=== PATIENT | female | born 1950 | race Caucasian/White ===

== ENCOUNTER → 2018-03-20 12:30 | Outpatient (CLI) | payer MEDICARE, SELFPAY ==
--- NOTE | 2018-03-20 12:35 | BI_ITS ---
MAMMOGRAPHY - BILATERAL SCREENING REASON FOR EXAM: Female, 67 years old. Routine annual screening examination. PERTINENT HISTORY: Sister with breast cancer. Mother with breast cancer. Prior ultrasound-guided right breast biopsy. TECHNIQUE: Digital bilateral breast fransico (3D mammographic acquisition) in the CC and MLO projections. 2-D mediolateral oblique (MLO) and craniocaudad (CC) views of both breasts were obtained. CAD: Full Field Digital Mammography with Computer Added Detection was performed. COMPARISON: Comparison is made with prior study dated February 20, 2017 and February 04, 2016. FINDINGS: Breast Composition: There are scattered areas of fibroglandular density. There are no dominant masses or suspicious calcifications. A tissue clip marker is seen in the inferior retroareolar region of the right breast. Stable small bilateral axillary lymph nodes. No other significant abnormalities are identified. There has been no significant change since the prior study. BI/SCREENING MAMM (CAD), BILAT IMPRESSION: Stable bilateral screening mammogram. Yearly follow-up mammogram recommended. (A) ASSESSMENT CATEGORY: BIRADS Category 2: Benign. A letter regarding these results will be sent to the patient by the facility within 30 days. Approximately 10% of breast cancers are not detected by mammography. A normal mammogram should not delay biopsy of a clinically suspicious abnormality. [id number] Electronically Signed: Marcial Mittal MD at 13:52 EST Tel [phone], Service support ,
== END ==
PROVIDERS: Family Provider Student in an Organized Health Care Education/Training Program; PCP Student in an Organized Health Care Education/Training Program; Referring Provider Nurse Practitioner Adult Health; Visit Provider Nurse Practitioner Adult Health
DX: Z12.31 Encounter for screening mammogram for malignant neoplasm of breast (principal)
CPT/HCPCS: 77063; 77067

== ENCOUNTER → 2019-03-05 10:27 | Outpatient (CLI) | payer MEDICARE, SELFPAY ==
--- NOTE | 2019-03-05 11:44 | CT_ITS ---
STUDY: CT BRAIN WITHOUT CONTRAST REASON FOR EXAM: Female, 68 years old. MEMORY LOSS, RECENT FALLS RADIATION DOSAGE (If Supplied By Facility): CTDIvol = ( 44.99 ) mGy, DLP = ( 745.49 ) mGycm TECHNIQUE: Transaxial CT imaging of the brain was performed without administration of intravenous contrast material. Individualized dose optimization techniques were used for this CT. COMPARISON: No relevant priors. FINDINGS: Normal soft tissue structures. Normal calvarium. Normal size ventricles and extra-axial spaces for the patient''s age. Normal white matter tracts of the cerebral hemispheres. Normal basal ganglia and thalami. Normal brainstem. Normal cerebellum. There is no intracranial hemorrhage. There are no findings of an acute ischemic infarction. Normal visualized paranasal sinuses. CT/Brain/Head without Contrast IMPRESSION: Chronic involutional changes of the brain. No acute hemorrhage Electronically Signed: Rolo Chowdary MD at 13:12 EST , Service support ,
[2019-03-05 12:10] LABS: CREATININE FINGERSTICK 1.2 mg/dL (0.55-1.02)
== END ==
PROVIDERS: Family Provider Student in an Organized Health Care Education/Training Program; PCP Student in an Organized Health Care Education/Training Program; Referring Provider Nurse Practitioner Family; Visit Provider Nurse Practitioner Family
DX: S09.90XA Unspecified injury of head, initial encounter (principal); R29.818 Other symptoms and signs involving the nervous system; R29.6 Repeated falls; R41.89 Other symptoms and signs involving cognitive functions and awareness
CPT/HCPCS: 70450

== ENCOUNTER → 2019-07-12 12:16 | Outpatient (CLI) | payer MEDICARE, SELFPAY ==
--- NOTE | 2019-07-12 13:00 | MRI_ITS ---
STUDY: MRI LUMBAR SPINE WITHOUT CONTRAST REASON FOR EXAM: Female, 69 years old. Back pain RADIATES INTO R THIGH X 4 MONTHS TECHNIQUE: Standardized fat and water weighted pulse sequences were obtained in the sagittal and axial planes. COMPARISON: None FINDINGS: Lumbar lordosis preserved. No significant scoliosis. Conus medullaris terminates normally at the L1 level. No acute fracture. No dislocation. No cortical destruction. L4 hemangioma. Epidural fat and short pedicles contribute to central canal narrowing. Mild paraspinal muscle atrophy. Sacrum intact. Normal aorta. Normal retroperitoneum. T12-L1: Normal endplates. Disc desiccation. Normal bilateral facet joints. Normal central canal and bilateral lateral recesses. Normal bilateral intervertebral neural foramina. L1-2: Normal endplates. Disc desiccation. Normal bilateral facet joints. Normal central canal and bilateral lateral recesses. Normal bilateral intervertebral neural foramina. L2-3: Normal endplates. Disc bulge with moderate/severe central canal narrowing. Normal bilateral facet joints. Bilateral lateral recess narrowing with impingement. Neural foraminal narrowing without impingement. L3-4: Minimal endplate spondylosis. Disc bulge with severe central canal narrowing. Facet joint arthrosis. And bilateral lateral recess narrowing with impingement. Neural foraminal narrowing without impingement. L4-5: Mild endplate spondylosis. Disc bulge with moderate central canal narrowing. Facet joint arthrosis. Lateral recess narrowing without impingement. Neural foraminal narrowing without impingement. L5-S1: Minimal endplate spondylosis. Disc bulge with mild central canal narrowing. Facet joint arthrosis. Normal bilateral lateral recesses. Neural foraminal narrowing without impingement. MRI/Spine Lumbar (Routine) IMPRESSION: Multilevel intervertebral disc disease with central canal narrowing most severe at L2-3 through L4-5 Multilevel lateral recess narrowing with improvement of the bilateral descending L3 and L4 nerve roots Multilevel neural foraminal narrowing without impingement Multilevel mild/moderate osteoarthritis Epidural fat and short pedicles contribute to central canal narrowing Electronically Signed: Brett Alvarado DO at 13:36 EDT Tel , Service support ,
== END ==
PROVIDERS: PCP Student in an Organized Health Care Education/Training Program; Referring Provider Physician Assistant; Visit Provider Physician Assistant
DX: M54.5 Low back pain (principal); M54.16 Radiculopathy, lumbar region
CPT/HCPCS: 72148

== ENCOUNTER → 2019-09-05 11:27 | Outpatient (CLI) | payer MEDICARE, SELFPAY ==
--- NOTE | 2019-09-05 11:30 | BI_ITS ---
MAMMOGRAPHY - BILATERAL SCREENING REASON FOR EXAM: Female, 69 years old. Routine annual screening examination. PERTINENT HISTORY: Sister with breast cancer. Mother with breast cancer. Prior right ultrasound-guided breast biopsy. TECHNIQUE: Digital bilateral breast ynoathan (3D mammographic acquisition) in the CC and MLO projections. 2-D mediolateral oblique (MLO) and craniocaudad (CC) views of both breasts were obtained. CAD: Full Field Digital Mammography with Computer Added Detection was performed. COMPARISON: Comparison is made with prior study dated March 20, 2018 and February 20, 2017. FINDINGS: Breast Composition: There are scattered areas of fibroglandular density. There are no dominant masses or suspicious calcifications. Stable benign-appearing bilateral axillary lymph nodes. A tissue clip marker is seen in the retroareolar region of the right breast. No other significant abnormalities are identified. There has been no significant change since the prior study. BI/SCREEN MAMM (CAD) W/YONATHAN BILAT IMPRESSION: Stable bilateral screening mammogram. Yearly follow-up mammogram recommended. (A) ASSESSMENT CATEGORY: BIRADS Category 2: Benign. A letter regarding these results will be sent to the patient by the facility within 30 days. Approximately 10% of breast cancers are not detected by mammography. A normal mammogram should not delay biopsy of a clinically suspicious abnormality. [id number] Electronically Signed: Marcial Mittal, at 12:56 EDT , Service support ,
== END ==
PROVIDERS: PCP Student in an Organized Health Care Education/Training Program; Referring Provider Student in an Organized Health Care Education/Training Program; Visit Provider Student in an Organized Health Care Education/Training Program
DX: Z12.31 Encounter for screening mammogram for malignant neoplasm of breast (principal)
CPT/HCPCS: 77063; 77067

== ENCOUNTER 2019-10-18 16:55 | Emergency (ER) | payer MEDICARE, SELFPAY ==
[2019-10-18 16:56] VITALS: BP 118/54; PULSE 80; RESP 17; TEMP 36.2; O2SAT 95; BMI 39.5
--- NOTE | 2019-10-18 17:29 | ED.VIS.GEN ---
History of Present Illness Chief Complaint: Lower Extremity Injury Informant: Patient Narrative: Patient presents the emergency department with 3 weeks of left leg swelling. Patient states she normally has some edema in the legs but they are usually symmetric with the right. For 3 weeks now she has had pain and swelling in the left leg. Today she went to the [facility] to get an injection for her plantar fasciitis and mention the swelling to them and was sent to the emergency department for duplex ultrasound as it was after hours. Patient notes the skin on the distal leg is red and warm. Patient states over the past 3 weeks her mobility has been compromised and she is now using a walker to get around. She believes this to be multifactorial from chronic back issues to her plantar fasciitis to the leg swelling. Past Medical History - Allergies and Home Meds Allergies/Adverse Reactions: Allergies cephalexin [From Keflex] Allergy (Verified 10/18/19 19:47) Rash Primary Care Physician: Erik Gomez DO [Primary Care Provider] - 3-5 Days Smoking Status: Never smoker Review of Systems General: Denies: Chills, Fever, Sweats Eyes: Denies: Visual changes - bilaterally, Diplopia ENT: Denies: Rhinorrhea, Sore throat Cardiovascular: Denies: Chest pain, Palpitations Respiratory: Denies: Dyspnea, Cough, Dyspnea on exertion Gastrointestinal: Denies: Abdominal pain, Nausea, Vomiting, Diarrhea, Melena, Hematochezia Genitourinary: Denies: Dysuria, Hematuria, Frequency Musculoskeletal: Reports: Swelling, Extremity Pain. Denies: Back pain Skin: Denies: Rash, Wounds Neurological: Denies: Headache, Weakness, Numbness Physical Exam Vital Signs/Narrative: Vital Signs Temp Pulse Resp BP Pulse Ox 10/18/19 16:56 97.1 F L 80 17 118/54 L 95 Inital Vital Signs reviewed: Yes General: Well nourished, Well developed, Obese, No Acute Distress Head: Normocephalic, Atraumatic Eyes: Perrl, EOMI ENT: Moist mucous membranes, No rhinorrhea Neck: Supple, Nontender Cardiovascular: Regular rate, Regular rhythm, No murmurs Respiratory: No distress, CTA bilaterally, Chest nontender Abdomen: Soft, Nontender, Nondistended, Normal bowel sounds Back: Nontender, Normal Inspection Extremities: Tenderness - Left leg is more edematous than the right. Diffuse tenderness to palpation. There is some mild erythema distal anterior leg that does not resolve with elevation. No palpable cords. Skin: Normal color, No rash Neurological: Alert, Oriented x3, Cranial nerves II-XII grossly intact, Normal Strength, Normal Sensation Psychological: Normal affect, Normal Mood Diagnostic/Tx/Re-eval Laboratory Last Values WBC 5.2 K/mm3 (4.4-11.0) 10/18/19 17:55 RBC 4.09 M/mm3 (4.2-5.4) L 10/18/19 17:55 Hgb 12.3 g/dL (12.0-15.0) 10/18/19 17:55 Hct 39.0 % (37-47) 10/18/19 17:55 MCV 95.4 fL (81-99) 10/18/19 17:55 MCH 30.1 pg (27.0-32.0) 10/18/19 17:55 MCHC 31.5 g/dL (32-36) L 10/18/19 17:55 RDW Std Deviation 42.9 fl (35.1-43.9) 10/18/19 17:55 RDW Coeff of Quentin 12.5 % (11.6-14.6) 10/18/19 17:55 Plt Count 232 K/mm3 (150-450) 10/18/19 17:55 MPV 9.2 fl (6.2-12.0) 10/18/19 17:55 Immature Gran % (Auto) 0.600 % (0.0-0.9) 10/18/19 17:55 Neut % (Auto) 56.7 % (47-70) 10/18/19 17:55 Lymph % (Auto) 28.7 % (19-41) 10/18/19 17:55 [place] % (Auto) 8.9 % (0-10) 10/18/19 17:55 Eos % (Auto) 4.5 % (0-5) 10/18/19 17:55 Baso % (Auto) 0.6 % (0-1) 10/18/19 17:55 Absolute Neuts (auto) 2.9 X10^3/uL (2.0-7.7) 10/18/19 17:55 Absolute Lymphs (auto) 1.48 X10^3/uL (0.83-4.51) 10/18/19 17:55 Nucleated RBC % 0 % (0-5) 10/18/19 17:55 Sodium 142 mmol/L (136-145) 10/18/19 17:55 Potassium 4.3 mmol/L (3.5-5.1) 10/18/19 17:55 Chloride 108 mmol/L (98-107) H 10/18/19 17:55 Carbon Dioxide 32.0 mmol/L (21.0-32.0) 10/18/19 17:55 Anion Gap 2 (5-15) L 10/18/19 17:55 BUN 19 mg/dL (7-18) H 10/18/19 17:55 Creatinine 1.38 mg/dL (0.55-1.02) H 10/18/19 17:55 Estim Creat Clear Calc 38.27 ml/min 10/18/19 17:55 Est GFR (MDRD) Af Amer 49 mL/min (>60) L 10/18/19 17:55 Est GFR (MDRD) Non-Af 40 mL/min (>60) L 10/18/19 17:55 BUN/Creatinine Ratio 13.8 RATIO (10-20) 10/18/19 17:55 Glucose 112 mg/dL (74-106) H 10/18/19 17:55 Calcium 8.7 mg/dL (8.5-10.1) 10/18/19 17:55 Total Bilirubin 0.50 mg/dL (0.20-1.00) 10/18/19 17:55 AST 28 U/L (15-37) 10/18/19 17:55 ALT 25 U/L (13-56) 10/18/19 17:55 Alkaline Phosphatase 74 U/L (45-117) 10/18/19 17:55 Total Protein 6.3 g/dL (6.4-8.2) L 10/18/19 17:55 Albumin 3.2 g/dL (3.2-5.0) 10/18/19 17:55 Globulin 3.1 g/dL (2.2-4.2) 10/18/19 17:55 Albumin/Globulin Ratio 1.0 RATIO (0.9-2.4) 10/18/19 17:55 - Medical Decision Making Flex ultrasound was negative for DVT. Basic labs were negative. Patient will be started on Lasix. Given the small amount of erythema of the distal leg I think is reasonable to give a trial of Keflex though she does not have a elevated white count or fever. She is to follow-up with her doctors early next week ED Disposition - Plan for ED Patient: Disposition: Home or Assisted Living Diagnosis: Lymphedema of left leg, Cellulitis of left leg Instructions: ED Peripheral Edema, Unilateral Prescriptions: Clindamycin [Cleocin] 300 mg PO TID 7 Days #63 cap Prescription Printed Furosemide [Lasix] 40 mg PO DAILY #7 tab Prescription Printed Referrals: Erik Gomez DO [Primary Care Provider] - 3-5 Days
[2019-10-18 18:02] LABS: Absolute Lymphocyte Count 1.48 X10^3/uL (0.83-4.51); Absolute Neutrophil Count 2.9 X10^3/uL (2.0-7.7); Basophil# 0.03 X10^3/uL; Basophil% 0.6 % (0-1); Eosinophil# 0.23 X10^3/uL; Eosinophils% 4.5 % (0-5); Hemoglobin 12.3 g/dL (12.0-15.0); Lymphocyte # 1.48 X10^3/ul (4.0); Lymphocyte % 28.7 % (19-41); Mean Corp Hgb Conc 31.5 g/dL (32-36); Mean Corpuscular Hgb 30.1 pg (27.0-32.0); Mean Corpuscular Volume 95.4 fL (81-99); Mean Platelet Vol. 9.2 fl (6.2-12.0); Monocyte# 0.46 X10^3/uL; Monocyte% 8.9 % (0-10); NRBC Flagged by Analyzer 0 % (0-5); Neutrophil # 2.92 X10^3/uL (2.7-7.7); Neutrophil % 56.7 % (47-70); Platelet Count 232 K/mm3 (150-450); RBC Distribution Width CV 12.5 % (11.6-14.6); RBC Distribution Width SD 42.9 fl (35.1-43.9); Red Blood Count 4.09 M/mm3 (4.2-5.4); White Blood Count 5.2 K/mm3 (4.4-11.0)
--- NOTE | 2019-10-18 18:08 | US_ITS ---
STUDY: VENOUS DOPPLER ULTRASOUND - LEFT LOWER EXTREMITY REASON FOR EXAM: Female, 69 years old. LEFT LEG SWELLING TECHNIQUE: Ultrasound evaluation of the deep vein system to include brennan-scale imaging and compression was performed. Brennan-scale imaging and Doppler sonographic evaluation, including duplex spectral analysis and qualitative color flow sonography, was performed. COMPARISON: None. FINDINGS: Common Femoral Vein: Normal compression, spontaneity and augmentation. Normal color Doppler. Common Femoral Vein/Greater Saphenous Junction: Normal compression, spontaneity and augmentation. Normal color Doppler. Deep Femoral Vein: Normal compression, spontaneity and augmentation. Normal color Doppler. Femoral Proximal: Normal compression, spontaneity and augmentation. Normal color Doppler. Femoral Middle: Normal compression, spontaneity and augmentation. Normal color Doppler. Femoral Distal: Normal compression, spontaneity and augmentation. Normal color Doppler. Popliteal Vein: Normal compression, spontaneity and augmentation. Normal color Doppler. Calf veins are visualized in limited fashion due to edema and body habitus. US/Venous Duplex Imag/Limited/Uni IMPRESSION: Normal venous Doppler ultrasound of the lower extremity. Electronically Signed: Nomi Goodman, at 19:12 EDT Tel , Service support ,
[2019-10-18 18:26] LABS: AST(SGOT) 28 U/L (15-37); Alanine Aminotransfer ALT/SGPT 25 U/L (13-56); Albumin, Serum 3.2 g/dL (3.2-5.0); Alkaline Phosphatase 74 U/L (45-117); Anion Gap 2 (5-15); BUN 19 mg/dL (7-18); BUN/Creat Ratio 13.8 RATIO (10-20); Calcium,Total 8.7 mg/dL (8.5-10.1); Chloride 108 mmol/L (98-107); Creatinine, Serum 1.38 mg/dL (0.55-1.02); EST Glomerular Filtration Rate 40 mL/min (>60); Est Glom Filt Rate - Afr Amer 49 mL/min (>60); Estimated Creatinine Clearance 38.27 ml/min; Globulin 3.1 g/dL (2.2-4.2); Glucose 112 mg/dL (74-106); Potassium 4.3 mmol/L (3.5-5.1); Protein, Total 6.3 g/dL (6.4-8.2); Sodium Level 142 mmol/L (136-145)
== END 2019-10-18 19:57 | disposition home or self-care (01) ==
PROVIDERS: Emergency Provider Emergency Medicine; PCP Student in an Organized Health Care Education/Training Program
DX: I89.0 Lymphedema, not elsewhere classified (principal); L03.116 Cellulitis of left lower limb; E66.9 Obesity, unspecified; Z79.82 Long term (current) use of aspirin
CPT/HCPCS: 80053; 85025; 93971; 99282

== ENCOUNTER → 2019-11-25 12:02 | Outpatient (CLI) | payer MEDICARE, SELFPAY | PROVIDERS: PCP Student in an Organized Health Care Education/Training Program; Referring Provider Family Medicine; Visit Provider Podiatrist Foot & Ankle Surgery | DX: S81.801A Unspecified open wound, right lower leg, initial encounter (principal) | CPT/HCPCS: 87070; 87205 ==

== ENCOUNTER 2019-11-27 12:57 | Inpatient (IN) | payer MEDICARE, SELFPAY ==
[2019-11-27] VITALS (15 sets, daily range): BP systolic 104–159; BP diastolic 55–131; PULSE 64–83; RESP 15–21; TEMP 36.1–36.7; O2SAT 94–99; BMI 43.5; BMI 43.6; BMI 47.5
--- NOTE | 2019-11-27 13:48 | EKG12_ITS ---
Test Reason : Blood Pressure : / mmHG Vent. Rate : 077 BPM Atrial Rate : 077 BPM P-R Int : 174 ms QRS Dur : 098 ms QT Int : 434 ms P-R-T Axes : 066 021 029 degrees QTc Int : 491 ms Normal sinus rhythm Nonspecific T wave abnormality Prolonged QT Abnormal ECG Confirmed by GUILLE YEAGER, ANSHUL ([id number]), editor magazine MARY GUTIERREZ ([id number]) on 12/05/2019 12:52:45 P M Referred By: FAUSTO Confirmed By:MARY HAN MD
--- NOTE | 2019-11-27 13:48 | CT_ITS ---
STUDY: CTA CHEST REASON FOR EXAM: Female, 69 years old. ELEVATED D-DIMER,DYSPNEA,SWOLLEN LEFT LEG RADIATION DOSAGE (If Supplied By Facility): CTDIvol = ( 20.57 ) mGy, DLP = ( 700.42 ) mGycm TECHNIQUE: The examination was performed with the intravenous administration of IV 100ML ISOVUE 370. Post-processing of the angiographic images was performed, with multiplanar reformation and 3D reconstruction. Individualized dose optimization techniques were used for this CT. COMPARISON: None. FINDINGS: Low-density sagittal embolus noted across the bifurcation of the main pulmonary artery into both the left and right main pulmonary arteries. There is extension of this thrombus into the upper and lower lobes on the left side and upper middle and lower lobes of the right side. There is hypodense thrombus within the right pulmonary artery than the left. Normal thoracic aorta and visualized great vessels. There is no demonstrated aortic dissection. Normal heart and pericardium. There are calcifications of the coronary arteries. Normal mediastinum. Normal hilar regions. There is peribronchial thickening. The lungs are well expanded. Diffuse interstitial edema noted in both lung hamilton consistent with CHF. There is also a pleural-based 1.3 x 1.4 cm noncalcified nodule in the right mid lateral lung field. No demonstrated effusion Normal chest wall structures. There are degenerative changes of thoracic spine. Normal visualized upper abdomen. CT/CTA Chest W/WO Contrast IMPRESSION: There is a saddle embolus in the distal main pulmonary artery crossing into both proximal left and right pulmonary arteries. There is extension of the thrombus into all 5 pulmonary lobes. More hypodense thrombus noted in the right pulmonary artery than the left. Diffuse interstitial edema in both lung hamilton suggest CHF Calcific coronary vessels Degenerative bony changes Pleural-based 1.3 x 1.4 cm noncalcified nodule in the right mid lateral lung field N.B. : The above information has been verbally conveyed by Rolo Chowdary MD to James High MD, on 11/27/2019 16:58:52 (ET). Electronically Signed: Rolo Cohwdary MD at 17:00 EDT , Service support ,
--- NOTE | 2019-11-27 13:49 | VDLE_ITS ---
Reason For Study: ELEVATED D DIMER RIGHT LEFT CFV is compressible, spontaneous, phasic, GSV is normal. competent and demonstrates normal CFV is compressible, spontaneous, phasic, augmentation. competent, and demonstrates normal FV is compressible, spontaneous, phasic, augmentation. competent and demonstrates normal PTV is compressible. augmentation. LT PerV is compressible. POP V is compressible, spontaneous, phasic, Left SFJ is PARTIALLY COMPRESSIBLE. competent and demonstrates normal Left FV is DILATED and NONCOMPRESSIBLE augmentation. Left POPV is DILATED and NONCOMPRESSIBLE T/P Trunk is compressible. Left T/P TRUNK is DILATED and PTV is compressible. NONCOMPRESSIBLE. RT PerV is compressible. Proximal calf veins are not well visualized. RT GSV is compressible from SFJ to mid calf. Mid calf to distal GSV is DILATED and NONCOMPRESSIBLE. Procedure Exam performed portable in ED. A preliminary report was called and/or faxed to ED. Interpretation Summary Acute deep vein thrombosis is noted in the left femoral vein. Acute deep vein thrombosis is noted in the left popliteal vein. Acute deep vein thrombosis is noted in the left tibio-peroneal trunk. The left posterior tibial vein and peroneal vein are patent and compressible, though the proximal portions of the left deep calf veins were not well visualized. The left common femoral vein is patent, compressible, and competent. Deep veins of the right lower extremity are patent and compressible segmentally. There is no evidence of right lower extremity deep vein thrombosis. Valvular competence appears intact within the proximal deep venous system on the right . Acute superficial thrombophlebitis is noted in the right great saphenous vein from the mid-calf to the ankle, though the right great saphenous vein is patent and compressible more proximally. The left great saphenous vein is patent and compressible. Ordering Physician: James High Referring Physician: GIBRAN STEVENS Performed By: Linda Agustin, JAYLA, RVT
--- NOTE | 2019-11-27 13:49 | ED.VIS.GEN ---
History of Present Illness Chief Complaint: Abn Labs Narrative: This patient is a 69-year-old female who was sent in due to an elevated d-dimer. She complains of left lower extremity edema for about 1 month. She was seen in the emergency department and had a negative venous duplex. She also complains of intermittent shortness of breath for the last couple of months. Her shortness of breath is worse with exertion relieved by rest. About 3 weeks ago she had an episode of burning chest pain from collarbone to epigastrium. She became diaphoretic with this. Currently she denies any chest pain or shortness of breath. She had mentioned the symptoms to her primary care physician and was referred to pulmonology and cardiology. She saw pulmonology yesterday. She had a venous duplex and lung scan ordered. However she also had blood work drawn and had an elevated d-dimer so was evaluated to present to the emergency department. She denies any history of coagulopathy. No recent travel or surgery. No prior history of DVT or pulmonary embolism. No recent hospitalization or immobilization. Past Medical History - Allergies and Home Meds Allergies/Adverse Reactions: Allergies cephalexin [From Keflex] Allergy (Verified 11/27/19 13:13) Rash clindamycin Allergy (Verified 11/27/19 13:13) Anaphylaxis Primary Care Physician: rEik Gomez DO [Primary Care Provider] - Prior records reviewed: Yes Past Medical History: - - Diabetes, hypertension, hyperlipidemia, pulmonary hypertension Smoking Status: Never smoker Review of Systems All systems negative except as indicated General: Denies: Fever Eyes: Denies: Visual changes - bilaterally ENT: Denies: Bilateral ear pain, Rhinorrhea Cardiovascular: Reports: Chest pain Respiratory: Reports: Dyspnea. Denies: Cough Gastrointestinal: Reports: Diarrhea. Denies: Abdominal pain, Nausea, Vomiting Musculoskeletal: Reports: Swelling. Denies: Myalgias, Arthralgias Skin: Denies: Rash Neurological: Denies: Headache Hematologic: Denies: Easy bruising Allergy: Denies: Uticaria Physical Exam Vital Signs/Narrative: Vital Signs Temp Pulse Resp BP Pulse Ox 11/27/19 12:59 98.0 F 83 18 118/55 L 96 Inital Vital Signs reviewed: Yes General: Well nourished, Obese Head: Normocephalic Eyes: EOMI ENT: Moist mucous membranes Neck: Supple Cardiovascular: Regular rate, Regular rhythm Respiratory: No distress, CTA bilaterally Abdomen: Soft, Nontender, Nondistended Extremities: - - Patient has symmetric bilateral lower extremity pitting edema calves are nontender she has brisk capillary refill Skin: Normal color Neurological: Alert Psychological: Normal affect Diagnostic/Tx/Re-eval 11/27/19 13:48 CTA Chest W/WO Contrast [CT] Stat Laboratory Results 11/27/19 11/27/19 11/27/19 15:15 15:15 15:15 WBC 6.5 RBC 4.66 Hgb 13.8 Hct 43.7 MCV 93.8 MCH 29.6 MCHC 31.6 L RDW Std Deviation 43.9 RDW Coeff of Quentin 12.9 Plt Count 257 MPV 9.0 Immature Gran % (Auto) 0.800 Neut % (Auto) 65.0 Lymph % (Auto) 23.7 [place] % (Auto) 6.2 Eos % (Auto) 3.7 Baso % (Auto) 0.6 Absolute Neuts (auto) 4.2 Absolute Lymphs (auto) 1.54 Nucleated RBC % 0 PT 13.4 INR 1.1 Sodium 140 Potassium 3.8 Chloride 109 H Carbon Dioxide 26.0 Anion Gap 5 BUN 19 H Creatinine 1.14 H Estim Creat Clear Calc 42.99 Est GFR (MDRD) Af Amer 61 Est GFR (MDRD) Non-Af 50 L BUN/Creatinine Ratio 16.7 Glucose 76 Calcium 8.9 Troponin I < 0.015 B-Natriuretic Peptide 11/27/19 15:15 WBC RBC Hgb Hct MCV MCH MCHC RDW Std Deviation RDW Coeff of Quentin Plt Count MPV Immature Gran % (Auto) Neut % (Auto) Lymph % (Auto) [place] % (Auto) Eos % (Auto) Baso % (Auto) Absolute Neuts (auto) Absolute Lymphs (auto) Nucleated RBC % PT INR Sodium Potassium Chloride Carbon Dioxide Anion Gap BUN Creatinine Estim Creat Clear Calc Est GFR (MDRD) Af Amer Est GFR (MDRD) Non-Af BUN/Creatinine Ratio Glucose Calcium Troponin I B-Natriuretic Peptide 616.2 H - Medical Decision Making Labs notable for BNP of 616. Venous duplex shows extensive DVT in the left leg of the femoral vein popliteal vein and T/P trunk. CT angiogram was obtained, formal radiology read pending but on my review does pulmonary embolism with saddle thrombus. Patient was started on an IV heparin infusion. She was discussed with the hospitalist who agrees to admit to the ICU. ED Disposition - Plan for ED Patient: Disposition: Acute Care Hospital [facility] Diagnosis: Pulmonary embolism, DVT (deep venous thrombosis) Referrals: Erik Gomez DO [Primary Care Provider] -
[2019-11-27 15:35] LABS: Absolute Lymphocyte Count 1.54 X10^3/uL (0.83-4.51); Absolute Neutrophil Count 4.2 X10^3/uL (2.0-7.7); Basophil# 0.04 X10^3/uL; Basophil% 0.6 % (0-1); Eosinophil# 0.24 X10^3/uL; Eosinophils% 3.7 % (0-5); Hematocrit 43.7 % (37-47); Hemoglobin 13.8 g/dL (12.0-15.0); Lymphocyte # 1.54 X10^3/ul (4.0); Lymphocyte % 23.7 % (19-41); Mean Corp Hgb Conc 31.6 g/dL (32-36); Mean Corpuscular Hgb 29.6 pg (27.0-32.0); Mean Corpuscular Volume 93.8 fL (81-99); Monocyte% 6.2 % (0-10); NRBC Flagged by Analyzer 0 % (0-5); Neutrophil # 4.23 X10^3/uL (2.7-7.7); Platelet Count 257 K/mm3 (150-450); RBC Distribution Width CV 12.9 % (11.6-14.6); RBC Distribution Width SD 43.9 fl (35.1-43.9); Red Blood Count 4.66 M/mm3 (4.2-5.4); White Blood Count 6.5 K/mm3 (4.4-11.0)
[2019-11-27 15:43] LABS: International Normalized Ratio 1.1; Prothrombin Time (Protime)PT. 13.4 SECONDS (11.7-14.9)
[2019-11-27 16:09] LABS: BNP,B-Type NATRIURETIC PEPTIDE 616.2 pg/mL (0-100)
[2019-11-27 16:16] LABS: Anion Gap 5 (5-15); BUN 19 mg/dL (7-18); BUN/Creat Ratio 16.7 RATIO (10-20); Calcium,Total 8.9 mg/dL (8.5-10.1); Chloride 109 mmol/L (98-107); Creatinine, Serum 1.14 mg/dL (0.55-1.02); EST Glomerular Filtration Rate 50 mL/min (>60); Est Glom Filt Rate - Afr Amer 61 mL/min (>60); Estimated Creatinine Clearance 42.99 ml/min; Glucose 76 mg/dL (74-106); Potassium 3.8 mmol/L (3.5-5.1); Sodium Level 140 mmol/L (136-145)
--- NOTE | 2019-11-27 16:49 | HP.PCM_ITS ---
History of Present Illness Date of Admission: 11/27/19 Chief Complaint: shortness of breath The patient is a 69 year old F with an extensive PMH as outlined who was admitted via the ED on 11/27/2019 with a complaint of shortness of breath for the past few weeks. She had also had left lower extremity swelling and edema for about a month. She had been seen in the ED over the course of the month and that had a negative duplex of left lower extremity. However she has been having some intense shortness of breath which was worsening. It was also worsened by exertion and relieved by rest. About 3 weeks ago she also had chest pain with associated diaphoresis. She went see her primary care doctor recently and sees she had an EKG and 2D echo. Per her , he states they were told that the EKG showed right ventricle enlargement and the 2D echo done also showed right ventricular enlargement and pulmonary hypertension. On the basis of those findings, they were referred to pulmonology and cardiology on account of her symptoms. She saw pulmonology yesterday (Dr Benavides) and had a venous duplex and CT of the chest ordered as well as blood work done. She was called today that her d-dimer was markedly elevated at around 7000 so she was asked come into the ED. She denied any cough, palpitations, dizziness, nausea vomiting or diarrhea. She is never had a DVT or PE before. Review of symptoms otherwise negative. She denied any recent long distance travel. In the ED vitals showed temperature of 98 Fahrenheit with blood pressure of 159/109, pulse rate of 79 and respiratory rate of 18. Chemistry showed creatinine of 1.14 initial troponin was negative. BNP was 616.2. CBC was essentially unremarkable. CTA was done and per my reading, showed extensive bilateral PE with saddle emboli. She has been admitted to be managed for submassive PE and will be admitted to the ICU. [] Past Medical History Allergies cephalexin [From Keflex] Allergy (Verified 11/27/19 13:13) Rash clindamycin Allergy (Verified 11/27/19 13:13) Anaphylaxis Home Medications: Ambulatory Orders Medication Instructions Recorded Amlodipine Besylate 1 tab PO DAILY 05/10/13 Aspirin [Aspirin, Baby] 81 mg PO DAILY@0800 05/10/13 Escitalopram Oxalate [Lexapro] 20 mg PO DAILY 05/10/13 Exenatide [Byetta (BKC)] 10 mcg SC BID 05/10/13 buPROPion XL [Wellbutrin Xl] 300 mg PO DAILY 05/10/13 Atorvastatin Calcium [Lipitor] 10 mg PO DAILY 11/27/19 Cholecalciferol (Vitamin D3) 5,000 iu PO DAILY 11/27/19 [Vitamin D3] Doxycycline 100 mg PO BID 11/27/19 Esomeprazole Magnesium [Nexium] 40 mg PO .DAILY 11/27/19 Imipramine HCl 50 mg PO QHS 11/27/19 Losartan/Hydrochlorothiazide 1 ea PO DAILY 11/27/19 [Losartan-Hctz 100-25 mg Tab] Meloxicam [Mobic] 15 mg PO DAILY 11/27/19 Metoprolol Succinate 100 mg PO DAILY 11/27/19 Potassium Chloride [Klor-Con M20] 20 meq PO DAILY 11/27/19 Ropinirole HCl [Requip] 0.5 mg PO DAILY 11/27/19 Psychiatric History: Depression Lives: Spouse/ Significant Other Smoking Status: Never smoker Alcohol: None Drugs: None - *Family History Maternal History Items: Cancer Paternal History Items: Cancer Review of Systems Constitutional: Denies: Chills, Fever, Malaise, Weakness, Weight Change Eyes: Denies: Blurred vision HEENT: Denies: Head Aches, Sinus Congestion, Sinus Drainage Cardiovascular: Denies: Chest Pain, Chest Pressure, Chest Tightness, Heaviness, Light Headedness, Palpitations Respiratory: Reports: Shortness of Breath, Shortness of breath upon exertion. Denies: Cough, Shortness of breath at rest, Sputum production Gastrointestinal: Denies: Abdominal Pain, Nausea, Vomiting Genitourinary: Denies: Dysuria Musculoskeletal: Denies: Joint Pain, Joint Tenderness Skin: Denies: Rash, Wounds Neurological: Denies: Numbness, Tingling, Focal weakness Psychiatric: Denies: Anxiety, Depression, Homicidal Ideations, Suicidal Ideations Hematologic/ Lymphatic: Denies: Easy Bruising, Easy Bleeding VTE Information - Inpt Only VTE Present on Admission: Yes - saddle PE VTE Pharm Prophylaxis ordered?: No Reason prophylaxis not ordered:: Treatment Not Indicated - Physical Exam Vitals/I&O's: Vital Signs Temp Pulse Resp BP Pulse Ox 98.0 F 79 18 159/109 H 99 11/27/19 12:59 11/27/19 16:32 11/27/19 16:32 11/27/19 16:32 11/27/19 16:32 Oxygen Delivery Method Room Air Weight: 270 lb Body Mass Index (BMI) 43.5 General: Alert, Oriented x3, Cooperative HEENT: Atraumatic, PERRLA, EOMI, Normocephalic Oral: Dry Mucosa Neck: Supple, No JVD, Negative Carotid Bruits Lungs: Clear to auscultation, Normal air movement, No rhonchi, No wheeze, No rales Cardiovascular: Regular rate, Regular Rhythm, Normal S1, Normal S2, No murmurs Abdomen: Bowel Sounds Present, Soft, Non Tender, Non-Distended, No Hepato- splenomegaly Extremities: No clubbing, No cyanosis, No edema, Capillary Refill Less than 3 Seconds Skin: No rashes, No breakdown Musculoskeletal: No Tenderness to Palpation of Joints or Extremities Lymphatic: No Cervical, Supraclavicular, or Inguinal Adenopathy Neurological: Cranial nerves II-XII grossly intact, Neuro grossly intact, Motor Exam 5/5 strength throughout Psych/Mental Status: Normal Affect, Appropriate, Alert and oriented to time, place, person, mood and affect Laboratory Results 11/27/19 15:15: WBC 6.5, RBC 4.66, Hgb 13.8, Hct 43.7, MCV 93.8, MCH 29.6, MCHC 31.6 L, RDW Std Deviation 43.9, RDW Coeff of Quentin 12.9, Plt Count 257, MPV 9.0, Immature Gran % (Auto) 0.800, Neut % (Auto) 65.0, Lymph % (Auto) 23.7, [place] % (Auto) 6.2, Eos % (Auto) 3.7, Baso % (Auto) 0.6, Absolute Neuts (auto) 4.2, Absolute Lymphs (auto) 1.54, Nucleated RBC % 0 11/27/19 15:15: PT 13.4, INR 1.1 11/27/19 15:15: Sodium 140, Potassium 3.8, Chloride 109 H, Carbon Dioxide 26.0, Anion Gap 5, BUN 19 H, Creatinine 1.14 H, Estim Creat Clear Calc 42.99, Est GFR (MDRD) Af Amer 61, Est GFR (MDRD) Non-Af 50 L, BUN/Creatinine Ratio 16.7, Glucose 76, Calcium 8.9, Troponin I < 0.015 11/27/19 15:15: B-Natriuretic Peptide 616.2 H Current Medications Heparin Sodium (Porcine) (Heparin Na) 0 unit IV UD PRN; Protocol PRN Reason: DOSAGE ADJUSTMENT NOMOGRAM Heparin Sodium (Porcine) (Heparin Na) 9,500 unit IV BOLUS ONE Stop: 11/27/19 16:51 Heparin Sodium/Sodium Chloride () 25,000 unit in 250 mls @ 16 mls/hr IV .[id number] [facility]; Protocol Assessment/Plan 69-year-old female admitted with a complaint of shortness of breath and lower extremity swelling and found to have elevated d-dimer. #Acute submassive PE * CTA per my reading shows extensive bilateral PE with saddle PE. Official reading showed saddle embolus in the distal main pulmonary artery coursing into both proximal right and left pulmonary arteries with extension of thrombus into all 5 pulmonary lobes and more dense thrombus noted in the right pulmonary arteries on the left with diffuse interstitial edema in both lungs suggestive CHF. * Denies a history of DVT or PE. * Duplex of the lower extremities: Extensive DVT in the left lower extremity veins. * BNP is also elevated at 616.2 indicating right heart strain. Troponins are not elevated. She has remained hemodynamically stable. * Will admit to ICU. Patient started on heparin drip in the ED. Will continue. * cycle troponins. * Will need age-appropriate screening for occult malignancy. She had a colonoscopy about 10 years ago and states since then she has been having stool check for occult blood. She states she just sent off a stool sample about a week ago and does not know the results yet. She also had a mammogram a few months ago, she thinks it was around September and she was told was negative. She does admit to being very sedentary over the last 3 months and states is because of back pain for which she has been receiving injections. * The only obvious precipitating factors are her weight and sedentary lifestyle as she has not had any long distance travel or any trauma to her lower extremities recently. * If patient becomes hemodynamically unstable, will need initiation of TPA * Consult critical care- discussed verbally with Dr Aguilar on phone. * Get 2D echo. * # DVT of the LLE: management as under PE above. Duplex findings as above. #Hypertension: Blood pressure stable. On amlodipine and metoprolol as well as valsartan and hydrochlorothiazide. #Type 2 diabetes mellitus: On exenatide 10 mg subcu twice daily. Insulin sliding scale. Checks AC at bedtime. #Hyperlipidemia: On Crestor. DVT prophylaxis: Not indicated as patient currently has acute bilateral PE. Code status: full code * Patient and her counseled extensively about different types of CODE STATUS including full code, DNR CCA and DNR CCA. Patient was initially very tearful, and anxious. Upon extensive counseling, patient and her elected for patient to be full code. * Patient elects to be full code. * Total [id number]-[id number] time 17 minutes. Total critical care time spent: 50 minutes. Inpatient E&M: 99815 Init Hosp L3 Procedures: 10171 Critial Care 1st Hr - advance planning [id number]
--- NOTE | 2019-11-27 17:04 | NURSING ---
ICU KORAM PE, DVT, CHF
[2019-11-27] MEDS: Heparin Injection (Vial) 5,000 UNIT/ML VIAL 9500 UNIT IV (17:05)
--- NOTE | 2019-11-27 17:09 | NURSING ---
ICU 5
[2019-11-27 17:34] LABS: Partial Thromboplast Time 24.5 Seconds (24.1-36.2)
[2019-11-27 18:41] LABS: Bedside Glucose 86 mg/dL (70-110)
[2019-11-27] MEDS: Doxycycline 100 MG CAPSULE PO (21:10)
[2019-11-27] MEDS: Imipramine HCl 25 MG Tablet 50 MG PO (21:10)
[2019-11-27 21:20] LABS: Bedside Glucose 158 mg/dL (70-110)
[2019-11-27] MEDS: Pramipexole Di-HCl 0.25 MG Tablet PO (21:54)
--- NOTE | 2019-11-27 22:30 | NURSING ---
heparin drip off Ptt greater 250.
[2019-11-27 22:31] LABS: Partial Thromboplast Time > 250.0 Seconds (24.1-36.2)
[2019-11-27] MEDS: MELATONIN 3 MG TABLET PO (22:58)
[2019-11-28] VITALS (20 sets, daily range): BP systolic 109–151; BP diastolic 62–92; PULSE 66–86; RESP 15–21; TEMP 36.6–36.9; O2SAT 95–99
--- NOTE | 2019-11-28 05:55 | ECHOCS_ITS ---
Reason For Study: PULM EMBOLISM Procedure This was a 2D Doppler, Color Flow transthoracic echocardiogram. Exam performed portable in ICU/CCU. Left Ventricle Normal LV size. No evidence for diastolic dysfunction. The estimated ejection fraction is 60 %. No regional wall motion abnormalities noted. Right Ventricle Moderately dilated right ventricle. Mild global right ventricular systolic dysfunction. Atria Normal left atrium. Normal right atrium. No doppler evidence for ASD. Mitral Valve There is no mitral valve stenosis. No mitral valve insufficiency. Tricuspid Valve There is no tricuspid stenosis. Trivial tricuspid valve insufficiency. Unable to estimate RV systolic pressure due to insufficient tricuspid regurgitant envelope. Aortic Valve Trisinus/trileaflet aortic valve. There is no aortic stenosis. No aortic valve insufficiency. Pulmonic Valve There is no pulmonic valvular stenosis. Trivial pulmonic valve insufficiency. Great Vessels Normal aortic root. Pericardium/Pleural No pericardial effusion. Medication Diluted definity 2ml given slow IV push to enhance endocardial definition. MMode/2D Measurements & Calculations LVIDd: 4.1 cm IVSd: 0.93 cm Ao root diam: 3.2 cm LVIDs: 2.7 cm LVPWd: 1.0 cm RVDd: 4.2 cm FS: 34.1 % LAV(MOD-bp): 45.0 ml LVAd ap4: 28.5 cm2 SV(MOD-sp4): 59.7 ml LAV(MOD-bp) Indexed: 19.1 ml/m2 EDV(MOD-sp4): 91.9 ml LAV(MOD-sp2): 42.4 ml EDV(sp4-el): 95.0 ml LAV(MOD-sp4): 46.5 ml LVAs ap4: 15.5 cm2 ESV(MOD-sp4): 32.2 ml ESV(sp4-el): 33.1 ml EF(MOD-sp4): 64.9 % EF(sp4-el): 65.1 % SV(sp4-el): 61.8 ml LA A4 area: 18.3 cm2 LA dimension(2D): 3.0 cm RA A4 area: 17.3 cm2 Time Measurements MV dec time: 0.20 sec Doppler Measurements & Calculations MV E max brodie: 73.1 cm/sec Lat Peak E' Brodie: 8.3 cm/sec Med Peak E' Brodie: 6.7 cm/sec MV A max brodie: 85.9 cm/sec E/E' lat: 8.8 E/E' med: 10.9 MV E/A: 0.85 Ao V2 max: 137.2 cm/sec LV V1 max: 110.5 cm/sec PA V2 max: 103.8 cm/sec Ao max P.5 mmHg LV V1 max P.9 mmHg TR max brodie: 239.9 cm/sec TR max P.0 mmHg Interpretation Summary The estimated ejection fraction is 60 %. No evidence for diastolic dysfunction. Moderately dilated right ventricle. Mild global right ventricular systolic dysfunction. Trivial tricuspid valve insufficiency. Ordering Physician: Bailee Griffin Referring Physician: GIBRAN STEVENS Performed By: Kaitlin Alberto RDCS
--- NOTE | 2019-11-28 06:21 | CON.PCM_ITS ---
Reason for Consult Date of Consultation: 11/28/19 Reason for Consultation: Saddle PE History of Present Illness: The patient is a 69-year-old female, with a history as outlined below, who presented to the emergency department on November 26 after she was found to have an elevated d-dimer level by an outside provider. The patient reported that approximately 3 weeks ago she had some self-limited chest discomfort and shortness of breath. She denied a personal history of venous thromboembolic disease. She denied a history of familial hypercoagulability. The patient denied any recent travel, but does report that she lives a rather sedentary lifestyle. She does have a known history of obstructive sleep apnea, for which she reportedly utilizes nocturnal CPAP therapy. She was apparently evaluated by a pulmonary provider at [facility] 2 days ago, who had apparently ordered a CT of her chest along with lower extremity Doppler studies. On presentation to the emergency department, the patient was noted to be afebrile and hemodynamically stable. She was maintaining appropriate oxygen saturations on room air. Laboratory evaluation revealed a normal CBC with differential. Coagulation profile was within normal limits. Chemistry profile was largely unrevealing. Troponin was negative. BNP was elevated to 616. A CTA chest was obtained which revealed evidence of a saddle embolism with extensive clot burden bilaterally. There is also note of a 1 cm noncalcified nodule in the right mid lateral lung field. Lower extremity Doppler studies were obtained and did reveal evidence of DVT in the left lower extremity. The patient was subsequently placed on a heparin infusion and admitted to the medical intensive care unit for further management. Past Medical History Allergies cephalexin [From Keflex] Allergy (Verified 11/27/19 13:13) Rash clindamycin Allergy (Verified 11/27/19 13:13) Anaphylaxis Home Medications: Ambulatory Orders Medication Instructions Recorded Amlodipine Besylate 1 tab PO DAILY 05/10/13 Escitalopram Oxalate [Lexapro] 20 mg PO DAILY 05/10/13 Exenatide [Byetta (BKC)] 10 mcg SC BID 05/10/13 buPROPion XL [Wellbutrin Xl] 300 mg PO DAILY 05/10/13 Atorvastatin Calcium [Lipitor] 10 mg PO DAILY 11/27/19 Cholecalciferol (Vitamin D3) 5,000 iu PO DAILY 11/27/19 [Vitamin D3] Doxycycline 100 mg PO BID 11/27/19 Esomeprazole Magnesium [Nexium] 40 mg PO .DAILY 11/27/19 Imipramine HCl 50 mg PO QHS 11/27/19 Losartan/Hydrochlorothiazide 1 ea PO DAILY 11/27/19 [Losartan-Hctz 100-25 mg Tab] Metoprolol Succinate 100 mg PO DAILY 11/27/19 Potassium Chloride [Klor-Con M20] 20 meq PO DAILY 11/27/19 Ropinirole HCl [Requip] 0.5 mg PO DAILY 11/27/19 Acetaminophen [Tylenol Tablet] 650 mg PO Q6H PRN PRN tab 11/28/19 Apixaban [Eliquis] 10 mg PO BID #74 tab 11/28/19 Pantoprazole Sodium [Protonix] 40 mg PO DAILY #30 tab 11/28/19 Prednisone 20 mg PO UD #24 tab 11/28/19 traMADol [Ultram] 50 - 100 mg PO Q6H PRN PRN 7 Days 11/28/19 #56 tab Psychiatric History: Depression Lives: Spouse/ Significant Other Smoking Status: Never smoker Tobacco Use: Non-smoker Alcohol: None Drugs: None - *Family History Maternal History Items: Cancer Paternal History Items: Cancer Review of Systems Constitutional: Denies: Chills, Fever, Weight Change Eyes: Denies: Blurred vision, Double vision HEENT: Denies: Head Aches, Sinus Congestion, Sinus Drainage Cardiovascular: Denies: Chest Pain, Palpitations Respiratory: Denies: Cough, Shortness of breath at rest, Sputum production Gastrointestinal: Denies: Abdominal Pain, Nausea, Vomiting Genitourinary: Denies: Dysuria Musculoskeletal: Denies: Joint Pain, Joint Tenderness Skin: Denies: Rash, Wounds Neurological: Denies: Numbness, Tingling, Focal weakness Psychiatric: Denies: Anxiety, Depression, Homicidal Ideations, Suicidal Ideations Hematologic/ Lymphatic: Denies: Hx of blood clot Objective: The patient's most recent lab work, culture data and imaging studies have all been personally reviewed. - Physical Exam Vitals/I&O's: Vital Signs Temp Pulse Resp BP Pulse Ox 98 F 72 18 132/68 H 98 11/28/19 04:00 11/28/19 05:00 11/28/19 05:00 11/28/19 05:00 11/28/19 05:00 Oxygen Flow Rate (L/min) 2 Oxygen Delivery Method Nasal Cannula Weight: 295 lb 3.183 oz Body Mass Index (BMI) 47.5 Intake and Output for Last 24 Hours 11/26/19 11/27/19 11/28/19 23:59 23:59 23:59 Intake Total 526.4 / 526.4 0 / 0 Output Total 175 / 175 Balance 351.4 / 351.4 0 / 0 General: Alert, Cooperative, No apparent distress HEENT: Atraumatic, PERRLA, Normocephalic Oral: No Gingival or Mucosal Lesions/ Ulcerations Neck: Supple, No Nodes, Trachea Midline Lungs: Normal air movement, No rhonchi, No wheeze, No rales Cardiovascular: Regular rate, Regular Rhythm Abdomen: Bowel Sounds Present, Soft, Non Tender, Obese Extremities: No clubbing, No cyanosis, No edema Skin: No breakdown Musculoskeletal: No Tenderness to Palpation of Joints or Extremities Lymphatic: No Cervical, Supraclavicular, or Inguinal Adenopathy Neurological: Cranial nerves II-XII grossly intact, Neuro grossly intact Psych/Mental Status: Alert and oriented to time, place, person, mood and affect Labs (Last 48 Hours) 11/27/19 11/27/19 11/27/19 15:15 15:15 15:15 WBC 6.5 RBC 4.66 Hgb 13.8 Hct 43.7 MCV 93.8 MCH 29.6 MCHC 31.6 L RDW Std Deviation 43.9 RDW Coeff of Quentin 12.9 Plt Count 257 MPV 9.0 Immature Gran % (Auto) 0.800 Neut % (Auto) 65.0 Lymph % (Auto) 23.7 [place] % (Auto) 6.2 Eos % (Auto) 3.7 Baso % (Auto) 0.6 Absolute Neuts (auto) 4.2 Absolute Lymphs (auto) 1.54 Nucleated RBC % 0 PT 13.4 INR 1.1 APTT Sodium 140 Potassium 3.8 Chloride 109 H Carbon Dioxide 26.0 Anion Gap 5 BUN 19 H Creatinine 1.14 H Estim Creat Clear Calc 42.99 Est GFR (MDRD) Af Amer 61 Est GFR (MDRD) Non-Af 50 L BUN/Creatinine Ratio 16.7 Glucose 76 Calcium 8.9 Troponin I < 0.015 B-Natriuretic Peptide POC Glucose 11/27/19 11/27/19 11/27/19 15:15 15:15 18:33 WBC RBC Hgb Hct MCV MCH MCHC RDW Std Deviation RDW Coeff of Quentin Plt Count MPV Immature Gran % (Auto) Neut % (Auto) Lymph % (Auto) [place] % (Auto) Eos % (Auto) Baso % (Auto) Absolute Neuts (auto) Absolute Lymphs (auto) Nucleated RBC % PT INR APTT 24.5 Sodium Potassium Chloride Carbon Dioxide Anion Gap BUN Creatinine Estim Creat Clear Calc Est GFR (MDRD) Af Amer Est GFR (MDRD) Non-Af BUN/Creatinine Ratio Glucose Calcium Troponin I B-Natriuretic Peptide 616.2 H POC Glucose 86 11/27/19 11/27/19 11/27/19 19:20 21:07 21:53 WBC RBC Hgb Hct MCV MCH MCHC RDW Std Deviation RDW Coeff of Quentin Plt Count MPV Immature Gran % (Auto) Neut % (Auto) Lymph % (Auto) [place] % (Auto) Eos % (Auto) Baso % (Auto) Absolute Neuts (auto) Absolute Lymphs (auto) Nucleated RBC % PT INR APTT > 250.0 H* Sodium Potassium Chloride Carbon Dioxide Anion Gap BUN Creatinine Estim Creat Clear Calc Est GFR (MDRD) Af Amer Est GFR (MDRD) Non-Af BUN/Creatinine Ratio Glucose Calcium Troponin I < 0.015 B-Natriuretic Peptide POC Glucose 158 H 11/27/19 21:53 WBC RBC Hgb Hct MCV MCH MCHC RDW Std Deviation RDW Coeff of Quentin Plt Count MPV Immature Gran % (Auto) Neut % (Auto) Lymph % (Auto) [place] % (Auto) Eos % (Auto) Baso % (Auto) Absolute Neuts (auto) Absolute Lymphs (auto) Nucleated RBC % PT INR APTT Sodium Potassium Chloride Carbon Dioxide Anion Gap BUN Creatinine Estim Creat Clear Calc Est GFR (MDRD) Af Amer Est GFR (MDRD) Non-Af BUN/Creatinine Ratio Glucose Calcium Troponin I < 0.015 B-Natriuretic Peptide POC Glucose Clinical Impression(s) from Imaging Studies Chest CTA 11/27/19 13:48 IMPRESSION: There is a saddle embolus in the distal main pulmonary artery crossing into both proximal left and right pulmonary arteries. There is extension of the thrombus into all 5 pulmonary lobes. More hypodense thrombus noted in the right pulmonary artery than the left. Diffuse interstitial edema in both lung hamilton suggest CHF Calcific coronary vessels Degenerative bony changes Pleural-based 1.3 x 1.4 cm noncalcified nodule in the right mid lateral lung field N.B. : The above information has been verbally conveyed by Rolo Chowdary MD to James High MD, on 11/27/2019 16:58:52 (ET). Electronically Signed: Rolo Chowdary MD at 17:00 EDT , Service support , ADDENDUM: 11/27/19 1707 IMPRESSION: There is a saddle embolus in the distal main pulmonary artery crossing into both proximal left and right pulmonary arteries. There is extension of the thrombus into all 5 pulmonary lobes. More hypodense thrombus noted in the right pulmonary artery than the left. Diffuse interstitial edema in both lung [place]ilton suggest CHF Calcific coronary vessels Degenerative bony changes Pleural-based 1.3 x 1.4 cm noncalcified nodule in the right mid lateral lung field N.B. : The above information has been verbally conveyed by Rolo Chowdary MD to James High MD, on 11/27/2019 16:58:52 (ET). Electronically Signed: Rolo Chowdary MD at 17:00 EDT , Service support , Current Medications Acetaminophen (Tylenol) 650 mg PO Q6H PRN PRN PRN Reason: Pain Score 1-10/Temp > 100.7 F Atorvastatin Calcium (Lipitor) 10 mg PO QHS JIMMY Bupropion HCl (Wellbutrin Xl) 300 mg PO DAILY JIMMY Cholecalciferol (Vitamin D (25mcg)) 5,000 unit PO DAILY JIMMY Dextrose (D50w Syringe) 0 gm IV X1 PRN; Protocol PRN Reason: Hypoglycemia Doxycycline Monohydrate (Doxycycline) 100 mg PO BID JIMMY Stop: 12/03/19 22:01 Last Admin: 11/27/19 21:10 Dose: 100 mg Documented by: Escitalopram Oxalate (Lexapro) 20 mg PO DAILY JIMMY Glucagon () 1 mg IM .X1 PRN PRN Reason: Hypoglycemia Heparin Sodium (Porcine) (Heparin Na) 0 unit IV UD PRN; Protocol PRN Reason: DOSAGE ADJUSTMENT NOMOGRAM Heparin Sodium/Sodium Chloride () 25,000 unit in 250 mls @ 16 mls/hr IV .[id number] [facility]; Protocol Last Titration: 11/28/19 00:25 Dose: 1,300 units/hr, 13 mls/hr Documented by: Imipramine HCl (Tofranil) 50 mg PO QHS [facility] Last Admin: 11/27/19 21:10 Dose: 50 mg Documented by: Insulin Human Lispro (Humalog Kwikpen (Bkc)) 0 unit SC ACHS [facility]; Protocol Last Admin: 11/27/19 21:09 Dose: Not Given Documented by: Melatonin (Melatonin) 3 mg PO QHS [facility] Last Admin: 11/27/19 22:58 Dose: 3 mg Documented by: Nitroglycerin (Nitrostat) 0.4 mg SUBLINGUAL Q5M PRN PRN Reason: CARDIAC/CHEST PAIN Nutritional Formula (Lactose Free) (Glucerna Shake) 120 ml PO TIDCM JIMMY Ondansetron HCl (Zofran) 4 mg IV Q8H PRN PRN PRN Reason: NAUSEA/VOMITING Pantoprazole Sodium (Protonix) 40 mg PO DAILY JIMMY Potassium Chloride (K-Dur) 20 meq PO DAILYCM JIMMY Pramipexole Dihydrochloride (Mirapex) 0.25 mg PO QHS [facility] Last Admin: 11/27/19 21:54 Dose: 0.25 mg Documented by: Sodium Chloride () 10 - 40 ml IV UD PRN PRN Reason: SALINE FLUSH Assessment/Plan RECOMMENDATIONS: 1. Wean supplemental oxygen to maintain saturations at or above 90%. 2. Surface echocardiogram is pending. 3. Encourage incentive spirometer use and mobilize patient as tolerated. 4. Okay to transition from continuous heparin infusion to either Eliquis or Xarelto, depending on insurance coverage. 5. Follow-up in the pulmonary medicine clinic within 2 weeks of discharge. IMPRESSIONS: 1. Saddle pulmonary embolism with extensive clot burden bilaterally Submassive PE The patient has remained hemodynamically stable overnight. She is currently quite asymptomatic from a respiratory perspective. Although she has been maintained on a heparin infusion, she can be transitioned to either Eliquis or Xarelto beginning today. I would plan to perform a walking oximetry study prior to consideration for discharge home. Surface echocardiogram is currently pending. I would recommend that the patient remain on systemic anticoagulation indefinitely from this point moving forward. The patient should ideally follow- up in the pulmonary medicine clinic within 2 weeks of discharge. 2. DVT of left lower extremity/hypertension/diabetes mellitus/hyperlipidemia/obesity/obstructive sleep apnea Complicates care, management, recovery and prognosis. Continue management of DVT as outlined in #1. Continue home medications. Continue nocturnal CPAP therapy per home regimen. This note was generated with [employer] dictation software. It may contain incorrect words, spelling, and punctuation that were not noted in checking the note before signing. Inpatient E&M: 16148 Init Hosp L3
[2019-11-28 06:34] LABS: Absolute Lymphocyte Count 1.81 X10^3/uL (0.83-4.51); Absolute Neutrophil Count 3.1 X10^3/uL (2.0-7.7); Basophil# 0.02 X10^3/uL; Basophil% 0.4 % (0-1); Eosinophil# 0.22 X10^3/uL; Hematocrit 38.5 % (37-47); Hemoglobin 12.3 g/dL (12.0-15.0); Lymphocyte # 1.81 X10^3/ul (4.0); Lymphocyte % 32.7 % (19-41); Mean Corp Hgb Conc 31.9 g/dL (32-36); Mean Corpuscular Hgb 29.9 pg (27.0-32.0); Mean Corpuscular Volume 93.4 fL (81-99); Mean Platelet Vol. 8.9 fl (6.2-12.0); Monocyte# 0.37 X10^3/uL; Monocyte% 6.7 % (0-10); NRBC Flagged by Analyzer 0 % (0-5); Neutrophil # 3.08 X10^3/uL (2.7-7.7); Neutrophil % 55.5 % (47-70); Platelet Count 240 K/mm3 (150-450); RBC Distribution Width CV 12.9 % (11.6-14.6); Red Blood Count 4.12 M/mm3 (4.2-5.4); White Blood Count 5.5 K/mm3 (4.4-11.0)
[2019-11-28 06:47] LABS: Anion Gap 4 (5-15); BUN 17 mg/dL (7-18); BUN/Creat Ratio 16.5 RATIO (10-20); Calcium,Total 8.9 mg/dL (8.5-10.1); Chloride 104 mmol/L (98-107); Creatinine, Serum 1.03 mg/dL (0.55-1.02); EST Glomerular Filtration Rate 56 mL/min (>60); Est Glom Filt Rate - Afr Amer 68 mL/min (>60); Estimated Creatinine Clearance 47.58 ml/min; Glucose 136 mg/dL (74-106); Potassium 3.8 mmol/L (3.5-5.1); Sodium Level 140 mmol/L (136-145)
[2019-11-28 07:00] LABS: Partial Thromboplast Time 89.9 Seconds (24.1-36.2)
[2019-11-28 08:01] LABS: Bedside Glucose 140 mg/dL (70-110)
--- NOTE | 2019-11-28 09:31 | CASEMGMT ---
MARAL WRIGHT assessment: Face to Face with patient for initial transition planning/care coordination assessment. MARAL WRIGHT introduced self and role at [facility], pt voices understanding and consents to assessment at this time. Pt is sitting up in bed in no distress at this time on 2liters nc at 100%. Pt is A/Ox4 at this time and answers all questions appropriately at this time. Care providers, pharmacy, and demographics verified/updated at this time. Presentation: Pt has swollen left leg and increased SOB last few weeks-sent in by pulm for elev ddimer Admitting dx: PE PCP: Jason Specialists: [facility]; [facility]m Preferred Pharmacy: [facility] Insurance: AeR Prescription Benefit: AeR Living Will/HPOA: Pt states has a LW/HPOA but only the LW is on file at [facility] at this time, pt is aware and states she will bring in when able. Pt states her , Low Calderon, is HPOA. LNOK: Low Calderon, Living Arrangements: Pt states lives with in 1 story home with laundry in basement and states has had decrease in ADL's d/t plantar fascitis in bilat feet. Transportation: Pt states drives and states no transportation concerns at this time. DME/HHC: Pt states has a walker, grab bars, and shower chair and states no need for any further DME at this time. Pt states no hx of HHC or SNF in the past. Pt states no concerns with going home at time of discharge. Pt states is retired. Pt states does not smoke or drink ETOH. Pt states no further concerns/needs at this time. CM to follow for any further discharge planning/needs. Advised pt to ask for CM if any further questions/concerns/needs arise, voices understanding Pt Goal: Home Plan[place] MARAL WRIGHT
[2019-11-28] MEDS: buPROPion (XL) 300 MG TABLET.XL PO (09:44)
[2019-11-28] MEDS: Doxycycline 100 MG CAPSULE PO (09:45)
[2019-11-28] MEDS: Pantoprazole Sodium 40 MG Tablet PO (09:45)
[2019-11-28] MEDS: Escitalopram Oxalate 20 MG Tablet PO (10:22)
--- NOTE | 2019-11-28 11:25 | CASEMGMT ---
Per Dr. Agustin, pt will most likely go home on Eliquis at discharge and pt provided with 30 day free trial card at this time. Therapy at bedside at this time and aware that pt does not normally wear O2 at home. Pt is currently 100% on 2 liters nc at this time. CM to follow for PT/OT evals. Dr. Agustin is aware of pt's plantar fascitis at this time. SStkamlesh RN CM
[2019-11-28 11:26] LABS: Bedside Glucose 170 mg/dL (70-110)
[2019-11-28] MEDS: Insulin Lispro 100 UNIT/ML INSULN.PEN SC (12:09)
[2019-11-28 13:15] LABS: Partial Thromboplast Time 70.7 Seconds (24.1-36.2)
--- NOTE | 2019-11-28 14:41 | CHAPLAIN ---
Type of Pastoral Visit _x__ Initial Visit ___ Follow-up Visit ___ On-call Visit ___ General Patient Visit ___ Spiritual Assessment ___ Family Conference ___ Bereavement ___ Rapid Response ___ Code Blue ___ Other (describe below) Pastoral Care Referral From _x__ Patient ___ Family ___ Nurse ___ Physician ___ Etiology Teacher ___ Airconditioning Engineer ___ Other (describe below) Sacrament/Intervention _x__ Active listening ___ Anointing ___ Jew ___ Bereavement ___ Communion _x__ Patti exploration ___ _x__ Life review _x__ Prayer ___ Reconciliation ___ Sacrament of Sick _x__ Supportive presence ___ Wedding ___ Other (describe below) Pastoral Comments patient is welcoming and engages in conversation easily; pt has several spiritually related questions to discuss; pt states that she would like prayer for support as well; pt is not actively engaged in a faith at this time; pt spouse has had significant health issues in recent years
--- NOTE | 2019-11-28 15:07 | DCINST_ITS ---
You will use the following diet at home:: No restrictions Your food should be the consistency of: Regular Your liquids should be the consistency of: Regular/Thin Discharge Activity: Return to Normal Activity Weight Bearing Status: Full weight bearing Additional Instructions: Take only Tylenol and/or Tramadol for pain. Do not take Alleve, Ibuprofen, or Mobic for pain. Do not take Doxycycline Allergies/Adverse Reactions: Allergies cephalexin [From Keflex] Allergy (Verified 11/27/19 13:13) Rash clindamycin Allergy (Verified 11/27/19 13:13) Anaphylaxis Medications to take at Discharge Amlodipine Besylate 1 tab PO DAILY 05/10/13 Escitalopram Oxalate [Lexapro] 20 mg PO DAILY 05/10/13 Exenatide [Byetta (BKC)] 10 mcg SC BID 05/10/13 buPROPion XL [Wellbutrin Xl] 300 mg PO DAILY 05/10/13 Atorvastatin Calcium [Lipitor] 10 mg PO DAILY 11/27/19 Cholecalciferol (Vitamin D3) [Vitamin D3] 5,000 iu PO DAILY 11/27/19 Doxycycline 100 mg PO BID 11/27/19 Esomeprazole Magnesium [Nexium] 40 mg PO .DAILY 11/27/19 Imipramine HCl 50 mg PO QHS 11/27/19 Losartan/Hydrochlorothiazide [Losartan-Hctz 100-25 mg Tab] 1 ea PO DAILY 11/27/19 Metoprolol Succinate 100 mg PO DAILY 11/27/19 Potassium Chloride [Klor-Con M20] 20 meq PO DAILY 11/27/19 Ropinirole HCl [Requip] 0.5 mg PO DAILY 11/27/19 Acetaminophen [Tylenol Tablet] 650 mg PO Q6H PRN PRN tab 11/28/19 Apixaban [Eliquis] 10 mg PO BID #74 tab 11/28/19 Pantoprazole Sodium [Protonix] 40 mg PO DAILY #30 tab 11/28/19 Prednisone 20 mg PO UD #24 tab 11/28/19 traMADol [Ultram] 50 - 100 mg PO Q6H PRN PRN 7 Days #56 tab 11/28/19 The following prescriptions were given: Apixaban [Eliquis] 10 mg PO BID #74 tab Transmission Status: Received by MATI THORPE RD Prednisone 20 mg PO UD #24 tab Transmission Status: Received by MATI THORPE RD Pantoprazole Sodium [Protonix] 40 mg PO DAILY #30 tab Transmission Status: Received by MATI THORPE RD traMADol [Ultram] 50 - 100 mg PO Q6H PRN PRN 7 Days #56 tab PRN Reason: Pain Score 1-10/10 Transmission Status: Received by MATI THORPE RD Primary Care Physician: Erik Gomez DO [Primary Care Provider] - Please follow up with your Primary Care Physician in: at regular appointment time Test Results: Test results from this visit will be discussed in further detail at your follow- up appointment, if applicable. Please Follow Up With: Romel Aguilar DO When: in two weeks-call for appointment
[2019-11-28] MEDS: APIXABAN 5 MG TABLET 10 MG PO (16:39)
--- NOTE | 2019-11-30 07:49 | PCM.DC.SUM ---
Discharge Date and Diagnosis Date of Admission: 11/27/19 Date of Discharge: 11/28/19 - Primary Discharge Diagnosis Acute Problems: #1 saddle pulmonary embolus distal main pulmonary artery #2 deep venous thrombosis of the left lower extremity #3 essential hypertension #4 type 2 diabetes #5 morbid obesity #6 obstructive sleep apnea #7 hyperlipidemia #8 chronic plantar fasciitis #9 hypoxia secondary to #1 #10 pulmonary congestion secondary to #1 #11 pulmonary nodule Hospital Course and Treatment Operations: None Procedures: 2-D Echocardiogram Summary of Care Provided: The patient is a 69 year old F seen in the emergency room at [facility] after having an outpatient d-dimer performed which was elevated. Patient complained of left lower extremity edema for approximately a month, she was seen in the emergency department in October 2019 and had a negative venous duplex scan of the left lower extremity. Patient complained of intermittent shortness of breath for the last couple of months but her shortness of breath was worse recently, she was referred to pulmonary medicine who saw the patient the day before going to the emergency room and a venous duplex and a lung scan was ordered. Blood work was also drawn, her d-dimer was elevated and she was sent to the ER for evaluation. CTA of the chest revealed a saddle embolus with extensive pulmonary emboli in both lungs, there was also noted to be an extensive DVT in the left leg on her venous duplex scan. Patient was started on IV heparin, she required 2 L of oxygen to maintain her oxygen saturation, and she was transferred to the ICU for further care. Oxygen was able be weaned off in the ICU and the patient was less dyspneic. She was evaluated on 11/28/2019, she was in no respiratory distress and her vital signs were stable. Options were discussed with the patient, it was felt that the patient will be safe for discharge home on anticoagulation, pulse ox at rest was well above 90%, pulse ox on ambulation however was 87% but the patient declined oxygen set up at home-this examiner felt that she probably did not need oxygen as she was not very ambulatory at home due to chronic plantar fasciitis. On 11/28/2019, patient was seen and examined: On examination she appeared in good health and spirits, she does not appear to be in any distress. Vital signs as documented. Skin warm and dry and without overt rashes. Neck without JVD, thyroid appears normal, trachea is midline, neck is supple. Lungs clear, normal air movement was noted. Heart exam notable for regular rhythm, normal sounds and absence of murmurs, rubs or gallops. Abdomen unremarkable and without evidence of organomegaly, masses, or abdominal aortic enlargement, bowel sounds are present in all 4 quadrants, no abdominal tenderness was noted. Patient is morbidly obese Extremities-generalized pitting edema is noted over the left lower extremity, no cyanosis was noted, no clubbing was noted. Neuro: Cranial nerves II through XII are grossly intact, no focal motor deficits were noted, sensation to light touch and pinprick is intact, motor exam 5/5 throughout. Psych: Patient is alert and oriented x3, she does not appear anxious or depressed, she does not appear agitated. I contacted the patient's priming machine operator prior to the patient being discharged, I placed the patient on a tapering dose of prednisone as an outpatient for her plantar fasciitis. Patient was started on Eliquis 10 mg twice daily, she was given a prescription for Ultram for outpatient use for pain. She was cautioned not to take any nonsteroidal anti-inflammatory agents, she was placed on Protonix for 30 days for GI protection. Patient's echocardiogram showed some right ventricular strain, EF was preserved. Patient was instructed to follow-up with pulmonary medicine. On 11/28/2019, patient was seen and examined and felt to be stable for discharge home. Patient was also advised to follow-up with pulmonary medicine concerning her pulmonary nodule and her right mid lateral lung field. This was detected on her CTA of the chest. - Physical Exam Vitals/I&O's: Vital Signs Temp Pulse Resp BP Pulse Ox 98.4 F 73 21 H 120/62 97 11/28/19 12:00 11/28/19 14:00 11/28/19 14:00 11/28/19 14:11/28/19 14:00 Oxygen Flow Rate (L/min) 2 Oxygen Delivery Method Room Air Weight: 133.9 kg Body Mass Index (BMI) 47.5 Intake and Output for Last 24 Hours 11/28/19 11/29/19 11/30/19 23:59 23:59 23:59 Intake Total 403.60 / 403.60 Output Total 675 / 675 Balance -271.40 / -271.40 Discharge Activity: Return to Normal Activity Weight Bearing Status: Full weight bearing Home Medications: Medications to take at Discharge Amlodipine Besylate 1 tab PO DAILY 05/10/13 Escitalopram Oxalate [Lexapro] 20 mg PO DAILY 05/10/13 Exenatide [Byetta (BKC)] 10 mcg SC BID 05/10/13 buPROPion XL [Wellbutrin Xl] 300 mg PO DAILY 05/10/13 Atorvastatin Calcium [Lipitor] 10 mg PO DAILY 11/27/19 Cholecalciferol (Vitamin D3) [Vitamin D3] 5,000 iu PO DAILY 11/27/19 Doxycycline 100 mg PO BID 11/27/19 Esomeprazole Magnesium [Nexium] 40 mg PO .DAILY 11/27/19 Imipramine HCl 50 mg PO QHS 11/27/19 Losartan/Hydrochlorothiazide [Losartan-Hctz 100-25 mg Tab] 1 ea PO DAILY 11/27/19 Metoprolol Succinate 100 mg PO DAILY 11/27/19 Potassium Chloride [Klor-Con M20] 20 meq PO DAILY 11/27/19 Ropinirole HCl [Requip] 0.5 mg PO DAILY 11/27/19 Acetaminophen [Tylenol Tablet] 650 mg PO Q6H PRN PRN tab 11/28/19 Apixaban [Eliquis] 10 mg PO BID #74 tab 11/28/19 Pantoprazole Sodium [Protonix] 40 mg PO DAILY #30 tab 11/28/19 Prednisone 20 mg PO UD #24 tab 11/28/19 traMADol [Ultram] 50 - 100 mg PO Q6H PRN PRN 7 Days #56 tab 11/28/19 Following Prescriptions Were Given to Patient: Apixaban [Eliquis] 10 mg PO BID #74 tab Transmission Status: Re[facility] by [facility] Prednisone 20 mg PO UD #24 tab Transmission Status: Received by [facility] Pantoprazole Sodium [Protonix] 40 mg PO DAILY #30 tab Transmission Status: Received by [facility] traMADol [Ultram] 50 - 100 mg PO Q6H PRN PRN 7 Days #56 tab PRN Reason: Pain Score 1-10/10 Transmission Status: Received by [facility] Primary Care Physician: Erik Gomez DO [Primary Care Provider] - Please follow up with your Primary Care Physician in: at regular appointment time Please Follow Up With: Romel Aguilar, DO When: in two weeks-call for appointment Disposition: Home Minutes spent on discharge:: 32 Patient Condition:: Stable Medical Necessity - Tobacco Use Smoking Status: Never smoker Tobacco Use: Non-smoker Meaningful Use Info Meaningful Use Diagnoses (Choose all that apply): VTE - VTE Anticoag overlap given w/in hospital stay or rx'd at dc?: Yes Pt receive overlap for 5 days?: No Reason overlap not ordered, prescribed, or given for 5 days: Treatment Not Indicated Inpatient E&M: 33351 [facility]
== END 2019-11-28 16:45 | disposition home or self-care (01) | DRG 176 ==
LOC: ED 16:56 → ICU 17:08
PROVIDERS: Admitting Provider Student in an Organized Health Care Education/Training Program; Emergency Provider Emergency Medicine; PCP Student in an Organized Health Care Education/Training Program; Visit Provider Internal Medicine
DX: I26.92 Saddle embolus of pulmonary artery without acute cor pulmonale (principal); Z68.42 Body mass index [BMI] 45.0-49.9, adult; I82.412 Acute embolism and thrombosis of left femoral vein; I82.432 Acute embolism and thrombosis of left popliteal vein; I10 Essential (primary) hypertension; G47.33 Obstructive sleep apnea (adult) (pediatric); E66.01 Morbid (severe) obesity due to excess calories; M72.2 Plantar fascial fibromatosis; E11.9 Type 2 diabetes mellitus without complications; E78.5 Hyperlipidemia, unspecified; R09.02 Hypoxemia; I27.20 Pulmonary hypertension, unspecified; F32.9 Major depressive disorder, single episode, unspecified; R91.1 Solitary pulmonary nodule
CPT/HCPCS: 36415; 71275; 80048; 82962; 83880; 84484; 85025; 85610; 85730; 87070; 87205; 93005; 93306; 93970; 97162; 97166; 97802; 99285; Q9957; Q9967; A4216; C8929

== ENCOUNTER 2019-12-26 09:29 | Emergency (ER) | payer MEDICARE, SELFPAY ==
[2019-12-12 09:47] VITALS: BMI 43.5
[2019-12-26 09:30] VITALS: BP 106/52; PULSE 74; RESP 20; TEMP 36.9; O2SAT 95; BMI 45.1
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
--- NOTE | 2019-12-26 09:59 | EKG12_ITS ---
Test Reason : Blood Pressure : / mmHG Vent. Rate : 067 BPM Atrial Rate : 067 BPM P-R Int : 178 ms QRS Dur : 092 ms QT Int : 406 ms P-R-T Axes : 073 035 025 degrees QTc Int : 429 ms Normal sinus rhythm Nonspecific ST and T wave abnormality Abnormal ECG Confirmed by PRADIP YEAGER, JESSE ([id number]), health editor MARY GUTIERREZ ([id number]) on 12/30/2019 12:36:53 PM Referred By: KEVIN/TERESA Confirmed By:JESSE MOSELEY MD
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
[2019-12-26] MEDS: Ondansetron 4 MG/2 ML Vial IV (10:04)
[2019-12-26] MEDS: Morphine 4 MG/ML Syringe IV ×2 (10:05→12:18)
[2019-12-26 10:13] VITALS: BP 121/60; PULSE 84; RESP 20; O2SAT 96
--- NOTE | 2019-12-26 11:00 | ED.RN ---
CALLED [facility] FOR TRANSFER
[2019-12-26] MEDS: Diphth,Pertuss(Acell),Tet Vac 0.5 ML Vial IM (11:07)
[2019-12-26 11:24] LABS: Absolute Lymphocyte Count 1.02 X10^3/uL (0.83-4.51); Absolute Neutrophil Count 4.6 X10^3/uL (2.0-7.7); Basophil# 0.03 X10^3/uL; Basophil% 0.5 % (0-1); Eosinophil# 0.21 X10^3/uL; Eosinophils% 3.3 % (0-5); Hematocrit 40.2 % (37-47); Hemoglobin 12.6 g/dL (12.0-15.0); Lymphocyte # 1.02 X10^3/ul (4.0); Lymphocyte % 16.2 % (19-41); Mean Corp Hgb Conc 31.3 g/dL (32-36); Mean Corpuscular Hgb 29.8 pg (27.0-32.0); Mean Platelet Vol. 9.4 fl (6.2-12.0); Monocyte# 0.39 X10^3/uL; Monocyte% 6.2 % (0-10); NRBC Flagged by Analyzer 0 % (0-5); Neutrophil # 4.62 X10^3/uL (2.7-7.7); Neutrophil % 73.2 % (47-70); Platelet Count 247 K/mm3 (150-450); RBC Distribution Width SD 44.9 fl (35.1-43.9); Red Blood Count 4.23 M/mm3 (4.2-5.4); White Blood Count 6.3 K/mm3 (4.4-11.0)
[2019-12-26 11:32] LABS: International Normalized Ratio 1.1; Prothrombin Time (Protime)PT. 13.6 SECONDS (11.7-14.9)
[2019-12-26 11:36] LABS: Anion Gap 4 (5-15); BUN 16 mg/dL (7-18); BUN/Creat Ratio 13.8 RATIO (10-20); Calcium,Total 9.2 mg/dL (8.5-10.1); Chloride 106 mmol/L (98-107); Creatinine, Serum 1.16 mg/dL (0.55-1.02); EST Glomerular Filtration Rate 49 mL/min (>60); Est Glom Filt Rate - Afr Amer 59 mL/min (>60); Estimated Creatinine Clearance 45.52 ml/min; Glucose 141 mg/dL (74-106); Potassium 3.5 mmol/L (3.5-5.1); Sodium Level 143 mmol/L (136-145)
--- NOTE | 2019-12-26 12:11 | NURSING ---
ACCEPTED AT [facility] THROUGH THE ER
--- NOTE | 2019-12-26 12:25 | NURSING ---
CALLED [facility], ETA IS 30 MIN
[2019-12-26 13:10] VITALS: BP 113/66; PULSE 74; RESP 13; O2SAT 98
[2019-12-26 13:15] VITALS: BP 113/66; PULSE 74; RESP 13; O2SAT 98
== END 2019-12-26 13:39 | disposition short-term general hospital (02) ==
PROVIDERS: Emergency Provider Emergency Medicine; PCP Student in an Organized Health Care Education/Training Program
DX: S82.891A Other fracture of right lower leg, initial encounter for closed fracture (principal); E78.5 Hyperlipidemia, unspecified; I10 Essential (primary) hypertension; Z86.711 Personal history of pulmonary embolism; Z79.01 Long term (current) use of anticoagulants; W01.0XXA Fall on same level from slipping, tripping and stumbling without subsequent striking against object, initial encounter
CPT/HCPCS: 70450; 72125; 73610; 80048; 85025; 85610; 90715; 93005; 96372; 96374; 96375; 96376; 99285; J7040; A4216; J2405

== ENCOUNTER → 2020-10-08 09:54 | Outpatient (CLI) | payer MEDICARE, SELFPAY ==
[2020-10-08 11:18] LABS: Protein, Urine (Random) 1313.5 mg/dL (<11.9)
[2020-10-08 11:19] LABS: Protein:Creat Ratio 4994 mg/g CRE (0-200)
== END ==
PROVIDERS: PCP Student in an Organized Health Care Education/Training Program; Visit Provider Internal Medicine Nephrology
DX: R80.9 Proteinuria, unspecified (principal)
CPT/HCPCS: 82570; 84156

== ENCOUNTER 2020-10-29 11:00 | Outpatient (RCR) | payer MEDICARE, SELFPAY ==
--- NOTE | 2020-07-03 09:42 | HP.PTEVAL_ITS ---
Patient's Visit Information DWAIN BILLINGSLEY is a 70 year old F referred to Physical Therapy by VALENTE Raza with a diagnosis of Prthopedic aftercare, muscle weakness.. Date of Evaluation: 07/03/20 Physical Therapist: Brett Brantley, SIRENAT, OCS, CSCS - Visit Plan Frequency: 2x /Week Duration: 2 Months Plan: 3x/week for 6-8 weeks as needed for... 1. trunk strength in sitting and reaching. 2. R yovana mobs and stretching and streenghening B LE. 3. Gait train g starting with stance at bars or walker and progressing to walking when tolerated. Pt is WBAT in boot only due to wound on heel. Allowed out of boot for NWB ex. - Subjective I can' t walk or stadn. Had tib fib fracture in December 2019 falling getting out of car. 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 was using walker due to PFItis. Had surgery at [facility] for fixator then placed metal in and splint. That killed the back of her heal from pressure sore on heel. Continues to see wound clinic and has had 4 wound grafts. Also needed skin graft over surgical site. Was supposed to start WB 6 weeks ago but had neutropenia and was delirious for days and in hospital for 10 days. Then norco, then got covid in the hospital. Just got home from rehab a weeka go after 6 months in hosptials. Currently in boot ortho due to heal during PT . Out of boot at home to relieve pressure on graft. Could walk 10 feet in paralle bars with great effort 2 weeks ago. Did not move when in hospital for 6 months. Heel is still slightly open form the graft and needs boot during WB. tells most of this story. No pain,, feels numb and probably has neuropathy. Is diabetic. Sleeps well. Exercises at home include pulling on band with arms, squeezing pillow with feet, SLR ro[place]ont, AP. Getting around in WC. Has a walker at home. Retired. Prior to problems spent time outside adn reading, going out with friends. Has 8 grandchildren whcih she has to travel to see. Currently needs help for shoes. Dressing self takes a long time. Uses bedside commode, Stands onto butterfly and it moves to get her to chair. Cleans up in chair. [facility] - Objective Pushed back by in WC to eval room. Unable to move leg holds on WC or don doff boot herself needing assist for these things. R foot has boot and dressing of wound appropriately. Pt is passively sitting in chair and leaning R. Can co rrect herslef but needs VC adn very weak in trunk, Can only sit withotu support less than 30 seconds adn tends BW when lifts and uses arms. UE arom WFL but limited to about 110 elevation R and 95 L. LE AROM wFL at knees but weak at 3 B ext adn flexion. Can get to neutral hip ext barely, tight in hip flexors. abd and adductiona dn flexion ROM WFL, weak to 3/5 in hip flexiona nd abd. L ankle moves well and 4/5 strength all directions. R ankle 0 DF and 14 PF, 0 inv and 10 eversion with strength at 3- to 3/5. Funcional: Scoot to edge of chair I. Posture is hunched FW. Transfer to stand : max A and hard to get nose over toes and belly shifted FW over feet, needs to push with UE on walker. Able to get to stand with max A 2/5x today using walker. Able to stand at walker 8 seconds with legs giving out and needing VC after 3 seconds btu can straighten them and correct with UE adn Vc to LE. 2nd stand was about 15 seconds with constant cueing to straighten legs. Needed to sit in WC quickly and 1x unable to get hands back on chair despite cues. Flopped back into chair. - Goals Goal 1:: AROM R ankle 25 PF, 4 DF, 10 inv without apin I consistently to facilitate stand. Goal Time Frame: 6-8 Weeks Goal 2:: Sit to stand with Min A and stand 2 minutes at walker with Min A and stand to sit mod I. Goal Time Frame: 6-8 Weeks Goal 3:: Walk 3 steps with walker with CGA Goal Time Frame: 6-8 Weeks Goal 4:: I approp HEP to minimze future probems Goal Time Frame: 6-8 Weeks Goal 5:: Pt feel 50% better in mobility. Goal Time Frame: 6-8 Weeks - Rehabilitation Potential Physical Therapy Diagnosis: weakness from chronic problems with fracture adn wounds, unable to walk or stand. Rehabilitation Potential: Fair - Anticipated Interventions Patient/Client Instruction: Educate patient on: Condition, Plan of Care For the Purpose of:: To increase ROM, To improve muscle performance and motor function, To increase tolerance to activity/condition/position, To improve gait and locomotor functions Therapeutic Exercise to Include: Strength training, Postural training, Flexibilty training, Gait and locomotor training, Neuromotor development, Passive ROM, Active ROM For the Purpose of:: To decrease pain, To increase ROM, To improve muscle performance and motor function, To increase tolerance to activity/condition/position Manual Therapy Techniques to Include: Mobilization, Passive ROM For the Purpose of:: To increase ROM Thank you for the opportunity to evaluate your patient. For Medicare and Medicare HMO plans, please review the plan of care and approve it. It will need to be FAXED BACK to us at [phone] for Medicare purposes. For Medicare only, by signing this I certify the plan of care. Please let me know if there are questions or concerns regarding this plan of care. Physician Signature: Date:
--- NOTE | 2020-07-03 11:43 | HP.OTEVAL_ITS ---
Patient's Visit Information DWAIN BILLINGSLEY is a 70 year old F, referred to Occupational Therapy by Andie Barriga, KAIN-C, with a diagnosis of generalized weakness. Date of Evaluation: 07/03/20 Occupational Therapist: Ana Luisa Jackson, GREGGR/Ashvin, CHT - Subjective This 70 year old female was seen for OT eval with dx of generalized weakness. pt states Dec 25 she had a fall and broke her ankle- pt was at skilled facilities for therapy for 6 month. pt states she will have home health for bathing tasks but has sit-stand glass laminating operator to transfer her from her w/[id number]-tht. is sponge bathing her on their bed as they can not get w/c or real into the bathroom. pt has ww and bed side commode- pt states she is unable to bath or dress herself. helps with bed mobility- dependent transfer. - ADLs Comments: pt states she has a tub shower in her bathroom- pt states her w/c does not fit through the door way- pt is using a bedside commode/ sit-stand lift to assist with transfers. pt states she is using her reg. bed, pt states she has a walker, has draw furnace tender but does not use it for dressing just when she drop things- pt sits in her recliner most of the day. has a ramp to get out and in of her home. pt has hired cleaning lady- is cooking- and friends are doing meals. pt states she can sit at EOB for UB dressing with LB dressing she needs assist with LB dressing. Due to pt confinement in - they hire a ambulance to drive pt to this apt. - ROM ROM Comments: pt demo BUE ROM WNL - Strength Shoulder: right 4/5 left 4/5 Elbow: right 4/5 left 4/5 Carbon Sequestration Plant Manager: right 60# left 50# Lateral Pinch: right 16# left 16# Tripod Pinch: right 14# left 16# Strength Comments: pt demo with decrease in BUE strength increasing need of assist with functional mobility - Sensation Sensation Comments: denies - Quick DASH-Disab of Arm,Shoulder& Hand Quick DASH Score: 50.0000 - Goals Goal:: pt will demo a increase in bilateral UB mmt 4+/5 to increase pts functional strength to decrease need of assist with ADLs and IADLs by d/c. pt will demo increase in UB strength to maneuver herself in WC safely. Goal:: pt will report she is sitting at EOB performing her LB dressing with adaptive equipment at RENATO level by d/c - Rehabilitation General Assessment: pt demo with weakness of UB limiting pts functional mobility and safe transfers. this increases the need of assistive equip. pt would benefit from skilled OT services 3x weeks 4 weeks. pt agrees to POC. Rehabilitation Potential: Fair - Anticipated Interventions Strengthening Other Interventions: w/chair mobility - Visit Plan Frequency: 3x /Week Duration: 4 Weeks General Plan: initiate t-band UB ex. for home TEXT: Thank you for the opportunity to evaluate your patient. For Medicare and Medicare HMO plans, please review the plan of care and approve it. It will need to be FAXED BACK to us at [phone] for Medicare purposes. Please let me know if there are questions or concerns regarding this plan of care. Physician Signature: Date:
--- NOTE | 2020-07-31 11:16 | OTREVAL_ITS ---
Andie Barriga, [employer]IV[employer] PROGRAM ASSOCIATE-C, It has been my pleasure to treat DWAIN BILLINGSLEY over the last 9 visits for generalized weakness. Please see the progress note below for an update on the occupational therapy plan of care! Subjective: pt arrives to session in w/c states w/c has some issues- pt states she is feeling stronger and starting to stand Objective/Function: R Bolt Maker 40#. L Bolt Maker 35#. R Lat Pinch 17#. L Lat Pinch 13#. pt demo increase in BUE mmt to 4+/5 but pt continues to demo weakness of BUE to maneuver WC. in safe manor or use UB to perform bed or chair mobility. Plan Frequency: 3x /Week Duration: 4 Weeks Plan: cont tx w/POC Goals - Goals Patient Goals: Regain Strength, Be More Independent in ADLS Goal:: pt will demo a increase in bilateral UB mmt 4+/5 to increase pts functional strength to decrease need of assist with ADLs and IADLs by d/c. pt will demo increase in UB strength to maneuver herself in WC safely. Goal:: pt will report she is sitting at EOB performing her LB dressing with adaptive equipment at RENATO level by d/c Anticipated Interventions Anticipated Interventions: Strengthening Other Interventions: w/chair mobility Please do not hesitate to contact me at [phone] by phone or if you have questions or concerns regarding this new plan of care! Sincerely, Ana Luisa Jackson, OTR/L, CHT
--- NOTE | 2020-07-31 12:45 | HP.PTREVAL ---
Andie Barriga, KAIN-C, It has been my pleasure to treat DWAIN BILLINGSLEY over the last 10 visits for Prthopedic aftercare, muscle weakness.. Please see the progress note below for an update on the physical therapy plan of care! Subjective: Had OT and PT treatment today.No pain and making good progres. Feels 30% better. Stands at sink multiple times per day with watching and doing band exercises sitting in chair. Still in boot and will get AFO. Objective/Function: sit to stadn at bars with Min A today multiple times utilizing WC arms. Hands on bars needed to stand but can do so for minutes needing intermittent VC to straighten knees as she fatigues. Stand to sit CGA. Sit to stand from WC at walker:multiple attempts adn min-mod A. Stood at walker with VC for posture/CGA x 70 seconds and needing VC for UE placement to get to sit. Stadn at [facility] and may x3 mod I. walk in bars 4 steps with WC follow CGA. Walk with walker 8 steps with VC and WC follow CGA. Self limmited by fatigue, knees start to flex. Excellent progress since day one, appropriate to cotninue with fair prognosisi to new goals. Plan Plan: 3x/week for 4 weeks for. 1. Gait training with walker and in bars, standing balance at walker. Gradual progression of distance as safety allows. Goals Goal 1:: AROM R ankle 25 PF, 4 DF, 10 inv without apin I consistently to facilitate stand. Goal Time Frame: 6-8 Weeks Goal Progress: Progressing Goal 2:: Sit to stand with Min A and stand 2 minutes at walker with Min A and stand to sit mod I. Goal Time Frame: 6-8 Weeks Goal Progress: Progressing Goal 3:: Walk 3 steps with walker with CGA Goal Time Frame: 6-8 Weeks Goal 4:: I approp HEP to minimze future probems Goal Time Frame: 6-8 Weeks Goal Progress: Goal Met Goal 5:: Pt feel 50% better in mobility. Goal Time Frame: 6-8 Weeks Goal Progress: Progressing Goal 6:: Walk with walker SBA 50 feet with one 90 degree turn. Goal Time Frame: 4-6 Weeks Goal Progress: NEW GOAL Anticipated Interventions Patient/Client Instruction: Educate patient on: Condition, Plan of Care For the Purpose of:: To increase ROM, To improve muscle performance and motor function, To increase tolerance to activity/condition/position, To improve gait and locomotor functions Therapeutic Exercise to Include: Strength training, Postural training, Flexibilty training, Gait and locomotor training, Neuromotor development, Passive ROM, Active ROM For the Purpose of:: To decrease pain, To increase ROM, To improve muscle performance and motor function, To increase tolerance to activity/condition/position Manual Therapy Techniques to Include: Mobilization, Passive ROM For the Purpose of:: To increase ROM Please do not hesitate to contact me at [phone] by phone or if you have questions or concerns regarding this new plan of care! Sincerely, Brett Brantley, DPT, OCS, CSCS
--- NOTE | 2020-09-08 10:35 | HP.PTREVAL_ITS ---
Andie Barriga, [employer] SECRETARY-C, It has been my pleasure to treat DWAIN BILLINGSLEY over the last 22 visits for Prthopedic aftercare, muscle weakness.. Please see the progress note below for an update on the physical therapy plan of care! Subjective: I can get in and out of our car now and can go places I could not go before. After today her will bring her rather than [place] which [facility] a lot of money. I got a new barce for R ankle which is much less cumbersome. (AFO). Has started walking with behind her at home. Wants to get into bathroom to use bath bench. WC does not fit in behind her. Nees to stand and pivot to bench will have knee surgery on 09/27/20. Exercising at home at times including seated leg moevements and marching, has been noncompliant with theraband. Walking daily with behind her. WC still needs to be behind her. Objective/Function: sit to stand mod I. Walk 10 feet wtih 90 degree turn mod I. Stand to sit with VC only. 25 PF and neutral DF in AFO with good muscle contractions. Stand without walker 35 seconds then quick correctiona nd 10 more seconds , knees started to give out and needed to sit(lacks confidence.). Walk with wh walker 60 feet 2x today without WC follow. SBA. Legs tired at end. Needed to sit. Pt making many functional improvements as detaied in subjective above and verified by increasing mobility in clinic. Plan Plan: 3x/week for 3 week for.. 1. Gait distance. 2. stand without necessity of walker with balance challenges. 3. turns with walker. 4. Work towards standing HEP fro LE strength. Fair prognosis for continuation toward goals. Goals Goal 1:: AROM R ankle 25 PF, 4 DF, 10 inv without apin I consistently to facilitate stand. Goal Time Frame: 6-8 Weeks Goal Progress: met in AFO except inv. Goal 2:: Sit to stand with Min A and stand 2 minutes at walker with Min A and stand to sit mod I. Goal Time Frame: 6-8 Weeks Goal Progress: Goal Met Goal 3:: Walk 3 steps with walker with CGA Goal Time Frame: 6-8 Weeks Goal Progress: Goal Met Goal 4:: Pt get into bathroom and use shower bench with Min A) Goal Time Frame: 2-4 Weeks Goal Progress: NEW GOAL Goal 5:: Pt feel 50% better in mobility. Goal Time Frame: 6-8 Weeks Goal Progress: Goal Met Goal 6:: Walk with wh walker SBA 50 feet with one 90 degree turn. Goal Time Frame: 4-6 Weeks Goal Progress: Goal Met Anticipated Interventions Patient/Client Instruction: Educate patient on: Condition, Plan of Care For the Purpose of:: To increase ROM, To improve muscle performance and motor function, To increase tolerance to activity/condition/position, To improve gait and locomotor functions Therapeutic Exercise to Include: Strength training, Postural training, Flexibilty training, Gait and locomotor training, Neuromotor development, Passive ROM, Active ROM For the Purpose of:: To decrease pain, To increase ROM, To improve muscle performance and motor function, To increase tolerance to activity/condition/position Manual Therapy Techniques to Include: Mobilization, Passive ROM For the Purpose of:: To increase ROM Please do not hesitate to contact me at [phone] by phone or if you have questions or concerns regarding this new plan of care! Sincerely, Brett Brantley, DPT, OCS, CSCS
--- NOTE | 2020-10-14 11:54 | HP.PTREVAL ---
Andie Barriga, KAIN-C, It has been my pleasure to treat DWAIN BILLINGSLEY over the last 31 visits for Orthopedic aftercare, muscle weakness.. Please see the progress note below for an update on the physical therapy plan of care! Subjective: I am doing so much better than two weeks ago. Thinks it was medicine adn has been taken off lexapro and put on prozac and now maybe her body has gotten used to it([facility] doctor this after noon). Can now stand and walk at home with wh walker but unable to do this alone. Using wh walker most of the time for short distances at home 70% of time. Gets jorge nd out of car to WC without a problem. Still can't walk distances into stores yet and uses WC in there. Feels stornger over all. Doing exercises at home sitting with LE. Doing some arm band exx at home sitting. Will get order from Erik Gomez. Wants to continnue PT to wrok on steps to get in house and garage(uses ramp out back door now). Wants to be able to move at home without walker if possible. Objective/Function: Pt has intermittent set backs most recently 2 weeks ago possibly due to medication change giving her a mental block keeping her from walking any distance. She seems to have recovered from that today as she walked a full lap at HP400+ feet with multipe breaks. She can now turn with her walker safely. Able to stand without holding onto walker for one minute today, knees start to flex adn confidence starts to wain, needs to sit quickly. Also able to take one one inch step today without holding onto walker however this is not a functional step yet. Poor weight shift without AD. Overall improving mobility with wh walker adn appropriate to continue to work toward less AD, longer walking adn steps. Appropriate for cotninued therapy as she is progressing nicely albeit slowly and fair prognosis toward new goals. Plan Plan: 3x/week for 3-6 weeks(pt to get new script from Dr. Gomez before scheduling). Please work on... 1. standing HEP as safety allows for LE strength. 2. pregait without aD weight shifts and walking. 3. distance with wh walker. 4. Step/steps as tolerated and able Balance/Gait/Functional tests - Balance/Special Test Scores Lower Extremity Functional Score: 14 Goals Goal 1:: AROM R ankle 25 PF, 4 DF, 10 inv without apin I consistently to facilitate stand. Goal Time Frame: 6-8 Weeks Goal Progress: functional. Goal 2:: I approp home standing exercises at counter safely for LE strength Goal Time Frame: 4-6 Weeks Goal Progress: NEW GOAL Goal 3:: Up and down one step with rail safely Goal Time Frame: 4-6 Weeks Goal Progress: NEW GOAL Goal 4:: Pt get into bathroom and use shower bench with Min A) Goal Time Frame: 2-4 Weeks Goal Progress: Progressing Goal 5:: Ambulate w wh walker 600 feet mod I with 2 rests and 10 feet wtih cane SBA Goal Time Frame: 4-6 Weeks Goal Progress: NEW GOAL Goal 6:: Walk with wh walker SBA 50 feet with one 90 degree turn. Goal Time Frame: 4-6 Weeks Goal Progress: Goal Met Anticipated Interventions Patient/Client Instruction: Educate patient on: Condition, Plan of Care For the Purpose of:: To increase ROM, To improve muscle performance and motor function, To increase tolerance to activity/condition/position, To improve gait and locomotor functions Therapeutic Exercise to Include: Strength training, Postural training, Flexibilty training, Gait and locomotor training, Neuromotor development, Passive ROM, Active ROM For the Purpose of:: To decrease pain, To increase ROM, To improve muscle performance and motor function, To increase tolerance to activity/condition/position Manual Therapy Techniques to Include: Mobilization, Passive ROM For the Purpose of:: To increase ROM Please do not hesitate to contact me at [phone] by phone or if you have questions or concerns regarding this new plan of care! Sincerely, Brett Brantley, DPT, OCS, CSCS
--- NOTE | 2020-10-14 11:55 | HP.PTEVAL_ITS ---
Patient's Visit Information DWAIN BILLINGSLEY is a 70 year old F referred to Physical Therapy by VALENTE Raza with a diagnosis of Orthopedic aftercare, muscle weakness.. Date of Evaluation: 07/03/20 Physical Therapist: Brett Brantley, SIRENAT, OCS, CSCS - Visit Plan Frequency: 2x /Week Duration: 2 Months Plan: 3x/week for 3-6 weeks(pt to get new script from Dr. Gomez before scheduling). Please work on... 1. standing HEP as safety allows for LE strength. 2. pregait without aD weight shifts and walking. 3. distance with walker. 4. Step/steps as tolerated and able - Subjective I can' t walk or stadn. Had tib fib fracture in December 2019 falling getting out of car. 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 was using walker due to PFItis. Had surgery at [place] for fixator then placed metal in and splint. That killed the back of her heal from pressure sore on heel. Continues to see wound clinic and has had 4 wound grafts. Also needed skin graft over surgical site. Was supposed to start WB 6 weeks ago but had neutropenia and was delirious for days and in hospital for 10 days. Then norco, then got covid in the hospital. Just got home from rehab a weeka go after 6 months in hosptials. Currently in boot ortho due to heal during PT . Out of boot at home to relieve pressure on graft. Could walk 10 feet in paralle bars with great effort 2 weeks ago. Did not move when in hospital for 6 months. Heel is still slightly open form the graft and needs boot during WB. tells most of this story. No pain,, feels numb and probably has neuropathy. Is diabetic. Sleeps well. Exercises at home include pulling on band with arms, squeezing pillow with feet, SLR jackie, AP. Getting around in . Has a walker at home. Retired. Prior to problems spent time outside adn reading, going out with friends. Has 8 grandchildren whcih she has to travel to see. Currently needs help for shoes. Dressing self takes a long time. Uses bedside commode, Stands onto butterfly and it moves to get her to chair. Cleans up in chair. Has [facility] bench. - Objective Pushed back by in WC to eval room. Unable to move leg holds on WC or don doff boot herself needing assist for these things. R foot has boot and dressing of wound appropriately. Pt is passively sitting in chair and leaning R. Can correct herslef but needs VC adn very weak in trunk, Can only sit withotu support less than 30 seconds adn tends BW when lifts and uses arms. UE arom WFL but limited to about 110 elevation R and 95 L. LE AROM wFL at knees but weak at 3 B ext adn flexion. Can get to neutral hip ext barely, tight in hip flexors. abd and adductiona dn flexion ROM WFL, weak to 3/5 in hip flexiona nd abd. L ankle moves well and 4/5 strength all directions. R ankle 0 DF and 14 PF, 0 inv and 10 eversion with strength at 3- to 3/5. Funcional: Scoot to edge of chair I. Posture is hunched FW. Transfer to stand : max A and hard to get nose over toes and belly shifted FW over feet, needs to push with UE on walker. Able to get to stand with max A 2/5x today using walker. Able to stand at walker 8 seconds with legs giving out and needing VC after 3 seconds btu can straighten them and correct with UE adn Vc to LE. 2nd stand was about 15 seconds with constant cueing to straighten legs. Needed to sit in WC quickly and 1x unable to get hands back on chair despite cues. Flopped back into chair. - Goals Goal 1:: AROM R ankle 25 PF, 4 DF, 10 inv without apin I consistently to facilitate stand. Goal Time Frame: 6-8 Weeks Goal 2:: I approp home standing exercises at counter safely for LE strength Goal Time Frame: 4-6 Weeks Goal 3:: Up and down one step with rail safely Goal Time Frame: 4-6 Weeks Goal 4:: Pt get into bathroom and use shower bench with Min A) Goal Time Frame: 2-4 Weeks Goal 5:: Ambulate w wh walker 600 feet mod I with 2 rests and 10 feet wtih cane SBA Goal Time Frame: 4-6 Weeks Goal 6:: Walk with wh walker SBA 50 feet with one 90 degree turn. Goal Time Frame: 4-6 Weeks - Rehabilitation Potential Physical Therapy Diagnosis: weakness from chronic problems with fracture adn wounds, unable to walk or stand. Rehabilitation Potential: Fair - Anticipated Interventions Patient/Client Instruction: Educate patient on: Condition, Plan of Care For the Purpose of:: To increase ROM, To improve muscle performance and motor function, To increase tolerance to activity/condition/position, To improve gait and locomotor functions Therapeutic Exercise to Include: Strength training, Postural training, Flexibilty training, Gait and locomotor training, Neuromotor development, Passive ROM, Active ROM For the Purpose of:: To decrease pain, To increase ROM, To improve muscle performance and motor function, To increase tolerance to activity/condition/position Manual Therapy Techniques to Include: Mobilization, Passive ROM For the Purpose of:: To increase ROM Thank you for the opportunity to evaluate your patient. For Medicare and Medicare HMO plans, please review the plan of care and approve it. It will need to be FAXED BACK to us at [phone] for Medicare purposes. For Medicare only, by signing this I certify the plan of care. Please let me know if there are questions or concerns regarding this plan of care. Physician Signature: Date:
--- NOTE | 2020-11-03 12:04 | HP.PT.NRP ---
DWAIN BILLINGSLEY was seen in my office for initial evaluation on 07/03/20. The following Plan of Care was established for this patient: Initial Frequency: 2x /Week Initial Duration: 2 Months Patient/Client Instruction: Educate patient on: Condition, Plan of Care For the Purpose of:: To increase ROM, To improve muscle performance and motor function, To increase tolerance to activity/condition/position, To improve gait and locomotor functions Therapeutic Exercise to Include: Strength training, Postural training, Flexibilty training, Gait and locomotor training, Neuromotor development, Passive ROM, Active ROM For the Purpose of:: To decrease pain, To increase ROM, To improve muscle performance and motor function, To increase tolerance to activity/condition/position Manual Therapy Techniques to Include: Mobilization, Passive ROM For the Purpose of:: To increase ROM This patient was last seen in our office 10/29/20. Pertinent comments regarding their Physical therapy will appear below: Pt seen 35 visits of gait trtaining and exercise and was improving intermittently. she has called to cancel all visits as she fell over the weekend and broke her hip. Discontinue therapy at this time. At this point I will be discontinuing this patient from physical therapy. I would be happy to see this patient again in the future if found appropriate by the physician. Thank you! Brett Brantley, DPT, OCS, CSCS Balance/Gait/Functional tests - Balance/Special Test Scores Lower Extremity Functional Score: 14
== END 2020-10-29 19:00 | disposition home or self-care (01) ==
LOC: PT 11:00
PROVIDERS: PCP Student in an Organized Health Care Education/Training Program; Referring Provider Nurse Practitioner Acute Care; Visit Provider Nurse Practitioner Acute Care
DX: M62.81 Muscle weakness (generalized) (principal); R26.9 Unspecified abnormalities of gait and mobility; R41.89 Other symptoms and signs involving cognitive functions and awareness
CPT/HCPCS: 97110; 97116; 97163; 97164; 97166; 97530

== ENCOUNTER 2020-11-02 11:37 | Inpatient (IN) | payer MEDICARE, SELFPAY ==
[2020-11-02] VITALS (7 sets, daily range): BP systolic 145–179; BP diastolic 79–102; PULSE 87–98; RESP 18; TEMP 36–36.7; O2SAT 93–95; BMI 91.1; BMI 42.3
--- NOTE | 2020-11-02 12:50 | RAD_ITS ---
STUDY: X-RAY - PELVIS AND LEFT HIP REASON FOR EXAM: Left hip pain, left hip injury. TECHNIQUE: 2 views of the pelvis and hip. COMPARISON: None. FINDINGS: There is mild vascular calcification. Normal bilateral iliac wings, sacroiliac joints and visualized sacrum. Normal bilateral superior and inferior pubic rami. There are degenerative changes of the pubic symphysis. Normal bilateral ischial tuberosities. There is a subcapital left hip fracture. Normal acetabulum. Normal hip joint. RAD/HIP, UNI W/ Pelvis 2-3 Views IMPRESSION: Subcapital left hip fracture. Electronically Signed: Seth Pacheco MD at 13:15 EDT Tel , Service support ,
--- NOTE | 2020-11-02 12:52 | ED.VIS.FALL ---
HPI HPI - Fall History of Present Illness Chief Complaint: Fall Informant: patient Narrative Narrative: Patient is a 70-year-old female with a past medical history of pulmonary embolism on Eliquis who presents to the emergency department for a fall 2 days ago. She was trying to ambulate with a walker and tipped over onto her left side. She been having left hip pain since. She has not been able to ambulate. While at rest her pain is minimal. She denies hitting her head or losing consciousness. She has a headache or back pain. No chest pain, shortness of breath. No abdominal pain. No weakness or loss of sensation going down her legs. Any movement makes her symptoms worse. [facility] Medical History (Updated 11/02/20 @ 14:[address] Bigg Bautista, ) blood clots Diabetes History of left knee replacement Hyperlipidemia Hypertension Home Medications amlodipine 1 tab PO DAILY 05/10/13 [History Last Taken 06/21/13 07:00 5] bupropion HCl 300 mg PO DAILY 05/10/13 [History Last Taken 11/27/19] escitalopram oxalate 20 mg PO DAILY 05/10/13 [History Last Taken 11/27/19] exenatide 10 mcg SUBCUT BID 05/10/13 [History Last Taken 11/27/19] Cholecalciferol (Vitamin D3) [Vitamin D3] 5,000 iu PO DAILY 11/27/19 [History Last Taken 11/27/19] Potassium Chloride [Klor-Con M20] 20 meq PO DAILY 11/27/19 [History Last Taken 11/27/19] atorvastatin 10 mg PO DAILY 11/27/19 [History Last Taken 11/27/19] esomeprazole magnesium 40 mg PO .DAILY 11/27/19 [History Last Taken 11/27/19] losartan-hydrochlorothiazide 1 ea PO DAILY 11/27/19 [History Last Taken 11/27/19] metoprolol succinate 100 mg PO DAILY 11/27/19 [History Last Taken 11/27/19] ropinirole 0.5 mg PO DAILY 11/27/19 [History Last Taken 11/26/19] acetaminophen 650 mg PO Q6H PRN PRN tab 11/28/19 [Rx Last Taken Unknown] imipramine HCl 50 mg tablet 75 mg PO QHS tab 12/12/19 [History Last Taken Unknown] apixaban 5 mg PO BID 12/26/19 [History Last Taken Unknown] Allergy/AdvReac Type Severity Reaction Status Date / Time cephalexin [From Keflex] Allergy Rash Verified 12/26/19 09:37 clindamycin Allergy Anaphylaxis Verified 12/26/19 09:37 vancomycin Allergy Rash Verified 11/02/20 11:38 Family History (Updated 12/12/19 @ 13:54 by Florina Martinez) Other No pertinent family history Surgical History History of bilateral cataract extraction History of section Social History Smoking Status: Never smoker alcohol intake: never substance use type: does not use ROS ROS ED Constitutional Constitutional ED: Denies chills or fever(s) Eyes Eyes: Denies change in vision ENT ENT ED: Denies epistaxis or rhinorrhea Cardiovascular Cardiovascular: Denies chest pain Respiratory/Chest Respiratory/Chest: Denies cough or dyspnea Gastrointestinal Gastrointestinal: Denies abdominal pain, diarrhea, nausea or vomiting Genitourinary Genitourinary ED: Denies dysuria, hematuria or urinary frequency Musculoskeletal Musculoskeletal: Reports arthralgias; Denies back pain or neck pain Integumentary Denies rash Neurologic Neurologic: Denies dizziness, headache(s) or weakness EXAM Physical Exam Const Vital Signs: 11/02/20 11:38 11/02/20 12:20 Temperature 96.8 F L Temperature Source Temporal Pulse Rate 89 Respiratory Rate 18 Respiratory Effort Normal Non-Labored Respiratory Depth Normal Respiratory Pattern Normal Blood Pressure 145/96 H Blood Pressure Mean 112 Pulse Ox 93 Oxygen Delivery Method Room Air Positive well nourished and well developed General Appearance ED: well developed and NAD HEENT Reports normocephalic and head/scalp atraumatic Eyes PERRL and EOMs intact bilaterally Neck supple Chest Wall inspection of chest normal Resp normal respiratory effort and clear to auscultation bilaterally Auscultation: Negative for rales, rhonchi or wheezes Cardio regular rate, regular rhythm and no murmurs GI normal to inspection, nondistended, normoactive bowel sounds and non-tender Palpation: soft; Negative for guarding or rebound tenderness present Extremity normal to inspection Extremity Narrative: Limited range of motion of left leg due to pain in the hip. No obvious deformity. Neurovascularly intact. No significant tenderness with anterior compression of hips. General Extremety ED: Negative for edema General Extremity: Negative for edema Neuro no sensory deficits noted Sensorium / Orientation: alert Motor Exam: strength 5/5 throughout Psych mental status grossly normal Skin no rashes or lesions noted MDM MDM MDM Narrative Medical decision making narrative: Patient presents to the emergency department for left hip pain after a fall 2 days ago. She is not able to ambulate on it since due to the pain. The rest of her vital signs within normal limits. Will check x-ray of the hip at this time. Patient's x-ray was significant for left femur fracture. We did speak to the on-call orthopedic surgeon who recommended surgery this coming Monday as she is on Eliquis. Last dose was taken today. Will check basic lab work for the hospitalist and admit for further management. Patient is agreeable with this plan. Radiography Diagnostic Testing: Radiology Impression Hip/Pelvis X-Ray 11/02/20 12:50 IMPRESSION: Subcapital left hip fracture. Electronically Signed: Seth Pacheco MD at 13:15 EDT Tel , Service support , Discharge Plan Triage Chief Complaint: Fall ED Provider: Bigg Bautista/Rx/DC Orders Clinical Impression: Femur fracture Primary Care Provider: Erik Gomez Disposition Disposition: Acute Care Hospital [facility]
[2020-11-02] MEDS: Morphine 4 MG/ML Syringe IV (14:18)
--- NOTE | 2020-11-02 14:26 | EKG12_ITS ---
Test Reason : PRE OP Blood Pressure : / mmHG Vent. Rate : 089 BPM Atrial Rate : 089 BPM P-R Int : 166 ms QRS Dur : 098 ms QT Int : 398 ms P-R-T Axes : 064 021 044 degrees QTc Int : 484 ms Normal sinus rhythm Nonspecific ST abnormality Abnormal ECG Confirmed by PRADIP YEAGER, JESSE ([id number]), market editor MARY GUTIERREZ ([id number]) on 11/04/2020 10:03:15 AM Referred By: KANDICE Confirmed By:JESSE MOSELEY MD
--- NOTE | 2020-11-02 14:27 | HP.PCM.HOS_ITS ---
HPI - General General Date of Admission: 11/02/20 HPI Narrative DWAIN BILLINGSLEY, is a 70 F who [facility] with a chief complaint of right hip pain. She states that she was walking with her walker and her was following close behind her with a wheelchair on Monday but she ran into a wall and fell to her right side. She has had left hip pain ever since that time. She has not been able to ambulate. Her pain is minimal at rest but she has increased pain with ambulating. She sustained no other injuries at the time. She has had issues with ambulation and marked debility since a recent right ankle fracture she taye tained approximately 1 year ago. She states she is currently being worked up for myeloma versus amyloidosis and was to have a bone marrow biopsy done on at the [facility]. Dr. Benavidez has been following her for this. 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 She has been anticoagulated with Eliquis since that time and her last dose of Eliquis was this morning prior to arrival. In the emergency department her vital signs were stable. She was on room air with oxygen saturations 93 to 95%. Her CBC was unremarkable. BMP was still pending. An EKG had not been done in the emergency department but will has been ordered for the floor to be reviewed tomorrow. Hip and pelvis x-rays showed a subcapital left hip fracture. The case was discussed with the orthopedic surgeon by the ED physician and the tentative plan is for the OR on Monday. [facility] Medical History (Updated 11/02/20 @ 14:[address] Lilliam Kent, ) blood clots Diabetes History of left knee replacement Hyperlipidemia Hypertension Morbid obesity Home Medications bupropion HCl 300 mg PO DAILY 05/10/13 [History Last Taken 11/27/19] atorvastatin 10 mg PO QHS 11/27/19 [History Last Taken 11/27/19] metoprolol succinate 25 mg PO BID 11/27/19 [History Last Taken 11/27/19] ropinirole 0.5 mg PO DAILY 11/27/19 [History Last Taken 11/26/19] acetaminophen 650 mg PO Q6H PRN PRN tab 11/28/19 [Rx Last Taken Unknown] imipramine HCl 50 mg tablet 75 mg PO QHS tab 12/12/19 [History Last Taken Unknown] apixaban 5 mg PO BID 12/26/19 [History Last Taken Unknown] cholecalciferol (vitamin D3) [Vitamin D3] 125 mcg PO DAILY 11/02/20 [History Last Taken Unknown] exenatide [Byetta] 10 mcg SUBCUT BID 11/02/20 [History Last Taken Unknown] fluoxetine 20 mg PO DAILY 11/02/20 [History Last Taken Unknown] folic acid 1 mg PO DAILY 11/02/20 [History Last Taken Unknown] pantoprazole [Protonix] 40 mg PO DAILY 11/02/20 [History Last Taken Unknown] vitamin B complex [Super B Complex] 1 cap PO DAILY 11/02/20 [History Last Taken Unknown] Allergy/AdvReac Type Severity Reaction Status Date / Time cephalexin [From Keflex] Allergy Rash Verified 12/26/19 09:37 clindamycin Allergy Anaphylaxis Verified 12/26/19 09:37 vancomycin Allergy Rash Verified 11/02/20 11:38 Family History Other No pertinent family history Surgical History History of bilateral cataract extraction History of section Social History Smoking Status: Never smoker alcohol intake: never substance use type: does not use ROS Constitutional Constitutional: Denies anorexia, change in weight, chills, fatigue, fever(s), malaise, night sweats, weakness or other Eyes Eyes: Denies blurry vision, change in eye color, change in vision, discharge from eye(s), double vision, erythema, eye pain, loss of vision or other ENT HEENT: Denies abnormal hearing, dysphagia, ear pain, epistaxis, headache(s), h earing loss, nasal congestion, nasal discharge, post nasal drip, sinus pressure, sore throat or other Cardiovascular Cardiovascular: Denies chest pain, claudication, dyspnea on exertion, edema, lightheadedness, orthopnea, palpitations, paroxysmal nocturnal dyspnea, rapid heart rate, syncope or other Respiratory/Chest Respiratory/Chest: Denies cough, dyspnea, excessive phlegm production, hemoptysis, productive cough, shortness of breath at rest, shortness of breath with exertion, wheezing or other Gastrointestinal Gastrointestinal: Denies abdominal pain, coffee ground emesis, constipation, diarrhea, dyspepsia, hematemesis, hematochezia, loose stools, melena, nausea, vomiting or other Genitourinary Genitourinary: Denies burning urination, difficulty urinating, dysuria, hematuria, nocturia, urinary frequency, urinary hesitancy, urinary incontinence, urinary urgency or other Musculoskeletal Musculoskeletal: Denies arthralgias, back pain, joint pain, joint stiffness, joint swelling, myalgias, neck pain or other Neurologic Neurologic: Reports abnormal gait Psychiatric Psychiatric: Denies anxiety, depression, homicidal ideation, suicidal ideation or other Endocrine Endocrinology: Denies change in body appearance, cold intolerance, excessive sweating, heat intolerance, polydipsia, polyuria or other Hematologic/Lymphatic Hematologic/Lymphatic: Denies anemia, easy bleeding, easy bruising, lymphadenopathy or other Allergic/Immunologic Allergic/Immunologic: Denies rhinitis, hives, eczemia, asthma or other Vital Signs Vital Signs Vital Signs: 11/02/20 11:38 11/02/20 12:20 11/02/20 14:15 Temperature 96.8 F L 96.9 F L Temperature Source Temporal Temporal Pulse Rate 89 87 Respiratory Rate 18 18 Respiratory Effort Normal Non-Labored Respiratory Depth Normal Respiratory Pattern Normal Blood Pressure 145/96 H 175/102 H Blood Pressure Mean 112 126 Pulse Ox 93 95 Oxygen Delivery Method Room Air Room Air Weight Weight: 272 kg Body Mass Index (BMI) 91.1 Physical Exam Const alert, oriented x3 and no apparent distress Constitutional Narrative: Super morbidly obese white female lying in bed, appears comfortable at this time, not complaining of any pain, at bedside, nontoxic General Appearance: cooperative HEENT normocephalic, head/scalp atraumatic, hearing grossly normal bilaterally, moist oral mucous membranes, oropharynx normal and dentition normal HEENT Narrative: Mallampati 4, no thrush Mouth: oral and palatal mucosa normal Eyes PERRL, EOMs intact bilaterally and conjunctivae normal Neck no lymphadenopathy, supple and no JVD Neck Narrative: Trachea midline, short thick neck, no thyromegaly noted Resp normal respiratory effort, no retractions, no use of accessory muscles and clear to auscultation bilaterally Auscultation: Negative for crackles, rales, rhonchi or wheezes Cardio regular rate, regular rhythm, S1 normal heart sound, S2 normal heart sound, no murmurs, no rub, no gallops, no clicks and no JVD GI normal to inspection, nondistended, normoactive bowel sounds, soft to palpation, non-tender and non-distended Extremity no clubbing, cyanosis or edema Extremity Narrative: Right distal lower extremity AFO Peripheral Pulses: Yes pulses 2+ throughout Skin no rashes or lesions noted, no wounds, skin turgor normal, no jaundice, no petechiae and no mottling Skin Narrative: Skin is pale Neuro oriented x3, CN's II-XII intact bilaterally, moves all extremities and no focal motor deficits Neuro Narrative: Moves all extremities but did not ask patient to move proximal left lower extremity secondary to fracture Sensorium / Orientation: awake, alert, oriented to person, oriented to place and oriented to time Psych Psych Narrative: Very pleasant but mildly anxious Mood & Affect: anxious Results Lab / Micro Data Attestation: I reviewed the patient's lab results. Result Diagrams: 11/02/20 14:10 11/02/20 14:10 Radiology Impression Hip/Pelvis X-Ray 11/02/20 12:50 IMPRESSION: Subcapital left hip fracture. Electronically Signed: Seth Pacheco MD at 13:15 EDT Tel , Service support , Assessment & Plan Assessment/Plan (1) Femur fracture: (2) Pulmonary embolism: QUALIFIERS: Pulmonary embolism type: saddle Chronicity: acute Acute cor pulmonale presence: without acute cor pulmonale Qualified Code(s): I26.92 - Saddle embolus of pulmonary artery without acute cor pulmonale PLAN: Assessment: Left subcapital hip fracture secondary to traumatic mechanical fall Debility History of saddle pulmonary emboli Chronic systemic anticoagulation Proteinuria-severe -Work-up in progress for myeloma versus amyloidosisn (Dr. Benavidez) ABELARDO Hypertension DM-2 GERD Restless leg syndrome Insomnia Hyperlipidemia Anxiety Depression Plan: -Consult orthopedic surgery--> plan per discussion with ED physician his OR on Monday -Last dose of Eliquis was a.m. of 11/02/2020 -Order preoperative EKG--> will need reviewed in a.m. -PT/OT -SCDs -As needed Oxy with morphine for breakthrough pain -Bowel regimen -Continue home antihypertensives -Sliding scale insulin -Accu-Cheks before meals and at bedtime -N.p.o. after midnight on Monday11/03/2020 -Would recommend reinitiation of systemic anticoagulation as soon as possible with orthopedic surgery approval postoperatively -CPAP at at bedtime--> to bring home unit in Charges/Coding Visit Charges Inpatient E&M: 21279 Init Hosp L3
[2020-11-02 14:31] LABS: Absolute Lymphocyte Count 1.31 X10^3/uL (0.83-4.51); Absolute Neutrophil Count 5.8 X10^3/uL (2.0-7.7); Basophil# 0.05 X10^3/uL; Basophil% 0.6 % (0-1); Eosinophil# 0.54 X10^3/uL; Eosinophils% 6.6 % (0-5); Hematocrit 42.4 % (37-47); Hemoglobin 13.6 g/dL (12.0-15.0); Lymphocyte # 1.31 X10^3/ul (0.83-4.51); Lymphocyte % 15.9 % (19-41); Mean Corp Hgb Conc 32.1 g/dL (32-36); Mean Corpuscular Hgb 28.5 pg (27.0-32.0); Mean Corpuscular Volume 88.9 fL (81-99); Mean Platelet Vol. 9.6 fl (6.2-12.0); Monocyte% 6.1 % (0-10); NRBC Flagged by Analyzer 0 % (0-5); Neutrophil % 70.3 % (47-70); Platelet Count 230 K/mm3 (150-450); RBC Distribution Width CV 14.3 % (11.6-14.6); RBC Distribution Width SD 46.5 fl (35.1-43.9); Red Blood Count 4.77 M/mm3 (4.2-5.4); White Blood Count 8.2 K/mm3 (4.4-11.0)
[2020-11-02 14:43] LABS: ALB/GLOB Ratio 0.3 RATIO (0.9-2.4); AST(SGOT) 33 U/L (15-37); Alanine Aminotransfer ALT/SGPT 18 U/L (13-56); Albumin, Serum 1.4 g/dL (3.2-5.0); Alkaline Phosphatase 86 U/L (45-117); Anion Gap 3 (5-15); BUN 13 mg/dL (7-18); Calcium,Total 8.6 mg/dL (8.5-10.1); Chloride 106 mmol/L (98-107); Creatinine, Serum 0.93 mg/dL (0.55-1.02); EST Glomerular Filtration Rate 63 mL/min (>60); Est Glom Filt Rate - Afr Amer 76 mL/min (>60); Estimated Creatinine Clearance 55.97 ml/min; Globulin 4.2 g/dL (2.2-4.2); Glucose 96 mg/dL (74-106); Potassium 4.6 mmol/L (3.5-5.1); Protein, Total 5.6 g/dL (6.4-8.2); Sodium Level 139 mmol/L (136-145)
--- NOTE | 2020-11-02 16:20 | CON.PCM_ITS ---
Assessment & Plan Assessment/Plan (1) Femur fracture: QUALIFIERS: Encounter type: initial encounter Femur location: intracapsular Fracture type: closed Laterality: left Qualified Code(s): S72.012A - Unspecified intracapsular fracture of left femur, initial encounter for closed fracture (2) BMI greater than 40: PLAN: Valgus impacted subcapital left femoral neck fracture Plan for percutaneous pin fixation with 3 cannulated screws November 04, 2020 1 1:30 AM Hold Eliquis Antibiotics on-call to the OR Risk benefits alternatives of procedure reviewed with patient and her consent obtained. HPI Consult Data Date of Consult: 11/02/20 HPI Narrative HPI Narrative: DWAIN BILLINGSLEY, is a 70 F who presents for injury to left hipTo the ER 11/02/2020 that occurred on 10/30/2020. Falling onto a posterior lateral left hip. Of note patient had prior open fracture to right ankle last year which she is still recovering from she is allowed however to fully bear weight on that side. Patient is obese. Pain is well controlled [facility] Medical History (Updated 11/02/20 @ 16:[address] Bigg Haddad, ) blood clots Diabetes History of left knee replacement Hyperlipidemia Hypertension Morbid obesity Home Medications bupropion HCl 300 mg PO DAILY 05/10/13 [History Last Taken 11/27/19] atorvastatin 10 mg PO QHS 11/27/19 [History Last Taken 11/27/19] metoprolol succinate 25 mg PO BID 11/27/19 [History Last Taken 11/27/19] ropinirole 0.5 mg PO DAILY 11/27/19 [History Last Taken 11/26/19] acetaminophen 650 mg PO Q6H PRN PRN tab 11/28/19 [Rx Last Taken Unknown] imipramine HCl 50 mg tablet 75 mg PO QHS tab 12/12/19 [History Last Taken Unknown] apixaban 5 mg PO BID 12/26/19 [History Last Taken Unknown] cholecalciferol (vitamin D3) [Vitamin D3] 125 mcg PO DAILY 11/02/20 [History Last Taken Unknown] exenatide [Byetta] 10 mcg SUBCUT BID 11/02/20 [History Last Taken Unknown] fluoxetine 20 mg PO DAILY 11/02/20 [History Last Taken Unknown] folic acid 1 mg PO DAILY 11/02/20 [History Last Taken Unknown] pantoprazole [Protonix] 40 mg PO DAILY 11/02/20 [History Last Taken Unknown] vitamin B complex [Super B Complex] 1 cap PO DAILY 11/02/20 [History Last Taken Unknown] Allergy/AdvReac Type Severity Reaction Status Date / Time cephalexin [From Keflex] Allergy Rash Verified 12/26/19 09:37 clindamycin Allergy Anaphylaxis Verified 12/26/19 09:37 vancomycin Allergy Rash Verified 11/02/20 11:38 Family History Other No pertinent family history Surgical History History of bilateral cataract extraction History of section Social History Smoking Status: Never smoker alcohol intake: never substance use type: does not use Physical Exam Const alert, oriented x3 and no apparent distress General Appearance: cooperative and comfortable Extremity Extremity Narrative: Left lower extremity without erythema ecchymosis compartments soft she is obese she has palpable pedal pulses she is able to wiggle her toes and ankle intact sensation light touch throughout all dermatomes left lower extremity Lab / Micro Data Result Diagrams: 11/02/20 14:10 11/02/20 14:10 Labs: Laboratory Results - last 24 hr 11/02/20 14:10: WBC 8.2, RBC 4.77, Hgb 13.6, Hct 42.4, MCV 88.9, MCH 28.5, MCHC 32.1, RDW Std Deviation 46.5 H, RDW Coeff of Quentin 14.3, Plt Count 230, MPV 9.6, Immature Gran % (Auto) 0.500, Neut % (Auto) 70.3 H, Lymph % (Auto) 15.9 L, Hunt % (Auto) 6.1, Eos % (Auto) 6.6 H, Baso % (Auto) 0.6, Absolute Neuts (auto) 5.8, Absolute Lymphs (auto) 1.31, Nucleated RBC % 0 11/02/20 14:10: Sodium 139, Potassium 4.6, Chloride 106, Carbon Dioxide 30.0, Anion Gap 3 L, BUN 13, Creatinine 0.93, Estim Creat Clear Calc 55.97, Est GFR (MDRD) Af Amer 76, Est GFR (MDRD) Non-Af 63, BUN/Creatinine Ratio 14.0, Glucose 96, Calcium 8.6, Total Bilirubin 0.60, AST 33, ALT 18, Alkaline Phosphatase 86, Total Protein 5.6 L, Albumin 1.4 L, Globulin 4.2, Albumin/Globulin Ratio 0.3 L Micro: Microbiology 11/02/20 14:00 Nasal Secretion SARS-CoV-2 Antigen (Rapid) - Final Radiology Impression Hip/Pelvis X-Ray 11/02/20 12:50 IMPRESSION: Subcapital left hip fracture. Electronically Signed: Seth Pacheco MD at 13:15 EDT Tel , Service support ,
[2020-11-02 16:21] LABS: Bedside Glucose 90 mg/dL (70-110)
[2020-11-02] MEDS: Acetaminophen 325 MG Tablet 650 MG PO (18:29)
[2020-11-02] MEDS: oxyCODONE 5 MG Tablet PO (18:29)
[2020-11-02 19:14] LABS: Hemoglobin A1c 5.3 % (3.8-5.6)
[2020-11-02] MEDS: Imipramine HCl 25 MG Tablet 75 MG PO (20:50)
[2020-11-02] MEDS: Pramipexole Di-HCl 0.25 MG Tablet PO (20:51)
[2020-11-02 20:55] LABS: Bedside Glucose 155 mg/dL (70-110)
--- NOTE | 2020-11-02 21:23 | CPS ---
Patient's home CPAP setup at bedside. Patient does not use oxygen with machine at home. Machine is setup on room air and will monitor patient for possibility of needing oxygen tonight.
[2020-11-03] VITALS (7 sets, daily range): BP systolic 113–159; BP diastolic 74–98; PULSE 88–92; RESP 18; TEMP 36.4–37; O2SAT 93–96
--- NOTE | 2020-11-03 01:14 | PCS.PANDOC ---
PANDEMIC DOCUMENTATION INITIATED: Date: 11/02/2020 Time: 1449
[2020-11-03] MEDS: Acetaminophen 325 MG Tablet 650 MG PO ×2 (05:04→18:55)
[2020-11-03] MEDS: oxyCODONE 5 MG Tablet PO ×3 (05:05→22:57)
[2020-11-03 05:53] LABS: Absolute Lymphocyte Count 1.42 X10^3/uL (0.83-4.51); Basophil# 0.04 X10^3/uL; Basophil% 0.6 % (0-1); Eosinophil# 0.58 X10^3/uL; Eosinophils% 8.9 % (0-5); Hemoglobin 11.9 g/dL (12.0-15.0); Lymphocyte # 1.42 X10^3/ul (0.83-4.51); Lymphocyte % 21.7 % (19-41); Mean Corp Hgb Conc 32.2 g/dL (32-36); Mean Corpuscular Hgb 28.3 pg (27.0-32.0); Mean Corpuscular Volume 88.1 fL (81-99); Mean Platelet Vol. 8.9 fl (6.2-12.0); Monocyte# 0.47 X10^3/uL; Monocyte% 7.2 % (0-10); NRBC Flagged by Analyzer 0 % (0-5); Neutrophil # 3.99 X10^3/uL (2.7-7.7); Neutrophil % 61.1 % (47-70); Platelet Count 206 K/mm3 (150-450); RBC Distribution Width CV 14.2 % (11.6-14.6); RBC Distribution Width SD 45.5 fl (35.1-43.9); White Blood Count 6.5 K/mm3 (4.4-11.0)
[2020-11-03 06:29] LABS: ALB/GLOB Ratio 0.3 RATIO (0.9-2.4); AST(SGOT) 13 U/L (15-37); Alanine Aminotransfer ALT/SGPT 13 U/L (13-56); Albumin, Serum 1.2 g/dL (3.2-5.0); Alkaline Phosphatase 75 U/L (45-117); Anion Gap 5 (5-15); BUN 14 mg/dL (7-18); BUN/Creat Ratio 14.9 RATIO (10-20); Chloride 106 mmol/L (98-107); Creatinine, Serum 0.94 mg/dL (0.55-1.02); EST Glomerular Filtration Rate 62 mL/min (>60); Est Glom Filt Rate - Afr Amer 76 mL/min (>60); Estimated Creatinine Clearance 55.37 ml/min; Globulin 3.5 g/dL (2.2-4.2); Glucose 122 mg/dL (74-106); Magnesium 2.1 mg/dL (1.6-2.6); Phosphorus 4.2 mg/dL (2.5-4.9); Potassium 3.4 mmol/L (3.5-5.1); Protein, Total 4.7 g/dL (6.4-8.2); Sodium Level 139 mmol/L (136-145); Thyroid Stim Hormone (TSH) 2.43 uIU/mL (0.358-3.74)
[2020-11-03 06:35] LABS: Bedside Glucose 96 mg/dL (70-110)
[2020-11-03] MEDS: Metoprolol(XL)Succ 100 MG Tablet PO (08:13)
[2020-11-03] MEDS: Pantoprazole Sodium 40 MG Tablet PO (08:13)
[2020-11-03] MEDS: buPROPion (XL) 300 MG TABLET.XL PO (08:14)
--- NOTE | 2020-11-03 10:20 | CASEMGMT ---
RN ADRIANA Face to Face with patient for initial transition planning/care coordination assessment. RN CM introduced self and role at [facility]. Patient lying in bed, alert and oriented. Patient willing to participate in assessment and is able to answer all questions appropriately. Care providers, pharmacy, and demographics verified. Patient wishes to discharge home with HHC if able but willing to go to SNF if necessary. Patient states she has no further needs or concerns at this time. CM to follow for discharge planning needs that may arise. PCP: Jason Specialists: Jeff, on site construction superintendent; Pramod, oncologist Preferred Pharmacy: [facility] Insurance: [employer] [facility] Prescription Benefit: yes Living Will/HPOA: yes, Low Calderon LNOK: Living Arrangements: Patient lives with in a single story home with ramp to enter the home. Patient states that since she has been home recovering from ankle fracture back in December, has been assisting with care. Transportation: or [place] [facility]: Patient states she has tub bench, BSC, grab bars, walker, wheelchair, cpap, and sit to stand for transfers. Patient states she has been to [facility]. Patient has been completing outpatient PT at [facility]. Disposition Plan: TBD pending course of treatment and progress with therapy after surgery. Will monitor progress. HHC vs SNF Shagufta MARINO, RN, CM
[2020-11-03] MEDS: Potassium Chloride Oral Tablet 20 MEQ 40 MEQ PO (11:25)
[2020-11-03 11:31] LABS: Bedside Glucose 141 mg/dL (70-110)
--- NOTE | 2020-11-03 13:15 | CHAPLAIN ---
Type of Pastoral Visit _x__ Initial Visit ___ Follow-up Visit ___ On-call Visit ___ General Patient Visit ___ Spiritual Assessment ___ Family Conference ___ Bereavement ___ Rapid Response ___ Code Blue ___ Other (describe below) Pastoral Care Referral From _x__ Patient ___ Family ___ Nurse ___ Physician ___ Global Upstream Marketing Manager ___ Brake Linings Coater ___ Other (describe below) Sacrament/Intervention _x__ Active listening ___ Anointing ___ Synagogue ___ Bereavement ___ Communion ___ Patti exploration ___ _x__ Life review _x__ Prayer ___ Reconciliation ___ Sacrament of Sick _x__ Supportive presence ___ Wedding ___ Other (describe below) Pastoral Comments patient is seeking support through visit and spiritual care; pt eager to talk; pt gives review of last year with health limitations and her response spiritually and emotionally; pt concerned for her spouse who must do much for her; pt hopes to rehab at [facility] which is close to home; pt welcomes visits in the future and prayer support
--- NOTE | 2020-11-03 15:26 | PN.HOSP_ITS ---
Documented by User: Maureen Ibrahim NP, TRANSFER AND PUMPHOUSE OPERATOR-C 11/03/20 15:48 Subjective Subjective Patient seen and examined. Reports pain is currently well controlled. Requesting rehab at discharge. Denies current symptoms or complaints. Plan for OR tomorrow. Objective Data Objective Data Vital Signs: Vital Signs Temp Pulse Resp BP Pulse Ox 98.0 F 88 18 152/98 H 95 11/03/20 12:54 11/03/20 12:55 11/03/20 12:54 11/03/20 12:54 11/03/20 12:54 Oxygen Delivery Method Room Air Weight: 278 lb 10.629 oz Body Mass Index (BMI) 42.3 Intake & Output: Intake and Output for Last 24 Hours 11/01/20 11/02/20 11/03/20 23:59 23:59 23:59 Intake Total 400 / 400 Output Total 150 / 150 Balance 400 / 400 -150 / -150 Lab / Micro Data Result Diagrams: 11/03/20 05:40 11/03/20 05:40 Labs: Laboratory Results - last 24 hr 11/02/20 14:10: Hemoglobin A1c 5.3 11/02/20 16:06: POC Glucose 90 11/02/20 20:49: POC Glucose 155 H 11/03/20 05:40: WBC 6.5, RBC 4.20, Hgb 11.9 L, Hct 37.0, MCV 88.1, MCH 28.3, MCHC 32.2, RDW Std Deviation 45.5 H, RDW Coeff of Quentin 14.2, Plt Count 206, MPV 8.9, Immature Gran % (Auto) 0.500, Neut % (Auto) 61.1, Lymph % (Auto) 21.7, Canadian % (Auto) 7.2, Eos % (Auto) 8.9 H, Baso % (Auto) 0.6, Absolute Neuts (auto) 4.0, Absolute Lymphs (auto) 1.42, Nucleated RBC % 0 11/03/20 05:40: Sodium 139, Potassium 3.4 L, Chloride 106, Carbon Dioxide 28.0, Anion Gap 5, BUN 14, Creatinine 0.94, Estim Creat Clear Calc 55.37, Est GFR (MDRD) Af Amer 76, Est GFR (MDRD) Non-Af 62, BUN/Creatinine Ratio 14.9, Glucose 122 H, Calcium 8.0 L, Phosphorus 4.2, Magnesium 2.1, Total Bilirubin 0.40, AST 13 L, ALT 13, Alkaline Phosphatase 75, Total Protein 4.7 L, Albumin 1.2 L, Globulin 3.5, Albumin/Globulin Ratio 0.3 L, TSH 2.43 11/03/20 06:31: POC Glucose 96 11/03/20 11:24: POC Glucose 141 H Micro: Microbiology 11/02/20 14:00 Nasal Secretion SARS-CoV-2 Antigen (Rapid) - Final Physical Exam Const alert, oriented x3 and no apparent distress Orientation / Consciousness: awake, oriented to person, oriented to place and oriented to time HEENT normocephalic and moist oral mucous membranes Eyes PERRL, EOMs intact bilaterally and conjunctivae normal Neck no lymphadenopathy Resp normal respiratory effort and clear to auscultation bilaterally Cardio regular rate, regular rhythm and no murmurs Peripheral Pulses: pulses 2+ throughout GI normal to inspection, nondistended, normoactive bowel sounds, non-tender and non-distended Extremity normal to inspection Skin no rashes or lesions noted Lesions: no lesions Rashes: no rashes Trauma: no lacerations or abrasions Neuro CN's II-XII intact bilaterally, no focal motor deficits, no sensory deficits n oted and deep tendon reflexes 2+ bilaterally Psych mental status grossly normal and affect normal Assessment & Plan Assessment/Plan (1) Femur fracture: QUALIFIERS: Encounter type: initial encounter Femur location: intracapsular Fracture type: closed Laterality: left Qualified Code(s): S72.012A - Unspecified intracapsular fracture of left femur, initial encounter for closed fracture PLAN: 1. Acute traumatic left subcapital hip fracture secondary to mechanical fall prior to admission-orthopedic medicine on consult. Anticoa gulation on hold, last dose of Eliquis 11/02/2020 in a.m. Plan for OR tomorrow. Medically stable to proceed with surgery. As needed pain regimen. PT/OT. Plan for SNF at discharge. 2. 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 Eliquis on hold due to surgery. Will need to resume when approved by orthopedic medicine following surgery. 3. Severe proteinuria-undergoing work-up for myeloma versus amyloidosis with oncology, Dr. Benavidez. 4. Type 2 diabetes [id number]-[id number] with sliding scale insulin. 5. Hypertension-stable, continue metoprolol. 6. Hyperlipidemia-continue statin. 7. Restless leg syndrome-on Requip. 8. GERD-on PPI. 9. ABELARDO-continue CPAP regimen. 10. Anxiety/depression/insomnia-on bupropion, fluoxetine. DVT prophylaxis-Eliquis on hold This patient was seen by VALENTE Jackson under the supervision of Dr. Sahu. Documented by User: Dr. Jimmy Sahu MD 11/03/20 17:48 Objective Data Lab / Micro Data Result Diagrams: 11/03/20 05:40 11/03/20 05:40 Charges/Coding Addendum Addendum: Dr. Sahu: I personally reviewed the chart and examined the patient, and agree with the above findings. 70-year-old female presents from home after falling onto her left hip. She did have a previous fracture to her right ankle which has caused her to not be able to walk for almost the last year. She said that she spent 7 months in a skilled nursing at that time and was not able to ambulate and therefore was sent home. Her Eliquis has been held and will undergo surgery for left hip fracture tomorrow. Visit Charges Inpatient E&M: 57639 Subs Hosp L2
[2020-11-03 16:30] LABS: Bedside Glucose 137 mg/dL (70-110)
[2020-11-03] MEDS: Imipramine HCl 25 MG Tablet 75 MG PO (22:20)
[2020-11-03] MEDS: Atorvastatin Calcium 10 MG Tablet PO (22:20)
[2020-11-03] MEDS: Pramipexole Di-HCl 0.25 MG Tablet PO (22:20)
[2020-11-03 23:10] LABS: Bedside Glucose 183 mg/dL (70-110)
[2020-11-04] VITALS (19 sets, daily range): BP systolic 127–187; BP diastolic 63–115; PULSE 78–94; RESP 14–18; TEMP 35.7–37.2; O2SAT 90–100; BMI 42.3; BMI 42.4
[2020-11-04 06:45] LABS: Bedside Glucose 111 mg/dL (70-110)
[2020-11-04 07:30] LABS: Anion Gap 2 (5-15); BUN 17 mg/dL (7-18); Chloride 108 mmol/L (98-107); Creatinine, Serum 0.94 mg/dL (0.55-1.02); EST Glomerular Filtration Rate 62 mL/min (>60); Est Glom Filt Rate - Afr Amer 75 mL/min (>60); Estimated Creatinine Clearance 55.37 ml/min; Glucose 122 mg/dL (74-106); Potassium 4.1 mmol/L (3.5-5.1); Sodium Level 142 mmol/L (136-145)
--- NOTE | 2020-11-04 08:45 | RAD_ITS ---
STUDY: X-RAY - PELVIS AND LEFT HIP REASON FOR EXAM: Left hip pain, left hip injury. TECHNIQUE: A single view of the pelvis and hip. COMPARISON: Radiographs 11/02/2020. FINDINGS: Because of the patient''s body habitus the left subcapital hip fracture is poorly demonstrated on this crosstable lateral view although it does not appear to be displaced. Electronically Signed: Seth Pacheco MD at 12:36 EDT Tel , Service support , RAD/Hip 1 view with Pelvis
[2020-11-04] MEDS: hydrALAZINE 20 MG/ML Vial 10 MG IV (09:25)
[2020-11-04] MEDS: Metoprolol(XL)Succ 100 MG Tablet PO (10:10)
--- NOTE | 2020-11-04 11:35 | HIP_PTH ---
PATIENT: DWAIN BILLINGSLEY LOC: MS3 U#:[id number] AGE/SX: 70/F ROOM: UT323 RE11/02/[address]: Dr. Jimmy Sahu MD : 1950 BED: 1 DIS: 11/06/2020 SPEC #: [id number] RECD: 11/05/20 07:43 STATUS: ZOFIA RIVERS #: [id number] JOHN PAUL: 11/04/20 11:[address]: Bigg Haddad DEPT: SURGICAL PATHOLOGY RECD BY: Naeem Wall ENTERED: 11/05/20 10:07 SP TYPE: TOTAL HIP OTHR DR: Dr. Bigg Haddad, DO Dr. Erik Gomez, DO Dr. Lilliam Kent, DO Dr. Jimmy Sahu MD Tissues: Hip, NOS Procedures: Decalcification bone/plaque Surgery Specimen Level IV Comments: @ Ordering doctor for DEC edited from to DR.JBORRU Chris by LENCHO at 11/05/20 1415 @ Ordering doctor for SUIV edited from to @ by LENCHO at 11/05/20 1415 @ Submitting doctor edited from to @ joaquín MUSA at 11/05/20 1415 HEADER OPERATION: Left hip hemiarthroplasty PRE-OP DIAGNOSIS: Left hip fracture TISSUE SUBMITTED: Femoral head MICROSCOPIC DIAGNOSIS Left hip, total joint resection: Consistent with organizing fracture callus. AM;am 11/10/20 MICROSCOPIC DESCRIPTION Slides are reviewed. GROSS DESCRIPTION Received is one container labeled with the patient's name and designated femoral head. The specimen consists of a femoral head measuring 4 x 4.5 x 4 cm. The articular surface is smooth. The resection margin is irregular and hemorrhagic. Also present in the specimen container is a detached piece of bone measuring 3 x 2.5 x 1.5 cm. Also present in the container is a detached piece of soft tissue measuring 1.5 x 0.7 x 0.3 cm. Marine Consultant sections are submitted in three cassettes as follows: 1 - soft tissue, entirely submitted, 2 - detached piece of bone, 3 - femoral head. Cassettes 2 & 3 are submitted after decalcification. / SJ:loly 11/05/20 TC:5 CPT: 08714, 01629
--- NOTE | 2020-11-04 12:26 | PCM.PN.HOSP ---
Documented by User: Maureen Ibrahim NP, FINANCE ANALYST-C 11/04/20 12:31 Subjective Subjective Patient seen and examined. Denies pain. Plan for OR this afternoon. Family at bedside, requesting rehab/SNF at discharge. Patient denies other symptoms or complaints. Objective Data Objective Data Vital Signs: Vital Signs Temp Pulse Resp BP Pulse Ox 98.1 F 80 17 176/85 H 94 11/04/20 09:14 11/04/20 10:10 11/04/20 09:14 11/04/20 10:10 11/04/20 09:14 Oxygen Delivery Method Room Air Weight: 278 lb 10.629 oz Body Mass Index (BMI) 42.3 Intake & Output: Intake and Output for Last 24 Hours 11/02/20 11/03/20 11/04/20 23:59 23:59 23:59 Intake Total 400 / 400 0 / 0 Output Total 150 / 450 300 / 300 Balance 400 / 400 -150 / -450 -300 / -300 Lab / Micro Data Result Diagrams: 11/03/20 05:40 11/04/20 06:40 Labs: Laboratory Results - last 24 hr 11/03/20 16:22: POC Glucose 137 H 11/03/20 22:59: POC Glucose 183 H 11/04/20 06:38: POC Glucose 111 H 11/04/20 06:40: Sodium 142, Potassium 4.1, Chloride 108 H, Carbon Dioxide 32.0, Anion Gap 2 L, BUN 17, Creatinine 0.94, Estim Creat Clear Calc 55.37, Est GFR (MDRD) Af Amer 75, Est GFR (MDRD) Non-Af 62, BUN/Creatinine Ratio 18.0, Glucose 122 H, Calcium 8.0 L Micro: Microbiology 11/02/20 14:00 Nasal Secretion SARS-CoV-2 Antigen (Rapid) - Final Physical Exam Const alert, oriented x3 and no apparent distress Orientation / Consciousness: awake, oriented to person, oriented to place and oriented to time HEENT normocephalic and moist oral mucous membranes Eyes PERRL, EOMs intact bilaterally and conjunctivae normal Neck no lymphadenopathy Resp normal respiratory effort and clear to auscultation bilaterally Cardio regular rate, regular rhythm and no murmurs Peripheral Pulses: pulses 2+ throughout GI normal to inspection, nondistended, normoactive bowel sounds, non-tender and non-distended Extremity normal to inspection Skin no rashes or lesions noted Lesions: no lesions Rashes: no rashes Trauma: no lacerations or abrasions Neuro CN's II-XII intact bilaterally, no focal motor deficits, no sensory deficits noted and deep tendon reflexes 2+ bilaterally Psych mental status grossly normal and affect normal Assessment & Plan Assessment/Plan (1) Femur fracture: QUALIFIERS: Encounter type: initial encounter Femur location: intracapsular Fracture type: closed Laterality: left Qualified Code(s): S72.012A - Unspecified intracapsular fracture of left femur, initial encounter for closed fracture PLAN: 1. Acute traumatic left subcapital hip fracture secondary to mechanical fall prior to admission-orthopedic medicine on consult. Anticoagulation on hold, last dose of Eliquis 11/02/2020 in a.m. Plan for OR 11/04/2020. Medically stable to proceed with surgery. As needed pain regimen. PT/OT. Plan for SNF at discharge. 2. 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 Eliquis on hold due to surgery. Will need to resume when approved by orthopedic medicine following surgery. 3. Severe proteinuria-undergoing work-up for myeloma versus amyloidosis with oncology, Dr. Benavidez. 4. Type 2 diabetes aubtzsji-Tezm-Nhzdt with sliding scale insulin. 5. Hypertension-stable, continue metoprolol. As needed hydralazine for systolic blood pressure greater than 160. 6. Hyperlipidemia-continue statin. 7. Restless leg syndrome-on Requip. 8. GERD-on PPI. 9. ABELARDO-continue CPAP regimen. 10. Anxiety/depression/insomnia-on bupropion, fluoxetine. 11. History of open fracture to right ankle 2019-unable to fully bear weight on right side. Complicates acute left-sided hip fracture recovery. PT/OT. Plan for SNF as noted above. 12. Morbid obesity-BMI 42. Diet and lifestyle modifications recommended. Dietitian consult. DVT prophylaxis-Eliquis on hold, resume when okay per Ortho postoperatively Discharge plan: Anticipate SNF at discharge. This patient was seen by VALENTE Jackson under the supervision of Dr. Sahu. Documented by User: Dr. Jimmy Sahu MD 11/04/20 16:18 Objective Data Lab / Micro Data Result Diagrams: 11/03/20 05:40 11/04/20 06:40 Charges/Coding Addendum Addendum: Dr. Sahu: I personally reviewed the chart and examined the patient, and agree with the above findings. 70-year-old female presents from home after falling onto her left hip. She did have a previous fracture to her right ankle which has caused her to not be able to walk for almost the last year. She said that she spent 7 months in a alf at that time and was not able to ambulate and therefore was sent home. Her Eliquis has been held and will undergo surgery for left hip fracture tomorrow. 11/04/2020: Doing well today, pain is well controlled. She was a bit concerned about her blood pressure however her blood pressure medications had not been given yet and I reassured her that she would get them before she went for surgery. Plan will be for PT/OT after surgery and to evaluate for possible placement. Visit Charges Inpatient E&M: 88420 Subs Hosp L2
[2020-11-04 13:05] LABS: Bedside Glucose 82 mg/dL (70-110)
--- NOTE | 2020-11-04 15:24 | CASEMGMT ---
Social Work Note SW following for possible SNF placement. Pt down at surgery. SW will follow up with pt tomorrow. Plan: MAINE Jackson MANAGER GAMES, CHEMICAL WEIGHER
[2020-11-04] MEDS: Lactated Ringers 1,000 ML 125 ML IV (16:50)
--- NOTE | 2020-11-04 16:53 | OP.PCM_ITS ---
Report of Operation Date of Procedure: 11/04/20 Description of Surgical Findings:: Preoperative diagnosis: Left hip femoral neck fracture displaced, morbid obesity Postoperative diagnosis: Same Procedure: Left hip hemiarthroplasty Implants: Cheryl Accolade II stem size 5 127 degree neck angle [0] neck length 47 mm outer diameter bipolar head Anesthesia: [General l] EBL: [150] cc Complications: None, however size of the patient's did make the procedure much more difficult. And tensioning of the hip was influenced by her large tissue envelope. Condition: Stable to PACU Indication for procedure: This is a this is a 70-year-old female patient who had a ground-level fall sustaining a left femoral neck fracture. Initially thought to be a valgus impacted subcapital minimally displaced but upon further imaging and lateral view there was anterior displacement we discussed with the patient and the family options of percutaneous screw fixation versus hemiarthroplasty. Multiple factors contributed to planning for hemiarthroplasty including patient's morbid obesity and ability to be protected weightbearing on the left side as she has had a recent open right ankle fracture surgery last year and has difficulty ambulating on the right side risk benefits and alternatives of the to procedure were reviewed extensively and the family wished to proceed with a left hip hemiarthroplasty. risks benefits and alternatives of the procedure were reviewed with the patient including risk of bleeding infection nerve artery tissue damage need for further surgery continue pain postoperative hip precaution restrictions leg length discrepancy and dislocation. Procedure: Patient was met in the preoperative holding area once again the operative extremity was identified by both patient and physician and was marked. Patient was met by anesthesia and brought to the operating room where anesthesia was started . The patient was then positioned in the lateral decubitus position on a well-padded pegboard with an axillary roll. All bony prominences were checked and padded. The patient was prepped and draped in the usual sterile fashion. A timeout was called to ensure the proper patient procedure and extremity were being contemplated. Anatomic landmarks were palpated and marked for a standard posterior lateral approach. A timeout was called to ensure the proper patient procedure and extremity were being contemplated. A 10 blade scalpel was used to make a posterior incision through the skin and subcutaneous tissue. In retractors were used and electrocautery was used to maintain meticulous hemostasis and dissect full-thickness flaps until the gluteal fascia was reached. The gluteal fascia was incised in line with the gluteal fibers. The bursal tissue was then freed from the underside and a Charnley retractor was placed. The fatpad was elevated off of the external rotators with electrocautery and the external rotators were dissected off of the greater trochanter including the piriformis and were tagged with #1 Ethibond for later repair. The joint capsule opened with posterior trapdoor technique. A femoral neck cutting guide was used to dell the neck with a Bovie and an oscillating saw was used to complete the femoral neck cut. the fracture was visualized and with the use of a corkscrew and a skid the femoral head was removed and sized. We then trialed with the matching sizes . Hohmann was placed around the lesser trochanter. A femoral elevator was used. As well as a poi nted wide Hohmann around the lesser trochanter and a Hohmann to help retract the gluteus medius. A box chisel was used to remove excess lateral neck followed by a canal finder and a lateralizing reamer. This was followed by sequential broaches. Attention was made of the version within the canal. Once the final broach was seated we then trialed and reduced the hip it was determined that a 127 degree neck angle with a [0] neck length was the appropriate size. We then checked stability with shuck testing as well as flexion and interminal rotation then proceeded with hip extension and checked leg lengths at the knees and heels. At this point trials were removed. The femoral stem was inserted. We re-trialed and then proceeded to impact the femoral head onto the José Manuel taper. We then surgically reduce the hip check stability again and leg lengths and were satisfied. irricept rinse was allowed to sit for 1 minutes while everyone changed their gloves. Thorough irrigation was performed. Followed by closure of the external rotators with #2 FiberWire followed by closure of gluteal fascia with #1 Ethibond. 0 Vicryl fat stitches and 2-0 Vicryl subcutaneous stitches and brynn in the skin. Dressing was applied in the form of silverlon dressing and an abduction pillow was placed. Patient tolerated the procedure well there was no intraoperative complications all counts were correct and the patient was brought back to the PACU in stable condition
--- NOTE | 2020-11-04 17:20 | RAD_ITS ---
STUDY: X-RAY - PELVIS AND LEFT HIP REASON FOR EXAM: Female, 70 years old. Post Op -- AP both hips on single olive/lateral of op hip PACU TECHNIQUE: 2 views of the pelvis and hip. COMPARISON: 11/05/2019 FINDINGS: Left hip prosthesis has been placed in anatomic alignment and position. RAD/Hip Min 2 Views (Portable) IMPRESSION: Status post left hip prosthesis placement Electronically Signed: Jose Murphy MD at 18:49 EDT , Service support ,
[2020-11-04 19:01] LABS: Bedside Glucose 119 mg/dL (70-110)
--- NOTE | 2020-11-04 20:50 | CPS ---
Put pt on her own CPAP machine. SpO2=93%
[2020-11-04] MEDS: Atorvastatin Calcium 10 MG Tablet PO (22:31)
[2020-11-04] MEDS: Pramipexole Di-HCl 0.25 MG Tablet PO (22:32)
[2020-11-04] MEDS: Senna/Docusate Sodium 1 Tablet 2 TABLET PO (22:33)
[2020-11-04] MEDS: Acetaminophen 500 MG Tablet 1000 MG PO (22:33)
[2020-11-04] MEDS: Imipramine HCl 25 MG Tablet 75 MG PO (22:33)
[2020-11-04] MEDS: Morphine 2 MG/ML Syringe IV (22:45)
[2020-11-04] MEDS: Cefazolin 1 GM/50 ML BAG IV (22:47)
[2020-11-04] MEDS: 0.9% Saline Lock 10 ML Syringe IV (22:48)
[2020-11-04 22:56] LABS: Bedside Glucose 115 mg/dL (70-110)
[2020-11-05] VITALS (7 sets, daily range): BP systolic 113–147; BP diastolic 55–85; PULSE 74–88; RESP 14–18; TEMP 36.4–37.1; O2SAT 95–99; BMI 42.4
[2020-11-05] MEDS: Lactated Ringers 1,000 ML 125 ML IV (04:46)
[2020-11-05] MEDS: Acetaminophen 500 MG Tablet 1000 MG PO ×3 (05:19→22:29)
[2020-11-05] MEDS: oxyCODONE 5 MG Tablet PO ×3 (05:19→13:48)
[2020-11-05] MEDS: Cefazolin 1 GM/50 ML BAG IV ×2 (06:23→13:53)
[2020-11-05] MEDS: APIXABAN 5 MG TABLET PO ×2 (06:24→22:28)
[2020-11-05 06:45] LABS: Bedside Glucose 112 mg/dL (70-110)
--- NOTE | 2020-11-05 07:00 | PN.ORTHO_ITS ---
Subjective Subjective Seen and examined pain controlled no complaints no fevers chills nausea, shortness of breath or chest pain Objective Data Objective Data Vital Signs: Vital Signs Temp Pulse Resp BP Pulse Ox 97.6 F L 81 16 133/63 H 95 11/05/20 03:46 11/05/20 03:46 11/05/20 03:46 11/05/20 03:46 11/05/20 03:46 Oxygen Flow Rate (L/min) 3 Oxygen Delivery Method Nasal Cannula Weight: 278 lb 10.629 oz Body Mass Index (BMI) 42.3 Intake & Output: Intake and Output for Last 24 Hours 11/03/20 11/04/20 11/05/20 23:59 23:59 23:59 Intake Total 165 / 165 1047.92 / 1047.92 Output Total 150 / 450 1000 / 1000 250 / 250 Balance -150 / -450 -835 / -835 797.92 / 797.92 Lab / Micro Data Result Diagrams: 11/03/20 05:40 11/04/20 06:40 Labs: Laboratory Results - last 24 hr 11/04/20 06:40: Sodium 142, Potassium 4.1, Chloride 108 H, Carbon Dioxide 32.0, Anion Gap 2 L, BUN 17, Creatinine 0.94, Estim Creat Clear Calc 55.37, Est GFR (MDRD) Af Amer 75, Est GFR (MDRD) Non-Af 62, BUN/Creatinine Ratio 18.0, Glucose 122 H, Calcium 8.0 L 11/04/20 12:56: POC Glucose 82 11/04/20 18:53: POC Glucose 119 H 11/04/20 22:25: POC Glucose 115 H 11/05/20 06:27: POC Glucose 112 H Micro: Microbiology 11/02/20 14:00 Nasal Secretion SARS-CoV-2 Antigen (Rapid) - Final Radiography Diagnostic Testing: Radiology Impression Hip/Pelvis X-Ray 11/04/20 08:45 Hip X-Ray 11/04/20 17:20 IMPRESSION: Status post left hip prosthesis placement Electronically Signed: Jose Murphy MD at 18:49 EDT , Service support , Physical Exam Const alert and oriented x3 General Appearance: cooperative Extremity Extremity Narrative: Dressing clean dry intact compartments soft neurovascular intact Assessment & Plan Assessment/Plan (1) Femur fracture: QUALIFIERS: Encounter type: initial encounter Femur location: intracapsular Fracture type: closed Laterality: left Qualified Code(s): S72.012A - Unspecified intracapsular fracture of left femur, initial encounter for closed fracture (2) BMI greater than 40: (3) Femoral neck fracture: QUALIFIERS: Encounter type: initial encounter Fracture type: closed Laterality: left Qualified Code(s): S72.002A - Fracture of unspecified part of neck of left femur, initial encounter for closed fracture PLAN: Postop day #1 left hip hemiarthroplasty Resume Eliquis 5 mg twice daily PT OT weightbearing as tolerated SCDs thigh-high AARTI hose Dressing to be undisturbed for 72 hours postop then to be removed prior to first shower and change daily at that point if not showering daily at that point incision should be clean daily with antibacterial soap and warm water Patient to follow-up in the office in 2 weeks if she is out of rehab by that time if not she can have her brynn removed in 2 weeks at the rehab and follow- up afterwards
[2020-11-05 07:03] LABS: Absolute Lymphocyte Count 0.88 X10^3/uL (0.83-4.51); Absolute Neutrophil Count 4.8 X10^3/uL (2.0-7.7); Basophil# 0.02 X10^3/uL; Basophil% 0.3 % (0-1); Eosinophil# 0.27 X10^3/uL; Eosinophils% 4.1 % (0-5); Hematocrit 35.3 % (37-47); Hemoglobin 10.9 g/dL (12.0-15.0); Lymphocyte # 0.88 X10^3/ul (0.83-4.51); Lymphocyte % 13.4 % (19-41); Mean Corp Hgb Conc 30.9 g/dL (32-36); Mean Corpuscular Hgb 28.2 pg (27.0-32.0); Mean Corpuscular Volume 91.2 fL (81-99); Mean Platelet Vol. 9.3 fl (6.2-12.0); Monocyte# 0.59 X10^3/uL; NRBC Flagged by Analyzer 0 % (0-5); Neutrophil % 72.9 % (47-70); Platelet Count 236 K/mm3 (150-450); RBC Distribution Width CV 14.2 % (11.6-14.6); RBC Distribution Width SD 47.2 fl (35.1-43.9); Red Blood Count 3.87 M/mm3 (4.2-5.4); White Blood Count 6.6 K/mm3 (4.4-11.0)
[2020-11-05 07:26] LABS: Anion Gap 4 (5-15); BUN 17 mg/dL (7-18); BUN/Creat Ratio 17.4 RATIO (10-20); Calcium,Total 7.9 mg/dL (8.5-10.1); Chloride 109 mmol/L (98-107); Creatinine, Serum 0.98 mg/dL (0.55-1.02); EST Glomerular Filtration Rate 60 mL/min (>60); Est Glom Filt Rate - Afr Amer 72 mL/min (>60); Estimated Creatinine Clearance 53.11 ml/min; Glucose 122 mg/dL (74-106); Potassium 4.4 mmol/L (3.5-5.1); Sodium Level 140 mmol/L (136-145)
[2020-11-05] MEDS: Senna/Docusate Sodium 1 Tablet 2 TABLET PO ×2 (07:44→22:28)
[2020-11-05] MEDS: Metoprolol(XL)Succ 100 MG Tablet PO (07:44)
[2020-11-05] MEDS: Pantoprazole Sodium 40 MG Tablet PO (07:44)
[2020-11-05] MEDS: buPROPion (XL) 300 MG TABLET.XL PO (07:44)
--- NOTE | 2020-11-05 10:40 | PCM.PN.HOSP ---
Documented by User: Espinoza PALMA 11/05/20 10:54 Subjective Subjective Patient is a 70-year-old female currently resting in bed status post left hip hemiarthroplasty. Patient reports that pain is controlled on current pain regimen, denies development of symptoms in the past 24 hours. Denies chest pain, shortness of breath, palpitations, hemoptysis, sputum production, fever, chills, N/V/D. Objective Data Objective Data Vital Signs: Vital Signs Temp Pulse Resp BP Pulse Ox 97.9 F 84 14 113/59 L 99 11/05/20 07:48 11/05/20 07:48 11/05/20 07:48 11/05/20 07:48 11/05/20 07:48 Oxygen Flow Rate (L/min) 2 Oxygen Delivery Method Room Air Weight: 278 lb 10.629 oz Body Mass Index (BMI) 42.3 Intake & Output: Intake and Output for Last 24 Hours 11/03/20 11/04/20 11/05/20 23:59 23:59 23:59 Intake Total 165 / 165 1097.92 / 1097.92 Output Total 150 / 450 1000 / 1000 250 / 250 Balance -150 / -450 -835 / -835 847.92 / 847.92 Lab / Micro Data Result Diagrams: 11/05/20 06:50 11/05/20 06:50 Labs: Laboratory Results - last 24 hr 11/04/20 12:56: POC Glucose 82 11/04/20 18:53: POC Glucose 119 H 11/04/20 22:25: POC Glucose 115 H 11/05/20 06:27: POC Glucose 112 H 11/05/20 06:50: WBC 6.6, RBC 3.87 L, Hgb 10.9 L, Hct 35.3 L, MCV 91.2, MCH 28.2, MCHC 30.9 L, RDW Std Deviation 47.2 H, RDW Coeff of Quentin 14.2, Plt Count 236, MPV 9.3, Immature Gran % (Auto) 0.300, Neut % (Auto) 72.9 H, Lymph % (Auto) 13.4 L, Murray % (Auto) 9.0, Eos % (Auto) 4.1, Baso % (Auto) 0.3, Absolute Neuts (auto) 4.8, Absolute Lymphs (auto) 0.88, Nucleated RBC % 0 11/05/20 06:50: Sodium 140, Potassium 4.4, Chloride 109 H, Carbon Dioxide 27.0, Anion Gap 4 L, BUN 17, Creatinine 0.98, Estim Creat Clear Calc 53.11, Est GFR (MDRD) Af Amer 72, Est GFR (MDRD) Non-Af 60, BUN/Creatinine Ratio 17.4, Glucose 122 H, Calcium 7.9 L Micro: Microbiology 11/02/20 14:00 Nasal Secretion SARS-CoV-2 Antigen (Rapid) - Final Radiography Diagnostic Testing: Radiology Impression Hip/Pelvis X-Ray 11/04/20 08:45 Hip X-Ray 11/04/20 17:20 IMPRESSION: Status post left hip prosthesis placement Electronically Signed: Jose Murphy MD at 18:49 EDT , Service support , Physical Exam Const alert, oriented x3 and no apparent distress HEENT head/scalp atraumatic, moist oral mucous membranes and oropharynx normal Head and Scalp: normocephalic Eyes EOMs intact bilaterally and conjunctivae normal Neck no lymphadenopathy, supple and no JVD Resp normal respiratory effort, normal air movement, no use of accessory muscles and clear to auscultation bilaterally Cardio regular rate, regular rhythm, no murmurs and no JVD GI normal to inspection, nondistended, normoactive bowel sounds, soft to palpation and non-tender Extremity normal to inspection, full ROM and no clubbing, cyanosis or edema Skin no rashes or lesions noted, no wounds, skin turgor normal and no jaundice Neuro CN's II-XII intact bilaterally Psych affect normal Assessment & Plan Assessment/Plan (1) Femoral neck fracture: QUALIFIERS: Encounter type: initial encounter Fracture type: closed Laterality: left Qualified Code(s): S72.002A - Fracture of unspecified part of neck of left femur, initial encounter for closed fracture (2) Femur fracture: QUALIFIERS: Encounter type: initial encounter Femur location: intracapsular Fracture type: closed Laterality: left Qualified Code(s): S72.012A - Unspecified intracapsular fracture of left femur, initial encounter for closed fracture (3) BMI greater than 40: PLAN: Day 4 Dischage planning: Possible SNF at discharge, CM/SW following to coordinate SNF placement. 1) Acute traumatic left subcapital hip fracture secondary to mechanical fall prior to admission S/P left hip hemiarthroplasty day postop day #1. Eliquis 5 mg p.o. twice daily resumed, per orthopedics. Discharge plan as above. 2) DM 2 Continue Accu-Cheks with sliding scale insulin. 3) HTN Stable, continue metoprolol. Hydralazine as needed. 4) hyperlipidemia Continue statin. 5) RLS Continue ropinorole. 6) GERD Continue PPI. 7) ABELARDO Continue CPAP. 8) anxiety/depression continue bupropion and fluoxetine. 9) Morbid obesity BMI 42. Diet and lifestyle modifications recommended. Dietitian consult ordered 10) Severe proteinuria-undergoing work-up for myeloma versus amyloidosis with oncology, Dr. Benavidez. Follows with Dr. Benavidez outpatient for Multiple myeloma work up. 11) History of saddle PE/chronic systemic anticoagulation Resume Eliquis as above. DVT prophylaxis - Eliquis Patient seen by Espinoza Figueroa PA-C, under the supervision of Dr. Sahu. Documented by User: Dr. Jimmy Sahu MD 11/05/20 13:32 Objective Data Lab / Micro Data Result Diagrams: 11/05/20 06:50 11/05/20 06:50 Charges/Coding Addendum Addendum: Dr. Sahu: I personally reviewed the chart and examined the patient, and agree with the above findings. 70-year-old female presents from home after falling onto her left hip. She did have a previous fracture to her right ankle which has caused her to not be able to walk for almost the last year. She said that she spent 7 months in a detention at that time and was not able to ambulate and therefore was sent home. Her Eliquis has been held and will undergo surgery for left hip fracture tomorrow. 11/04/2020: Doing well today, pain is well controlled. She was a bit concerned about her blood pressure however her blood pressure medications had not been given yet and I reassured her that she would get them before she went for surgery. Plan will be for PT/OT after surgery and to evaluate for possible placement. 11/05/2020: Doing well today, pain is controlled. No issues after surgery. It is felt that she will likely need rehab however her insurance does not qualify her for inpatient rehab and therefore she will need to go to SNF. Currently evaluating locations and once we have a facility that is able to take her we will plan for discharge. Visit Charges Inpatient E&M: 91269 Subs Hosp L2
--- NOTE | 2020-11-05 12:01 | CASEMGMT ---
Social Work Note Pt's requesting to speak to case management. SW and RN CM in to speak with pt's Low. Low states pt will likely need inpatient rehabiliation or SNF. SW spoke with Low about how this worker did reach out to [facility] inpatient rehabilitation and was updated that pt's insurance will not approve just a hip fracture for inpatient rehabilitation, pt's insurance is likely to only approve strokes for inpatient rehabilitation. SW also informed Low that [facility] TCU has no beds available so pt will need to go to SNF in the community. Low was provided a list of SNF providers including quality and resource use data and consistent with the patient?s preferred geographic region, medical needs, and insurance network. Low states pt has been to [facility] in [facility] and requests referral be sent there. SW informed Low that this worker will call to inquire about bed availability etc, Low states understanding. SW placed a call to [facility] and spoke with Ivon in admissions, Ivon states they had COVID outbreak, not accepting new admissions at this time. SOPHY back in to speak with pt and Low. Pt appears maybe slightly confused, stated that this worker reminded her of her high school friend August and then asked where this worker was living now. SW updated pt that this worker is working on getting pt to SNF. SW informed pt and Low that this worker called [facility], they are not accepting new admissions at this time. Low requests that this worker stop back later today today to get other choices for SNF. Pt and Low state understanding. Plan: SNF pending acceptance. Pt's insurance is now waiving pre-certs. Shagufta Jackson BENCH HAND, VISUAL TRAINING AIDE
[2020-11-05 12:15] LABS: Bedside Glucose 116 mg/dL (70-110)
--- NOTE | 2020-11-05 14:00 | CASEMGMT ---
Social Work Note SOPHY received message from pt's Low requesting call back. SOPHY placed a call to Low. Low states he called [facility] and was informed they have private skilled rooms available, request referral be sent to them. SOPHY placed a call to Katelynn at [facility] and provided referral. Katelynn confirms pt's insurance ([employer]) is waiving pre-certs. SOPHY faxed referral. SOPHY spoke with PA, pt would be medically ready for discharge today if SNF can accept pt. SOPHY waiting for call back from Katelynn at [facility] regarding referral. Plan: SNF pending acceptance. Shagufta Jackson OYSTER BED WORKER, INVESTIGATOR
--- NOTE | 2020-11-05 16:00 | CASEMGMT ---
Social Work Note SOPHY received call from Cinthia with TCU stating a bed opened up on TCU Monday. SOPHY provided referral. Cinthia to review referral. Plan: SNF pending acceptance Shagufta Jackson MSW, NOTE TELLER
[2020-11-05 16:30] LABS: Bedside Glucose 127 mg/dL (70-110)
[2020-11-05] MEDS: MELATONIN 3 MG TABLET PO (22:27)
[2020-11-05] MEDS: Pramipexole Di-HCl 0.25 MG Tablet PO (22:29)
[2020-11-05] MEDS: Imipramine HCl 25 MG Tablet 75 MG PO (22:29)
[2020-11-05] MEDS: Atorvastatin Calcium 10 MG Tablet PO (22:29)
[2020-11-05 22:50] LABS: Bedside Glucose 201 mg/dL (70-110)
[2020-11-06 03:30] VITALS: BP 137/78; PULSE 82; RESP 17; TEMP 36.8; O2SAT 96
[2020-11-06] MEDS: Acetaminophen 500 MG Tablet 1000 MG PO ×2 (06:34→14:07)
[2020-11-06] MEDS: Insulin Lispro 100 UNIT/ML INSULN.PEN SC ×2 (06:37→12:23)
[2020-11-06 06:41] LABS: Bedside Glucose 150 mg/dL (70-110)
[2020-11-06 08:20] VITALS: BP 147/74; PULSE 81; RESP 18; TEMP 36.6; O2SAT 92
--- NOTE | 2020-11-06 09:16 | CASEMGMT ---
Addendum entered by Shagufta Jackson 11/06/20 14:43: SW spoke with pt's Low and updated him that pt is still on [facility], waiting on rooom to be cleaned, pt will be moved to TCU today once the bed is clean on TCU. Low states understanding. Plan: TCU today Addendum entered by Shagufta Jackson 11/06/20 10:06: Pt's Low is at [facility]. SW in to speak with pt and pt's Low. SW updated pt and Low that a bed opened up on TCU, pt is able to discharge to TCU when medically cleared. SW asked Low if he can bring in pt's Byetta pens and Low states he is able to do so. SW updated pt and Low that pt will discharge to TCU when medically cleared. Pt and Low state understanding, confirms preference is [facility] TCU. SW placed a call to Katelynn at [facility], left message to disregard referral now. Plan: TCU when medically cleared Original Note: Social Work Note SOPHY spoke with Cinthia with TCU. TCU is able to accept pt today, will need pt's to bring in Byetta pens. SW will discuss this with pt's Low when he arrives to [facility]. Plan: TCU today Shagufta Jackson PANCAKE PROFESSIONAL, [employer]
[2020-11-06 09:36] VITALS: PULSE 81
[2020-11-06] MEDS: Senna/Docusate Sodium 1 Tablet 2 TABLET PO (09:36)
[2020-11-06] MEDS: Metoprolol(XL)Succ 100 MG Tablet PO (09:36)
[2020-11-06] MEDS: APIXABAN 5 MG TABLET PO (09:37)
[2020-11-06] MEDS: Pantoprazole Sodium 40 MG Tablet PO (09:37)
[2020-11-06] MEDS: buPROPion (XL) 300 MG TABLET.XL PO (09:37)
--- NOTE | 2020-11-06 10:39 | TREXTCAR_ITS ---
Documented by User: Espinoza PALMA 11/06/20 13:28 Diet 11/05/20 04:25 Diet: Transitional Is pt able to select menu?: Yes Wound(s) hip, left: Wound Type: Surgical Incision Therapies Weight Bearing: Weight bearing as tolerated Physical Therapy: Eval and Treat Occupational Therapy: Eval and Treat Problem/Diagnosis (1) Femoral neck fracture: Status: Acute (2) Femur fracture: Status: Acute (3) BMI greater than 40: Status: Chronic Allergies/Procedures Done in Hospital Allergies cephalexin [From Keflex] Allergy (Verified 12/26/19 09:37) Rash clindamycin Allergy (Verified 12/26/19 09:37) Anaphylaxis vancomycin Allergy (Verified 11/02/20 11:38) Rash Type of Care/Length of Stay Estimated LOS: Convalescent Care Less Than 30 days Type of Care Needed: Skilled Rehab Potential: Good Prognosis: Good Additional Orders/Day of Discharge Day of Discharge: 11/06/20 Discharge Plan Admission Admit Date/Time: 11/02/20 14:24 Primary Reason for Your Visit: Acute traumatic left hip fracture Attending Provider: Jimmy Sahu Primary Care Provider: Erik Gomez Consulting Providers: Bigg Haddad Discharge Orders/Prescriptions Prescriptions: Continued bupropion HCl 150 MG tablet extended release 24 hr 300 mg PO DAILY RF: 0 atorvastatin 10 MG tablet 10 mg PO QHS RF: 0 metoprolol succinate 100 MG tablet extended release 24 hr 25 mg PO BID RF: 0 ropinirole 0.5 MG tablet 0.5 mg PO DAILY RF: 0 acetaminophen 325 MG tablet 650 mg PO Q6H PRN PRN (Reason: Pain Score 1-10/Temp > 100.7 F) RF: 0 imipramine HCl 50 mg tablet 75 mg PO QHS RF: 0 apixaban 5 MG tablet 5 mg PO BID RF: 0 fluoxetine 20 mg Tablet 20 mg PO DAILY RF: 0 Byetta 10 mcg/dose(250 mcg/mL) 2.4 mL Pen Injector 10 mcg SUBCUT BID RF: 0 pantoprazole [Protonix] 40 mg Tablet,Delayed Release (Dr/Ec) 40 mg PO DAILY RF: 0 folic acid 1 mg Tablet 1 mg PO DAILY RF: 0 vitamin B complex Capsule 1 cap PO DAILY RF: 0 cholecalciferol (vitamin D3) [Vitamin D3] 125 mcg (5,000 unit) Tablet 125 mcg PO DAILY RF: 0 Referrals / Follow Up: Bigg Haddad DO [STAFF PHYSICIAN] - Within 2 Weeks Erik Gomez DO [Primary Care Provider] - Within 2 Weeks Disposition Disposition (needs filled in before D/C Order can be placed): [facility] Documented by User: Dr. Jimmy Sahu MD 11/06/20 13:43 Allergies/Procedures Done in Hospital Allergies cephalexin [From Keflex] Allergy (Verified 12/26/19 09:37) Rash clindamycin Allergy (Verified 12/26/19 09:37) Anaphylaxis vancomycin Allergy (Verified 11/02/20 11:38) Rash Discharge Plan Admission Admit Date/Time: 11/02/20 14:24 Primary Reason for Your Visit: Acute traumatic left hip fracture Attending Provider: Jimmy Sahu Primary Care Provider: Erik Gomez Consulting Providers: Bigg Haddad Discharge Orders/Prescriptions Prescriptions: Continued bupropion HCl 150 MG tablet extended release 24 hr 300 mg PO DAILY RF: 0 atorvastatin 10 MG tablet 10 mg PO QHS RF: 0 metoprolol succinate 100 MG tablet extended release 24 hr 25 mg PO BID RF: 0 ropinirole 0.5 MG tablet 0.5 mg PO DAILY RF: 0 acetaminophen 325 MG tablet 650 mg PO Q6H PRN PRN (Reason: Pain Score 1-10/Temp > 100.7 F) RF: 0 imipramine HCl 50 mg tablet 75 mg PO QHS RF: 0 apixaban 5 MG tablet 5 mg PO BID RF: 0 fluoxetine 20 mg Tablet 20 mg PO DAILY RF: 0 Byetta 10 mcg/dose(250 mcg/mL) 2.4 mL Pen Injector 10 mcg SUBCUT BID RF: 0 pantoprazole [Protonix] 40 mg Tablet,Delayed Release (Dr/Ec) 40 mg PO DAILY RF: 0 folic acid 1 mg Tablet 1 mg PO DAILY RF: 0 vitamin B complex Capsule 1 cap PO DAILY RF: 0 cholecalciferol (vitamin D3) [Vitamin D3] 125 mcg (5,000 unit) Tablet 125 mcg PO DAILY RF: 0 Referrals / Follow Up: Bigg Haddad DO [STAFF PHYSICIAN] - Within 2 Weeks Erik Gomez DO [Primary Care Provider] - Within 2 Weeks Disposition Disposition (needs filled in before D/C Order can be placed): [facility]
[2020-11-06 11:41] LABS: Bedside Glucose 156 mg/dL (70-110)
[2020-11-06 12:38] VITALS: BP 162/73; PULSE 82; RESP 18; TEMP 37; O2SAT 94
--- NOTE | 2020-11-06 13:28 | DS.PCM_ITS ---
Documented by User: Espinoza PALMA 11/06/20 13:35 Providers Date of Admission: 11/02/20 Primary Care Physician: Dr. Erik Gomez, Consultations 11/02/20 16:02 Consult: Orthopedics Routine Consulting Provider: Bigg Haddad Reason for Consult: R hip fracture EMERGENT Consult: No MD Notified: Yes Date Notified: 11/02/20 Time Notified: 14:23 Method of Notification: Text Method of Consult:: In-Person Comments:: saw in room 4:20 Reason For Visit: HIP FX Diagnosis Discharge Diagnosis (1) Femoral neck fracture: Status: Acute Code(s): S72.009A - Fracture of unspecified part of neck of unspecified femur, initial encounter for closed fracture Qualifiers: Encounter type: initial encounter Fracture type: closed Laterality: left Qualified Code(s): S72.002A - Fracture of unspecified part of neck of left femur, initial encounter for closed fracture (2) Femur fracture: Status: Acute Code(s): S72.90XA - Unspecified fracture of unspecified femur, initial encounter for closed fracture Qualifiers: Encounter type: initial encounter Femur location: intracapsular Fracture type: closed Laterality: left Qualified Code(s): S72.012A - Unspecified intracapsular fracture of left femur, initial encounter for closed fracture (3) BMI greater than 40: Status: Chronic Medications at Discharge Home Medications bupropion HCl 300 mg PO DAILY 05/10/13 atorvastatin 10 mg PO QHS 11/27/19 metoprolol succinate 25 mg PO BID 11/27/19 ropinirole 0.5 mg PO DAILY 11/27/19 acetaminophen 650 mg PO Q6H PRN PRN tab 11/28/19 imipramine HCl 50 mg tablet 75 mg PO QHS tab 12/12/19 apixaban 5 mg PO BID 12/26/19 Byetta 10 mcg SUBCUT BID 11/02/20 cholecalciferol (vitamin D3) [Vitamin D3] 125 mcg PO DAILY 11/02/20 fluoxetine 20 mg PO DAILY 11/02/20 folic acid 1 mg PO DAILY 11/02/20 pantoprazole [Protonix] 40 mg PO DAILY 11/02/20 vitamin B complex 1 cap PO DAILY 11/02/20 Hospital Course Summary of Care Provided Minutes Spent on Discharge: 35 Hospital Course: Disposition: Discharge to TCU for Rehab. 1) Acute traumatic left subcapital hip fracture secondary to mechanical fall prior to admission S/P left hip hemiarthroplasty day postop day #2. Patients vital signs are stable and there is no evidence of hemodynamic compromise. Discharge to TCU as above. Eliquis has been reinitiated. Follow up with Dr. Brannon within the next two weeks. 2) DM 2 Continue Accu-Cheks with sliding scale insulin. 3) HTN Stable, continue metoprolol. Hydralazine as needed. 4) hyperlipidemia Continue statin. 5) RLS Continue ropinorole. 6) GERD Continue PPI. 7) ABELARDO Continue CPAP. 8) anxiety/depression Continue bupropion and fluoxetine. 9) Morbid obesity BMI 42. Diet and lifestyle modifications recommended. Dietitian consult ordered 10) Severe proteinuria-undergoing work-up for myeloma versus amyloidosis with oncology, Dr. Benavidez. Follows with Dr. Benavidez outpatient for Multiple myeloma work up. 11) History of saddle PE/chronic systemic anticoagulation Resume Eliquis as above. Patient seen by Espinoza Figueroa PA-C, under the supervision of Dr. Sahu. Physical Exam Narrative Patient is a 70-year-old female currently resting in bed status post left hip hemiarthroplasty. Patient reports that pain is controlled on current pain regimen, denies development of symptoms in the past 24 hours. Denies chest pain, shortness of breath, palpitations, hemoptysis, sputum production, fever, chills, N/V/D. Const alert, oriented x3 and no apparent distress HEENT normocephalic, head/scalp atraumatic and hearing grossly normal bilaterally Eyes EOMs intact bilaterally and conjunctivae normal Neck no lymphadenopathy, supple and no JVD Resp normal respiratory effort, no retractions, no use of accessory muscles and clear to auscultation bilaterally Cardio regular rate, regular rhythm, no murmurs and no JVD GI normal to inspection, nondistended, normoactive bowel sounds, soft to palpation and non-tender Extremity normal to inspection, full ROM and no clubbing, cyanosis or edema Skin no rashes or lesions noted, no wounds and skin turgor normal Neuro CN's II-XII intact bilaterally Psych affect normal Weight / BMI Weight Weight: 278 lb 10.629 oz Body Mass Index (BMI) 42.3 ABG / Lab / Microbiology Data Result Diagrams: 11/05/20 06:50 11/05/20 06:50 Laboratory: Laboratory Results - last 24 hr 11/05/20 16:13: POC Glucose 127 H 11/05/20 22:21: POC Glucose 201 H 11/06/20 06:32: POC Glucose 150 H 11/06/20 11:29: POC Glucose 156 H Microbiology: Microbiology 11/02/20 14:00 Nasal Secretion SARS-CoV-2 Antigen (Rapid) - Final Meaningful Use Info Meaningful Use Diagnoses (Choose all that apply): None applicable Discharge Plan Admission Admit Date/Time: 11/02/20 14:24 Primary Reason for Your Visit: Acute traumatic left hip fracture Attending Provider: Jimmy Sahu Primary Care Provider: Erik Gomez Consulting Providers: Bigg Haddad Discharge Orders/Prescriptions Prescriptions: Continued bupropion HCl 150 MG tablet extended release 24 hr 300 mg PO DAILY RF: 0 atorvastatin 10 MG tablet 10 mg PO QHS RF: 0 metoprolol succinate 100 MG tablet extended release 24 hr 25 mg PO BID RF: 0 ropinirole 0.5 MG tablet 0.5 mg PO DAILY RF: 0 acetaminophen 325 MG tablet 650 mg PO Q6H PRN PRN (Reason: Pain Score 1-10/Temp > 100.7 F) RF: 0 imipramine HCl 50 mg tablet 75 mg PO QHS RF: 0 apixaban 5 MG tablet 5 mg PO BID RF: 0 fluoxetine 20 mg Tablet 20 mg PO DAILY RF: 0 Byetta 10 mcg/dose(250 mcg/mL) 2.4 mL Pen Injector 10 mcg SUBCUT BID RF: 0 pantoprazole [Protonix] 40 mg Tablet,Delayed Release (Dr/Ec) 40 mg PO DAILY RF: 0 folic acid 1 mg Tablet 1 mg PO DAILY RF: 0 vitamin B complex Capsule 1 cap PO DAILY RF: 0 cholecalciferol (vitamin D3) [Vitamin D3] 125 mcg (5,000 unit) Tablet 125 mcg PO DAILY RF: 0 Referrals / Follow Up: Bigg Haddad DO [STAFF PHYSICIAN] - Within 2 Weeks Erik Gomez DO [Primary Care Provider] - Within 2 Weeks Disposition Disposition (needs filled in before D/C Order can be placed): Long-Term Facility Documented by User: Dr. Jimmy Sahu MD 11/06/20 13:45 Providers Date of Admission: 11/02/20 Reason For Visit: HIP FX Medications at Discharge Home Medications bupropion HCl 300 mg PO DAILY 05/10/13 atorvastatin 10 mg PO QHS 11/27/19 metoprolol succinate 25 mg PO BID 11/27/19 ropinirole 0.5 mg PO DAILY 11/27/19 acetaminophen 650 mg PO Q6H PRN PRN tab 11/28/19 imipramine HCl 50 mg tablet 75 mg PO QHS tab 12/12/19 apixaban 5 mg PO BID 12/26/19 Byetta 10 mcg SUBCUT BID 11/02/20 cholecalciferol (vitamin D3) [Vitamin D3] 125 mcg PO DAILY 11/02/20 fluoxetine 20 mg PO DAILY 11/02/20 folic acid 1 mg PO DAILY 11/02/20 pantoprazole [Protonix] 40 mg PO DAILY 11/02/20 vitamin B complex 1 cap PO DAILY 11/02/20 ABG / Lab / Microbiology Data Result Diagrams: 11/05/20 06:50 11/05/20 06:50 Discharge Plan Admission Admit Date/Time: 11/02/20 14:24 Primary Reason for Your Visit: Acute traumatic left hip fracture Attending Provider: Jimmy Sahu Primary Care Provider: Erik Gomez Consulting Providers: Bigg Haddad Discharge Orders/Prescriptions Prescriptions: Continued bupropion HCl 150 MG tablet extended release 24 hr 300 mg PO DAILY RF: 0 atorvastatin 10 MG tablet 10 mg PO QHS RF: 0 metoprolol succinate 100 MG tablet extended release 24 hr 25 mg PO BID RF: 0 ropinirole 0.5 MG tablet 0.5 mg PO DAILY RF: 0 acetaminophen 325 MG tablet 650 mg PO Q6H PRN PRN (Reason: Pain Score 1-10/Temp > 100.7 F) RF: 0 imipramine HCl 50 mg tablet 75 mg PO QHS RF: 0 apixaban 5 MG tablet 5 mg PO BID RF: 0 fluoxetine 20 mg Tablet 20 mg PO DAILY RF: 0 Byetta 10 mcg/dose(250 mcg/mL) 2.4 mL Pen Injector 10 mcg SUBCUT BID RF: 0 pantoprazole [Protonix] 40 mg Tablet,Delayed Release (Dr/Ec) 40 mg PO DAILY RF: 0 folic acid 1 mg Tablet 1 mg PO DAILY RF: 0 vitamin B complex Capsule 1 cap PO DAILY RF: 0 cholecalciferol (vitamin D3) [Vitamin D3] 125 mcg (5,000 unit) Tablet 125 mcg PO DAILY RF: 0 Referrals / Follow Up: Bigg Haddad DO [STAFF PHYSICIAN] - Within 2 Weeks Erik Gomez DO [Primary Care Provider] - Within 2 Weeks Disposition Disposition (needs filled in before D/C Order can be placed): Long-Term Facility Charges/Coding Addendum Addendum: Dr. Sahu: I personally reviewed the chart and examined the patient, and agree with the above findings. 70-year-old female presents from home after falling onto her left hip. She did have a previous fracture to her right ankle which has caused her to not be able to walk for almost the last year. She said that she spent 7 months in a fci at that time and was not able to ambulate and therefore was sent home. Her Eliquis has been held and will undergo surgery for left hip fracture tomorrow. 11/04/2020: Doing well today, pain is well controlled. She was a bit concerned about her blood pressure however her blood pressure medications had not been giv en yet and I reassured her that she would get them before she went for surgery. Plan will be for PT/OT after surgery and to evaluate for possible placement. 11/05/2020: Doing well today, pain is controlled. No issues after surgery. It is felt that she will likely need rehab however her insurance does not qualify her for inpatient rehab and therefore she will need to go to SNF. Currently evaluating locations and once we have a facility that is able to take her we will plan for discharge. 11/06/2020: Doing well today, she feels like she is doing better and her who is at bedside says that her mentation has cleared up significantly compared to the previous few days. We will remove the Borges prior to discharge, that she will be transferring to the transitional care unit today for further therapy. I discussed with her the plan for discharge today and she expressed understanding of the risk benefits of going and would like to go to the fci today. Visit Charges Inpatient E&M: 26794 Disch Hosp
== END 2020-11-06 15:54 | disposition skilled nursing facility (03) | DRG 522 ==
LOC: ED 13:43 → MS3 13:52
PROVIDERS: Nurse Practitioner Family; Orthopaedic Surgery; Admitting Provider Internal Medicine; Emergency Provider Emergency Medicine; PCP Student in an Organized Health Care Education/Training Program; Visit Provider Family Medicine
PROC: 0SRS01Z Replacement of Left Hip Joint, Femoral Surface with Metal Synthetic Substitute, Open Approach (ICD-10-PCS; CPT 27125; principal; 2020-11-04 11:15)
DX: S72.012A Unspecified intracapsular fracture of left femur, initial encounter for closed fracture (principal); Z68.41 Body mass index [BMI] 40.0-44.9, adult; W18.30XA Fall on same level, unspecified, initial encounter; E11.9 Type 2 diabetes mellitus without complications; E78.5 Hyperlipidemia, unspecified; I10 Essential (primary) hypertension; E66.01 Morbid (severe) obesity due to excess calories; G47.33 Obstructive sleep apnea (adult) (pediatric); K21.9 Gastro-esophageal reflux disease without esophagitis; G25.81 Restless legs syndrome; F41.9 Anxiety disorder, unspecified; F32.9 Major depressive disorder, single episode, unspecified; R80.9 Proteinuria, unspecified; Y93.01 Activity, walking, marching and hiking; Y92.9 Unspecified place or not applicable; Y99.9 Unspecified external cause status; Z79.01 Long term (current) use of anticoagulants; Z86.711 Personal history of pulmonary embolism; Z96.652 Presence of left artificial knee joint; Z79.899 Other long term (current) drug therapy
CPT/HCPCS: 36415; 73501; 73502; 80048; 80053; 82962; 83036; 83735; 84100; 84443; 85025; 87426; 88305; 88311; 93005; 97163; 97167; 99251; 99285; C1776; J7120; A4216; G0463; J2405

== ENCOUNTER 2020-11-06 16:27 | Inpatient (IN) | payer MEDICARE, SELFPAY ==
[2020-11-06 16:30] VITALS: BP 141/77; PULSE 86; RESP 18; TEMP 36.2; O2SAT 92; BMI 43.2
[2020-11-06 17:11] LABS: Bedside Glucose 159 mg/dL (70-110)
--- NOTE | 2020-11-06 18:18 | NURSING ---
Addendum entered by Nicole Madsen 11/06/20 18:25: new order for ativan 0.5mg x1 and SSE when pt calmed down. NO bm since 11/02/20 Original Note: pt very upset, agitated, yelling out peoples names. This nurse went in, pt demanding to go home, stating I am not happy this is not fair what you guys are doing to me, not you, but I should not be here. I am suppose to be at a [facility]. 1:1 support provided, ineffective. on phone with daughterSymone. spoke with . Would like Dr Melchor to order med to help pt to calm down or it will get worse. paged dr melchor awaiting return call.
[2020-11-06] MEDS: LORazepam 0.5 MG Tablet PO (18:40)
[2020-11-06 18:41] VITALS: PULSE 86
[2020-11-06] MEDS: Metoprolol(XL)Succ 25 MG Tablet PO (18:41)
--- NOTE | 2020-11-06 19:16 | HP.PCM_ITS ---
HPI - General General Date of Admission: 11/06/20 HPI Narrative 11/02/2020 DWAIN BILLINGSLEY, is a 70 Female who presents to [facility] Emergency Department with fall. 11/02/2020 EKG normal sinus rhythm, nonspecific ST abnormality. Fell 2 days prior, left hip pain, unable to walk. X-ray shows left hip fracture. 11/02/2020 Admit to Hospital. Hold Eliquis to prepare for surgery. Oxycodone, Morphine for pain control. 11/03/2020 Pain controlled. PT/OT, [facility]mediate Facility at discharge. Severe proteinuria, Dr. Benavidez for myeloma versus amyloidosis. 11/04/2020 Hydralazine as needed for high blood pressure. 11/04/2020 Dr. Haddad performed left hip hemiarthroplasty. 11/05/2020 Pain controlled. Eliquis 5mg twice daily resumed. 11/06/2020 Admit to TCU with debility, here for rehabilitation, strengthening, prior to discharge home with . [facility] Medical History (Updated 11/06/20 @ 19:[address] Ramior Melchor MD) blood clots Diabetes History of left knee replacement Hyperlipidemia Hypertension Morbid obesity Home Medications bupropion HCl 300 mg PO DAILY 05/10/13 [History Last Taken 11/27/19] atorvastatin 10 mg PO QHS 11/27/19 [History Last Taken 11/27/19] metoprolol succinate 25 mg PO BID 11/27/19 [History Last Taken 11/27/19] ropinirole 0.5 mg PO DAILY 11/27/19 [History Last Taken 11/26/19] acetaminophen 650 mg PO Q6H PRN PRN tab 11/28/19 [Rx Last Taken Unknown] imipramine HCl 50 mg tablet 75 mg PO QHS tab 12/12/19 [History Last Taken Unknown] apixaban 5 mg PO BID 12/26/19 [History Last Taken Unknown] Byetta 10 mcg SUBCUT BID 11/02/20 [History Last Taken Unknown] cholecalciferol (vitamin D3) [Vitamin D3] 125 mcg PO DAILY 11/02/20 [History Last Taken Unknown] fluoxetine 20 mg PO DAILY 11/02/20 [History Last Taken Unknown] folic acid 1 mg PO DAILY 11/02/20 [History Last Taken Unknown] pantoprazole [Protonix] 40 mg PO DAILY 11/02/20 [History Last Taken Unknown] vitamin B complex 1 cap PO DAILY 11/02/20 [History Last Taken Unknown] Allergy/AdvReac Type Severity Reaction Status Date / Time cephalexin [From Keflex] Allergy Rash Verified 12/26/19 09:37 clindamycin Allergy Anaphylaxis Verified 12/26/19 09:37 vancomycin Allergy Rash Verified 11/02/20 11:38 Family History Other No pertinent family history Surgical History (Updated 11/06/20 @ 19:[address] Ramiro Melchor MD) History of bilateral cataract extraction History of section History of left hip hemiarthroplasty Social History (Updated 11/06/20 @ 19:[address] Ramiro Melchor MD) household members: spouse Smoking Status: Never smoker alcohol intake: never substance use type: does not use ROS Constitutional Constitutional: Denies chills, fever(s) or weight gain ENT HEENT: Denies headache(s), nasal congestion or nasal discharge Cardiovascular Cardiovascular: Denies chest pain or palpitations Respiratory/Chest Respiratory/Chest: Denies cough, excessive phlegm production or shortness of breath with exertion Gastrointestinal Gastrointestinal: Denies abdominal pain, nausea or vomiting Genitourinary Genitourinary: Denies dysuria Musculoskeletal Musculoskeletal: Denies joint pain or joint swelling Integumentary Integumentary: Denies rash or wounds Neurologic Neurologic: Denies focal weakness, numbness or tingling Psychiatric Psychiatric: Reports auditory hallucinations; Denies anxiety, depression, homicidal ideation or suicidal ideation Vital Signs Vital Signs Vital Signs: 11/06/20 16:30 11/06/20 16:32 11/06/20 18:41 Temperature 97.2 F L Temperature Source Temporal Pulse Rate 86 86 Pulse Rhythm Regular Pulse Strength Normal (2+) Respiratory Rate 18 Respiratory Effort Normal Non-Labored Respiratory Depth Normal Respiratory Pattern Normal Blood Pressure 141/77 H Blood Pressure Mean 98 Blood Pressure Source Monitor Blood Pressure Position Supine Blood Pressure Location Left Forearm Pulse Ox 92 Oxygen Delivery Method Room Air Room Air Weight Weight: 128.934 kg Body Mass Index (BMI) 43.2 Physical Exam Const alert and oriented x3 General Appearance: cooperative HEENT normocephalic Eyes PERRL and EOMs intact bilaterally Neck supple, no JVD and no carotid bruits Resp normal respiratory effort, normal air movement and clear to auscultation bilaterally Cardio regular rate and regular rhythm GI normal to inspection, nondistended, normoactive bowel sounds, non-tender and non-distended Extremity normal capillary refill General Extremity: Negative for edema Skin no rashes or lesions noted General Skin Exam: no breakdown Psych affect normal Appearance: appropriate Results Lab / Micro Data Labs: Laboratory Results - last 24 hr 11/06/20 17:03: POC Glucose 159 H Assessment & Plan Assessment/Plan (1) Debility: (2) Closed left hip fracture: (3) Pulmonary embolism: (4) Diabetes mellitus: (5) Hypertension: (6) Hyperlipidemia: (7) Depression: (8) Vitamin D deficiency: (9) Hypokalemia: (10) Gastroesophageal reflux disease: (11) Restless leg syndrome: (12) Insomnia: (13) Sleep apnea: (14) Proteinuria: PLAN: 70 year old female with below past medical history hospitalized with left hip fracture, underwent left hip hemiarthroplasty 11/04/[address] Haddad, admitted to TCU with debility, here for rehabilitation, strengthening, prior to discharge home with . * Debility - PT/OT. * Pain - Tylenol 1000mg Q6H prn pain (1-3), Oxycodone 5mg Q4H prn pain (4-10). * Bowel - Miralax 17gm daily, Senna/colace 2 tablets twice daily, Dulcolax 10mg daily prn, Soap suds enema x 1 for cleanout. * Adult immunization - Administer prevnar 13, pneumovax 23, fluvax, covid19 vaccine as appropriate. * DVT prophylaxis - Not necessary, on Eliquis. * Pulmonary embolism - Eliquis 5mg twice daily. * Hyperlipidemia - Atorvastatin 10mg QHS. 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 * Diabetes Mellitus II - Victoza 1.8mg daily. * Folate deficiency - Folic acid 1mg daily. * Insomnia - Imipramine 75mg QHS, stable chroinic exterminator helper termite use, GDR not recommended. * Restless/agitation - Lorazepam 0.5mg po x 1 dose. * Hypertension - Metoprolol succinate 25mg twice daily. * Tinea Corporis - Nystatin powder twice daily. * GERD - Pantoprazole 40mg daily. * Restless leg syndrome - Mirapex 0.25mg QHS.
[2020-11-06] MEDS: APIXABAN 5 MG TABLET PO (21:24)
[2020-11-06] MEDS: Pramipexole Di-HCl 0.25 MG Tablet PO (21:25)
[2020-11-06] MEDS: Atorvastatin Calcium 10 MG Tablet PO (21:25)
[2020-11-06] MEDS: Imipramine HCl 25 MG Tablet 75 MG PO (21:26)
[2020-11-06] MEDS: oxyCODONE 5 MG Tablet PO (21:30)
[2020-11-06] MEDS: Senna/Docusate Sodium 1 Tablet 2 TABLET PO (21:30)
[2020-11-06] MEDS: Nystatin Powder 15gm Bottle 1 APPLIC TOPICAL (22:15)
[2020-11-06 22:20] LABS: Bedside Glucose 136 mg/dL (70-110)
--- NOTE | 2020-11-06 22:20 | NURSING ---
Pt refusing to wear her cpap tonight, but agreeable to wear o2. O2 placed at 1.5l per nc.
--- NOTE | 2020-11-07 00:18 | NURSING ---
Pt calling out repeatedly for her daughter and , reoriented to place multiple times, pt reorients but then becomes confused again, Spoke with Low on phone to update, he states this happened last time she had surgery, states pt does not do well with anesthesia. 1:1 care provided, repositioned for comfort.
[2020-11-07] MEDS: Acetaminophen 500 MG Tablet 1000 MG PO ×2 (00:27→09:51)
--- NOTE | 2020-11-07 03:05 | NURSING ---
Pt sleeping at this time, resting with eyes closed, resp even, did let me put cpap on at 0145, no s/s of distress noted, will continue to monitor.
[2020-11-07] MEDS: Polyethylene Glycol 3350 17 GM PACKET PO (06:38)
[2020-11-07] MEDS: FLUoxetine 20 MG Capsule PO (06:38)
[2020-11-07] MEDS: Senna/Docusate Sodium 1 Tablet 2 TABLET PO ×2 (06:38→17:38)
[2020-11-07] MEDS: buPROPion (XL) 300 MG TABLET.XL PO (06:38)
[2020-11-07] MEDS: Nystatin Powder 15gm Bottle 1 APPLIC TOPICAL ×2 (06:39→17:38)
[2020-11-07] MEDS: APIXABAN 5 MG TABLET PO ×2 (06:39→17:38)
[2020-11-07 06:40] VITALS: BP 163/82; PULSE 79
[2020-11-07] MEDS: Pantoprazole Sodium 40 MG Tablet PO (06:40)
[2020-11-07] MEDS: Metoprolol(XL)Succ 25 MG Tablet PO ×2 (06:40→17:38)
[2020-11-07 06:41] LABS: Bedside Glucose 108 mg/dL (70-110)
[2020-11-07 06:46] VITALS: BP 163/82; PULSE 79; O2SAT 94
--- NOTE | 2020-11-07 07:25 | NURSING ---
Soap suds enema given, pt unable to hold for long, yellow liquid returned, martina care given and dry attends placed.
[2020-11-07] MEDS: Vitamin B Comp W-C Capsule 1 CAP PO (08:22)
[2020-11-07] MEDS: Folic Acid 1 MG Tablet PO (08:22)
[2020-11-07 08:54] LABS: Absolute Lymphocyte Count 1.12 X10^3/uL (0.83-4.51); Absolute Neutrophil Count 5.2 X10^3/uL (2.0-7.7); Basophil# 0.04 X10^3/uL; Basophil% 0.5 % (0-1); Eosinophil# 0.32 X10^3/uL; Eosinophils% 4.3 % (0-5); Hematocrit 38.3 % (37-47); Hemoglobin 11.8 g/dL (12.0-15.0); Lymphocyte # 1.12 X10^3/ul (0.83-4.51); Lymphocyte % 15.1 % (19-41); Mean Corp Hgb Conc 30.8 g/dL (32-36); Mean Corpuscular Hgb 28.4 pg (27.0-32.0); Mean Corpuscular Volume 92.1 fL (81-99); Mean Platelet Vol. 9.7 fl (6.2-12.0); Monocyte# 0.66 X10^3/uL; Monocyte% 8.9 % (0-10); NRBC Flagged by Analyzer 0 % (0-5); Neutrophil # 5.19 X10^3/uL (2.7-7.7); Neutrophil % 70.1 % (47-70); Platelet Count 245 K/mm3 (150-450); RBC Distribution Width CV 13.7 % (11.6-14.6); RBC Distribution Width SD 46.4 fl (35.1-43.9); Red Blood Count 4.16 M/mm3 (4.2-5.4); White Blood Count 7.4 K/mm3 (4.4-11.0)
[2020-11-07 09:20] LABS: Anion Gap 3 (5-15); BUN 19 mg/dL (7-18); BUN/Creat Ratio 18.1 RATIO (10-20); Calcium,Total 8.7 mg/dL (8.5-10.1); Chloride 106 mmol/L (98-107); Creatinine, Serum 1.05 mg/dL (0.55-1.02); EST Glomerular Filtration Rate 55 mL/min (>60); Est Glom Filt Rate - Afr Amer 66 mL/min (>60); Estimated Creatinine Clearance 49.57 ml/min; Glucose 113 mg/dL (74-106); Potassium 3.9 mmol/L (3.5-5.1); Sodium Level 137 mmol/L (136-145)
[2020-11-07 10:00] VITALS: PULSE 73; RESP 18; O2SAT 96
[2020-11-07] MEDS: Tuberculin,Purif.prot.deriv. 50 TU/ML Vial 0.1 ML ID (11:35)
--- NOTE | 2020-11-07 11:57 | NURSING ---
Notified Dr. Melchor that patient did not have results from the soap suds enema. Received order for Mag citrate 300mg x1, order repeated back will add order.
[2020-11-07] MEDS: Magnesium Citrate 300 ML PO (13:18)
[2020-11-07 14:06] LABS: Bedside Glucose 121 mg/dL (70-110)
[2020-11-07 16:00] VITALS: BP 151/71; PULSE 81; RESP 16; TEMP 36.6; O2SAT 96
[2020-11-07 17:31] LABS: Bedside Glucose 94 mg/dL (70-110)
[2020-11-07 17:38] VITALS: PULSE 81
[2020-11-07] MEDS: Imipramine HCl 25 MG Tablet 75 MG PO (21:13)
[2020-11-07] MEDS: Atorvastatin Calcium 10 MG Tablet PO (21:14)
[2020-11-07] MEDS: oxyCODONE 5 MG Tablet PO (21:14)
[2020-11-07] MEDS: Pramipexole Di-HCl 0.25 MG Tablet PO (21:15)
[2020-11-07 23:41] LABS: Bedside Glucose 100 mg/dL (70-110)
[2020-11-08 06:25] LABS: Bedside Glucose 117 mg/dL (70-110)
[2020-11-08 06:33] VITALS: BP 147/66; PULSE 85
[2020-11-08] MEDS: Pantoprazole Sodium 40 MG Tablet PO (06:33)
[2020-11-08] MEDS: buPROPion (XL) 300 MG TABLET.XL PO (06:33)
[2020-11-08] MEDS: APIXABAN 5 MG TABLET PO ×2 (06:33→17:34)
[2020-11-08] MEDS: Senna/Docusate Sodium 1 Tablet 2 TABLET PO (06:33)
[2020-11-08] MEDS: FLUoxetine 20 MG Capsule PO (06:33)
[2020-11-08] MEDS: Metoprolol(XL)Succ 25 MG Tablet PO ×2 (06:33→17:34)
[2020-11-08] MEDS: Nystatin Powder 15gm Bottle 1 APPLIC TOPICAL ×2 (06:34→17:34)
[2020-11-08] MEDS: Vitamin B Comp W-C Capsule 1 CAP PO (07:58)
[2020-11-08] MEDS: Folic Acid 1 MG Tablet PO (07:58)
[2020-11-08 12:45] LABS: Bedside Glucose 89 mg/dL (70-110)
[2020-11-08 14:35] VITALS: BP 151/73; PULSE 90; RESP 16; TEMP 36.4; O2SAT 99
[2020-11-08 17:21] LABS: Bedside Glucose 110 mg/dL (70-110)
[2020-11-08 17:34] VITALS: PULSE 90
[2020-11-08 20:52] VITALS: PULSE 100; RESP 16; O2SAT 94
[2020-11-08] MEDS: Imipramine HCl 25 MG Tablet 75 MG PO (20:53)
[2020-11-08] MEDS: Atorvastatin Calcium 10 MG Tablet PO (20:54)
[2020-11-08] MEDS: Pramipexole Di-HCl 0.25 MG Tablet PO (20:55)
[2020-11-08 21:25] LABS: Bedside Glucose 196 mg/dL (70-110)
[2020-11-09] VITALS (8 sets, daily range): BP systolic 144–178; BP diastolic 71–90; PULSE 70–93; RESP 16–18; TEMP 36.8; O2SAT 94
[2020-11-09] MEDS: oxyCODONE 5 MG Tablet PO ×2 (04:56→21:17)
[2020-11-09] MEDS: Polyethylene Glycol 3350 17 GM PACKET PO (04:56)
[2020-11-09] MEDS: buPROPion (XL) 300 MG TABLET.XL PO (04:57)
[2020-11-09] MEDS: Pantoprazole Sodium 40 MG Tablet PO (04:57)
[2020-11-09] MEDS: Senna/Docusate Sodium 1 Tablet 2 TABLET PO ×2 (04:57→17:41)
[2020-11-09] MEDS: Metoprolol(XL)Succ 25 MG Tablet PO ×3 (04:57→21:20)
[2020-11-09] MEDS: FLUoxetine 20 MG Capsule PO (04:57)
[2020-11-09] MEDS: APIXABAN 5 MG TABLET PO ×2 (04:57→17:41)
[2020-11-09] MEDS: Nystatin Powder 15gm Bottle 1 APPLIC TOPICAL ×2 (05:00→21:11)
[2020-11-09 06:21] LABS: Bedside Glucose 102 mg/dL (70-110)
[2020-11-09] MEDS: Vitamin B Comp W-C Capsule 1 CAP PO (08:47)
[2020-11-09] MEDS: Folic Acid 1 MG Tablet PO (08:47)
[2020-11-09 11:21] LABS: Bedside Glucose 242 mg/dL (70-110)
[2020-11-09 16:26] LABS: Bedside Glucose 112 mg/dL (70-110)
--- NOTE | 2020-11-09 21:00 | NURSING ---
Spoke w/ Dr. Melchor regarding elevated blood pressures. New order received to increase Toprol XL to 50 mg po BID.
[2020-11-09] MEDS: Atorvastatin Calcium 10 MG Tablet PO (21:12)
[2020-11-09] MEDS: Pramipexole Di-HCl 0.25 MG Tablet PO (21:12)
[2020-11-09] MEDS: Imipramine HCl 25 MG Tablet 75 MG PO (21:12)
[2020-11-09 22:05] LABS: Bedside Glucose 136 mg/dL (70-110)
[2020-11-10] MEDS: Acetaminophen 500 MG Tablet 1000 MG PO (00:06)
[2020-11-10 06:48] VITALS: O2SAT 95
[2020-11-10 07:01] LABS: Bedside Glucose 89 mg/dL (70-110)
[2020-11-10] MEDS: Senna/Docusate Sodium 1 Tablet 2 TABLET PO ×2 (07:08→17:47)
[2020-11-10] MEDS: FLUoxetine 20 MG Capsule PO (07:08)
[2020-11-10 07:10] VITALS: BP 170/94; PULSE 78
[2020-11-10] MEDS: Pantoprazole Sodium 40 MG Tablet PO (07:10)
[2020-11-10] MEDS: buPROPion (XL) 300 MG TABLET.XL PO (07:10)
[2020-11-10] MEDS: Metoprolol(XL)Succ 50 MG Tablet PO ×2 (07:10→17:48)
[2020-11-10] MEDS: APIXABAN 5 MG TABLET PO ×2 (07:11→17:47)
[2020-11-10] MEDS: Polyethylene Glycol 3350 17 GM PACKET PO (07:12)
[2020-11-10] MEDS: Nystatin Powder 15gm Bottle 1 APPLIC TOPICAL ×2 (07:15→17:56)
[2020-11-10 07:18] VITALS: BP 170/94; PULSE 78
[2020-11-10] MEDS: Folic Acid 1 MG Tablet PO (09:23)
[2020-11-10] MEDS: Vitamin B Comp W-C Capsule 1 CAP PO (09:23)
[2020-11-10] MEDS: oxyCODONE 5 MG Tablet PO (09:24)
[2020-11-10 10:41] LABS: Bedside Glucose 131 mg/dL (70-110)
--- NOTE | 2020-11-10 15:08 | PHA.CONS_ITS ---
Progress Note - Pharmacy Subjective: TCU Admission Objective: Allergies cephalexin [From Keflex] Allergy (Verified 12/26/19 09:37) Rash clindamycin Allergy (Verified 12/26/19 09:37) Anaphylaxis vancomycin Allergy (Verified 11/02/20 11:38) Rash Current Medications Generic Name Dose Route Start Last Admin Trade Name Freq PRN Reason Stop Dose Admin Acetaminophen 1,000 mg 11/06/20 19:41 11/10/20 00:06 Acetaminophen 500 Mg Tablet PO 1,000 mg Q6H PRN PRN Administration Pain Score 1-3 Apixaban 5 mg 11/06/20 18:00 11/10/20 07:11 Apixaban 5 Mg Tablet PO 5 mg BID JIMMY Administration Atorvastatin Calcium 10 mg 11/06/20 22:00 11/09/20 21:12 Atorvastatin Calcium 10 Mg Tablet PO 10 mg QHS JIMMY Administration Bisacodyl 10 mg 11/06/20 19:40 Bisacodyl 5 Mg Tablet PO DAILY PRN Constipation Bupropion HCl 300 mg 11/07/20 06:00 11/10/20 07:10 Bupropion (Xl) 300 Mg Tablet.Xl PO 300 mg DAILY JIMMY Administration Fluoxetine HCl 20 mg 11/07/20 06:00 11/10/20 07:08 Fluoxetine 20 Mg Capsule PO 20 mg DAILY JIMMY Administration Folic Acid 1 mg 11/07/20 08:00 11/10/20 09:23 Folic Acid 1 Mg Tablet PO 1 mg 0800 JIMMY Administration Imipramine HCl 75 mg 11/06/20 22:00 11/09/20 21:12 Imipramine Hcl 25 Mg Tablet PO 75 mg QHS JIMMY Administration Metoprolol Succinate 50 mg 11/10/20 06:00 11/10/20 07:10 Metoprolol(Xl)Succ 50 Mg Tablet PO 50 mg BID JIMMY Administration Multivitamins 1 capsule 11/07/20 08:00 11/10/20 09:23 Vitamin B Comp W-C Capsule PO 1 capsule DAILYCM JIMMY Administration Non-Formulary Medication 10 mcg 11/07/20 18:00 11/10/20 07:12 Exenatide [Byetta] SC 10 mcg BID JIMMY Administration Nystatin 1 applic 11/06/20 22:00 11/10/20 07:15 Nystatin Powder 15gm Bottle TOPICAL 1 applic BID JIMMY Administration Protocol Oxycodone HCl 5 mg 11/06/20 19:40 11/10/20 09:24 Oxycodone 5 Mg Tablet PO 5 mg Q4H PRN PRN Administration Pain Score 4-10 Pantoprazole Sodium 40 mg 11/07/20 06:00 11/10/20 07:10 Pantoprazole Sodium 40 Mg Tablet PO 40 mg DAILY JIMMY Administration Polyethylene Glycol 17 gm 11/07/20 06:00 11/10/20 07:12 Polyethylene Glycol 3350 17 Gm Packet PO 17 gm DAILY JIMMY Administration Pramipexole Dihydrochloride 0.25 mg 11/06/20 22:00 11/09/20 21:12 Pramipexole Di-Hcl 0.25 Mg Tablet PO 0.25 mg QHS JIMMY Administration Senna/Docusate Sodium 2 tablet 11/06/20 19:45 11/10/20 07:08 Senna/Docusate Sodium 1 Tablet PO 2 tablet BID JIMMY Administration Tuberculin PPD 0.1 ml 11/14/20 10:00 Tuberculin,Purif.Prot.Deriv. 50 Tu/Ml Vial ID 11/14/20 10:01 X1 ONE Problem List (Last Reviewed 11/06/20 @ 19:[address] Ramiro Melchor MD) Proteinuria (Acute) Sleep apnea (Acute) Insomnia (Acute) Restless leg syndrome (Acute) Gastroesophageal reflux disease (Acute) Hypokalemia (Acute) Vitamin D deficiency (Acute) Depression (Acute) Hyperlipidemia (Acute) Hypertension (Chronic) Diabetes mellitus (Acute) Pulmonary embolism (Acute) Closed left hip fracture (Acute) Debility (Acute) Vital Signs Temp Pulse Resp BP Pulse Ox 98.2 F 78 18 170/94 H 95 11/09/20 15:05 11/10/20 07:18 11/09/20 15:05 11/10/20 07:18 11/10/20 06:48 Oxygen Flow Rate (L/min) 1.5 Oxygen Delivery Method Room Air Weight: 128.934 kg Body Mass Index (BMI) 43.2 Sodium 137 mmol/L (136-145) 11/07/20 08:06 Potassium 3.9 mmol/L (3.5-5.1) 11/07/20 08:06 Chloride 106 mmol/L (98-107) 11/07/20 08:06 Carbon Dioxide 28.0 mmol/L (21.0-32.0) 11/07/20 08:06 Anion Gap 3 (5-15) L 11/07/20 08:06 BUN 19 mg/dL (7-18) H 11/07/20 08:06 Creatinine 1.05 mg/dL (0.55-1.02) H 11/07/20 08:06 Est GFR (MDRD) Af Amer 66 mL/min (>60) 11/07/20 08:06 Est GFR (MDRD) Non-Af 55 mL/min (>60) L 11/07/20 08:06 BUN/Creatinine Ratio 18.1 RATIO (10-20) 11/07/20 08:06 Glucose 113 mg/dL (74-106) H 11/07/20 08:06 Assessment/Plan: 1. Pain: acetaminophen 1000mg PO Q6H PRN pain 1-3 and oxycodone 5mg PO Q4H PRN pain 4-10. Please continue to monitor for increased pain, PRN usage, constipation and respiratory depression. 2. Pulmonary embolism: apixaban 5mg PO BID. Please continue to monitor hemoglobin (last 11.8g/dL) and S/S of bleeding. *3. Hyperlipidemia: atorvastatin 10mg PO QHS. Please consider ordering a lipid panel if clinically appropriate. Last lipid panel from 01/2015. Thanks. Please continue to monitor for muscle pain. 4. Hypertension: metoprolol succinate 50mg PO BID. Please continue to monitor BP (last 170/94) and HR (last 78). 5. GERD: pantoprazole 40mg PO daily. Please continue to monitor for S/S of GERD and diarrhea. 6. Diabetes mellitus II: Byetta 10mcg SC BID. Please continue to monitor hemoglobin A1c (last 5.3% on 11/02/20) and glucose (last 113mg/dL). 7. Restless leg syndrome: pramipexole 0.25mg PO QHS. Please continue to monitor for S/S of restless legs. *8. Folate deficiency/nutrition: folic acid 1mg PO daily and vitamin B complex 1C PO DAILYCM. Please continue to monitor. Patient does not have a vitamin B level in chart. Please consider ordering one if clinically appropriate. Thanks. Psychotropic Medications: 1. Depression: bupropion XL 300mg PO daily and fluoxetine 20mg PO daily. Please see physician note regarding GDR. Please continue to monitor for GI side effects. 2. Insomnia: imipramine 75mg PO QHS. Please see physician note regarding GDR. This medication is on the BEERs criteria for falls and delirium. Please continue to monitor. Unnecessary Medications: None Bowel Regimen: Miralax 17gm PO daily, senna/docusate 2T PO BID, and bisacodyl 1 0mg PO daily PRN constipation. Please continue to monitor for S/S of constipation and PRN usage. Date of Note:: 11/10/20
[2020-11-10 16:13] VITALS: BP 160/83; PULSE 83; RESP 17; TEMP 36.4; O2SAT 96
[2020-11-10 17:10] LABS: Bedside Glucose 112 mg/dL (70-110)
[2020-11-10 17:48] VITALS: PULSE 83
[2020-11-10] MEDS: Menthol/Lanolin/Calamine/Znox 113 GM Tube 1 APPLIC TOPICAL (20:50)
[2020-11-10] MEDS: Atorvastatin Calcium 10 MG Tablet PO (20:50)
[2020-11-10] MEDS: Pramipexole Di-HCl 0.25 MG Tablet PO (20:50)
[2020-11-10] MEDS: Imipramine HCl 25 MG Tablet 75 MG PO (20:51)
[2020-11-10 21:25] LABS: Bedside Glucose 89 mg/dL (70-110)
[2020-11-10 22:00] VITALS: PULSE 84; O2SAT 92
[2020-11-11] MEDS: oxyCODONE 5 MG Tablet PO ×2 (00:46→23:27)
[2020-11-11 05:05] VITALS: BP 167/88; PULSE 77
[2020-11-11] MEDS: buPROPion (XL) 300 MG TABLET.XL PO (05:05)
[2020-11-11] MEDS: FLUoxetine 20 MG Capsule PO (05:05)
[2020-11-11] MEDS: Polyethylene Glycol 3350 17 GM PACKET PO (05:05)
[2020-11-11] MEDS: Metoprolol(XL)Succ 50 MG Tablet PO ×2 (05:05→17:39)
[2020-11-11] MEDS: Pantoprazole Sodium 40 MG Tablet PO (05:05)
[2020-11-11] MEDS: Senna/Docusate Sodium 1 Tablet 2 TABLET PO (05:05)
[2020-11-11] MEDS: APIXABAN 5 MG TABLET PO ×2 (05:06→17:39)
[2020-11-11] MEDS: Menthol/Lanolin/Calamine/Znox 113 GM Tube 1 APPLIC TOPICAL ×2 (05:06→21:39)
[2020-11-11] MEDS: Nystatin Powder 15gm Bottle 1 APPLIC TOPICAL ×2 (05:06→17:41)
[2020-11-11 06:31] LABS: Bedside Glucose 108 mg/dL (70-110)
[2020-11-11] MEDS: Vitamin B Comp W-C Capsule 1 CAP PO (07:52)
[2020-11-11] MEDS: Folic Acid 1 MG Tablet PO (07:52)
--- NOTE | 2020-11-11 09:40 | CASEMGMT ---
Social Work Plan of care meeting held. Patient present as well as patient spouse. Patient with next insurance update due on 11/13/2020. Patient educated on insurance update process and that continued stay approval is not guaranteed. Patient with no discharge date and plans to continue with further care and treatment on the Transitional Care Unit. Patient plans to discharge to home with spouse, if able. This marriage and family social worker broached topic of secondary discharge plan, if needed. Patient does have a history of correction placement and is open to correction placement if needed. Patient spouse reports to be able to afford correction placement if correction placement is needed. Support provided. Will continue to follow. Halima JEFFREY, DARRELS
--- NOTE | 2020-11-11 10:24 | NURSING ---
Addendum entered by Montserrat Calabrese 11/13/20 07:30: Qing's office called he will see pt in house, transport was cancelled Original Note: Dr. Longo's office was called and f/u appointment scheduled for 11/18/20 at 1330, updated and stated he would like hospital transport set up and he would meet her over there. COMMUNICATIONS CLERK secretary bookkeeper updated and stated she would set up transport
[2020-11-11 11:15] LABS: Bedside Glucose 116 mg/dL (70-110)
--- NOTE | 2020-11-11 16:31 | CHAPLAIN ---
Type of Pastoral Visit ___ Initial Visit _x__ Follow-up Visit ___ On-call Visit ___ General Patient Visit ___ Spiritual Assessment ___ Family Conference ___ Bereavement ___ Rapid Response ___ Code Blue ___ Other (describe below) Pastoral Care Referral From _x__ Patient ___ Family ___ Nurse ___ Physician _x__ [place] Cutter Operator ___ Fabrication And Layout Craftsman ___ Other (describe below) Sacrament/Intervention _x__ Active listening ___ Anointing ___ Scientologist ___ Bereavement ___ Communion _x__ Patti exploration ___ _x__ Life review xPrayer ___ Reconciliation ___ Sacrament of Sick _x__ Supportive presence ___ Wedding ___ Other (describe below) Pastoral Comments patient has specific requests of emotional and spiritual support; pt has anxiety about her future and the stress her debility is causing her ; pt seeks spiritual support and prayer; additional time for presence and comfort given
[2020-11-11 16:41] VITALS: BP 154/63; PULSE 78; RESP 16; TEMP 36; O2SAT 96
[2020-11-11 17:10] LABS: Bedside Glucose 53 mg/dL (70-110)
[2020-11-11 17:35] LABS: Bedside Glucose 97 mg/dL (70-110)
[2020-11-11 17:39] VITALS: PULSE 78
[2020-11-11 21:26] LABS: Bedside Glucose 157 mg/dL (70-110)
[2020-11-11] MEDS: Imipramine HCl 25 MG Tablet 75 MG PO (21:38)
[2020-11-11] MEDS: Atorvastatin Calcium 10 MG Tablet PO (21:38)
[2020-11-11] MEDS: Pramipexole Di-HCl 0.25 MG Tablet PO (21:38)
[2020-11-12 05:09] VITALS: BP 165/66; PULSE 79
[2020-11-12] MEDS: buPROPion (XL) 300 MG TABLET.XL PO (05:09)
[2020-11-12] MEDS: Pantoprazole Sodium 40 MG Tablet PO (05:09)
[2020-11-12] MEDS: FLUoxetine 20 MG Capsule PO (05:09)
[2020-11-12] MEDS: APIXABAN 5 MG TABLET PO ×2 (05:09→18:26)
[2020-11-12] MEDS: Senna/Docusate Sodium 1 Tablet 2 TABLET PO (05:09)
[2020-11-12] MEDS: Metoprolol(XL)Succ 50 MG Tablet PO ×2 (05:09→18:27)
[2020-11-12] MEDS: Menthol/Lanolin/Calamine/Znox 113 GM Tube 1 APPLIC TOPICAL ×2 (05:11→20:20)
[2020-11-12] MEDS: Nystatin Powder 15gm Bottle 1 APPLIC TOPICAL ×2 (05:11→20:21)
[2020-11-12 05:12] VITALS: BP 165/66; PULSE 79; RESP 16; TEMP 36.2; O2SAT 96
[2020-11-12 07:05] LABS: Bedside Glucose 117 mg/dL (70-110)
[2020-11-12] MEDS: Vitamin B Comp W-C Capsule 1 CAP PO (08:01)
[2020-11-12] MEDS: Folic Acid 1 MG Tablet PO (08:02)
--- NOTE | 2020-11-12 09:51 | CASEMGMT ---
Social Work Brief interview for mental status (BIMS) and resident mood assessment (PHQ-9) completed on this day. BIMS score 15. PHQ-9 score 07/30. This oncology social work broach topic of patient mood after completing PHQ-9 assessment. Patient reports to be feeling good today. Patient was tearful and discouraged on admission to the unit and now reports to be hopeful. Patient reports to have stood up with therapy. Patient with positive and engaged affect. Support provided. Will continue to follow. Halima JEFFREY, ANTONELLA
[2020-11-12 10:46] LABS: Bedside Glucose 88 mg/dL (70-110)
--- NOTE | 2020-11-12 13:53 | MDS.RN ---
Completed pain interview for DARION 11/13/20
[2020-11-12 14:19] VITALS: BP 158/82; PULSE 84; RESP 16; TEMP 36.3; O2SAT 94
[2020-11-12] MEDS: oxyCODONE 5 MG Tablet PO ×2 (14:23→22:59)
[2020-11-12 17:15] LABS: Bedside Glucose 101 mg/dL (70-110)
[2020-11-12 18:27] VITALS: BP 158/82; PULSE 84
[2020-11-12] MEDS: Atorvastatin Calcium 10 MG Tablet PO (20:21)
[2020-11-12] MEDS: Pramipexole Di-HCl 0.25 MG Tablet PO (20:22)
[2020-11-12] MEDS: Imipramine HCl 25 MG Tablet 75 MG PO (20:23)
[2020-11-12 22:00] VITALS: PULSE 79; O2SAT 99
[2020-11-12 22:16] LABS: Bedside Glucose 131 mg/dL (70-110)
[2020-11-13 06:21] LABS: Bedside Glucose 117 mg/dL (70-110)
[2020-11-13 06:32] VITALS: BP 160/80; PULSE 73
[2020-11-13] MEDS: buPROPion (XL) 300 MG TABLET.XL PO (06:32)
[2020-11-13] MEDS: Pantoprazole Sodium 40 MG Tablet PO (06:32)
[2020-11-13] MEDS: APIXABAN 5 MG TABLET PO ×2 (06:32→18:07)
[2020-11-13] MEDS: Metoprolol(XL)Succ 50 MG Tablet PO ×2 (06:32→18:33)
[2020-11-13] MEDS: FLUoxetine 20 MG Capsule PO (06:32)
[2020-11-13] MEDS: Menthol/Lanolin/Calamine/Znox 113 GM Tube 1 APPLIC TOPICAL ×2 (06:43→21:31)
[2020-11-13] MEDS: Nystatin Powder 15gm Bottle 1 APPLIC TOPICAL ×2 (06:43→18:07)
[2020-11-13] MEDS: Folic Acid 1 MG Tablet PO (08:32)
[2020-11-13] MEDS: Vitamin B Comp W-C Capsule 1 CAP PO (08:32)
[2020-11-13 11:26] LABS: Bedside Glucose 99 mg/dL (70-110)
--- NOTE | 2020-11-13 15:56 | CASEMGMT ---
Social Work SW met with pt and her daughter. Informed that more time has been approved with insurance with [employer] 11/18. SW also expressed need to make d/c plan in the event that continued stay is not granted. Pt and dgt state that pt was living at home with her spouse who was providing 24 hour care. Pt has needed DME for this. Pt and dgt say the plan is to return here at d/c. Pt was getting out pt therapy at [facility] and going to appointments via ambulette. SW provided list of HHC and private duty aids. At this time the d/c plan is to return home with providing 24 hour care and outpatient therapy at [facility]. SW to continue to follow. Socorro YOUSSEF
[2020-11-13 16:00] VITALS: BP 159/69; PULSE 80; RESP 18; TEMP 36.5; O2SAT 97
[2020-11-13 18:33] VITALS: BP 148/71; PULSE 81
[2020-11-13 21:21] LABS: Bedside Glucose 118 mg/dL (70-110)
[2020-11-13] MEDS: Pramipexole Di-HCl 0.25 MG Tablet PO (21:30)
[2020-11-13] MEDS: Atorvastatin Calcium 10 MG Tablet PO (21:30)
[2020-11-13] MEDS: Imipramine HCl 25 MG Tablet 75 MG PO (21:30)
[2020-11-13 21:35] LABS: Bedside Glucose 145 mg/dL (70-110)
[2020-11-14] MEDS: oxyCODONE 5 MG Tablet PO (01:16)
[2020-11-14 06:36] LABS: Bedside Glucose 116 mg/dL (70-110)
[2020-11-14 06:40] VITALS: BP 158/83; PULSE 68
[2020-11-14] MEDS: Senna/Docusate Sodium 1 Tablet 2 TABLET PO (06:40)
[2020-11-14] MEDS: Pantoprazole Sodium 40 MG Tablet PO (06:40)
[2020-11-14] MEDS: buPROPion (XL) 300 MG TABLET.XL PO (06:40)
[2020-11-14] MEDS: APIXABAN 5 MG TABLET PO ×2 (06:40→18:13)
[2020-11-14] MEDS: FLUoxetine 20 MG Capsule PO (06:40)
[2020-11-14] MEDS: Metoprolol(XL)Succ 50 MG Tablet PO ×2 (06:40→18:13)
[2020-11-14] MEDS: Nystatin Powder 15gm Bottle 1 APPLIC TOPICAL ×2 (06:43→20:35)
[2020-11-14] MEDS: Menthol/Lanolin/Calamine/Znox 113 GM Tube 1 APPLIC TOPICAL ×2 (06:43→20:35)
[2020-11-14] MEDS: Vitamin B Comp W-C Capsule 1 CAP PO (08:12)
[2020-11-14] MEDS: Folic Acid 1 MG Tablet PO (08:12)
[2020-11-14 08:30] LABS: Absolute Neutrophil Count 4.7 X10^3/uL (2.0-7.7); Basophil# 0.07 X10^3/uL; Basophil% 0.9 % (0-1); Eosinophil# 0.53 X10^3/uL; Eosinophils% 6.9 % (0-5); Hematocrit 33.8 % (37-47); Hemoglobin 10.5 g/dL (12.0-15.0); Lymphocyte % 23.5 % (19-41); Mean Corp Hgb Conc 31.1 g/dL (32-36); Mean Corpuscular Hgb 28.5 pg (27.0-32.0); Mean Corpuscular Volume 91.6 fL (81-99); Mean Platelet Vol. 8.9 fl (6.2-12.0); Monocyte# 0.46 X10^3/uL; NRBC Flagged by Analyzer 0 % (0-5); Neutrophil # 4.67 X10^3/uL (2.7-7.7); Platelet Count 430 K/mm3 (150-450); RBC Distribution Width CV 13.5 % (11.6-14.6); Red Blood Count 3.69 M/mm3 (4.2-5.4); White Blood Count 7.7 K/mm3 (4.4-11.0)
[2020-11-14 09:04] LABS: Anion Gap 3 (5-15); BUN 19 mg/dL (7-18); BUN/Creat Ratio 18.4 RATIO (10-20); Calcium,Total 8.4 mg/dL (8.5-10.1); Chloride 107 mmol/L (98-107); Creatinine, Serum 1.03 mg/dL (0.55-1.02); EST Glomerular Filtration Rate 56 mL/min (>60); Est Glom Filt Rate - Afr Amer 68 mL/min (>60); Estimated Creatinine Clearance 50.54 ml/min; Glucose 92 mg/dL (74-106); Potassium 3.6 mmol/L (3.5-5.1); Sodium Level 141 mmol/L (136-145)
[2020-11-14 11:21] LABS: Bedside Glucose 127 mg/dL (70-110)
[2020-11-14] MEDS: Tuberculin,Purif.prot.deriv. 50 TU/ML Vial 0.1 ML ID (12:56)
[2020-11-14 16:11] LABS: Bedside Glucose 113 mg/dL (70-110)
[2020-11-14 16:34] VITALS: BP 161/68; PULSE 82; RESP 15; TEMP 36.8; O2SAT 95
[2020-11-14 18:13] VITALS: BP 161/68; PULSE 82
[2020-11-14] MEDS: Atorvastatin Calcium 10 MG Tablet PO (20:36)
[2020-11-14] MEDS: Pramipexole Di-HCl 0.25 MG Tablet PO (20:36)
[2020-11-14] MEDS: Imipramine HCl 25 MG Tablet 75 MG PO (20:54)
[2020-11-14 21:46] LABS: Bedside Glucose 91 mg/dL (70-110)
[2020-11-14 22:00] VITALS: PULSE 85; O2SAT 90
[2020-11-15 06:11] VITALS: BP 171/69; PULSE 78
[2020-11-15] MEDS: FLUoxetine 20 MG Capsule PO (06:11)
[2020-11-15] MEDS: Pantoprazole Sodium 40 MG Tablet PO (06:11)
[2020-11-15] MEDS: APIXABAN 5 MG TABLET PO ×2 (06:11→17:36)
[2020-11-15] MEDS: buPROPion (XL) 300 MG TABLET.XL PO (06:11)
[2020-11-15] MEDS: Senna/Docusate Sodium 1 Tablet 2 TABLET PO (06:11)
[2020-11-15] MEDS: Metoprolol(XL)Succ 50 MG Tablet PO ×2 (06:11→17:37)
[2020-11-15] MEDS: Menthol/Lanolin/Calamine/Znox 113 GM Tube 1 APPLIC TOPICAL ×2 (06:16→21:10)
[2020-11-15] MEDS: Nystatin Powder 15gm Bottle 1 APPLIC TOPICAL ×2 (06:17→21:10)
[2020-11-15 06:36] LABS: Bedside Glucose 135 mg/dL (70-110)
[2020-11-15] MEDS: Vitamin B Comp W-C Capsule 1 CAP PO (09:03)
[2020-11-15] MEDS: Folic Acid 1 MG Tablet PO (09:03)
[2020-11-15 09:07] VITALS: BP 139/71; PULSE 76
[2020-11-15 11:11] LABS: Bedside Glucose 154 mg/dL (70-110)
[2020-11-15 13:30] VITALS: PULSE 75; RESP 18; O2SAT 93
[2020-11-15 14:07] VITALS: BP 156/56; PULSE 75; RESP 18; TEMP 36.3; O2SAT 95
[2020-11-15 16:20] LABS: Bedside Glucose 116 mg/dL (70-110)
[2020-11-15 17:37] VITALS: BP 156/56; PULSE 75
[2020-11-15] MEDS: oxyCODONE 5 MG Tablet PO (21:08)
[2020-11-15] MEDS: Pramipexole Di-HCl 0.25 MG Tablet PO (21:09)
[2020-11-15] MEDS: Atorvastatin Calcium 10 MG Tablet PO (21:09)
[2020-11-15] MEDS: Imipramine HCl 25 MG Tablet 75 MG PO (21:09)
[2020-11-15 22:10] LABS: Bedside Glucose 75 mg/dL (70-110)
[2020-11-16] MEDS: Pantoprazole Sodium 40 MG Tablet PO (06:21)
[2020-11-16] MEDS: FLUoxetine 20 MG Capsule PO (06:21)
[2020-11-16] MEDS: APIXABAN 5 MG TABLET PO ×2 (06:21→17:44)
[2020-11-16 06:22] VITALS: BP 180/74; PULSE 81
[2020-11-16] MEDS: Metoprolol(XL)Succ 50 MG Tablet PO (06:22)
[2020-11-16] MEDS: buPROPion (XL) 300 MG TABLET.XL PO (06:22)
[2020-11-16] MEDS: Menthol/Lanolin/Calamine/Znox 113 GM Tube 1 APPLIC TOPICAL ×2 (06:25→21:17)
[2020-11-16] MEDS: Nystatin Powder 15gm Bottle 1 APPLIC TOPICAL ×2 (06:26→17:47)
[2020-11-16 06:30] LABS: Bedside Glucose 130 mg/dL (70-110)
[2020-11-16] MEDS: Vitamin B Comp W-C Capsule 1 CAP PO (07:50)
[2020-11-16] MEDS: Folic Acid 1 MG Tablet PO (07:50)
[2020-11-16 16:00] VITALS: BP 144/70; PULSE 74; RESP 16; TEMP 36.3; O2SAT 98
[2020-11-16 16:56] LABS: Bedside Glucose 117 mg/dL (70-110)
[2020-11-16 17:16] LABS: Bedside Glucose 110 mg/dL (70-110)
[2020-11-16 17:45] VITALS: PULSE 74
[2020-11-16] MEDS: Metoprolol(XL)Succ 25 MG Tablet 75 MG PO (17:45)
[2020-11-16 21:12] VITALS: PULSE 85; RESP 16; O2SAT 96
[2020-11-16] MEDS: Atorvastatin Calcium 10 MG Tablet PO (21:15)
[2020-11-16] MEDS: oxyCODONE 5 MG Tablet PO (21:15)
[2020-11-16] MEDS: Pramipexole Di-HCl 0.25 MG Tablet PO (21:15)
[2020-11-16] MEDS: Imipramine HCl 25 MG Tablet 75 MG PO (21:15)
[2020-11-16 21:27] LABS: Bedside Glucose 117 mg/dL (70-110)
[2020-11-17 05:50] VITALS: BP 164/78; PULSE 70
[2020-11-17] MEDS: buPROPion (XL) 300 MG TABLET.XL PO (05:50)
[2020-11-17] MEDS: FLUoxetine 20 MG Capsule PO (05:50)
[2020-11-17] MEDS: Metoprolol(XL)Succ 25 MG Tablet 75 MG PO ×2 (05:50→17:11)
[2020-11-17] MEDS: APIXABAN 5 MG TABLET PO ×2 (05:50→17:09)
[2020-11-17] MEDS: Pantoprazole Sodium 40 MG Tablet PO (05:51)
[2020-11-17] MEDS: Nystatin Powder 15gm Bottle 1 APPLIC TOPICAL ×2 (05:53→17:11)
[2020-11-17] MEDS: Menthol/Lanolin/Calamine/Znox 113 GM Tube 1 APPLIC TOPICAL ×2 (05:53→21:09)
[2020-11-17 06:36] LABS: Bedside Glucose 103 mg/dL (70-110)
--- NOTE | 2020-11-17 07:14 | PN.ORTHO_ITS ---
Subjective Subjective Upon entering the room the patient was laying down and resting comfortably. She states she has no concerns regarding pains. States that yesterday was the first time she had been up and ambulating with PT. She states she took 5 steps using her walker with PT yesterday. She denies shortness of breath, chest pain, [place], vomiting, fevers or chills. Objective Data Objective Data Vital Signs: Vital Signs Temp Pulse Resp BP Pulse Ox 97.3 F L 70 16 164/78 H 96 11/16/20 16:00 11/17/20 05:50 11/16/20 21:12 11/17/20 05:50 11/16/20 21:12 Oxygen Flow Rate (L/min) 1.5 Oxygen Delivery Method Room Air Weight: 284 lb 4 oz Body Mass Index (BMI) 43.2 Intake & Output: Intake and Output for Last 24 Hours 11/15/20 11/16/20 11/17/20 23:59 23:59 23:59 Intake Total 600 / 600 840 / 840 Output Total 1000 / 1000 Balance 600 / 600 -160 / -160 Lab / Micro Data Result Diagrams: 11/14/20 08:15 11/14/20 08:15 Labs: Laboratory Results - last 24 hr 11/16/20 10:47: POC Glucose 117 H 11/16/20 17:02: POC Glucose 110 11/16/20 21:15: POC Glucose 117 H 11/17/20 06:28: POC Glucose 103 Physical Exam Const alert, oriented x3 and no apparent distress General Appearance: cooperative and comfortable Extremity Extremity Narrative: Incision site well approximated without concerns for infection. Able to plantarflex, dorsiflex and wiggle toes. Soft compartments. Negative Homans. Palpable pedal pulses. Bilateral 1+ pitting edema. Assessment & Plan Assessment/Plan (1) Closed left hip fracture: (2) Morbid obesity: (3) BMI greater than 40: (4) Femoral neck fracture: QUALIFIERS: Encounter type: initial encounter Fracture type: closed Laterality: left Qualified Code(s): S72.002A - Fracture of unspecified part of neck of left femur, initial encounter for closed fracture PLAN: Patient was seen and examined today for a 2 week post op visit. DOS: 11/04/2020, left hip hemiarthroplasty. Patient is doing well regarding pain. Discussed with patient's nurse concern over her not ambulating more with PT, nurse stated she would look into it. Discussed the need for her to ambulate. Incision site is well approximated without any concerns for infection. Verbal order was given to nurse to remove brynn and apply steri-strips. Patient should continue on Eliquis. She will follow up with Dr. Haddad in 4 weeks or sooner if pain, swelling, numbness or associated symptoms, or concerns develop. All questions answered. Patient in agreement of plan. Call with any questions or concerns.
[2020-11-17] MEDS: Folic Acid 1 MG Tablet PO (08:07)
[2020-11-17] MEDS: Vitamin B Comp W-C Capsule 1 CAP PO (08:07)
--- NOTE | 2020-11-17 09:16 | NURSING ---
Dr. Luis Daniel PALMA came in to assess pt. Pt reports to PA that yesterday was the first day she has walked since her incident. Dr. Cary called this nurse and inquired about mobility and ambulation. Per therapy yesterday was the first time walking since admission for safety reasons/. but pt has been unable to stand at bedside
--- NOTE | 2020-11-17 09:19 | NURSING ---
Dr. Luis Daniel PALMA came in to assess pt. Pt reports to PA that yesterday was the first day she has walked since her incident. Dr. Cary called this nurse and inquired about mobility and ambulation. Per therapy yesterday was the first time walking since admission for safety reasons. Pt has been unable to stand at bedside for more than 30 seconds this far, pt was not functionally walking at baseline while at home prior to incident. At home pt used sera lift for transfers and minimally walked with therapy at [facility] and for exercise. Dr. Cary gave N.O. to remove brynn and apply steri strips over incision site. Dr. Cary also expressed concern for DVT development d/t slow progression and wants the eliquis extended to 4 weeks post op instead of the traditional 3 weeks. Pt is on eliquis manager terminal for Previous history of blood clots, Dr. Melchro updated, pt continues on eliquis with no stop date. Dr. Melchor and charge nurse updated on new orders.
[2020-11-17 10:46] LABS: Bedside Glucose 156 mg/dL (70-110)
[2020-11-17 14:08] VITALS: BP 150/69; PULSE 73; RESP 20; TEMP 36.9; O2SAT 97
--- NOTE | 2020-11-17 14:51 | NURSING ---
[place] removed and steri strips applied per order, pt tolerated well, left hip remains well approximated
[2020-11-17 17:01] LABS: Bedside Glucose 86 mg/dL (70-110)
[2020-11-17 17:11] VITALS: PULSE 73
[2020-11-17] MEDS: Pramipexole Di-HCl 0.25 MG Tablet PO (21:10)
[2020-11-17] MEDS: Atorvastatin Calcium 10 MG Tablet PO (21:10)
[2020-11-17] MEDS: Imipramine HCl 25 MG Tablet 75 MG PO (21:10)
[2020-11-17] MEDS: oxyCODONE 5 MG Tablet PO (21:11)
[2020-11-17 21:30] LABS: Bedside Glucose 100 mg/dL (70-110)
[2020-11-18 06:17] VITALS: BP 178/93; PULSE 67
[2020-11-18] MEDS: APIXABAN 5 MG TABLET PO ×2 (06:17→18:12)
[2020-11-18] MEDS: buPROPion (XL) 300 MG TABLET.XL PO (06:17)
[2020-11-18] MEDS: FLUoxetine 20 MG Capsule PO (06:17)
[2020-11-18] MEDS: Metoprolol(XL)Succ 25 MG Tablet 75 MG PO ×2 (06:17→18:13)
[2020-11-18] MEDS: Pantoprazole Sodium 40 MG Tablet PO (06:17)
[2020-11-18] MEDS: Nystatin Powder 15gm Bottle 1 APPLIC TOPICAL ×2 (06:21→21:37)
[2020-11-18] MEDS: Menthol/Lanolin/Calamine/Znox 113 GM Tube 1 APPLIC TOPICAL ×2 (06:21→21:37)
[2020-11-18 06:31] LABS: Bedside Glucose 89 mg/dL (70-110)
[2020-11-18] MEDS: Vitamin B Comp W-C Capsule 1 CAP PO (08:45)
[2020-11-18] MEDS: Folic Acid 1 MG Tablet PO (08:45)
[2020-11-18 11:11] LABS: Bedside Glucose 113 mg/dL (70-110)
--- NOTE | 2020-11-18 14:20 | MDS.RN ---
Information for the mds was obtained from review of the clinical record, interview of resident, staff, and direct observation of resident's care.
[2020-11-18 14:40] VITALS: PULSE 68; RESP 18; O2SAT 95
[2020-11-18 15:30] VITALS: BP 166/60; PULSE 74; RESP 16; TEMP 36.3; O2SAT 95
[2020-11-18 15:56] LABS: Bedside Glucose 120 mg/dL (70-110)
[2020-11-18 18:13] VITALS: BP 166/60; PULSE 74
[2020-11-18 21:36] LABS: Bedside Glucose 60 mg/dL (70-110)
[2020-11-18] MEDS: Imipramine HCl 25 MG Tablet 75 MG PO (21:36)
[2020-11-18] MEDS: Atorvastatin Calcium 10 MG Tablet PO (21:37)
[2020-11-18] MEDS: oxyCODONE 5 MG Tablet PO (21:37)
[2020-11-18] MEDS: Pramipexole Di-HCl 0.25 MG Tablet PO (21:37)
[2020-11-18 21:51] LABS: Bedside Glucose 73 mg/dL (70-110)
[2020-11-18] MEDS: Losartan Potassium 100 MG Tablet PO (22:29)
[2020-11-19 06:16] VITALS: BP 167/71; PULSE 67
[2020-11-19] MEDS: Metoprolol(XL)Succ 25 MG Tablet 75 MG PO ×2 (06:16→18:09)
[2020-11-19] MEDS: Menthol/Lanolin/Calamine/Znox 113 GM Tube 1 APPLIC TOPICAL ×2 (06:17→22:01)
[2020-11-19] MEDS: APIXABAN 5 MG TABLET PO ×2 (06:17→18:09)
[2020-11-19] MEDS: Pantoprazole Sodium 40 MG Tablet PO (06:17)
[2020-11-19] MEDS: buPROPion (XL) 300 MG TABLET.XL PO (06:17)
[2020-11-19] MEDS: Losartan Potassium 100 MG Tablet PO (06:17)
[2020-11-19] MEDS: FLUoxetine 20 MG Capsule PO (06:17)
[2020-11-19] MEDS: Nystatin Powder 15gm Bottle 1 APPLIC TOPICAL ×2 (06:17→22:00)
[2020-11-19 06:25] LABS: Bedside Glucose 105 mg/dL (70-110)
[2020-11-19] MEDS: Vitamin B Comp W-C Capsule 1 CAP PO (09:12)
[2020-11-19] MEDS: Folic Acid 1 MG Tablet PO (09:12)
[2020-11-19 11:10] LABS: Bedside Glucose 113 mg/dL (70-110)
[2020-11-19] MEDS: oxyCODONE 5 MG Tablet PO (12:18)
[2020-11-19 14:08] VITALS: BP 151/74; PULSE 73; RESP 16; TEMP 36.8; O2SAT 96
--- NOTE | 2020-11-19 15:56 | CASEMGMT ---
Social Work Insurance issued LCD 11/21, DC 11/22. Spoke with to discuss DC plans. is agreeable to DC date and will take pt home. prefers HHC through [facility]. Referral made for PT/OT/SN/WILSON. No DME needs. to transport. Plan: DC home with 11/22, [facility] PT/OT/SN/WILSON WOJCIECH PalaciosW
[2020-11-19 16:41] LABS: Bedside Glucose 89 mg/dL (70-110)
[2020-11-19 18:09] VITALS: BP 151/74; PULSE 73
--- NOTE | 2020-11-19 21:00 | PCM.DC.SUM ---
Providers Date of Admission: 11/06/20 Primary Care Physician: Dr. Erik Gomez, Reason For Visit: LEFT HIP FRACTURE Diagnosis Discharge Diagnosis (1) Closed left hip fracture: Status: Acute Code(s): S72.002A - Fracture of unspecified part of neck of left femur, initial encounter for closed fracture (2) Morbid obesity: Status: Inactive Code(s): E66.01 - Morbid (severe) obesity due to excess calories (3) BMI greater than 40: Status: Inactive (4) Femoral neck fracture: Status: Inactive Code(s): S72.009A - Fracture of unspecified part of neck of unspecified femur, initial encounter for closed fracture Qualifiers: Encounter type: initial encounter Fracture type: closed Laterality: left Qualified Code(s): S72.002A - Fracture of unspecified part of neck of left femur, initial encounter for closed fracture Medications at Discharge Home Medications bupropion HCl 300 mg PO DAILY 05/10/13 atorvastatin 10 mg PO QHS 11/27/19 ropinirole 0.5 mg PO DAILY 11/27/19 imipramine HCl 50 mg tablet 75 mg PO QHS tab 12/12/19 apixaban 5 mg PO BID 12/26/19 Byetta 10 mcg SUBCUT BID 11/02/20 cholecalciferol (vitamin D3) [Vitamin D3] 125 mcg PO DAILY 11/02/20 fluoxetine 20 mg PO DAILY 11/02/20 folic acid 1 mg PO DAILY 11/02/20 pantoprazole [Protonix] 40 mg PO DAILY 11/02/20 vitamin B complex 1 cap PO DAILY 11/02/20 acetaminophen 1,000 mg PO Q6H PRN PRN #0 tab 11/19/20 losartan 100 mg PO DAILY 30 Days #30 tab 11/19/20 menthol-zinc oxide [Calmoseptine] 1 applic TOPICAL 0600,2200 #0 g 11/19/20 metoprolol succinate 75 mg PO BID 30 Days #180 tab 11/19/20 nystatin [Nyamyc] 1 applic TOPICAL BID #0 g 11/19/20 oxycodone 5 mg PO Q4H PRN PRN 7 Days #42 tab 11/19/20 polyethylene glycol 3350 [HealthyLax] 17 g PO DAILY 30 Days ea 11/19/20 sennosides-docusate sodium [Stool Softener-Stimulant Laxat] 2 tab PO BID 30 Days #120 tab 11/19/20 Hospital Course Operations total hip replacement (Left hip hemiarthroplasty.) Procedures None Summary of Care Provided Minutes Spent on Discharge: 35 Hospital Course: 70 year old female with below past medical history hospitalized with left hip fracture, underwent left hip hemiarthroplasty 11/04/[address] Haddad, admitted to TCU with debility, here for rehabilitation, strengthening, prior to discharge home with . Discharge home with 11/22/2020, [facility] PT/OT/SN/SUPERCHARGER REPAIR SUPERVISOR. Physical Exam Const alert and oriented x3 General Appearance: cooperative HEENT normocephalic Eyes PERRL and EOMs intact bilaterally Neck supple, no JVD and no carotid bruits Resp normal respiratory effort, normal air movement and clear to auscultation bilaterally Cardio regular rate and regular rhythm GI normal to inspection, nondistended, normoactive bowel sounds, non-tender and non-distended Extremity normal capillary refill General Extremity: Negative for edema Skin no rashes or lesions noted General Skin Exam: no breakdown Psych affect normal Appearance: appropriate Weight / BMI Weight Weight: 128.934 kg Body Mass Index (BMI) 43.2 ABG / Lab / Microbiology Data Result Diagrams: 11/14/20 08:15 11/14/20 08:15 Laboratory: Laboratory Results - last 24 hr 11/18/20 21:24: POC Glucose 60 L 11/18/20 21:43: POC Glucose 73 11/19/20 06:15: POC Glucose 105 11/19/20 10:56: POC Glucose 113 H 11/19/20 16:26: POC Glucose 89 D/C Instructions Discharge Diet: No restrictions Discharge Activity: Return to Normal Activity, May Shower and Use Walker May resume sexual activity in: 4-6 weeks Call your doctor if you observe: Fever of 101 or Higher, Inability to urinate, Inability to have a bowel movement, Shortness of breath, Dizziness, Fainting spells, Swelling in the ankles, Chest pain and Uncontrolled pain Additional Instructions: Discharge home with 11/22/2020, [facility] PT/OT/SN/SUPERCHARGER REPAIR SUPERVISOR. Please Follow Up With: Bigg Haddad, DO When: As scheduled. Meaningful Use Info Meaningful Use Diagnoses (Choose all that apply): None applicable Discharge Plan Admission Admit Date/Time: 11/06/20 16:27 Primary Reason for Your Visit: Debility. Attending Provider: Ramiro Melchor Chi Primary Care Provider: Erik Gomez Instructions Additional Instructions / Restrictions: Discharge home with 11/22/2020, [facility] PT/OT/SN/SUPERCHARGER REPAIR SUPERVISOR. Discharge Orders/Prescriptions Prescriptions: New polyethylene glycol 3350 [HealthyLax] 17 gram Powder In Packet 17 g PO DAILY 30 Days RF: 0 sennosides-docusate sodium [Stool Softener-Stimulant Laxat] 8.6-50 mg Tablet 2 tab PO BID 30 Days Qty: 120 RF: 0 acetaminophen 500 mg Tablet 1,000 mg PO Q6H PRN PRN (Reason: Pain Score 1-3) Qty: 0 RF: 0 metoprolol succinate 25 mg Tablet Extended Release 24 Hr 75 mg PO BID 30 Days Qty: 180 RF: 0 nystatin [Nyamyc] 100,000 unit/gram Powder 1 applic topical BID Qty: 0 RF: 0 losartan 100 mg Tablet 100 mg PO DAILY 30 Days Qty: 30 RF: 0 oxycodone 5 mg Tablet 5 mg PO Q4H PRN PRN (Reason: Pain Score 4-10) 7 Days Qty: 42 RF: 0 menthol-zinc oxide [Calmoseptine] 0.44-20.6 % Ointment 1 applic topical 0600,2200 Qty: 0 RF: 0 Continued bupropion HCl 150 MG tablet extended release 24 hr 300 mg PO DAILY RF: 0 atorvastatin 10 MG tablet 10 mg PO QHS RF: 0 ropinirole 0.5 MG tablet 0.5 mg PO DAILY RF: 0 imipramine HCl 50 mg tablet 75 mg PO QHS RF: 0 apixaban 5 MG tablet 5 mg PO BID RF: 0 fluoxetine 20 mg Tablet 20 mg PO DAILY RF: 0 Byetta 10 mcg/dose(250 mcg/mL) 2.4 mL Pen Injector 10 mcg SUBCUT BID RF: 0 pantoprazole [Protonix] 40 mg Tablet,Delayed Release (Dr/Ec) 40 mg PO DAILY RF: 0 folic acid 1 mg Tablet 1 mg PO DAILY RF: 0 vitamin B complex Capsule 1 cap PO DAILY RF: 0 cholecalciferol (vitamin D3) [Vitamin D3] 125 mcg (5,000 unit) Tablet 125 mcg PO DAILY RF: 0 Discontinued metoprolol succinate 100 MG tablet extended release 24 hr 25 mg PO BID RF: 0 acetaminophen 325 MG tablet 650 mg PO Q6H PRN PRN (Reason: Pain Score 1-10/Temp > 100.7 F) RF: 0 Referrals / Follow Up: Erik Gomez DO [Primary Care Provider] - Disposition Disposition (needs filled in before D/C Order can be placed): Home Health Service
[2020-11-19 22:00] VITALS: PULSE 76; RESP 16; O2SAT 93
[2020-11-19] MEDS: Atorvastatin Calcium 10 MG Tablet PO (22:01)
[2020-11-19] MEDS: Imipramine HCl 25 MG Tablet 75 MG PO (22:02)
[2020-11-19] MEDS: Pramipexole Di-HCl 0.25 MG Tablet PO (22:02)
[2020-11-19 22:36] LABS: Bedside Glucose 74 mg/dL (70-110)
[2020-11-20 06:11] VITALS: BP 150/78; PULSE 66
[2020-11-20] MEDS: FLUoxetine 20 MG Capsule PO (06:11)
[2020-11-20] MEDS: Pantoprazole Sodium 40 MG Tablet PO (06:11)
[2020-11-20] MEDS: Metoprolol(XL)Succ 25 MG Tablet 75 MG PO ×2 (06:11→18:23)
[2020-11-20] MEDS: Losartan Potassium 100 MG Tablet PO (06:11)
[2020-11-20] MEDS: buPROPion (XL) 300 MG TABLET.XL PO (06:11)
[2020-11-20] MEDS: APIXABAN 5 MG TABLET PO ×2 (06:11→18:18)
[2020-11-20] MEDS: Menthol/Lanolin/Calamine/Znox 113 GM Tube 1 APPLIC TOPICAL ×2 (06:13→21:59)
[2020-11-20] MEDS: Nystatin Powder 15gm Bottle 1 APPLIC TOPICAL ×2 (06:14→18:21)
[2020-11-20 07:10] LABS: Bedside Glucose 116 mg/dL (70-110)
[2020-11-20] MEDS: Folic Acid 1 MG Tablet PO (08:25)
[2020-11-20] MEDS: Vitamin B Comp W-C Capsule 1 CAP PO (08:26)
[2020-11-20 10:56] LABS: Bedside Glucose 96 mg/dL (70-110)
--- NOTE | 2020-11-20 13:11 | CASEMGMT ---
Social Work BIMS and PHQ-9 completed for MDS assessment. Krista Rockwell, ETHNOARCHAEOLOGY PROFESSOR TUBE BALANCER
--- NOTE | 2020-11-20 13:41 | CASEMGMT ---
Social Work Scheduled w/c transport through [facility] on 11/22 at 10:30 am per pt request. WOJCIECH PalaciosW
[2020-11-20 15:57] VITALS: BP 158/93; PULSE 71; RESP 20; TEMP 36.5; O2SAT 96
[2020-11-20 16:55] LABS: Bedside Glucose 87 mg/dL (70-110)
[2020-11-20 18:23] VITALS: BP 158/93; PULSE 71
[2020-11-20] MEDS: Atorvastatin Calcium 10 MG Tablet PO (22:02)
[2020-11-20] MEDS: Pramipexole Di-HCl 0.25 MG Tablet PO (22:02)
[2020-11-20] MEDS: Imipramine HCl 25 MG Tablet 75 MG PO (22:05)
[2020-11-20 23:25] LABS: Bedside Glucose 111 mg/dL (70-110)
[2020-11-20 23:25] LABS: Bedside Glucose 65 mg/dL (70-110)
[2020-11-21 00:38] VITALS: PULSE 81; RESP 14
[2020-11-21 06:26] LABS: Bedside Glucose 108 mg/dL (70-110)
[2020-11-21 06:55] LABS: Absolute Neutrophil Count 3.3 X10^3/uL (2.0-7.7); Basophil# 0.04 X10^3/uL; Basophil% 0.7 % (0-1); Eosinophil# 0.47 X10^3/uL; Eosinophils% 7.7 % (0-5); Hematocrit 31.9 % (37-47); Hemoglobin 10.1 g/dL (12.0-15.0); Lymphocyte % 29.6 % (19-41); Mean Corp Hgb Conc 31.7 g/dL (32-36); Mean Corpuscular Hgb 28.7 pg (27.0-32.0); Mean Corpuscular Volume 90.6 fL (81-99); Monocyte# 0.45 X10^3/uL; Monocyte% 7.4 % (0-10); NRBC Flagged by Analyzer 0 % (0-5); Neutrophil # 3.29 X10^3/uL (2.7-7.7); Neutrophil % 54.1 % (47-70); Platelet Count 413 K/mm3 (150-450); RBC Distribution Width CV 14.4 % (11.6-14.6); RBC Distribution Width SD 46.7 fl (35.1-43.9); Red Blood Count 3.52 M/mm3 (4.2-5.4); White Blood Count 6.1 K/mm3 (4.4-11.0)
[2020-11-21 07:23] LABS: Anion Gap 5 (5-15); BUN 18 mg/dL (7-18); Calcium,Total 8.5 mg/dL (8.5-10.1); Chloride 108 mmol/L (98-107); EST Glomerular Filtration Rate 47 mL/min (>60); Est Glom Filt Rate - Afr Amer 57 mL/min (>60); Estimated Creatinine Clearance 43.38 ml/min; Glucose 104 mg/dL (74-106); Potassium 3.7 mmol/L (3.5-5.1); Sodium Level 141 mmol/L (136-145)
[2020-11-21 08:49] VITALS: BP 161/74; PULSE 73
[2020-11-21] MEDS: Metoprolol(XL)Succ 25 MG Tablet 75 MG PO ×2 (08:49→17:06)
[2020-11-21] MEDS: APIXABAN 5 MG TABLET PO ×2 (08:50→17:03)
[2020-11-21] MEDS: FLUoxetine 20 MG Capsule PO (08:50)
[2020-11-21] MEDS: buPROPion (XL) 300 MG TABLET.XL PO (08:50)
[2020-11-21] MEDS: Losartan Potassium 100 MG Tablet PO (08:50)
[2020-11-21] MEDS: Pantoprazole Sodium 40 MG Tablet PO (08:50)
[2020-11-21] MEDS: Folic Acid 1 MG Tablet PO (08:51)
[2020-11-21] MEDS: Vitamin B Comp W-C Capsule 1 CAP PO (08:51)
[2020-11-21] MEDS: Menthol/Lanolin/Calamine/Znox 113 GM Tube 1 APPLIC TOPICAL ×2 (08:52→21:47)
[2020-11-21] MEDS: Nystatin Powder 15gm Bottle 1 APPLIC TOPICAL ×2 (08:52→17:03)
[2020-11-21 08:55] VITALS: BP 161/74; PULSE 73; RESP 18; TEMP 36.5; O2SAT 96
[2020-11-21 11:31] LABS: Bedside Glucose 79 mg/dL (70-110)
[2020-11-21 16:45] LABS: Bedside Glucose 112 mg/dL (70-110)
[2020-11-21 17:06] VITALS: BP 159/88; PULSE 72
[2020-11-21 21:36] LABS: Bedside Glucose 94 mg/dL (70-110)
[2020-11-21] MEDS: Pramipexole Di-HCl 0.25 MG Tablet PO (21:41)
[2020-11-21] MEDS: Atorvastatin Calcium 10 MG Tablet PO (21:41)
[2020-11-21] MEDS: Imipramine HCl 25 MG Tablet 75 MG PO (21:41)
[2020-11-21] MEDS: oxyCODONE 5 MG Tablet PO (21:46)
[2020-11-22 06:25] LABS: Bedside Glucose 51 mg/dL (70-110)
[2020-11-22] MEDS: FLUoxetine 20 MG Capsule PO (06:44)
[2020-11-22] MEDS: Losartan Potassium 100 MG Tablet PO (06:44)
[2020-11-22] MEDS: buPROPion (XL) 300 MG TABLET.XL PO (06:44)
[2020-11-22] MEDS: Menthol/Lanolin/Calamine/Znox 113 GM Tube 1 APPLIC TOPICAL (06:44)
[2020-11-22] MEDS: Pantoprazole Sodium 40 MG Tablet PO (06:44)
[2020-11-22] MEDS: APIXABAN 5 MG TABLET PO (06:44)
[2020-11-22 06:45] VITALS: BP 166/76; PULSE 67
[2020-11-22] MEDS: Metoprolol(XL)Succ 25 MG Tablet 75 MG PO (06:45)
[2020-11-22] MEDS: Nystatin Powder 15gm Bottle 1 APPLIC TOPICAL (06:45)
[2020-11-22 07:10] LABS: Bedside Glucose 120 mg/dL (70-110)
[2020-11-22] MEDS: Vitamin B Comp W-C Capsule 1 CAP PO (07:40)
[2020-11-22] MEDS: Folic Acid 1 MG Tablet PO (07:40)
[2020-11-22 09:00] VITALS: BP 168/86; PULSE 69; RESP 18; TEMP 36.7; O2SAT 94
== END 2020-11-22 10:30 | disposition home health service (06) | DRG 559 ==
PROVIDERS: Admitting Provider Family Medicine Geriatric Medicine; PCP Student in an Organized Health Care Education/Training Program; Visit Provider Family Medicine Geriatric Medicine
DX: S72.002D Fracture of unspecified part of neck of left femur, subsequent encounter for closed fracture with routine healing (principal); I26.99 Other pulmonary embolism without acute cor pulmonale; Z68.41 Body mass index [BMI] 40.0-44.9, adult; W19.XXXD Unspecified fall, subsequent encounter; E78.5 Hyperlipidemia, unspecified; E11.9 Type 2 diabetes mellitus without complications; I10 Essential (primary) hypertension; E66.01 Morbid (severe) obesity due to excess calories; F32.9 Major depressive disorder, single episode, unspecified; G47.30 Sleep apnea, unspecified; K21.9 Gastro-esophageal reflux disease without esophagitis; G25.81 Restless legs syndrome; B35.4 Tinea corporis; Z79.899 Other long term (current) drug therapy; Z79.01 Long term (current) use of anticoagulants
CPT/HCPCS: 36415; 80048; 82962; 85025; 87635; 92507; 92523; 97110; 97116; 97162; 97166; 97530; 97535; 97802; U0005; U0003

== ENCOUNTER → 2021-01-18 13:10 | Outpatient (CLI) | payer MEDICARE, SELFPAY ==
[2021-01-18 14:13] LABS: Albumin, Serum 1.7 g/dL (3.2-5.0); BUN 11 mg/dL (7-18); BUN/Creat Ratio 9.9 RATIO (10-20); Calcium,Total 8.9 mg/dL (8.5-10.1); Chloride 109 mmol/L (98-107); Creatinine, Serum 1.11 mg/dL (0.55-1.02); EST Glomerular Filtration Rate 51 mL/min (>60); Est Glom Filt Rate - Afr Amer 62 mL/min (>60); Glucose 104 mg/dL (74-106); Phosphorus 3.9 mg/dL (2.5-4.9); Potassium 4.1 mmol/L (3.5-5.1); Sodium Level 142 mmol/L (136-145)
== END ==
PROVIDERS: PCP Student in an Organized Health Care Education/Training Program; Referring Provider Internal Medicine Nephrology; Visit Provider Internal Medicine Nephrology
DX: R80.9 Proteinuria, unspecified (principal); E11.22 Type 2 diabetes mellitus with diabetic chronic kidney disease; N18.9 Chronic kidney disease, unspecified
CPT/HCPCS: 36415; 80069

== ENCOUNTER → 2021-02-01 08:39 | Outpatient (CLI) | payer MEDICARE, SELFPAY ==
[2021-02-01] VITALS (11 sets, daily range): BP systolic 128–156; BP diastolic 42–86; PULSE 64–68; RESP 13–20; TEMP 36.6; O2SAT 94–99; BMI 41.8
--- NOTE | 2021-02-01 | KID_PTH ---
PATIENT: WDAIN BILLINGSLEY LOC: CT U#:[id number] AGE/SX: 74/F ROOM: RE02/01/[address]: Dr. Samia Kent DO : 1950 BED: DIS: SPEC #: [id number] RECD: 02/01/21 10:42 STATUS: ZOFIA REManuel #: [id number] JOHN PAUL: 02/01/21 00:[address]: Samia Kent DEPT: SURGICAL PATHOLOGY RECD BY: Naeem Wall ENTERED: 02/01/21 10:42 SP TYPE: KIDNEY OTHR DR: Dr. Erik Gomez DO Tissues: Kidney, NOS Procedures: Fluorescent Antibody (ACH) Kidney Biopsy (ACH) Fluorescent antibody (ACH) add'l HEADER OPERATION: CT guided right kidney biopsy PRE-OP DIAGNOSIS: Proteinuria TISSUE SUBMITTED: 18 gauge cores x5 to [facility] for analysis (totally) MICROSCOPIC DIAGNOSIS Kidney, right, renal biopsy: Renal medulla/medullary tissue. No renal cortex or glomeruli are identified. Tissue specimen insufficient for definitive/complete evaluation (see comment). COMMENT The specimen consists of a renal medulla/medullary tissue only. No juxta-medullary glomeruli and no renal cortex are identified in the current specimen/tissue submitted. Although slight increase in lambda light chain staining (relative to kappa light chain staining) is noted in collecting ducts and portions of distal tubule, no casts or cast material are seen and no foreign body giant cell reaction is noted. No Congo Red staining is noted in the specimen submitted. These changes (slight/relative increase in lambda light chain staining of tubular contents) are rather nonspecific. In the absence of adequate renal (renal cortical) sampling (absence of renal cortex and small gauge/ diameter of current renal biopsy), the specimen is insufficient for definitive evaluation given the patient?s reported history of proteinuria/significant proteinuria. Re-sampling to include adequate tissue (renal cortex/predominantly renal cortex with adequate glomerular sampling) as well as adequate amount of tissue (sizeable diameter tissue [core] biopsy specimens) may be helpful to assess this patient?s renal parenchyma more definitively especially in the clinical context of significant proteinuria. MICROSCOPIC DESCRIPTION LIGHT MICROSCOPY: Specimen consists exclusively of renal medulla/medullary tissue with portions of light pelvis (transitional epithelial-lined connective tissue). No juxta medullary glomeruli are seen. No renal cortex or cortical sampling is identified. Small pelvic vascular structures are noted. Some collecting ducts demonstrate Tamm-Horsfall protein but are without significant/abnormal dilatation. No definitive casts or cast material or ?cracked? cats are seen. Tissue is insufficient for complete/definitive evaluation due to absence of cortical tissue and glomeruli in this case/patient with a history of proteinuria. No areas of tubular epithelial cells are necrotic tubular epithelial cells are seen within tubular interstitium of medullary portion of kidney. Small areas of stromal hemosiderin are noted; however, no areas of tubular necrosis is seen. No foreign body giant cell reaction to tubular contents is seen. Congo red stain is negative for congophilia and for birefringence and dischromatism by polarization microscopy. IMMUNOFLUORESCENCE: Tissue submitted for immunofluorescence microscopy demonstrates renal medullary tissue and no renal cortex or glomeruli for histologic evaluation. IgG is negative in tubules and vascular structures while IgA demonstrates 1+ positivity (nonspecific) within tubular contents but is negative in vascular structures. Lambda light chain demonstrates 2+ positivity within tubular contents but is negative in vascular structures while kappa light chain demonstrates 1+ positivity within tubular contents but is negative in vascular structures. No glomeruli are present for evaluation. ELECTRON MICROSCOPY: Toluidine blue-stained sections are not performed due to lack of glomeruli (renal cortex) in the current specimen. Ultrastructure examination is precluded due to lack of renal cortex and the specimen. IOC/FROZEN SECTION DIAGNOSIS: Not performed. GROSS DESCRIPTION The specimen is sent entirely to [facility] for diagnosis. Received in transport medium labeled with patient?s name and ?kidney biopsy-right,? the specimen consists of multiple small cylindrical fragments of garzon renal parenchyma which are, in range, from 0.2 to 0.6 cm maximum dimension. Edge Worker section is submitted for immunofluorescent microscopy. No definitive glomeruli are seen on gross examination; therefore, no sections are submitted for electron microscopy. The remainder of the specimen is entirely submitted as A1. Immunofluorescence microscopy (frozen section) piece is re-submitted as AFS1.
--- NOTE | 2021-02-01 08:44 | CT_ITS ---
PROCEDURE: CT GUIDED PERCUTANEOUS KIDNEY BIOPSY. DATE: 02/01/2021. INDICATION: Female, 70 years old. The patient has a history of proteinuria. PHYSICIAN: Marcial Mittal M.D. MEDICATIONS: 2 mg of VERSED and 50 mcg of FENTANYL intravenously. Conscious sedation was started at 9:53 AM and terminated at 10:16 AM. The patient was independently monitored by the department nurse. ACCESS SITE: Lower pole of the right kidney. NEEDLE: 18-gauge core biopsy needle. SPECIMEN: 5 18-gauge cores. EBL: None. COMPLICATIONS: None immediate. RADIATION DOSAGE (If Supplied By Facility): CTDIvol = ( 11 ) mGy, DLP = ( 800.7 ) mGycm The risks, benefits, and alternatives to the procedure and sedation were explained to the patient. The specific risk of hemorrhage requiring further treatment or intervention was detailed and accepted. Written informed consent was obtained. The patient was placed on the CT table in the prone position. Multiple axial images were obtained from the lung base through the caudal extent of the kidneys. An appropriate entry site was identified and a dell made on the skin. The skin overlying the [right ] posterior flank was prepped and draped in sterile fashion. 1% lidocaine was administered subcutaneously for local anesthesia. Initially, a 22 gauge needle was advanced and CT images confirmed good needle position. The 22 gauge needle was then exchanged for an 17 gauge introducer needle which was advanced. Repeat CT images confirmed good needle trajectory and tip position. The introducer needle was then advanced into the periphery of the inferior renal pole, and CT images were again obtained to confirm exact tip location. The inner stylet of the introducer needle was then removed and an 18 gauge coaxial needle was advanced thru the introducer needle and biopsy performed. A total of [ 5] passes were performed and the specimen collected was sent to Pathology for further evaluation. The needle was withdrawn. Hemostasis was achieved with manual compression and a sterile dressing was applied. Repeat CT images of the biopsy area was performed which demonstrated no gross bleeding or hematoma. The patient tolerated the procedure well without immediate complications. CT/Biopsy/Inj or Needle Placement IMPRESSION: Successful CT guided percutaneous kidney biopsy. Conscious sedation protocol was followed. Electronically Signed: Marcial Mittal MD at 10:51 EST , Service support ,
[2021-02-01 09:13] LABS: International Normalized Ratio 1.1; Prothrombin Time (Protime)PT. 13.3 SECONDS (11.7-14.9)
[2021-02-01 09:14] LABS: Partial Thromboplast Time 29.8 Seconds (24.1-36.2)
[2021-02-01] MEDS: Midazolam 2 MG/2 ML Syringe IV (09:53)
[2021-02-01] MEDS: fentaNYL 100 MCG/2 ML Ampul IV (09:57)
[2021-02-01] MEDS: Lidocaine 2% (20 ml mdv) 20 ML Vial INFILT (10:10)
== END | disposition home or self-care (01) ==
PROVIDERS: PCP Student in an Organized Health Care Education/Training Program; Referring Provider Internal Medicine Nephrology; Visit Provider Internal Medicine Nephrology
DX: R80.9 Proteinuria, unspecified (principal); N28.89 Other specified disorders of kidney and ureter
CPT/HCPCS: 50200; 36415; 77012; 85610; 85730; 88300; 88305; 88346; 88350; 99156; J7040; A4216

== ENCOUNTER → 2021-02-05 12:30 | Outpatient (CLI) | payer MEDICARE, SELFPAY ==
[2021-02-05 13:35] LABS: Hematocrit 27.7 % (37-47); Hemoglobin 8.7 g/dL (12.0-15.0); Mean Corp Hgb Conc 31.4 g/dL (32-36); Mean Corpuscular Volume 92.3 fL (81-99); Mean Platelet Vol. 8.8 fl (6.2-12.0); Platelet Count 180 K/mm3 (150-450); RBC Distribution Width CV 13.5 % (11.6-14.6); RBC Distribution Width SD 45.6 fl (35.1-43.9); White Blood Count 4.1 K/mm3 (4.4-11.0)
[2021-02-05 13:39] LABS: Prothrombin Time (Protime)PT. 12.9 SECONDS (11.7-14.9)
[2021-02-05 13:54] LABS: Albumin, Serum 1.6 g/dL (3.2-5.0); BUN 11 mg/dL (7-18); BUN/Creat Ratio 10.2 RATIO (10-20); Calcium,Total 8.8 mg/dL (8.5-10.1); Chloride 112 mmol/L (98-107); Creatinine, Serum 1.08 mg/dL (0.55-1.02); EST Glomerular Filtration Rate 53 mL/min (>60); Est Glom Filt Rate - Afr Amer 64 mL/min (>60); Glucose 97 mg/dL (74-106); Phosphorus 3.5 mg/dL (2.5-4.9); Potassium 4.2 mmol/L (3.5-5.1); Sodium Level 142 mmol/L (136-145)
[2021-02-05 16:08] LABS: Protein, Urine (Random) 2314.3 mg/dL (<11.9); Protein:Creat Ratio 9370 mg/g CRE (0-200)
== END ==
PROVIDERS: PCP Student in an Organized Health Care Education/Training Program; Referring Provider Internal Medicine Nephrology; Visit Provider Internal Medicine Nephrology
DX: R80.9 Proteinuria, unspecified (principal); E11.22 Type 2 diabetes mellitus with diabetic chronic kidney disease; N18.9 Chronic kidney disease, unspecified
CPT/HCPCS: 36415; 80069; 82570; 84156; 85027; 85610

== ENCOUNTER 2021-03-26 08:01 | Outpatient (CLI) | payer MEDICARE, SELFPAY ==
[2021-03-26] VITALS (9 sets, daily range): BP systolic 140–180; BP diastolic 60–91; PULSE 62–75; RESP 12–19; TEMP 36.7; O2SAT 92–100; BMI 37.0
--- NOTE | 2021-03-26 | KI_PTH ---
PATIENT: DWAIN BILLINGSLEY LOC: CT U#:[id number] AGE/SX: 71/F ROOM: RE03/26/[address]: Dr. Samia Kent DO : 1950 BED: DIS: 03/26/2021 SPEC #: [id number] RECD: 03/26/21 09:30 STATUS: ZOFIA REManuel #: [id number] JOHN PAUL: 03/26/21 00:[address]: Samia Kent DEPT: SURGICAL PATHOLOGY RECD BY: Kimberlee Soriano ENTERED: 03/26/21 11:14 SP TYPE: KIDNEY BX OTHR DR: Dr. Erik Gomez DO Tissues: Kidney, NOS Procedures: Electron Microscopy (ACH) Fluorescent Antibody (ACH) Sp St Grp II Kidney (ACH) Kidney Biopsy (ACH) Fluorescent antibody (ACH) add'l HEADER OPERATION: CT-guided right kidney biopsy PRE-OP DIAGNOSIS: Proteinuria TISSUE SUBMITTED: Kidney, 18-gauge x4 at kidney cortex MICROSCOPIC DIAGNOSIS Kidney, renal biopsy: Membranous glomerulopathy (MGN), stage 4 (see Microscopic Description and Comment). COMMENT Taken together, the histological immunophenotypic and ultrastructural features are indicative of a membranous glomerulopathy (MGN) that has progressed to stage 4. There is no evidence of myeloma in the kidney biopsy. Additional information from faxed medical records: Patient with monoclonal gammopathy of uncertain significance, diabetes mellitus, obesity, hypertension. Question of myeloma. MICROSCOPIC DESCRIPTION A needle biopsy is available for review. There are approximately 55 glomeruli present, 13 of which are globally sclerotic and the others show varying degrees of sclerosis. Glomeruli show no evidence of crescent formation, segmental scars, necrosis, thrombosis or inflammation. PAS and sliver stains show no evidence of glomerular basement membrane spikes or double contours. Trichrome shows granular fuchsinophilic deposits in a membranous pattern. Trichrome also shows mild interstitial fibrosis. There is accompanying mild tubular atrophy. Arteries and arterioles show minimal to mild arterio- and arteriolosclerosis. A Congo red stain for amyloid is negative. Tubules show scattered proteinaceous casts. The tissue submitted for immunofluorescence studies contain eight glomeruli, none of which are globally sclerotic. IgG shows 3+ granular membranous staining. Although lambda light chain shows 1+ granular and kappa light chain, all show nonspecific staining. The tissue submitted for electron microscopy studies contain eight glomeruli, five of which are imaged. No glomeruli are globally sclerotic. The glomerular basement membranes are thickened with diffuse, small to moderately sized, moderately electron-dense immune-type deposits. These deposits are not well-defined and in areas blend into the basement membrane material. Although rare areas show mesangial interposition, this is not a prominent finding. No distinct subendothelial deposits are appreciated although the contours of the glomerular basement membranes are irregular. The visceral epithelial foot processes show diffuse effacement. Tubules appear unremarkable. No fibrillary or other structured deposits are appreciated. GROSS DESCRIPTION The specimen is sent entirely to [facility] for diagnosis. Received within transport media labeled with the patient?s name and ?kidney biopsy, right? are four cores of garzon-pink soft tissue ranging in size from 0.8-2 cm in length. Tissue is submitted fresh for immunofluorescence, in glutaraldehyde for electron microscopy and the remaining in formalin for light microscopy (cassette A1).
[2021-03-26 08:19] LABS: Platelet Count 306 K/mm3 (150-450)
--- NOTE | 2021-03-26 08:23 | CT_ITS ---
PROCEDURE: CT GUIDED PERCUTANEOUS KIDNEY BIOPSY. DATE: 03/26/2021. INDICATION: Female, 71 years old. Proteinuria. PHYSICIAN: Marcial Mittal M.D. MEDICATIONS: 2 mg of VERSED and 50 mcg of FENTANYL intravenously. Conscious sedation protocol was followed. Conscious sedation was started at 9:11 AM and terminated at 9:30 AM the patient was independently monitored by the department nurse. ACCESS SITE: Lower pole of the right kidney. NEEDLE: 18-gauge core biopsy needle system SPECIMEN: 4 core specimens EBL: None. COMPLICATIONS: None immediate. RADIATION DOSAGE (If Supplied By Facility): CTDIvol = ( 19 ) mGy, DLP = ( 532.78 ) mGycm. Individualized dose optimization techniques were utilized. The risks, benefits, and alternatives to the procedure and sedation were explained to the patient. The specific risk of hemorrhage requiring further treatment or intervention was detailed and accepted. Written informed consent was obtained. The patient was placed on the CT table in the prone position. Multiple axial images were obtained from the lung base through the caudal extent of the kidneys. An appropriate entry site was identified and a dell made on the skin. The skin overlying the [ right] posterior flank was prepped and draped in sterile fashion. 1% lidocaine was administered subcutaneously for local anesthesia. Initially, a 22 gauge needle was advanced and CT images confirmed good needle position. The 22 gauge needle was then exchanged for an 17 gauge introducer needle which was advanced. Repeat CT images confirmed good needle trajectory and tip position. The introducer needle was then advanced into the periphery of the inferior renal pole, and CT images were again obtained to confirm exact tip location. The inner stylet of the introducer needle was then removed and an 18 gauge coaxial needle was advanced thru the introducer needle and biopsy performed. A total of [ 4] passes were performed and the specimen collected was sent to Pathology for further evaluation. The needle was withdrawn. Hemostasis was achieved with manual compression and a sterile dressing was applied. Repeat CT images of the biopsy area was performed which demonstrated no gross bleeding or hematoma. The patient tolerated the procedure well without immediate complications. The patient was transported to the [floor/recovery area] in stable condition. CT/Biopsy/Inj or Needle Placement IMPRESSION: Successful CT guided percutaneous kidney biopsy. The conscious sedation protocol was followed. Electronically Signed: Marcial Mittal MD at 10:00 EST , Service support ,
[2021-03-26 08:36] LABS: International Normalized Ratio 0.9
[2021-03-26 08:37] LABS: Partial Thromboplast Time 26.6 Seconds (24.1-36.2)
[2021-03-26] MEDS: Midazolam 2 MG/2 ML Syringe IV (09:11)
[2021-03-26] MEDS: fentaNYL 100 MCG/2 ML Ampul IV (09:13)
[2021-03-26] MEDS: Lidocaine 2% (20 ml mdv) 20 ML Vial INFILT (09:20)
== END 2021-03-26 23:59 | disposition home or self-care (01) ==
LOC: CT 08:04
PROVIDERS: PCP Student in an Organized Health Care Education/Training Program; Referring Provider Internal Medicine Nephrology; Visit Provider Internal Medicine Nephrology
DX: N04.2 Nephrotic syndrome with diffuse membranous glomerulonephritis (principal)
CPT/HCPCS: 50200; 36415; 77012; 85049; 85610; 85730; 88300; 88305; 88313; 88346; 88348; 88350; 99156; J7040; A4216

== ENCOUNTER 2021-04-19 14:15 | Outpatient (CLI) | payer MEDICARE, SELFPAY ==
[2021-04-19 15:59] LABS: Hematocrit 41.8 % (37-47); Hemoglobin 13.5 g/dL (12.0-15.0); Mean Corp Hgb Conc 32.3 g/dL (32-36); Mean Corpuscular Hgb 28.5 pg (27.0-32.0); Mean Corpuscular Volume 88.4 fL (81-99); Mean Platelet Vol. 9.1 fl (6.2-12.0); Platelet Count 338 K/mm3 (150-450); RBC Distribution Width CV 13.2 % (11.6-14.6); RBC Distribution Width SD 42.7 fl (35.1-43.9); Red Blood Count 4.73 M/mm3 (4.2-5.4); White Blood Count 6.7 K/mm3 (4.4-11.0)
[2021-04-19 16:37] LABS: Albumin, Serum 2.1 g/dL (3.2-5.0); BUN 15 mg/dL (7-18); Calcium,Total 8.8 mg/dL (8.5-10.1); Chloride 106 mmol/L (98-107); EST Glomerular Filtration Rate 58 mL/min (>60); Est Glom Filt Rate - Afr Amer 70 mL/min (>60); Glucose 98 mg/dL (74-106); Phosphorus 3.5 mg/dL (2.5-4.9); Potassium 4.1 mmol/L (3.5-5.1); Sodium Level 142 mmol/L (136-145)
[2021-04-19 18:48] LABS: Protein, Urine (Random) 2377.4 mg/dL (<11.9); Protein:Creat Ratio 8255 mg/g CRE (0-200)
[2021-04-21 14:09] LABS: ASO Titer < 20.0 IU/mL (0.0-200.0)
== END 2021-04-19 23:59 | disposition home or self-care (01) ==
LOC: LAB 14:16
PROVIDERS: PCP Student in an Organized Health Care Education/Training Program; Visit Provider Internal Medicine Nephrology
DX: R80.9 Proteinuria, unspecified (principal); N18.31 Chronic kidney disease, stage 3a
CPT/HCPCS: 36415; 80069; 82570; 84156; 85027; 86060

== ENCOUNTER → 2021-04-20 | Outpatient (CLI) | payer MEDICARE, SELFPAY | END | disposition home or self-care (01) | PROVIDERS: PCP Student in an Organized Health Care Education/Training Program; Visit Provider Internal Medicine Nephrology | DX: N03.2 Chronic nephritic syndrome with diffuse membranous glomerulonephritis (principal); R80.1 Persistent proteinuria, unspecified; R32 Unspecified urinary incontinence | CPT/HCPCS: 36415 ==

== ENCOUNTER 2021-05-27 13:07 | Outpatient (CLI) | payer MEDICARE, SELFPAY ==
[2021-05-27 14:58] LABS: Albumin, Serum 2.4 g/dL (3.2-5.0); BUN 11 mg/dL (7-18); BUN/Creat Ratio 9.6 RATIO (10-20); Calcium,Total 8.8 mg/dL (8.5-10.1); Chloride 106 mmol/L (98-107); Creatinine, Serum 1.15 mg/dL (0.55-1.02); EST Glomerular Filtration Rate 49 mL/min (>60); Est Glom Filt Rate - Afr Amer 60 mL/min (>60); Glucose 65 mg/dL (74-106); Potassium 3.7 mmol/L (3.5-5.1); Sodium Level 141 mmol/L (136-145)
[2021-05-27 17:36] LABS: Protein, Urine (Random) 1841.6 mg/dL (<11.9); Protein:Creat Ratio 5791 mg/g CRE (0-200)
== END 2021-05-27 23:59 | disposition home or self-care (01) ==
PROVIDERS: PCP Student in an Organized Health Care Education/Training Program; Visit Provider Internal Medicine Nephrology
DX: N18.31 Chronic kidney disease, stage 3a (principal)
CPT/HCPCS: 36415; 80069; 82570; 84156

== ENCOUNTER 2021-07-20 11:30 | Outpatient (RCR) | payer MEDICARE, SELFPAY ==
--- NOTE | 2021-01-11 10:59 | HP.PTEVAL ---
Patient's Visit Information DWAIN BILLINGSLEY is a 70 year old F referred to Physical Therapy by Dr. Erik Gomez DO with a diagnosis of Physical debility. Date of Evaluation: 01/11/21 Physical Therapist: Brett Brantley, SIRENAT, OCS, CSCS - Visit Plan Frequency: 3x /Week Duration: 4-6 Weeks Plan: 3x/week for. L hip precautions(posterior) and strengthening and focus on functional mobility pf trasnfers to supine and standing without AD balance and walking volume and distance to tolerance. Progress HEP - Subjective Was having therapy end of October and progressing nicely but fell on 10/31/20. She was walking with walker and turning and fell on side while turning and fell on WC. Broke L hip at top so had ROSE L on 11/04/20. Was in hospital for 6 days after surgery and weeks on the TCU. Got out 11/22/20 to go home by ambulance. Has tried to do exercises at home each day. Had home home PT with [employer] eyeglass cutter until a week ago. Was walking with walker short distances. That was 3x/week adn nurse 1-2x/week and OT 2x/week. Has wh walker at home and was walking about 150 feet but that was unusual, mostly shorter distances. Is not having much pain anymore. Has not had any in two weeks. Doing leg ex at home sit to stand at sink and leg movements at sink. Needs help form to dress. Has WC at home to get aorund and walks short distances with following. Showers in tub with bath bench and swings legs in and needs assist. Needs help with meals. Lives with on one story. Has ramp to enter. Spends day not doing much but reading, computer. Goal is to walk without walker I. But has not done that since 2019. helps her in and out of bed. to have TKA soon - Objective Pt pushed back to PT in WC, waits in waiting room. Relies on WC back for posture but can sit edge of chair when asked and move UE in functional ROM without losing sitting balance. 4-/5 UE strength. Diminished sensation B feet to gross light touch. L hip tends to fall into adduction and slight IR until cued, she can correct with cues but needs remoinded. She does not verbalize her precautions today. Reminded of IR, adduction precautiona nd flexixon above 90. AFO on R foot and ankle Has mvement in R ankle but weak. R knee 4-/5 flex and ext, hip 3+ abd and ext and 4- flexion. L hip is weak at 3/5 abduction, ext 3/5, 3- flexion. L knee 3+ when cued but almost forgets she can move it. ankle L 3+/5 in all directions. Trasnfer to stand at walker mod I, stand to sit with cues for UE on chair mod I. Trasnfer sit to supine with Min A, supine to sit with Min a for LE. Ambulate with wh walker 38 feet with CGA to Min a once she got tired as both knees started to buckle with weakness. Stand without AD for 8 seconds today but very hesitant. Needed asssit to stand without walker and ec. Pt tended posterior and VC to correct weight shift. Unable to tolerate FGA. 68 seconds on TUG. Did get 5/10 pain with L hip movmeent to new movements. - Balance/Special Test Scores Lower Extremity Functional Score: 17 - Goals Goal 1:: Trasnfer into out of bed I Goal Time Frame: 4-6 Weeks Goal 2:: Stand balalnce without AD 60 seconds without hesitation Goal Time Frame: 4-6 Weeks Goal 3:: Walk 150 feet with wh walker mod I consisstently Goal Time Frame: 4-6 Weeks Goal 4:: less than 30 second TUg to show improved mobility. Goal Time Frame: 4-6 Weeks - Rehabilitation Potential Physical Therapy Diagnosis: Immobility from hip fracture and weakness limiting movement. Rehabilitation Potential: Fair - Anticipated Interventions Patient/Client Instruction: Educate patient on: Condition, Plan of Care For the Purpose of:: To decrease pain, To increase ROM, To improve muscle performance and motor function, To increase tolerance to activity/condition/position, To improve ability of physical actions for home/community/work/leisure, To improve gait and locomotor functions Therapeutic Exercise to Include: Strength training, Balance training, Gait and locomotor training For the Purpose of:: To decrease pain, To increase ROM, To improve muscle performance and motor function, To increase tolerance to activity/condition/position, To improve ability of physical actions for home/community/work/leisure, To improve gait and locomotor functions Thank you for the opportunity to evaluate your patient. For Medicare and Medicare HMO plans, please review the plan of care and approve it. It will need to be FAXED BACK to us at [phone] for Medicare purposes. For Medicare only, by signing this I certify the plan of care. Please let me know if there are questions or concerns regarding this plan of care. Physician Signature: Date:
--- NOTE | 2021-02-11 12:54 | HP.PTREVAL_ITS ---
Dr. Erik Gomez, DO, It has been my pleasure to treat DWAIN BILLINGSLEY over the last 9 visits for Physical debility. Please see the progress note below for an update on the physical therapy plan of care! Subjective: Pt feels stronger. If frame of mind stays good, she feels good. I can do more things...takes bath with back bench, gets in and out of car easier. Uses toilet instead of commode. Supervision needed to get to these. Wants to work on wh walker walking. She does this at home kitchen to bedroom needing supervision. Fell in bathroom last week turning in bathroom. Got up off floor with husbands help.Doing seated ex at home and standing at sink. Objective/Function: Stands 65 seconds today without walker needing only cues to straighten knees every now and then. Transfer sit to supine and back with VC only needed for LE into bed on lifting and bending leg, poor confidence and motor planning but can physically do what is needed. Walks with wh walker 25-40 feet in recent session and 170 total. Overall much better and still some functional deficits to work on. appropriate to continue PT with fair prognsosi to new/current goals of walking distance, bed trasnfer and mobility etc. Plan Plan: 2x/week for 4 weeks for work on. bed trasnfer motor planning and practi ce, gait distance, stand balance. Balance/Gait/Functional tests - Balance/Special Test Scores Lower Extremity Functional Score: 14 Goals Goal 1:: Trasnfer into out of bed I Goal Time Frame: 4-6 Weeks Goal Progress: hard to swing legs, VC. Goal 2:: Stand balalnce without AD 60 seconds without hesitation Goal Time Frame: 4-6 Weeks Goal Progress: Goal Met Goal 3:: Walk 150 feet with wh walker mod I consisstently Goal Time Frame: 4-6 Weeks Goal Progress: 170' with breaks. Goal 4:: less than 30 second TUg to show improved mobility. Goal Time Frame: 4-6 Weeks Goal Progress: NT, appropriaate goal Goal 5:: Walk 100 feet at a time with wh walker safely with just VC. Goal Time Frame: 4-6 Weeks Goal Progress: NEW GOAL Anticipated Interventions Patient/Client Instruction: Educate patient on: Condition, Plan of Care For the Purpose of:: To decrease pain, To increase ROM, To improve muscle performance and motor function, To increase tolerance to activity/condition/position, To improve ability of physical actions for home/community/work/leisure, To improve gait and locomotor functions Therapeutic Exercise to Include: Strength training, Balance training, Gait and locomotor training For the Purpose of:: To decrease pain, To increase ROM, To improve muscle performance and motor function, To increase tolerance to activity/condition/position, To improve ability of physical actions for home/community/work/leisure, To improve gait and locomotor functions Please do not hesitate to contact me at [phone] by phone or if you have questions or concerns regarding this new plan of care! Sincerely, Brett Brantley, DPT, OCS, CSCS
--- NOTE | 2021-03-24 13:55 | HP.PTREVAL_ITS ---
Dr. Erik Gomez, DO, It has been my pleasure to treat DWAIN BILLINGSLEY over the last 11 visits for Physical debility. Please see the progress note below for an update on the physical therapy plan of care! Subjective: Had covid. Was in [place] because [facility] had TKA and could not take care of her. Feels coughy after covid but that was at [place]. went to [place] [facility] and was there 3 weeks. Did not have any therapy. Spent most of time in bed or chair. No exercises out of bed. Feels great. Has walked a little at home with supervision and wh walker but not alot. Knees not giving out or bending. Feels about as good as last time she was here. Objective/Function: R AFO in place adn fitting well. Pt happy and without pain. Ambulate with wh walker 75 feet x 2 with CGA today and encouragement. Sit to stand 5x today with min A from low table and SBA from chair. Stand without assist, no. AD with VC with weight tending posterior 30 seconds today. Most of difficulty today is up from low surface and turning 180 degrees to sit, small steps and much incfreased time adn poor confidence. No knees giving out today until end of 75 foot walk. WC follow today. Sit to supine and roll B and sit up I today(increased time for rolling to side). Overall much better as knees not giving out and able to walk further. Appropriate to cotninue PT toward new goals. Ffair prognosis Plan Plan: 2x/week for 4 weeks for. Gait with wh walker, 180 degree turns, sit to stand, standing balance ex. Balance/Gait/Functional tests - Balance/Special Test Scores Lower Extremity Functional Score: 16 TUG Test Time Seconds: 80 Goals Goal 1:: Trasnfer into out of bed I Goal Time Frame: 4-6 Weeks Goal Progress: Goal Met in clinic Goal 2:: Stand balalnce without AD 60 seconds without hesitation Goal Time Frame: 4-6 Weeks Goal Progress: Goal Met Goal 3:: Walk 150 feet with wh walker mod I consisstently Goal Time Frame: 4-6 Weeks Goal Progress: Progressing, approp. Goal 4:: less than 30 second TUg to show improved mobility. Goal Time Frame: 4-6 Weeks Goal Progress: NT, appropriate goal Goal 5:: Walk 100 feet at a time with wh walker safely with just VC. Goal Time Frame: 4-6 Weeks Goal Progress: 75 feet., approp Goal 6:: Turn 180 degrees I and safely 2x to improve TUG time and safety at home towards wh walker amb. Goal Time Frame: 4-6 Weeks Goal Progress: NEW GOAL Anticipated Interventions Patient/Client Instruction: Educate patient on: Condition, Plan of Care For the Purpose of:: To decrease pain, To increase ROM, To improve muscle performance and motor function, To increase tolerance to activity/condition/position, To improve ability of physical actions for home/community/work/leisure, To improve gait and locomotor functions Therapeutic Exercise to Include: Strength training, Balance training, Gait and locomotor training For the Purpose of:: To decrease pain, To increase ROM, To improve muscle performance and motor function, To increase tolerance to activity/condition/position, To improve ability of physical actions for home/community/work/leisure, To improve gait and locomotor functions Please do not hesitate to contact me at [phone] by phone or if you have questions or concerns regarding this new plan of care! Sincerely, Brett Brantley, DPT, OCS, CSCS
--- NOTE | 2021-04-22 15:25 | HP.PTREVAL_ITS ---
Dr. Erik Gomez, DO, It has been my pleasure to treat DWAIN BILLINGSLEY over the last 18 visits for Physical debility. Please see the progress note below for an update on the physical therapy plan of care! Subjective: [place] smooth walking today. I can do more things I at home like bathing and getting in and out of tub)with bath bench). Walks at home with wh walker sometimes I for short distances but WC follow for longer distances. Uses regular bathroom by herself with someone just outside if needed. [place] nd out of car going smoother. Starting to entertain at house now. Was able to undress self one time standing without help, not holding on. Doing walking and exercisses at home at sink. Objective/Function: Stand without Ad for 60 seconds today but when realized she was doing it after about 60 seconds, she got a mental block that casued her to panic and sit in chair quickly .Sit to stand with UE smooth adn easy multiple times today, trasnfer to sit when focussed is also easy. Bed trasnfer requires LE assist and VC today. Pt seems to have a mental block tat she is in control of what her legs do as she is wondering what she can do about LE psoitioning in WC and can find a good position when verbally cued but not without cues. TUG much mngj7ow today and able to do 180 turns in a good time safely today. O verall good improvement and still appropp[riate to wrok toward new goals with fair prognosis. Educated patient that driving and I walking without AD likely not realistic goals for her. Plan Plan: 2x/week for 4 weeks to work on. 1. gait distance and speed and safety. 2. bed trasnfer gaining I with legs. 3. stance without holding onto wh walker with perturbations and increased time for ADLs. Balance/Gait/Functional tests - Balance/Special Test Scores Lower Extremity Functional Score: 16 TUG Test Time Seconds: 42 Goals Goal 1:: Transfer into and out of bed with only Vc for LE Goal Time Frame: 4-6 Weeks Goal Progress: NEW GOAL Goal 2:: stand without AD 3 minutes I with perturbations. Goal Time Frame: 4-6 Weeks Goal Progress: NEW GOAL Goal 3:: Walk 150 feet with wh walker mod I consisstently Goal Time Frame: 4-6 Weeks Goal Progress: Goal Met, in 4 rounds. Goal 4:: less than 30 second TUg to show improved mobility. Goal Time Frame: 4-6 Weeks Goal Progress: Progressing, approp Goal 5:: Walk 100 feet at a time with wh walker safely with just VC. Goal Time Frame: 4-6 Weeks Goal Progress: 50 today Goal 6:: Turn 180 degrees I and safely 2x to improve TUG time and safety at home towards wh walker amb. Goal Time Frame: 4-6 Weeks Goal Progress: Goal Met Anticipated Interventions Patient/Client Instruction: Educate patient on: Condition, Plan of Care For the Purpose of:: To decrease pain, To increase ROM, To improve muscle performance and motor function, To increase tolerance to activity/condition/position, To improve ability of physical actions for home/community/work/leisure, To improve gait and locomotor functions Therapeutic Exercise to Include: Strength training, Balance training, Gait and locomotor training For the Purpose of:: To decrease pain, To increase ROM, To improve muscle performance and motor function, To increase tolerance to activity/condition/position, To improve ability of physical actions for home/community/work/leisure, To improve gait and locomotor functions Please do not hesitate to contact me at [phone] by phone or if you have questions or concerns regarding this new plan of care! Sincerely, Brett Brantley, SIRENAT, OCS, CSCS
--- NOTE | 2021-05-25 13:58 | HP.PTREVAL ---
Dr. Erik Gomez, DO, It has been my pleasure to treat DWAIN BILLINGSLEY over the last 26 visits for Physical debility. Please see the progress note below for an update on the physical therapy plan of care! Subjective: Wants to keep coming to work on walking. Wants to walk without walker but realizing that may not be possible. Walking at home with wh walker across room and does that with supervision with her. Doing sink exercises at home on her off days from therapy 4x/week. Feels stronger than a month ago. Trasnfer bed I and getting out of chair consistently without a problem. Objective/Function: Walking with WC follow 30-40 feet at a time. 180 degree turn getting safer. Pt agreeable that she is about the same functionally as last month. TUG is the same within a second of last month. Able to stand without holding on for 60 seconds today. Walking today with [employer] 150 feet in 4 attempts, same as last recheck. Pt not progressing with gait but not digressing either. Long talk with h er regarding prognosis for improvment due to lack of progression lately. See POC. goal is to maintain function on TUG, walking 150 feet in 4 trials, without 2x/week therapy(weekly), fair prognosis with compliance. Plan Plan: weekly x 4 weeks in an attempt to see how helpful 2x/week PT has been in maintaining function. Pt likely will not be an I ambulator even with walker. Educated to stay walking with hubby multiple times per day, do HEP daily and will try weekly therapy to see if she can continue to maintain with less frequent PT, then will wean PT if doing well or increase again to 2x/week maintenance is not going well. Balance/Gait/Functional tests - Balance/Special Test Scores Lower Extremity Functional Score: 17 TUG Test Time Seconds: 43 Goals Goal 1:: Transfer into and out of bed with only Vc for LE Goal Time Frame: 4-6 Weeks Goal Progress: Goal Met subjectively. Goal 2:: stand without AD 3 minutes I with perturbations. Goal Time Frame: 4-6 Weeks Goal Progress: 60 seconds Goal 3:: Walk 150 feet with wh walker mod I consisstently Goal Time Frame: 4-6 Weeks Goal Progress: Goal Met, in 4 rounds. Goal 4:: less than 30 second TUg to show improved mobility. Goal Time Frame: 4-6 Weeks Goal Progress: Still 43 Goal 5:: Walk 100 feet at a time with wh walker safely with just VC. Goal Time Frame: 4-6 Weeks Goal Progress: 30-40 feet Goal 6:: Turn 180 degrees I and safely 2x to improve TUG time and safety at home towards wh walker amb. Goal Time Frame: 4-6 Weeks Goal Progress: Goal Met Anticipated Interventions Patient/Client Instruction: Educate patient on: Condition, Plan of Care For the Purpose of:: To decrease pain, To increase ROM, To improve muscle performance and motor function, To increase tolerance to activity/condition/position, To improve ability of physical actions for home/community/work/leisure, To improve gait and locomotor functions Therapeutic Exercise to Include: Strength training, Balance training, Gait and locomotor training For the Purpose of:: To decrease pain, To increase ROM, To improve muscle performance and motor function, To increase tolerance to activity/condition/position, To improve ability of physical actions for home/community/work/leisure, To improve gait and locomotor functions Please do not hesitate to contact me at [phone] by phone or if you have questions or concerns regarding this new plan of care! Sincerely, Brett Brantley, DPT, OCS, CSCS
--- NOTE | 2021-06-24 12:31 | HP.PTREVAL_ITS ---
Dr. Erik Gomez, DO, It has been my pleasure to treat DWAIN BILLINGSLEY over the last 30 visits for Physical debility. Please see the progress note below for an update on the physical therapy plan of care! Subjective: New script for continued therapy from Dr. Gardner received. Pt has been having this therapy for months now since her surgery and has been uninterrupted for the most part. I am doing well. Went to see Jj and had x ray due to pain in L hip, not constant to 08/13 and not sure why. Walks daily at home with walker to living room approx about 50 feet with behind with WC. Doing sitting ex with GTB at home and marching and all LE movements. Stands and shifts weight and kicks up and back and marches at sink 2-3x/10. Has ramp to get in house at home. Gets in bed herself. Never went to see psychologist yet. Objective/Function: Walked 80 feet then rest then another 30 feet with one rest. Legs started to give after 80 feet, she felt tired. Sit to stand I with UE at walkker. Stands 30 seconds without holding on but mental block with any challenge needing to sit immediately. Steps not attempted but wishes to be able to walk into familys house a couple steps with rail. Poor prognosis on improving gait past about 80 feet safely on own and likely will need WC follow always due to mental blocks and sudden giving of legs due to lack of confidence. Tender to touch L lateral hip over incision. Needs progression of exercises and is to buy ankle weights for ALISON progression and bring them in. Plan Plan: 2x/week x 4 weeks... 1. One long walk each session trying to increase distance if able(pt to visit psycholoigst to check this part of the equation.). 2. Attempt steps in parallel bars as able and progress steps. 3. Pt to buy and bring in ankle weights for sitting and standing ex progression. 4. Please spend time in STM of L lateral hip and hip ROM, stretching into extension in order to attempt to help with pain. Balance/Gait/Functional tests - Balance/Special Test Scores Lower Extremity Functional Score: 23 TUG Test Time Seconds: 43 Goals Goal 1:: progress LE ex to ankle weights to I. Goal Time Frame: 2-4 Weeks Goal Progress: NEW GOAL Goal 2:: stand without AD 3 minutes I with perturbations. Goal Time Frame: 4-6 Weeks Goal Progress: Not Progressing Goal 3:: Pain in L hip 1/10 at worst and 75% better Goal Time Frame: 2-4 Weeks Goal Progress: NEW GOAL Goal 4:: less than 30 second TUg to show improved mobility. Goal Time Frame: 4-6 Weeks Goal Progress: Still 43 Goal 5:: Walk 100 feet at a time with wh walker safely with just VC. Goal Time Frame: 4-6 Weeks Goal Progress: Not Progressing, approp Goal 6:: Atempt steps to check prognosis, asxend 2 steps with walker CGA Goal Time Frame: 4-6 Weeks Goal Progress: NEW GOAL Anticipated Interventions Patient/Client Instruction: Educate patient on: Condition, Plan of Care For the Purpose of:: To decrease pain, To increase ROM, To improve muscle performance and motor function, To increase tolerance to activity/condition/position, To improve ability of physical actions for home/community/work/leisure, To improve gait and locomotor functions Therapeutic Exercise to Include: Strength training, Balance training, Gait and l ocomotor training For the Purpose of:: To decrease pain, To increase ROM, To improve muscle performance and motor function, To increase tolerance to activity/condition/position, To improve ability of physical actions for home/community/work/leisure, To improve gait and locomotor functions Please do not hesitate to contact me at [phone] by phone or if you have questions or concerns regarding this new plan of care! Sincerely, Brett Brantley, DPT, OCS, CSCS
== END 2021-07-20 19:00 | disposition home or self-care (01) ==
LOC: PT 11:30
PROVIDERS: PCP Student in an Organized Health Care Education/Training Program; Visit Provider Student in an Organized Health Care Education/Training Program
DX: R26.89 Other abnormalities of gait and mobility (principal); R53.81 Other malaise
CPT/HCPCS: 97110; 97116; 97140; 97163; 97164; 97530

== ENCOUNTER 2021-08-20 13:00 | Outpatient (RCR) | payer MEDICARE, SELFPAY ==
--- NOTE | 2021-07-22 12:02 | HP.PTREVAL ---
Dr. Erik Gomez, DO, It has been my pleasure to treat DWAIN BILLINGSLEY over the last 38 visits for Physical Debility. Please see the progress note below for an update on the physical therapy plan of care! Subjective: Feeling stronger and better overall. STM seemed to help hip pain and is 3/10 in therapy and occasional 1/10. Hip pain is 50% better. Mobility mcdaniels is feeling better. was excited yesterday standing at walker and pulling up pants yesterday with two hands. Walking with wh walker at home about 50 feet because her house is not very big. Mostly someone with her whe3n she walks. HEP at home standing at sink swaying and LE strength, SLR, not doing bands as often. Saw dr. Gomez yesterday. Doing step ups oin therapy but still wants to be able to do steps at home. Does about 5 in therapy. Has stairs at all her kids house with railings that she is still unable to do. Wants to do these. Bought ankle weights and will use them(just got them a week ago. Objective/Function: Pt walked 100 feet with wh walker and SBA today without WC follow, then 40 feet limited by therapist today. Patient did one step with each leg with wh walker easily with CGA but L leg much weaker and needing more UE push than L. TUG improving , started 30 second sit to stand test.Improving LEFS. Good progress with safety on gait and steps today. New goals set and some still appropriate with a fair prognosis with compliance of HEP and therapy. Plan Plan: 2x/week for 4-6 weeks for. 1. Steps at bars until can do enough to attempt a flight. 2. ensure HEP going well , see below. 3. walking distance Balance/Gait/Functional tests - Balance/Special Test Scores Lower Extremity Functional Score: 21 TUG Test Time Seconds: 40 30 Second Chair Rise Test Seconds: 5 Goals Goal 1:: Progress LE ex to ankle weights Goal Progress: compliance? but able Goal 2:: Pain L hip 1/10 at worst and 75% better Goal Progress: 50%, appropriate Goal 3:: Less than 30 second TUG Goal Time Frame: 4-6 Weeks Goal Progress: Progressing, appropirate Goal 4:: Walk 100 feet with wh walker safely with Just VC Goal Progress: progressing, SBA needed, Goal 5:: Attempt steps to check progress , ascend 2 steps with CGA Goal Progress: Goal Met Goal 6:: 5 steps in a flight with railing with Min A Goal Time Frame: 4-6 Weeks Goal Progress: NEW GOALs Anticipated Interventions Patient/Client Instruction: Educate patient on: Plan of Care, Risk Factors For the Purpose of:: To improve safety with gait Therapeutic Exercise to Include: Strength training, Gait and locomotor training For the Purpose of:: To improve muscle performance and motor function, To improve gait and locomotor functions, To improve safety with gait Please do not hesitate to contact me at [phone] by phone or if you have questions or concerns regarding this new plan of care! Sincerely, Brett Brantley, DPT, OCS, CSCS
--- NOTE | 2021-08-20 14:29 | HP.PTREVAL ---
Dr. Erik Gomez, DO, It has been my pleasure to treat DWAIN BILLINGSLEY over the last 45 visits for Physical Debility. Please see the progress note below for an update on the physical therapy plan of care! Subjective: Getting up off floor easily with slight assist now and has not had to call squad. Doing home exercises mostly. No pain today. Hip pain setteld down today and feeling better overall. Fell one time in bathroom at home thining that legs just gave out and hit floor, no injuries. To doctor next Monday in ICU for csf for analysis and may get possible eval for shunt. Steps in therapy are going well but unrealistic safety mcdaniels at home. Objective/Function: Walks with wh walker 20 feet today with CGA slowly. had therapy prior to recheck so this may effect walking but certainly slower today. Able to do one step on box with wh walker CGA today, decreased confidence compared to previous session. Pt is having a CSF draw to see if relieving pressure help her balance and gait. That will be next week and we need to keep her therapy consistent during that process to note changes and helpfulness of that procedure. Appropriate for this reason to cotninue PT per POC. Questionable prognosis. Goals still appropriate. Plan Plan: 2x/week for 4 weeks after CSF draw procedure next week to work on gait , balance and steps as tolerated. Pt to continue w ith HEP. Balance/Gait/Functional tests - Balance/Special Test Scores Lower Extremity Functional Score: 14 TUG Test Time Seconds: 65 30 Second Chair Rise Test Seconds: 5 Goals Goal 1:: Progress LE ex to ankle weights Goal Progress: Goal Met Goal 2:: Pain L hip 1/10 at worst and 75% better Goal Progress: today is good. Goal 3:: Less than 30 second TUG Goal Time Frame: 4-6 Weeks Goal Progress: up and down.inconsistent Goal 4:: Walk 100 feet with wh walker safely with Just VC Goal Progress: up and down, inconsistent Goal 5:: maintain current gait status and montior for improvements due to procedure she is having done in CSF. Pt to notice 90% improvement in confidence with balance and gait. Goal Time Frame: 4-6 Weeks Goal Progress: NEW GOAL Goal 6:: 5 steps in a flight with railing with Min A Goal Time Frame: 4-6 Weeks Goal Progress: Progressing Anticipated Interventions Patient/Client Instruction: Educate patient on: Plan of Care, Risk Factors For the Purpose of:: To improve safety with gait Therapeutic Exercise to Include: Strength training, Gait and locomotor training For the Purpose of:: To improve muscle performance and motor function, To improve gait and locomotor functions, To improve safety with gait Please do not hesitate to contact me at [phone] by phone or if you have questions or concerns regarding this new plan of care! Sincerely, Brett Brantley, SIRENAT, OCS, CSCS
--- NOTE | 2021-10-08 07:32 | HP.PT.NRP ---
DWAIN BILLINGSLEY was seen in my office for initial evaluation on . The following Plan of Care was established for this patient: Patient/Client Instruction: Educate patient on: Plan of Care, Risk Factors For the Purpose of:: To improve safety with gait Therapeutic Exercise to Include: Strength training, Gait and locomotor training For the Purpose of:: To improve muscle performance and motor function, To improve gait and locomotor functions, To improve safety with gait This patient was last seen in our office 08/20/21. Pertinent comments regarding their Physical therapy will appear below: Pt seen 45 visits of POC and was 50% better and making slow arduous progress with her mobility but was likely nearing her max level. She was to go to have a neurologist place a shunt for pressure on her brain which she did . They sent her back for more therapy and she is currently seeing a different therapist and will continue under that order. I will discontinue this chart. At this point I will be discontinuing this patient from physical therapy. I would be happy to see this patient again in the future if found appropriate by the physician. Thank you! Brett Brantley, DPT, OCS, CSCS Balance/Gait/Functional tests - Balance/Special Test Scores Lower Extremity Functional Score: 14 TUG Test Time Seconds: 65 30 Second Chair Rise Test Seconds: 5
== END 2021-08-20 19:00 | disposition home or self-care (01) ==
LOC: PT 13:00
PROVIDERS: PCP Student in an Organized Health Care Education/Training Program; Referring Provider Student in an Organized Health Care Education/Training Program; Visit Provider Student in an Organized Health Care Education/Training Program
DX: Z47.1 Aftercare following joint replacement surgery (principal); Z96.642 Presence of left artificial hip joint
CPT/HCPCS: 97110; 97116; 97164

== ENCOUNTER → 2021-10-25 | Outpatient (CLI) | payer MEDICARE, SELFPAY ==
[2021-10-25 12:35] LABS: Hematocrit 37.4 % (37-47); Hemoglobin 12.4 g/dL (12.0-15.0); Mean Corp Hgb Conc 33.2 g/dL (32-36); Mean Corpuscular Hgb 29.8 pg (27.0-32.0); Mean Corpuscular Volume 89.9 fL (81-99); Platelet Count 256 K/mm3 (150-450); RBC Distribution Width CV 13.2 % (11.6-14.6); RBC Distribution Width SD 43.3 fl (35.1-43.9); Red Blood Count 4.16 M/mm3 (4.2-5.4); White Blood Count 6.9 K/mm3 (4.4-11.0)
[2021-10-25 12:58] LABS: PTHIN 74.6 pg/mL (18.4-80.1)
[2021-10-25 13:11] LABS: Protein, Urine (Random) 578.8 mg/dL (<11.9); Protein:Creat Ratio 2743 mg/g CRE (0-200)
[2021-10-25 13:26] LABS: Albumin, Serum 2.6 g/dL (3.2-5.0); BUN 17 mg/dL (7-18); Calcium,Total 8.8 mg/dL (8.5-10.1); Chloride 110 mmol/L (98-107); EST Glomerular Filtration Rate 58 mL/min (>60); Est Glom Filt Rate - Afr Amer 70 mL/min (>60); Glucose 122 mg/dL (74-106); Phosphorus 2.9 mg/dL (2.5-4.9); Potassium 3.7 mmol/L (3.5-5.1); Sodium Level 142 mmol/L (136-145)
== END | disposition home or self-care (01) ==
PROVIDERS: PCP Student in an Organized Health Care Education/Training Program; Referring Provider Internal Medicine Nephrology; Visit Provider Internal Medicine Nephrology
DX: N18.31 Chronic kidney disease, stage 3a (principal); R80.8 Other proteinuria
CPT/HCPCS: 36415; 80069; 82570; 83970; 84156; 85027

== ENCOUNTER 2022-01-23 13:28 | Emergency (ER) | payer MEDICARE, SELFPAY ==
[2022-01-23 13:29] VITALS: BP 181/82; PULSE 67; RESP 18; TEMP 36.6; O2SAT 94; BMI 38.7
[2022-01-23 13:34] VITALS: BP 181/82; PULSE 61; RESP 16; O2SAT 92
[2022-01-23 13:35] VITALS: BMI 38.7
--- NOTE | 2022-01-23 13:53 | EX.ED.DYSGE1 ---
HPI History of Present Illness Chief Complaint: Neuro S/Sx Informant: patient and spouse/S.O. Narrative Narrative: Presents for evaluation with significant other for concerns of stroke symptoms. Patient poor ambulation due to bad hip and foot. She ambulates with a walker sleeps in a chair lift. Yesterday morning waking with her arm slumped over the couch she had numbness from the forearm down to her hand and weakness. No new symptoms this morning consistent paresthesias and weakness from the distal forearm down. She is right-hand dominant. Denies headache speech changes. She has chronic short-term memory loss. Evaluate as an outpatient. She is on Eliquis for history of PE DVT with no missed doses. Prior similar symptoms: No PFSH PFSH Medical History blood clots BMI greater than 40 Diabetes Femoral neck fracture Femur fracture History of left knee replacement Hyperlipidemia Hypertension Morbid obesity Pulmonary embolism Home Medications bupropion HCl 150 mg 24 hr tablet, extended release 300 mg PO DAILY anxiety 05/10/13 [History Last Taken 11/27/19] atorvastatin 10 mg tablet 10 mg PO QHS cholesterol lowering 11/27/19 [History Last Taken 11/27/19] ropinirole 0.5 mg tablet 0.5 mg PO DAILY restless leg 11/27/19 [History Last Taken 11/26/19] imipramine HCl 50 mg tablet 75 mg PO QHS over active bladder 12/12/19 [History Last Taken Unknown] apixaban 5 mg tablet 5 mg PO BID blood thinner 12/26/19 [History Last Taken 03/23/21 08:00] cholecalciferol (vitamin D3) 125 mcg (5,000 unit) tablet (Vitamin D3) 125 mcg PO DAILY supplement 11/02/20 [History Last Taken Unknown] exenatide 10 mcg/dose(250 mcg/mL)2.4 mL subcutaneous pen injector (Byetta) 10 mcg subcut BID diabetes 11/02/20 [History Last Taken Unknown] fluoxetine 20 mg tablet 40 mg PO DAILY depression 11/02/20 [History Last Taken Unknown] folic acid 1 mg tablet 1 mg PO DAILY supplement 11/02/20 [History Last Taken Unknown] pantoprazole 40 mg tablet,delayed release (Protonix) 40 mg PO DAILY GERD 11/02/20 [History Last Taken Unknown] vitamin B complex 1 cap PO DAILY supplement 11/02/20 [History Last Taken Unknown] acetaminophen 500 mg tablet 1,000 mg PO Q6H PRN PRN Pain Score 1-3 #0 tabs 11/19/20 [Rx Last Taken Unknown] losartan 100 mg tablet 100 mg PO DAILY 30 days #30 tabs 11/19/20 [Rx Last Taken Unknown] nystatin 100,000 unit/gram topical powder (Nyamyc) 1 applic topical BID #0 grams 11/19/20 [Rx Last Taken Unknown] metoprolol succinate 25 mg tablet,extended release 24 hr 100 mg PO BID 02/01/21 [History Last Taken Unknown] finerenone 10 mg tablet (Kerendia) 10 mg PO DAILY 03/26/21 [History Last Taken Unknown] mirabegron 25 mg tablet,extended release 24 hr tablet PO 05/31/21 [History Last Taken Unknown] Allergy/AdvReac Type Severity Reaction Status Date / Time cephalexin [From Keflex] Allergy Rash Verified 01/23/22 13:32 clindamycin Allergy Anaphylaxis Verified 01/23/22 13:32 vancomycin Allergy Rash Verified 01/23/22 13:32 Family History Other No pertinent family history Surgical History History of bilateral cataract extraction History of section History of left hip hemiarthroplasty Social History household members: spouse Smoking Status: Never smoker alcohol intake: never substance use type: does not use ROS ROS ED Constitutional Constitutional ED: Denies chills, fever(s) or sweats Eyes Eyes: Denies change in vision ENT ENT ED: Denies dysphagia or sore throat Cardiovascular Cardiovascular: Denies chest pain, leg edema, palpitations or racing heartbeat Respiratory/Chest Respiratory/Chest: Denies cough, dyspnea or dyspnea on exertion Gastrointestinal Gastrointestinal: Denies abdominal pain, diarrhea, nausea or vomiting Genitourinary Genitourinary ED: Denies dysuria, hematuria or urinary frequency Musculoskeletal Musculoskeletal: Denies back pain, extremity pain or neck pain Integumentary Denies rash or wounds Neurologic Neurologic: Reports paresthesias; Denies headache(s) or weakness EXAM Physical Exam Const Vital Signs: 01/23/22 13:29 01/23/22 13:34 01/23/22 14:34 Temperature 97.9 F Temperature Source Temporal Pulse Rate 67 61 Respiratory Rate 18 16 18 Blood Pressure 181/82 H 181/82 H Blood Pressure Mean 115 115 Pulse Ox 94 92 93 Oxygen Delivery Method Room Air Room Air Room Air Positive well nourished and well developed General Appearance ED: well developed and NAD HEENT Reports moist mucous membranes normocephalic and atraumatic Eyes PERRL, EOMs intact bilaterally and conjunctivae normal General Eye ED: Yes normal appearance of both eyes Neck no lymphadenopathy and supple General: Negative for tenderness Chest Wall Chest: Negative for tenderness Resp normal respiratory effort and normal air movement Effort and Inspection: symmetric chest movement; Negative for respiratory distress Cardio regular rate, regular rhythm and no murmurs Peripheral Pulses: pulses 2+ throughout GI normal to inspection, nondistended, normoactive bowel sounds and non-tender Palpation: Negative for guarding or rebound tenderness present Back/Spine no CVA tenderness and no thoracic nor lumbar tenderness Extremity normal to inspection General Extremety ED: Negative for edema or tenderness General Extremity: Negative for edema Neuro oriented x3, CN's II-XII intact bilaterally and no sensory deficits noted Neuro Narrative: NIH of 0. Patient sensation and was normal upper extremities bilaterally. 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 Sensorium / Orientation: awake and alert Skin no rashes or lesions noted and no wounds MDM MDM MDM Narrative Medical decision making narrative: Patient alert and oriented x3. Nontoxic. Patient history and exam concerns for radial nerve palsy of the right upper extremity that seems to be improving with her reported history from yesterday. She still has significant weakness to wrist extensor mild weakness to handgrip. Discussed radial nerve palsy. They were reassured with the findings and exam. She is provided Velcro wrist splint. She will follow-up as an outpatient. All questions were answered. Discharge Plan Triage Chief Complaint: Neuro S/Sx ED Provider: Zachery Abrams Dx/Rx/DC Orders Clinical Impression: Acute radial nerve palsy of right upper extremity, Weakness of wrist Instructions: ED Radial Nerve Palsy Prescriptions: No Action Myrbetriq 25 mg tablet extended release 24 hr PO bupropion HCl 150 MG tablet extended release 24 hr 300 mg PO DAILY atorvastatin 10 MG tablet 10 mg PO QHS ropinirole 0.5 MG tablet 0.5 mg PO DAILY imipramine HCl 50 mg tablet 75 mg PO QHS apixaban 5 MG tablet 5 mg PO BID fluoxetine 20 mg Tablet 40 mg PO DAILY Byetta 10 mcg/dose(250 mcg/mL) 2.4 mL Pen Injector 10 mcg SUBCUT BID Rx Instructions: pt will use home med pantoprazole [Protonix] 40 mg Tablet,Delayed Release (Dr/Ec) 40 mg PO DAILY folic acid 1 mg Tablet 1 mg PO DAILY vitamin B complex Capsule 1 cap PO DAILY cholecalciferol (vitamin D3) [Vitamin D3] 125 mcg (5,000 unit) Tablet 125 mcg PO DAILY acetaminophen 500 mg Tablet 1,000 mg PO Q6H PRN PRN (Reason: Pain Score 1-3) Qty: 0 0RF nystatin [Nyamyc] 100,000 unit/gram Powder 1 applic topical BID Qty: 0 0RF Protocol: *Topical Application Instructions APPLICATION INSTRUCTIONS: UNDER ABDOMINAL FOLDS/GROIN losartan 100 mg Tablet 100 mg PO DAILY 30 Days Qty: 30 0RF metoprolol succinate 25 mg tablet extended release 24 hr 100 mg PO BID Kerendia 10 mg Tablet 10 mg PO DAILY Primary Care Provider: Erik Gomez Referrals: Erik Gomez DO [Primary Care Provider] - 1 Week if not improving Activity Restrictions/Additional Instructions: Maintain wrist splint, may take off for showers. Follow-up with your doctor for reevaluation. Disposition Disposition: Home, Self Care Discharge Date/Time: 01/23/22 14:43
[2022-01-23 14:34] VITALS: RESP 18; O2SAT 93
== END 2022-01-23 14:43 | disposition home or self-care (01) ==
PROVIDERS: Emergency Provider Emergency Medicine; PCP Student in an Organized Health Care Education/Training Program; Visit Provider Emergency Medicine
DX: G56.31 Lesion of radial nerve, right upper limb (principal); R53.1 Weakness; Z86.711 Personal history of pulmonary embolism
CPT/HCPCS: 99283

== ENCOUNTER 2022-04-28 11:00 | Outpatient (RCR) | payer MEDICARE, SELFPAY ==
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
--- NOTE | 2021-12-02 11:57 | HP.PTREVAL ---
Dr. Aren Mcclellan MD, It has been my pleasure to treat DWAIN BILLINGSLEY over the last 18 visits for ATAXIA, HYDROCEPHALUS. Please see the progress note below for an update on the physical therapy plan of care! Subjective: I AM GETTING MUCH MUCH STRONGER. HASN'T BEEN ABLE TO GO UP STEPS AT HOME OR AT HER KIDS HOUSE YET BUT HAPPY SHE IS STARTING TO BE ABLE TO DO STEPS IN HERE. PATIENT REPORTS SHE RARELY HAS PAIN ANYMORE EXCEPT INTERMITTENT MILD LEFT HIP PAIN. PATIENT REPORTS HER LEGS GIVE OUT ON HER SOMETIMES BUT NO RECENT FALLS (X ABOUT 4 WEEKS) BUT I USE TO FALL ALL THE TIME. Objective/Function: PATIENT WAS SEEN TODAY FOR RE-ASSESSMENT OF PROGRESS TOWARD THE SET PT GOALS AND THE NEED FOR FURTHER PHYSICAL THERAPY VS READINESS FOR DISCHARGE. PATIENT IS MAKING SLOW PROGRESS TOWARD ALL PT GOALS AND IS A GOOD CANDIDATE TO CONTINUE PT BASED ON ROOM FOR FURTHER IMPROVEMENT. UPON EXAM TODAY: Motor deficit: RIGHT LE; HIP FLEX 5/5, ABD 4/5, EXT 4-/5, KNEE FLEX/EXT 4/5 AND ANKLE 4/5. LLE: HIP FLEX 4-/5, ABD 4-/5, EXT 4-/5, KNEE FLEX/EXT 4/5, ANKLE 5/5. Core strength: POOR. OTHER: SEE STS AND TUG TEST SCORES BELOW. GAIT - ABLE TO AMBULATE ABOUT 150 FEET WITH FWW AND CG CONTINUOUS LAST FEW VISITS. [ End ] Plan Plan: Cont PT 2x's a wk: FALL RISK. USE GAIT BELT. GAIT AND BALANCE TRAINING ON LEVEL SURFACES AND UP AND DOWN STEP AND LE STRENGTHENING TO HELP MEET SET GOALS. PATIENT REFUSED AQUATIC THERAPY. Balance/Gait/Functional tests - Balance/Special Test Scores Lower Extremity Functional Score: 25 TUG Test Time Seconds: 39.46 Tug Test: (fall prevention task force) 30 Second Chair Rise Test Seconds: 7 Goals Goal 1:: PATIENT WILL COMPLETE TUG IN < 30 SECS TO DEMONSTRATE IMPROVED GAIT STABILITY Goal Time Frame: 4-6 Weeks Goal Progress: Progressing Goal 2:: PATIENT WILL COMPLETE 8 STANDS IN 30 SECS TO DEMONSTRATE IMPROVED FUNCTIONAL STRENGTH Goal Time Frame: 4-6 Weeks Goal Progress: Progressing Goal 3:: PATIENT WILL ASCEND AND DESCEND 2 STEPS (EQUIVALENT TO HOME) SAFELY WITH X1 SUPERVISION TO IMPROVE ENTERING AND EXITING HOME MORE SAFELY. Goal Time Frame: 4-6 Weeks Goal Progress: Progressing Goal 4:: PATIENT WILL AMBULATE 200 FEET WITH WW WITH SUPERVISION X 1 TO IMPROVE ACTIVITY TOLERANCE Goal Time Frame: 4-6 Weeks Goal 5:: PATIENT WILL BE INDEP WITH A HEP FOR CONTINUED IMPROVEMENT ONCE FORMAL PHYSICAL THERAPY CONCLUDES. Goal Time Frame: 4-6 Weeks Goal Progress: Progressing Anticipated Interventions Patient/Client Instruction: Educate patient on: Condition, Plan of Care, Risk Factors For the Purpose of:: To improve safety with gait Therapeutic Exercise to Include: Strength training, Flexibilty training, Gait and locomotor training, Neuromotor development For the Purpose of:: To increase ROM, To improve muscle performance and motor function, To increase tolerance to activity/condition/position, To improve ability of physical actions for home/community/work/leisure, To improve gait and locomotor functions Please do not hesitate to contact me at [phone] by phone or if you have questions or concerns regarding this new plan of care! Sincerely, Moni Henley, PT, Cert MDT
--- NOTE | 2022-01-06 11:58 | HP.PTREVAL_ITS ---
Dr. Aren Mcclellan MD, It has been my pleasure to treat DWAIN BILLINGSLEY over the last 27 visits for ATAXIA, HYDROCEPHALUS. Please see the progress note below for an update on the physical therapy plan of care! Subjective: Patient reports she is getting stronger but knows she still has a long way to go. States she needs and wants to continue PT. Patient reports she is now taking her own showers and Indep ADLs in the bathroom now. Uses Bath bench in the shower. Patient will be moving to a condo. Objective/Function: PATIENT WAS SEEN TODAY FOR RE-ASSESSMENT OF PROGRESS TOWARD THE SET PT GOALS AND THE NEED FOR FURTHER PHYSICAL THERAPY VS READINESS FOR DISCHARGE. PATIENT IS MAKING SLOW PROGRESS TOWARD ALL PT GOALS AND IS A GOOD CANDIDATE TO CONTINUE PT BASED ON ROOM FOR FURTHER IMPROVEMENT. UPON EXAM TODAY: Motor deficit: RIGHT LE; HIP FLEX 5/5, ABD 4/5, EXT 4-/5, KNEE FLEX 5/5, KNEE EXT 4/5 AND ANKLE 4/5. LLE: HIP FLEX 4/5, ABD 4/5, EXT 4-/5, KNEE FLEX/EXT 4/5, ANKLE 5/5. Core strength: POOR. OTHER: SEE STS AND TUG TEST SCORES BELOW. STS TEST WAS DONE WITH VIPIN UE ASSIST BUT PATIENT CAN NOW RISE FROM SITTI NG WITH ONE UE ASSIST X 1. GAIT - PATIENT DEMO'D ABILITY TO WALK 340 FEET in 4 EQUAL LEGS IN PT LAST WEEK WITH FWW. Plan Plan: Cont PT 2x's a wk: FALL RISK. USE GAIT BELT. GAIT AND BALANCE TRAINING ON LEVEL SURFACES AND UP AND DOWN STEP AND LE STRENGTHENING TO HELP MEET SET GOALS. PATIENT REFUSED AQUATIC THERAPY. Balance/Gait/Functional tests - Balance/Special Test Scores Lower Extremity Functional Score: 26 TUG Test Time Seconds: 35.02 Tug Test: (fall prevention task force) 30 Second Chair Rise Test Seconds: 8 Goals Goal 1:: PATIENT WILL COMPLETE TUG IN < 30 SECS TO DEMONSTRATE IMPROVED GAIT STABILITY Goal Time Frame: 4-6 Weeks Goal Progress: Progressing Goal 2:: PATIENT WILL COMPLETE 8 STANDS IN 30 SECS TO DEMONSTRATE IMPROVED FUNCTIONAL STRENGTH Goal Time Frame: 4-6 Weeks Goal Progress: Progressing Goal 3:: PATIENT WILL ASCEND AND DESCEND 2 STEPS (EQUIVALENT TO HOME) SAFELY WITH X1 SUPERVISION TO IMPROVE ENTERING AND EXITING HOME MORE SAFELY. Goal Time Frame: 4-6 Weeks Goal Progress: Progressing Goal 4:: PATIENT WILL AMBULATE 200 FEET WITH WW WITH SUPERVISION X 1 TO IMPROVE ACTIVITY TOLERANCE Goal Time Frame: 4-6 Weeks Goal 5:: PATIENT WILL BE INDEP WITH A HEP FOR CONTINUED IMPROVEMENT ONCE FORMAL PHYSICAL THERAPY CONCLUDES. Goal Time Frame: 4-6 Weeks Goal Progress: Progressing Anticipated Interventions Patient/Client Instruction: Educate patient on: Condition, Plan of Care, Risk Factors For the Purpose of:: To improve safety with gait Therapeutic Exercise to Include: Strength training, Flexibilty training, Gait and locomotor training, Neuromotor development For the Purpose of:: To increase ROM, To improve muscle performance and motor function, To increase tolerance to activity/condition/position, To improve ability of physical actions for home/community/work/leisure, To improve gait and locomotor functions Please do not hesitate to contact me at [phone] by phone or if you have questions or concerns regarding this new plan of care! Sincerely, Moni Henley, PT, Cert MDT
--- NOTE | 2022-02-17 14:22 | HP.PTREVAL_ITS ---
Dr. Aren Mcclellan MD, It has been my pleasure to treat DWAIN BILLINGSLEY over the last 35 visits for ATAXIA, HYDROCEPHALUS. Please see the progress note below for an update on the physical therapy plan of care! Subjective: PATIENT REPORTS SHE IS MAKING PROGRESS AND STILL FEELS SHE NEEDS PT. STATES SHE CAN STAND UP AND PULL HER PANTS UP NOW WHEN SHE IS GETTING DRESSED IN THE MORNING AND WHEN I GO TO THE BATHROOM AND THAT IS HUGE FOR ME. STATES HER NEEDS SURGERY ON HIS SHLD AND IT HAS BEEN postponed UNTIL END OF MARCH. PATIENT REPORTS THAT WHEN SHE FIRST STARTED THERAPY ABOUT 2 YEARS AGO SHE HAD PAIN EVERYWHERE AND COULDN'T EVEN SIT UP WITHOUT HELP. PATIENT REPORTS THEIR CONDO IS STILL BEING BUILT AND IT IS EXPECTED TO BE DONE IN MAY 2021. Objective/Function: Ambulated with FWW and w/c follow: 225x1, 125ft x1 9:12 - Verbal cues for increased left hip/knee flexion during swing and heel strike at contact. Plan Plan: Cont PT 2x's a wk: FALL RISK. USE GAIT BELT. GAIT AND BALANCE TRAINING ON LEVEL SURFACES AND UP AND DOWN STEP AND LE STRENGTHENING TO HELP YAZMIN T SET GOALS. PATIENT REFUSED AQUATIC THERAPY. Balance/Gait/Functional tests - Balance/Special Test Scores Lower Extremity Functional Score: 26 TUG Test Time Seconds: 34.11 Tug Test: (fall prevention task force) 30 Second Chair Rise Test Seconds: 8 Goals Goal 1:: PATIENT WILL COMPLETE TUG IN < 30 SECS TO DEMONSTRATE IMPROVED GAIT STABILITY Goal Time Frame: 4-6 Weeks Goal Progress: Progressing Goal 2:: PATIENT WILL COMPLETE 8 STANDS IN 30 SECS TO DEMONSTRATE IMPROVED FUNCTIONAL STRENGTH Goal Time Frame: 4-6 Weeks Goal Progress: Progressing Goal 3:: PATIENT WILL ASCEND AND DESCEND 2 STEPS (EQUIVALENT TO HOME) SAFELY WITH X1 SUPERVISION TO IMPROVE ENTERING AND EXITING HOME MORE SAFELY. Goal Time Frame: 4-6 Weeks Goal Progress: Progressing Goal 4:: PATIENT WILL AMBULATE 200 FEET WITH WW WITH SUPERVISION X 1 TO IMPROVE ACTIVITY TOLERANCE Goal Time Frame: 4-6 Weeks Goal 5:: PATIENT WILL BE INDEP WITH A HEP FOR CONTINUED IMPROVEMENT ONCE FORMAL PHYSICAL THERAPY CONCLUDES. Goal Time Frame: 4-6 Weeks Goal Progress: Progressing Anticipated Interventions Patient/Client Instruction: Educate patient on: Condition, Plan of Care, Risk Factors For the Purpose of:: To improve safety with gait Therapeutic Exercise to Include: Strength training, Flexibilty training, Gait and locomotor training, Neuromotor development For the Purpose of:: To increase ROM, To improve muscle performance and motor function, To increase tolerance to activity/condition/position, To improve ability of physical actions for home/community/work/leisure, To improve gait and locomotor functions Please do not hesitate to contact me at [phone] by phone or if you have questions or concerns regarding this new plan of care! Sincerely, Moni Henley, PT, Cert MDT
--- NOTE | 2022-03-29 14:30 | HP.PTREVAL ---
Dr. Aren Mcclellan MD, It has been my pleasure to treat DWAIN BILLINGSLEY over the last 41 visits for ATAXIA, HYDROCEPHALUS. Please see the progress note below for an update on the physical therapy plan of care! Subjective: STATES SHE HASN'T BEEN ABLE TO GO TO ANY OF HER 3 CHILDREN'S HOMES FOR 3 YEARS DO TO THEM HAVING STEPS TO GET IN. USES A RAMP TO GET INTO HER HOME. MOVING TO A CONDO IN MAY. PATIENT REPORTS SHE FEELS LIKE ALL OF US THERAPISTS ARE GREAT AND STATES SHE HAS NO COMPLAINTS. THIS IS A GREAT STAFF. SHE STATES SHE WANTS TO CONTINUE PT AND FEELS LIKE SHE IS IMPROVING. STATES SHE IS ASSITING WITH HOUSE HOLD CHORES MORE LIKE DOING LAUNDRY. REPORTS DAILY COMPLIANCE WITH HER HOME EX PROGRAM AND IS ACTIVE AT HOME HER SX'S ALLOW. REPORTS SHE STILL HAS FEAR OF FALLING BUT IT IS GETTING BETTER. PATIENT STATES SHE WANTS TO CONTINUE PT TO WORK MORE ON STEPS AND TO LEARN MORE EX'S TO DO AT [facility]. Objective/Function: PATIENT WAS SEEN TODAY FOR RE-ASSESSMENT OF PROGRESS TOWARD THE SET PT GOALS AND THE NEED FOR FURTHER PHYSICAL THERAPY VS READINESS FOR DISCHARGE. SUBJECTIVELY PATIENT IS REPORTING IMPROVEMENTS BUT OBJECTIVELY SHE IS NOT SHOWING PROGRESS WITH GAIT OR LE STRENGTH. PATIENT DOES NOT FEEL LIKE WE HAVE WORKED ON STEPS ENOUGH AND BEING ABLE TO DO STEPS IS HER MAIN GOAL. UPON EXAM TODAY: Motor deficit: RIGHT LE; HIP FLEX 5/5, ABD 4/5, EXT 4-/5, KNEE FLEX 5/5, KNEE EXT 4/5 AND ANKLE 4/5. LLE: HIP FLEX 4/5, ABD 4/5, EXT 4-/5, KNEE FLEX/EXT 4/5, ANKLE 5/5. Core strength: POOR. OTHER: SEE STS AND TUG TEST SCORES BELOW. STS TEST WAS DONE WITH VIPIN UE ASSIST BUT PATIENT CAN NOW RISE FROM SITTING WITH ONE UE ASSIST X 2 REPS. GAIT - PATIENT DEMO'D GAIT with FWW:135'x1, 75'x1 LAST PT SESSION 03/16/22. TUG TIME IS A LITTLE SLOWER TODAY THAN LAST VISIT. PATIENT MAY BENEFIT FROM CONTINUED PT 2X'S A WK X 7 VISITS TO PROGRESS HEP AND WORK MORE ON STEPS WILL SKILLED THERAPIST ASSIST THEN RE-CHECK FOR PROGRESS. WILL NEED TO SERIOUSLY CONSIDER D/C TO INDEP EX IF UNABLE TO MAKE PROGRESS. [ End ] Plan Plan: Cont PT 2x's a wk: FALL RISK. USE GAIT BELT. FOCUS ON STEPS IN PARALLEL BARS AND STAIRWELL ABLE SAFELY AND WRITTEN HEP WITH PROGRESSIONS ABLE FOR DISCHARGE. GAIT AND BALANCE TRAINING ON LEVEL SURFACES AND UP AND DOWN STEP AND LE STRENGTHENING TO HELP MEET SET GOALS. PATIENT REFUSED AQUATIC THERAPY. Balance/Gait/Functional tests - Balance/Special Test Scores Lower Extremity Functional Score: 24 TUG Test Time Seconds: 45.31 Tug Test: (fall prevention task force) 30 Second Chair Rise Test Seconds: 7 Goals Goal 1:: PATIENT WILL COMPLETE TUG IN < 30 SECS TO DEMONSTRATE IMPROVED GAIT STABILITY Goal Time Frame: 4-6 Weeks Goal Progress: Not Progressing Goal 2:: PATIENT WILL COMPLETE 8 STANDS IN 30 SECS TO DEMONSTRATE IMPROVED FUNCTIONAL STRENGTH Goal Time Frame: 4-6 Weeks Goal Progress: DECREASED FROM LAST VISIT Goal 3:: PATIENT WILL ASCEND AND DESCEND 2 STEPS (EQUIVALENT TO HOME) SAFELY WITH X1 SUPERVISION TO IMPROVE ENTERING AND EXITING HOME MORE SAFELY. Goal Time Frame: 4-6 Weeks Goal Progress: Not Progressing Goal 4:: PATIENT WILL AMBULATE 200 FEET WITH WW WITH SUPERVISION X 1 TO IMPROVE ACTIVITY TOLERANCE Goal Time Frame: 4-6 Weeks Goal Progress: Inconsistent Goal 5:: PATIENT WILL BE INDEP WITH A HEP FOR CONTINUED IMPROVEMENT ONCE FORMAL PHYSICAL THERAPY CONCLUDES. Goal Time Frame: 4-6 Weeks Goal Progress: Progressing Anticipated Interventions Patient/Client Instruction: Educate patient on: Condition, Plan of Care, Risk Factors For the Purpose of:: To improve safety with gait Therapeutic Exercise to Include: Strength training, Flexibilty training, Gait and locomotor training, Neuromotor development For the Purpose of:: To increase ROM, To improve muscle performance and motor function, To increase tolerance to activity/condition/position, To improve ability of physical actions for home/community/work/leisure, To improve gait and locomotor functions Please do not hesitate to contact me at [phone] by phone or if you have questions or concerns regarding this new plan of care! Sincerely, Moni Henley, PT, Cert MDT
--- NOTE | 2022-04-28 13:05 | HP.PTREVAL_ITS ---
Dr. Aren Mcclellan MD, It has been my pleasure to treat DWAIN BILLINGSLEY over the last 46 visits for ATAXIA, HYDROCEPHALUS. Please see the progress note below for an update on the physical therapy plan of care! Subjective: I'M NO WHERE NEAR CLOSE TO BEING WELL. PATIENT REPORTS HER RIGHT KNEE IS GIVING OUT INTERMITTENTLY AND IT DOESN'T HURT BUT SHE IS AFRAID SHE IS GOING TO FALL. PATIENT REPORTS THEY WERE ORIGINALLY TOLD THEIR CONDO WOULD BE READY IN MAY BUT NO RECENT UPDATES. Objective/Function: PATIENT WAS SEEN TODAY FOR RE-ASSESSMENT OF PROGRESS TOWARD THE SET PT GOALS AND THE NEED FOR FURTHER PHYSICAL THERAPY VS READINESS FOR DISCHARGE. SUBJECTIVELY PATIENT IS REPORTING SHE HAS IMPROVED A LOT SINCE STARTING PT AND SHE DOES NOT KNOW WHY SHE INS'T CONTINUEING TO IMPROVE. OBJECTIVELY SHE IS STILL NOT SHOWING PROGRESS WITH GAIT OR LE FUNCTIONAL STRENGTH. PATIENT REPORTS SHE WANTS TO CONTINUE WITH MAINTENANCE THERAPY AT THIS POINT WITH THE PT ORDER SHE JUST RECEIVED FROM DR. STEVENS. THIS PT SPOKE WITH DR. STEVENS'S NURSE JACLYN TODAY AND THEN ANOTHER NURSE FROM DR. STINSON OFFICE THAT WAS FOLLOWING UP AND LACK OF PROGRESS WAS DISCUSSED. PATIENT IS GOING TO TALK WITH HER ABOUT continuing PT here AT [facility] VS TRANSFER OF CARE TO [facility] AND WILL GET BACK WITH US. UPON EXAM TODAY: Motor deficit: RIGHT LE; HIP FLEX 5/5, ABD 4/5, KNEE FLEX 5/5, KNEE EXT 4/5 AND ANKLE 4/5. LLE: HIP FLEX 4/5, ABD 4/5, KNEE FLEX/EXT 4/5, ANKLE 5/5. Core strength: POOR. OTHER: SEE STS AND TUG TEST SCORES BELOW. PATIENT HAS A HISTORY OF FALLS RESULTING IN SERIOUS INJURY BUT NO RECENT FALLS. PATIENT REPORTING MUCH LESS FALLING WHILE GETTING PT. SHE IS A GOOD CANDIDATE TO CONTINUE PT FOR MAINTENANCE OF FUNCTIONAL LE STRENGTH AND GAIT. Plan Plan: MAINTENANCE PT 2x's a wk X 2-3 MONTHS. FALL RISK. USE GAIT BELT. FOCUS ON STEPS IN PARALLEL BARS AND STAIRWELL ABLE SAFELY AND WRITTEN HEP WITH PROGRESSIONS ABLE. GAIT AND BALANCE TRAINING ON LEVEL SURFACES AND UP AND DOWN STEP AND LE STRENGTHENING TO HELP MEET SET GOALS. PATIENT REFUSED AQUATIC THERAPY. Balance/Gait/Functional tests - Balance/Special Test Scores Lower Extremity Functional Score: 20 TUG Test Time Seconds: 44.78 Tug Test: (fall prevention task force) 30 Second Chair Rise Test Seconds: 6 Goals Goal 1:: PATIENT WILL COMPLETE TUG IN < 50 SECS TO DEMONSTRATE MAINTAINED GAIT STABILITY Goal Time Frame: 90 DAYS Goal Progress: Not Progressing Goal 2:: PATIENT WILL COMPLETE 6-7 STANDS IN 30 SECS TO DEMONSTRATE MAINTAINED FUNCTIONAL STRENGTH Goal Time Frame: 90 DAYS Goal Progress: DECREASED FROM LAST VISIT Goal 3:: PATIENT WILL AMBULATE 100 TO 150 FEET WITH WW WITH SUPERVISION X 1 TO MAINTAIN ACTIVITY TOLERANCE Goal Time Frame: 90 DAYS Goal Progress: Not Progressing Goal 4:: PATIENT WILL BE INDEP WITH A HEP FOR CONTINUED MAINTENANCE ONCE FORMAL PHYSICAL THERAPY CONCLUDES Goal Time Frame: 90 DAYS Goal Progress: Inconsistent Goal 5:: PATIENT WILL BE INDEP WITH A HEP FOR CONTINUED IMPROVEMENT ONCE FORMAL PHYSICAL THERAPY CONCLUDES. Goal Time Frame: 4-6 Weeks Goal Progress: Progressing Anticipated Interventions Patient/Client Instruction: Educate patient on: Condition, Plan of Care, Risk Factors For the Purpose of:: To improve safety with gait Therapeutic Exercise to Include: Strength training, Flexibilty training, Gait and locomotor training, Neuromotor development For the Purpose of:: To increase ROM, To improve muscle performance and motor function, To increase tolerance to activity/condition/position, To improve ability of physical actions for home/community/work/leisure, To improve gait and locomotor functions Please do not hesitate to contact me at [phone] by phone or if you have questions or concerns regarding this new plan of care! Sincerely, Moni Henley, PT, Cert MDT
--- NOTE | 2022-06-01 13:15 | HP.PT.NRP ---
DWAIN BILLINGSLEY was seen in my office for initial evaluation on 09/22/21. The following Plan of Care was established for this patient: Initial Frequency: 2-3x /Week Initial Duration: 4-6 Weeks Patient/Client Instruction: Educate patient on: Condition, Plan of Care, Risk Factors For the Purpose of:: To improve safety with gait Therapeutic Exercise to Include: Strength training, Flexibilty training, Gait and locomotor training, Neuromotor development For the Purpose of:: To increase ROM, To improve muscle performance and motor function, To increase tolerance to activity/condition/position, To improve ability of physical actions for home/community/work/leisure, To improve gait and locomotor functions This patient was last seen in our office 04/28/22. Pertinent comments regarding their Physical therapy will appear below: This patient has not returned to Physical Therapy and is appropriate to return to MD for further follow-up as needed. At this point I will be discontinuing this patient from physical therapy. I would be happy to see this patient again in the future if found appropriate by the physician. Thank you! Moni Henley, PT, Cert MDT Balance/Gait/Functional tests - Balance/Special Test Scores Lower Extremity Functional Score: 20 TUG Test Time Seconds: 44.78 Tug Test: (fall prevention task force) 30 Second Chair Rise Test Seconds: 6
== END 2022-04-28 19:00 | disposition home or self-care (01) ==
LOC: PT 11:00
PROVIDERS: PCP Student in an Organized Health Care Education/Training Program; Referring Provider Student in an Organized Health Care Education/Training Program; Visit Provider Student in an Organized Health Care Education/Training Program
DX: G91.9 Hydrocephalus, unspecified (principal); E11.9 Type 2 diabetes mellitus without complications; I10 Essential (primary) hypertension; K21.9 Gastro-esophageal reflux disease without esophagitis; E78.5 Hyperlipidemia, unspecified; R27.0 Ataxia, unspecified
CPT/HCPCS: 97110; 97116; 97162; 97164; 97530

== ENCOUNTER → 2022-05-18 | Outpatient (CLI) | payer MEDICARE, SELFPAY ==
--- NOTE | 2022-05-18 11:58 | US_ITS ---
STUDY: RENAL ULTRASOUND - COMPLETE REASON FOR EXAM: Female, 72 years old. Elevated BUN/creatinine TECHNIQUE: Ultrasound evaluation of the kidneys was performed with real-time and static newman-scale imaging. COMPARISON: None. FINDINGS: RIGHT KIDNEY: Normal location of the right kidney, which is normal in size. The right kidney measures 10.3 x 4.5 x 4.6 cm. There is a normal cortex of the right kidney. The renal cortex measures 1.5 cm. There is no right renal mass or cyst. There are no right renal calculi. There is no right hydronephrosis. DISTAL RIGHT URETER: There is non-visualization of the distal right ureter. There is no demonstrated right ureterovesical junction calculus. There is a visualized right ureteral jet. LEFT KIDNEY: Normal location of the left kidney, which is normal in size. The left kidney measures 10.2 x 4.3 x 5.7 cm. There is a normal cortex of the left kidney. The renal cortex measures 1.8 cm. There is no left renal mass or cyst. There is a nonobstructing 5 mm stone. There is no left hydronephrosis. DISTAL LEFT URETER: There is non-visualization of the distal left ureter. There is no demonstrated left ureterovesical junction calculus. There is a visualized left ureteral jet. AORTA: There is no elongation or tortuosity of the abdominal aorta. I.V.C.: The IVC is patent. BLADDER: The bladder is incompletely distended US/Kidney and Bladder IMPRESSION: No suspicious sonographic findings, nonobstructing left nephrolithiasis Electronically Signed: Rolo Chowdary MD at 13:17 EDT ,
== END | disposition home or self-care (01) ==
PROVIDERS: PCP Student in an Organized Health Care Education/Training Program; Visit Provider Urology
DX: N28.9 Disorder of kidney and ureter, unspecified (principal)
CPT/HCPCS: 76770

== ENCOUNTER → 2022-06-24 | Outpatient (CLI) | payer MEDICARE, SELFPAY ==
--- NOTE | 2022-06-24 15:57 | CT_ITS ---
STUDY: CT ABDOMEN AND PELVIS WITHOUT CONTRAST REASON FOR EXAM: Female, 72 years old. Left flank pain. RADIATION DOSAGE (If Supplied By Facility): CTDIvol = ( 21.75 ) mGy, DLP = ( 1092.30 ) mGycm TECHNIQUE: Transaxial images were obtained from the dome of the diaphragm to the symphysis pubis without oral contrast, and without intravenous contrast. Sagittal and coronal images were reconstructed. Individualized dose optimization techniques were used for this CT. COMPARISON: August 12, 2013. FINDINGS: The visualized lung bases are unremarkable. The visualized portions of the heart are within normal limits. Normal liver. Normal gallbladder and extrahepatic biliary system. Normal spleen. Normal pancreas. Normal bilateral adrenal glands. Normal right kidney. 2 mm nonobstructing calculus lower pole left kidney. No hydronephrosis. Normal bilateral ureters. Nondistended stomach. Normal small intestine. Normal colon. Extremity There is diffuse atherosclerotic calcification of the abdominal aorta, without a demonstrated aneurysm. Normal inferior vena cava. Normal retroperitoneum. The urinary bladder is poorly distended. Normal uterus. There is a 3.1 x 2.7 x 3.2 cm low-attenuation mass in the left adnexa. Question cyst. No pelvic lymphadenopathy. No free air or free fluid is seen within the peritoneal cavity. Normal abdominal wall. Mild degenerative changes lumbar spine. Left total hip arthroplasty. CT/Abdomen/Pelvis without Cont IMPRESSION: 1. Nonobstructing left renal calculus. There is no other evidence of renal, ureteral or urinary bladder abnormality. 2. Question complex cyst of the left ovary. 3. Interval left hip replacement since the prior CT. 4. Otherwise stable findings. Electronically Signed: Germán Partida DO at 21:24 EDT Reading Location ID and State: [id number] Tel [phone], Service support ,
== END | disposition home or self-care (01) ==
PROVIDERS: PCP Student in an Organized Health Care Education/Training Program; Referring Provider Urology; Visit Provider Urology
DX: N20.0 Calculus of kidney (principal); R10.9 Unspecified abdominal pain
CPT/HCPCS: 74176

== ENCOUNTER → 2022-07-01 | Outpatient (CLI) | payer MEDICARE, SELFPAY ==
--- NOTE | 2022-07-01 14:29 | US_ITS ---
STUDY: ULTRASOUND OF THE FEMALE PELVIS - COMPLETE REASON FOR EXAM: Female, 72 years old. OVARIAN CYST seen on CT LMP: TECHNIQUE: Transabdominal TECHNICAL QUALITY: Limited. Examination limited due to a combination of factors including obesity and bowel gas. COMPARISON: CT scan 06/24/2022. FINDINGS: The uterus is retroverted and is in a midline position. The uterus measures 6.4 x 6.2 x 4.4 cm. Normal uterine cervix. The endometrium measures 6 mm in thickness, and is hyperechoic. There is no demonstrated endometrial mass. There is no demonstrated myometrial mass. I.U.D. - The patient does not have an I.U.D. Neither ovary is visualized because of bowel gas and patient size. There is no fluid in the cul-de-sac. The pre void volume of the bladder was 179 ml. US/Pelvic (Non ) IMPRESSION: Exam is markedly limited because of patient size, bowel gas, and transvaginal ultrasound was not ordered. Grossly unremarkable uterus. Neither ovary seen. No mass or cyst is seen. Electronically Signed: Abelardo Espinoza MD at 19:54 EDT ,
== END | disposition home or self-care (01) ==
LOC: US 14:27
PROVIDERS: PCP Student in an Organized Health Care Education/Training Program; Referring Provider Urology; Visit Provider Urology
DX: N83.209 Unspecified ovarian cyst, unspecified side (principal)
CPT/HCPCS: 76856

== ENCOUNTER 2022-11-14 10:41 | Inpatient (IN) | payer MEDICARE, SELFPAY ==
[2022-11-14 10:44] VITALS: RESP 18; TEMP 36.5; O2SAT 85; BMI 33.4
--- NOTE | 2022-11-14 11:02 | CT_ITS ---
STUDY: CT BRAIN WITHOUT CONTRAST REASON FOR EXAM: Female, 72 years old. Fall, head injury RADIATION DOSAGE (If Supplied By Facility): CTDIvol = ( 44.99 ) mGy, DLP = ( 796.11 ) mGycm TECHNIQUE: Transaxial CT imaging of the brain was performed without administration of intravenous contrast material. Individualized dose optimization techniques were used for this CT. COMPARISON: Comparison is made with prior study December 26, 2019. FINDINGS: Normal soft tissue structures. There is hyperostosis frontalis internus. There is mild cerebral atrophy with widening of the extra-axial spaces and ventricular dilatation. There are areas of decreased attenuation within the white matter tracts of the supratentorial brain, consistent with microvascular disease changes. There are small punctate calcifications of the basal ganglia which are seen in the aging brain as a normal variant. Normal brainstem. Normal cerebellum. There is no intracranial hemorrhage. There are no findings of an acute ischemic infarction. Atherosclerotic calcification of the cavernous portions of the internal carotid arteries bilaterally. Normal visualized paranasal sinuses. CT/Brain/Head without Contrast IMPRESSION: Chronic involutional changes of the brain. Electronically Signed: Marcial Mittal MD at 11:58 EDT ,
--- NOTE | 2022-11-14 11:02 | EKG12_ITS ---
Test Reason : FALL Blood Pressure : / mmHG Vent. Rate : 064 BPM Atrial Rate : 064 BPM P-R Int : 186 ms QRS Dur : 098 ms QT Int : 440 ms P-R-T Axes : 067 035 046 degrees QTc Int : 453 ms Normal sinus rhythm Normal ECG Confirmed by KEYONA ZAPATA MD ([id number]), scientific publications editor KIZZY BURTON ([id number]) on 11/17/2022 1:49:42 PM Referred By: Confirmed By:KEYONA ZAPATA MD
[2022-11-14] MEDS: Morphine 4 MG/ML Syringe IV ×2 (11:03→11:47)
[2022-11-14 11:05] VITALS: BP 186/66; PULSE 61; RESP 18; O2SAT 99
--- NOTE | 2022-11-14 11:07 | ED.VIS.LOWEX ---
HPI History of Present Illness Chief Complaint: Lower Extremity Injury Detail of Chief Complaint: Fall with injury to right hip Informant: patient and family Narrative Narrative: Patient presents to the emergency department with complaint of a fall that occurred this morning. Patient states that she was trying to walk with her walker and she turned and lost her balance and fell onto a linoleum floor injuring her right hip. She does not think she hit her head but she is on Eliquis for history of PEs. Patient denies head or neck pain. She denies chest pain or abdominal pain. Patient has had prior fracture to her left hip that needed to be replaced. EMS did give patient 50 mcg of fentanyl and 4 mg of Zofran. Patient continues to complain of significant pain. [facility] Medical History (Updated 11/14/22 @ 14:17 by Dolly Herzog) Anxiety blood clots BMI greater than 40 CPAP (continuous positive airway pressure) dependence Diabetes DVT (deep venous thrombosis) Femoral neck fracture Femur fracture History of left knee replacement Hyperlipidemia Hypertension Hypothyroidism Kidney disease Morbid obesity Pulmonary embolism Home Medications bupropion HCl 150 mg 24 hr tablet, extended release 300 mg PO DAILY anxiety 05/10/13 [History Last Taken 11/13/22] atorvastatin 10 mg tablet 10 mg PO QHS cholesterol lowering 11/27/19 [History Last Taken 11/13/22] apixaban 5 mg tablet 5 mg PO BID blood thinner 12/26/19 [History Last Taken 11/13/22] cholecalciferol (vitamin D3) 125 mcg (5,000 unit) tablet (Vitamin D3) 125 mcg PO DAILY supplement 11/02/20 [History Last Taken 11/13/22] folic acid 1 mg tablet 1 mg PO DAILY supplement 11/02/20 [History Last Taken 11/13/22] pantoprazole 40 mg tablet,delayed release (Protonix) 40 mg PO DAILY GERD 11/02/20 [History Last Taken 11/13/22] vitamin B complex 1 cap PO DAILY supplement 11/02/20 [History Last Taken 11/13/22] acetaminophen 500 mg tablet 1,000 mg (2 x 500 mg) PO Q6H PRN PRN Pain Score 1-3 #0 tabs 11/19/20 [Rx Last Taken Unknown] losartan 100 mg tablet 100 mg PO DAILY 30 days #30 tabs 11/19/20 [Rx Last Taken 11/13/22] nystatin 100,000 unit/gram topical powder ([facility]) 1 applic topical BID #0 grams 11/19/20 [Rx Last Taken 11/13/22] metoprolol succinate 25 mg tablet,extended release 24 hr 100 mg PO DAILY blood pressure 02/01/21 [History Last Taken 11/13/22] finerenone 10 mg tablet (Kerendia) 10 mg PO DAILY 03/26/21 [History Last Taken 11/13/22] mirabegron 25 mg tablet,extended release 24 hr 25 mg PO DAILY OAB 05/31/21 [History Last Taken 11/13/22] amlodipine 5 mg tablet 5 mg PO QHS BP 11/14/22 [History Last Taken 11/13/22] fluoxetine 10 mg capsule 10 mg PO DAILY DEPRESSION 11/14/22 [History Last Taken 11/13/22] fluoxetine 40 mg capsule 40 mg PO DAILY DEPRESSION 11/14/22 [History Last Taken 11/13/22] levothyroxine 50 mcg tablet (Synthroid) 50 mcg PO DAILY THYROID 11/14/22 [History Last Taken 11/13/22] oxybutynin chloride 10 mg tablet,extended release 24 hr 10 mg PO DAILY OAB 11/14/22 [History Last Taken 11/13/22] ropinirole 3 mg tablet 3 mg PO DAILY RLS 11/14/22 [History Last Taken 11/13/22] sucralfate 1 gram tablet 1 g PO ACHS GERD 11/14/22 [History Last Taken 11/13/22] vibegron 75 mg tablet (Gemtesa) 75 mg PO DAILY 11/14/22 [History Last Taken 11/13/22] Allergy/AdvReac Type Severity Reaction Status Date / Time cephalexin [From Keflex] Allergy Rash Verified 11/14/22 11:51 clindamycin Allergy Anaphylaxis Verified 11/14/22 11:51 vancomycin Allergy Rash Verified 11/14/22 11:51 Family History Other No pertinent family history Surgical History (Updated 11/14/22 @ 15:37 by Verónica Granger) History of bilateral cataract extraction History of section History of left hip hemiarthroplasty Hx of foot surgery Social History household members: spouse Smoking Status: Never smoker alcohol intake: never substance use type: does not use ROS ROS ED Review of Systems ROS Unobtainable: other Constitutional Constitutional ED: Reports lethargy; Denies chills, fever(s), sweats or weight loss Eyes Eyes: Denies blurry vision, change in vision or diplopia ENT ENT ED: Denies rhinorrhea or sore throat Cardiovascular Cardiovascular: Denies chest pain, orthopnea or racing heartbeat Respiratory/Chest Respiratory/Chest: Denies cough, dyspnea, dyspnea on exertion, orthopnea or sputum Gastrointestinal Gastrointestinal: Denies abdominal pain, diarrhea, nausea or vomiting Genitourinary Genitourinary ED: Denies dysuria, hematuria or urinary frequency Musculoskeletal Musculoskeletal: Reports other Details: Right hip pain ; Denies arthralgias, back pain, myalgias or neck pain Integumentary Denies abscess, Abrasions or rash Neurologic Neurologic: Denies headache(s) or weakness Psychiatric Psychiatric: Denies anxiety, depression or suicidal thoughts Endocrine Endocrinology: Denies polydipsia, polyphagia or polyuria Hematologic/Lymphatic Hematologic/Lymphatic: Denies easy bleeding, easy bruising or lymphadenopathy Allergic/Immunologic Allergic/Immunologic ED: Denies mouth swelling, tongue swelling or urticaria EXAM Physical Exam Const Vital Signs: 11/14/22 10:44 11/14/22 11:05 Temperature 97.7 F L Temperature Source Oral Pulse Rate 61 Respiratory Rate 18 18 Blood Pressure 186/66 H Blood Pressure Mean 106 Pulse Ox 85 99 Oxygen Delivery Method Room Air Nasal Cannula Oxygen Flow Rate (L/min) 2 Positive well nourished and well developed General Appearance ED: well developed and NAD HEENT Reports TM's clear and moist mucous membranes normocephalic and atraumatic; Negative for trauma or tenderness Tympanic Membrane ED: Yes TM's clear Eyes PERRL and EOMs intact bilaterally General Eye ED: Negative for pale conjunctiva or scleral icterus Neck no lymphadenopathy, supple and no JVD General: Negative for tenderness Chest Wall inspection of chest normal and palpation of chest normal Chest: Negative for tenderness Resp normal respiratory effort and clear to auscultation bilaterally Effort and Inspection: Negative for respiratory distress or pain with movement Auscultation: Negative for rhonchi, wheezes or diminished lung sounds Cardio regular rate, regular rhythm, S1 normal heart sound, S2 normal heart sound and no murmurs Peripheral Pulses: pulses 2+ throughout GI normal to inspection, nondistended, normoactive bowel sounds, soft to palpation, non-tender, non-distended and no masses Back/Spine no CVA tenderness and no thoracic nor lumbar tenderness Extremity normal to inspection Extremity Narrative: Right hip-right lower extremity slightly shortened and externally rotated. She has pain with logrolling and pain with tenderness at the right hip. Neurovascularly intact distally. General Extremety ED: Negative for edema General Extremity: Negative for edema Neuro oriented x3, CN's II-XII intact bilaterally, no sensory deficits noted and gait normal Sensorium / Orientation: awake, alert, oriented to person, oriented to place and oriented to time Motor Exam: strength 5/5 throughout and strength abnormal Psych mental status grossly normal Skin no rashes or lesions noted and no wounds MDM MDM MDM Narrative Medical decision making narrative: Patient with a mechanical fall and complaint of pain to the right hip. Clinically concern for a hip fracture. She is on Eliquis for history of PE and we will obtain a CT scan of her brain to rule out intracranial hemorrhage. Patient also will have x-rays of her hip and pelvis. Basic labs will be ordered as well as EKG and chest x-ray. Patient was medicated with morphine for pain. On my x-ray interpretation of the right hip patient does have a right subcapital hip fracture. Case discussed with orthopedic surgeon Dr. Torin Cavazos who was made aware and will consult on patient. We will discuss case with hospitalist to evaluate patient for admission. Labs are pending. ED EKG obtained showed a sinus rhythm with a rate of 64 bpm with no acute ST segment changes Lab Data Attestation: I reviewed the patient's lab results. Labs: Laboratory Results - last 24 hr 11/14/22 11/14/22 11/14/22 11:50 11:50 11:50 WBC 10.8 RBC 4.41 Hgb 11.1 L Hct 37.5 MCV 85.0 MCH 25.2 L MCHC 29.6 L RDW Std Deviation 42.8 RDW Coeff of Quentin 13.9 Plt Count 211 MPV 8.9 Immature Gran % (Auto) 1.100 H Neut % (Auto) 87.2 H Lymph % (Auto) 7.8 L [place] % (Auto) 3.3 Eos % (Auto) 0.3 Baso % (Auto) 0.3 Absolute Neuts (auto) 9.4 H Absolute Lymphs (auto) 0.84 Nucleated RBC % 0 Sodium 143 Cancelled Potassium 3.5 Cancelled Chloride 114 H Carbon Dioxide Anion Gap BUN Creatinine Estim Creat Clear Calc Est GFR (MDRD) Af Amer Est GFR (MDRD) Non-Af BUN/Creatinine Ratio Glucose Calcium Total Bilirubin AST ALT Alkaline Phosphatase Total Protein Albumin Globulin Albumin/Globulin Ratio 11/14/22 11/14/22 11/14/22 11:50 11:50 11:50 WBC RBC Hgb Hct MCV MCH MCHC RDW Std Deviation RDW Coeff of Quentin Plt Count MPV Immature Gran % (Auto) Neut % (Auto) Lymph % (Auto) [place] % (Auto) Eos % (Auto) Baso % (Auto) Absolute Neuts (auto) Absolute Lymphs (auto) Nucleated RBC % Sodium Potassium Chloride Cancelled Carbon Dioxide 21.0 Cancelled Anion Gap 8 Cancelled BUN 20 H Creatinine Estim Creat Clear Calc Est GFR (MDRD) Af Amer Est GFR (MDRD) Non-Af BUN/Creatinine Ratio Glucose Calcium Total Bilirubin AST ALT Alkaline Phosphatase Total Protein Albumin Globulin Albumin/Globulin Ratio 11/14/22 11/14/22 11/14/22 11:50 11:50 11:50 WBC RBC Hgb Hct MCV MCH MCHC RDW Std Deviation RDW Coeff of Quentin Plt Count MPV Immature Gran % (Auto) Neut % (Auto) Lymph % (Auto) [place] % (Auto) Eos % (Auto) Baso % (Auto) Absolute Neuts (auto) Absolute Lymphs (auto) Nucleated RBC % Sodium Potassium Chloride Carbon Dioxide Anion Gap BUN Cancelled Creatinine 1.01 Cancelled Estim Creat Clear Calc 50.04 Cancelled Est GFR (MDRD) Af Amer 69 Est GFR (MDRD) Non-Af BUN/Creatinine Ratio Glucose Calcium Total Bilirubin AST ALT Alkaline Phosphatase Total Protein Albumin Globulin Albumin/Globulin Ratio 11/14/22 11/14/22 11/14/22 11:50 11:50 11:50 WBC RBC Hgb Hct MCV MCH MCHC RDW Std Deviation RDW Coeff of Quentin Plt Count MPV Immature Gran % (Auto) Neut % (Auto) Lymph % (Auto) [place] % (Auto) Eos % (Auto) Baso % (Auto) Absolute Neuts (auto) Absolute Lymphs (auto) Nucleated RBC % Sodium Potassium Chloride Carbon Dioxide Anion Gap BUN Creatinine Estim Creat Clear Calc Est GFR (MDRD) Af Amer Cancelled Est GFR (MDRD) Non-Af 57 L Cancelled BUN/Creatinine Ratio 19.8 Cancelled Glucose 126 H Calcium Total Bilirubin AST ALT Alkaline Phosphatase Total Protein Albumin Globulin Albumin/Globulin Ratio 11/14/22 11/14/22 11:50 11:50 WBC RBC Hgb Hct MCV MCH MCHC RDW Std Deviation RDW Coeff of Quentin Plt Count MPV Immature Gran % (Auto) Neut % (Auto) Lymph % (Auto) [place] % (Auto) Eos % (Auto) Baso % (Auto) Absolute Neuts (auto) Absolute Lymphs (auto) Nucleated RBC % Sodium Potassium Chloride Carbon Dioxide Anion Gap BUN Creatinine Estim Creat Clear Calc Est GFR (MDRD) Af Amer Est GFR (MDRD) Non-Af BUN/Creatinine Ratio Glucose Cancelled Calcium 7.9 L Cancelled Total Bilirubin Cancelled AST Cancelled ALT Cancelled Alkaline Phosphatase Cancelled Total Protein Cancelled Albumin Cancelled Globulin Cancelled Albumin/Globulin Ratio Cancelled Radiography Diagnostic Testing: Clinical Impression(s) from Imaging Studies Brain CT 11/14/22 11:02 IMPRESSION: Chronic involutional changes of the brain. Electronically Signed: Marcial Mittal MD at 11:58 EDT , Hip/Pelvis X-Ray 11/14/22 11:25 IMPRESSION: Nondisplaced transverse fracture of the right basi cervical region of the proximal right femur. Status post left total hip replacement. Electronically Signed: Marcial Mittal MD at 12:26 EDT , Three-view x-rays of right hip and pelvis obtained interpreted by myself as right subcapital hip fracture. Official report from radiology pending. EKG Initial EKG: Attestation: I personally reviewed and interpreted this EKG as follows: Comments: Sinus rhythm with a rate of 64 bpm with no acute ST segment changes Discharge Plan Dx/Rx/DC Orders Clinical Impression: Fall, Diabetes, Fracture of hip, right, closed, History of hypertension, Hx of pulmonary embolus Disposition Disposition: Acute Care Hospital [facility] Discharge Date/Time: 11/14/22 13:55
--- NOTE | 2022-11-14 11:25 | RAD_ITS ---
STUDY: X-RAY - PELVIS AND RIGHT HIP REASON FOR EXAM: Female, 72 years old. Right hip pain following a fall. TECHNIQUE: 3 views of the pelvis and hip. COMPARISON: None. FINDINGS: There is a non-specific bowel gas pattern. Normal visualized soft tissue structures. There is narrowing with cortical sclerosis and osteophyte formation of the sacroiliac joint consistent with degenerative osteoarthritic changes. Normal bilateral superior and inferior pubic rami. There is narrowing with sclerosis of the pubic symphysis. Normal bilateral ischial tuberosities. There is evidence of a nondisplaced impacted right basi cervical fracture of the proximal right femur. RAD/HIP, UNI W/ Pelvis 2-3 Views IMPRESSION: Nondisplaced transverse fracture of the right basi cervical region of the proximal right femur. Status post left total hip replacement. Electronically Signed: Marcial Mittal MD at 12:26 EDT ,
[2022-11-14] MEDS: 0.9% Normal Saline (1000mL) 1,000 ML 150 ML IV (11:46)
[2022-11-14] MEDS: HYDROmorphone 0.5 MG/0.5 ML SYRINGE IV (12:40)
[2022-11-14 12:42] VITALS: BP 176/70; PULSE 68; RESP 18; TEMP 36.6; O2SAT 95
[2022-11-14 12:44] LABS: Anion Gap 8 (5-15); BUN 20 mg/dL (7-18); BUN/Creat Ratio 19.8 RATIO (10-20); Calcium,Total 7.9 mg/dL (8.5-10.1); Chloride 114 mmol/L (98-107); Creatinine, Serum 1.01 mg/dL (0.55-1.02); EST Glomerular Filtration Rate 57 mL/min (>60); Est Glom Filt Rate - Afr Amer 69 mL/min (>60); Estimated Creatinine Clearance 50.04 ml/min; Glucose 126 mg/dL (74-106); Potassium 3.5 mmol/L (3.5-5.1); Sodium Level 143 mmol/L (136-145)
[2022-11-14 12:50] LABS: Absolute Lymphocyte Count 0.84 X10^3/uL (0.83-4.51); Absolute Neutrophil Count 9.4 X10^3/uL (2.0-7.7); Basophil# 0.03 X10^3/uL; Basophil% 0.3 % (0-1); Eosinophil# 0.03 X10^3/uL; Eosinophils% 0.3 % (0-5); Hematocrit 37.5 % (37-47); Hemoglobin 11.1 g/dL (12.0-15.0); Lymphocyte # 0.84 X10^3/ul (0.83-4.51); Lymphocyte % 7.8 % (19-41); Mean Corp Hgb Conc 29.6 g/dL (32-36); Mean Corpuscular Hgb 25.2 pg (27.0-32.0); Mean Platelet Vol. 8.9 fl (6.2-12.0); Monocyte# 0.36 X10^3/uL; Monocyte% 3.3 % (0-10); NRBC Flagged by Analyzer 0 % (0-5); Neutrophil # 9.42 X10^3/uL (2.7-7.7); Neutrophil % 87.2 % (47-70); Platelet Count 211 K/mm3 (150-450); RBC Distribution Width CV 13.9 % (11.6-14.6); RBC Distribution Width SD 42.8 fl (35.1-43.9); Red Blood Count 4.41 M/mm3 (4.2-5.4); White Blood Count 10.8 K/mm3 (4.4-11.0)
--- NOTE | 2022-11-14 12:54 | NURSING ---
med surg jopperi fall, rt hip fx, hx of anticoagulation with eliquis
[2022-11-14 13:09] VITALS: BMI 37.5
[2022-11-14 14:02] VITALS: BP 154/76; PULSE 70; RESP 12; TEMP 37; O2SAT 98
[2022-11-14] MEDS: Morphine 2 MG/ML Syringe IV ×2 (15:28→23:42)
[2022-11-14] MEDS: 0.9% Saline Lock 10 ML Syringe IV (15:29)
--- NOTE | 2022-11-14 16:49 | CON.PCM.OR_ITS ---
HPI Consult Data Date of Consult: 11/14/22 HPI Narrative Reason for Consultation: Right Hip Fracture HPI Narrative: DWAIN BILLINGSLEY, is a 72 F who presented to the ER s/p fall before 0800 this morning. Patient reports using her walker when it came from under her. Patient landed on her left side, unable to ambulate or stand up after the fall. EMS was called, and patient was taken to the ER for further evaluation. X-rays taken show a nondisplaced transverse fracture of the right basi cervical region of the proximal right femur. [facility] Medical History Anxiety blood clots BMI greater than 40 CPAP (continuous positive airway pressure) dependence Diabetes DVT (deep venous thrombosis) Femoral neck fracture Femur fracture History of left knee replacement Hyperlipidemia Hypertension Hypothyroidism Kidney disease Morbid obesity Pulmonary embolism Home Medications bupropion HCl 150 mg 24 hr tablet, extended release 300 mg PO DAILY anxiety 05/10/13 [History Last Taken 11/13/22] atorvastatin 10 mg tablet 10 mg PO QHS cholesterol lowering 11/27/19 [History Last Taken 11/13/22] apixaban 5 mg tablet 5 mg PO BID blood thinner 12/26/19 [History Last Taken 11/13/22] cholecalciferol (vitamin D3) 125 mcg (5,000 unit) tablet (Vitamin D3) 125 mcg PO DAILY supplement 11/02/20 [History Last Taken 11/13/22] folic acid 1 mg tablet 1 mg PO DAILY supplement 11/02/20 [History Last Taken 11/13/22] pantoprazole 40 mg tablet,delayed release (Protonix) 40 mg PO DAILY GERD 11/02/20 [History Last Taken 11/13/22] vitamin B complex 1 cap PO DAILY supplement 11/02/20 [History Last Taken 11/13/22] acetaminophen 500 mg tablet 1,000 mg (2 x 500 mg) PO Q6H PRN PRN Pain Score 1-3 #0 tabs 11/19/20 [Rx Last Taken Unknown] losartan 100 mg tablet 100 mg PO DAILY 30 days #30 tabs 11/19/20 [Rx Last Taken 11/13/22] nystatin 100,000 unit/gram topical powder (Nyamyc) 1 applic topical BID #0 grams 11/19/20 [Rx Last Taken 11/13/22] metoprolol succinate 25 mg tablet,extended release 24 hr 100 mg PO DAILY blood pressure 02/01/21 [History Last Taken 11/13/22] finerenone 10 mg tablet (Kerendia) 10 mg PO DAILY 03/26/21 [History Last Taken 11/13/22] mirabegron 25 mg tablet,extended release 24 hr 25 mg PO DAILY OAB 05/31/21 [History Last Taken 11/13/22] amlodipine 5 mg tablet 5 mg PO QHS BP 11/14/22 [History Last Taken 11/13/22] fluoxetine 10 mg capsule 10 mg PO DAILY DEPRESSION 11/14/22 [History Last Taken 11/13/22] fluoxetine 40 mg capsule 40 mg PO DAILY DEPRESSION 11/14/22 [History Last Taken 11/13/22] levothyroxine 50 mcg tablet (Synthroid) 50 mcg PO DAILY THYROID 11/14/22 [History Last Taken 11/13/22] oxybutynin chloride 10 mg tablet,extended release 24 hr 10 mg PO DAILY OAB 11/14/22 [History Last Taken 11/13/22] ropinirole 3 mg tablet 3 mg PO DAILY RLS 11/14/22 [History Last Taken 11/13/22] sucralfate 1 gram tablet 1 g PO ACHS GERD 11/14/22 [History Last Taken 11/13/22] vibegron 75 mg tablet (Gemtesa) 75 mg PO DAILY 11/14/22 [History Last Taken 11/13/22] Allergy/AdvReac Type Severity Reaction Status Date / Time cephalexin [From Keflex] Allergy Rash Verified 11/14/22 11:51 clindamycin Allergy Anaphylaxis Verified 11/14/22 11:51 vancomycin Allergy Rash Verified 11/14/22 11:51 Family History Other No pertinent family history Surgical History (Updated 11/14/22 @ 15:37 by Verónica Granger) History of bilateral cataract extraction History of section History of left hip hemiarthroplasty Hx of foot surgery Social History household members: spouse Smoking Status: Never smoker alcohol intake: never substance use type: does not use ROS Constitutional Constitutional: Reports systems reviewed and no addt'l complaints, except as documented and daytime sleepiness Cardiovascular Cardiovascular: Denies chest pain Respiratory/Chest Respiratory/Chest: Denies none Gastrointestinal Gastrointestinal: Denies none Genitourinary Genitourinary: Denies none Musculoskeletal Musculoskeletal: Reports systems reviewed and no addt'l complaints, except as documented, as per HPI, joint pain and limited range of motion Vital Signs Vital Signs Vital Signs: 11/14/22 10:44 11/14/22 11:05 11/14/22 12:42 Temperature 97.7 F L 97.8 F Temperature Source Oral Temporal Pulse Rate 61 68 Respiratory Rate 18 18 18 Blood Pressure 186/66 H 176/70 H Blood Pressure Mean 106 105 Blood Pressure Source Blood Pressure Position Blood Pressure Location Pulse Ox 85 99 95 Oxygen Delivery Method Room Air Nasal Cannula Nasal Cannula Oxygen Flow Rate (L/min) 2 3 11/14/22 14:02 Temperature 98.6 F Temperature Source Oral Pulse Rate 70 Respiratory Rate 12 Blood Pressure 154/76 H Blood Pressure Mean 102 Blood Pressure Source Monitor Blood Pressure Position Semi-Fowlers Blood Pressure Location Right Arm Pulse Ox 98 Oxygen Delivery Method Room Air Oxygen Flow Rate (L/min) Weight Weight: 246 lb 14.684 oz Body Mass Index (BMI) 37.5 Physical Exam Const alert, oriented x3 and no apparent distress Constitutional Narrative: Patient sleepy, signed consent d/t patient falling asleep while signing consent. General Appearance: cooperative Extremity normal capillary refill, no clubbing, cyanosis or edema, no calf tenderness and no pedal edema Extremity Narrative: Upon inspection of the RLE, no erythema, ecchymosis present. Patient displayed soft compartments, palpable pedal pulses present. Patient is able to wiggle her toes, sensation is fully intact. Able to display sensation to light touch t hroughout all RLE dermatomes. Patients right heel thick and calloused, blanchable. General Extremity: Negative for calf tenderness or edema Skin no wounds and skin turgor normal Skin Narrative: Thick calloused area to the right heel. Lab / Micro Data 11/14/22 11:50 11/14/22 11:50 Labs: Laboratory Results - last 24 hr 11/14/22 11:50: WBC 10.8, RBC 4.41, Hgb 11.1 L, Hct 37.5, MCV 85.0, MCH 25.2 L, MCHC 29.6 L, RDW Std Deviation 42.8, RDW Coeff of Quentin 13.9, Plt Count 211, MPV 8.9, Immature Gran % (Auto) 1.100 H, Neut % (Auto) 87.2 H, Lymph % (Auto) 7.8 L, [place] % (Auto) 3.3, Eos % (Auto) 0.3, Baso % (Auto) 0.3, Absolute Neuts (auto) 9.4 H, Absolute Lymphs (auto) 0.84, Nucleated RBC % 0, Sodium 143 11/14/22 11:50: Sodium Cancelled, Potassium 3.5 11/14/22 11:50: Potassium Cancelled, Chloride 114 H 11/14/22 11:50: Chloride Cancelled, Carbon Dioxide 21.0 11/14/22 11:50: Carbon Dioxide Cancelled, Anion Gap 8 11/14/22 11:50: Anion Gap Cancelled, BUN 20 H 11/14/22 11:50: BUN Cancelled, Creatinine 1.01 11/14/22 11:50: Creatinine Cancelled, Estim Creat Clear Calc 50.04 11/14/22 11:50: Estim Creat Clear Calc Cancelled, Est GFR (MDRD) Af Amer 69 11/14/22 11:50: Est GFR (MDRD) Af Amer Cancelled, Est GFR (MDRD) Non-Af 57 L 11/14/22 11:50: Est GFR (MDRD) Non-Af Cancelled, BUN/Creatinine Ratio 19.8 11/14/22 11:50: BUN/Creatinine Ratio Cancelled, Glucose 126 H 11/14/22 11:50: Glucose Cancelled, Calcium 7.9 L 11/14/22 11:50: Calcium Cancelled, Total Bilirubin Cancelled, AST Cancelled, ALT Cancelled, Alkaline Phosphatase Cancelled, Total Protein Cancelled, Albumin Cancelled, Globulin Cancelled, Albumin/Globulin Ratio Cancelled Radiology Impression Brain CT 11/14/22 11:02 IMPRESSION: Chronic involutional changes of the brain. Electronically Signed: Marcial Mittal MD at 11:58 EDT , Hip/Pelvis X-Ray 11/14/22 11:25 IMPRESSION: Nondisplaced transverse fracture of the right basi cervical region of the proximal right femur. Status post left total hip replacement. Electronically Signed: Marcial Mittal MD at 12:26 EDT Reading Location ID and State: [address] [place] [address] , Service support , Assessment & Plan Assessment/Plan (1) Fracture of hip, right, closed: QUALIFIERS: Encounter type: initial encounter Qualified Code(s): S72.001A - Fracture of unspecified part of neck of right femur, initial encounter for closed fracture PLAN: Plan for a right hip hemiarthroplasty on (11/16/22) Hold Eliquis (Patient last took 1700 on 11/13/2022) Patient will begin NPO Status prior to procedure MD performing surgery will place all orders into patients chart Antibiotics on-call to the OR Risks and benefits of the procedure were briefly touched with patient and patients Reviewed patients procedure and obtained consent for future procedure
--- NOTE | 2022-11-14 17:13 | HP.PCM.HOS_ITS ---
HPI - General General Date of Admission: 11/14/22 Date of Service: 11/14/22 Chief Complaint: fall with right hip pain. HPI Narrative DWAIN BILLINGSLEY, is a 72 F who presents after a mechanical fall. Patient had tripped and landed on her right side. Patient had pain and was unable to get up. Patient was sent to the emergency room and was found to have a nondisplaced transverse fracture of the right femur. Orthopedics was consulted through the emergency room and would agree to see the patient on the floor. Patient states that she has fractured her left hip in the past and had been doing well though she does use a walker. When she gets up and walks around her house she does not experience any chest pain nor any shortness of breath. [facility] Medical History Anxiety blood clots BMI greater than 40 CPAP (continuous positive airway pressure) dependence Diabetes DVT (deep venous thrombosis) Femoral neck fracture Femur fracture History of left knee replacement Hyperlipidemia Hypertension Hypothyroidism Kidney disease Morbid obesity Pulmonary embolism Home Medications bupropion HCl 150 mg 24 hr tablet, extended release 300 mg PO DAILY anxiety 05/10/13 [History Last Taken 11/13/22] atorvastatin 10 mg tablet 10 mg PO QHS cholesterol lowering 11/27/19 [History Last Taken 11/13/22] apixaban 5 mg tablet 5 mg PO BID blood thinner 12/26/19 [History Last Taken 11/13/22] cholecalciferol (vitamin D3) 125 mcg (5,000 unit) tablet (Vitamin D3) 125 mcg PO DAILY supplement 11/02/20 [History Last Taken 11/13/22] folic acid 1 mg tablet 1 mg PO DAILY supplement 11/02/20 [History Last Taken 11/13/22] pantoprazole 40 mg tablet,delayed release (Protonix) 40 mg PO DAILY GERD 11/02/20 [History Last Taken 11/13/22] vitamin B complex 1 cap PO DAILY supplement 11/02/20 [History Last Taken 0 11/13/22] acetaminophen 500 mg tablet 1,000 mg (2 x 500 mg) PO Q6H PRN PRN Pain Score 1-3 #0 tabs 11/19/20 [Rx Last Taken Unknown] losartan 100 mg tablet 100 mg PO DAILY 30 days #30 tabs 11/19/20 [Rx Last Taken 11/13/22] nystatin 100,000 unit/gram topical powder (Nyamyc) 1 applic topical BID #0 grams 11/19/20 [Rx Last Taken 11/13/22] metoprolol succinate 25 mg tablet,extended release 24 hr 100 mg PO DAILY blood pressure 02/01/21 [History Last Taken 11/13/22] finerenone 10 mg tablet (Kerendia) 10 mg PO DAILY 03/26/21 [History Last Taken 11/13/22] mirabegron 25 mg tablet,extended release 24 hr 25 mg PO DAILY OAB 05/31/21 [History Last Taken 11/13/22] amlodipine 5 mg tablet 5 mg PO QHS BP 11/14/22 [History Last Taken 11/13/22] fluoxetine 10 mg capsule 10 mg PO DAILY DEPRESSION 11/14/22 [History Last Taken 11/13/22] fluoxetine 40 mg capsule 40 mg PO DAILY DEPRESSION 11/14/22 [History Last Taken 11/13/22] levothyroxine 50 mcg tablet (Synthroid) 50 mcg PO DAILY THYROID 11/14/22 [History Last Taken 11/13/22] oxybutynin chloride 10 mg tablet,extended release 24 hr 10 mg PO DAILY OAB 11/14/22 [History Last Taken 11/13/22] ropinirole 3 mg tablet 3 mg PO DAILY RLS 11/14/22 [History Last Taken 11/13/22] sucralfate 1 gram tablet 1 g PO ACHS GERD 11/14/22 [History Last Taken 11/13/22] vibegron 75 mg tablet (Gemtesa) 75 mg PO DAILY 11/14/22 [History Last Taken 11/13/22] Allergy/AdvReac Type Severity Reaction Status Date / Time cephalexin [From Keflex] Allergy Rash Verified 11/14/22 11:51 clindamycin Allergy Anaphylaxis Verified 11/14/22 11:51 vancomycin Allergy Rash Verified 11/14/22 11:51 Family History (Updated 11/14/22 @ 17:[address] Brett Abrams DO) Other No pertinent family history Surgical History History of bilateral cataract extraction History of section History of left hip hemiarthroplasty Hx of foot surgery Social History household members: spouse Smoking Status: Never smoker alcohol intake: never substance use type: does not use ROS ROS Narrative Patient states that she recently had right breast and right groin intertrigo but that is improved with nystatin. All review of systems were negative except as mentioned above in the history of present illness and the other review of systems. Vital Signs Vital Signs Vital Signs: 11/14/22 10:44 11/14/22 11:05 11/14/22 12:42 Temperature 36.5 C L 36.6 C Temperature Source Oral Temporal Pulse Rate 61 68 Respiratory Rate 18 18 18 Blood Pressure 186/66 H 176/70 H Blood Pressure Mean 106 105 Blood Pressure Source Blood Pressure Position Blood Pressure Location Pulse Ox 85 99 95 Oxygen Delivery Method Room Air Nasal Cannula Nasal Cannula Oxygen Flow Rate (L/min) 2 3 11/14/22 14:02 Temperature 37.0 C Temperature Source Oral Pulse Rate 70 Respiratory Rate 12 Blood Pressure 154/76 H Blood Pressure Mean 102 Blood Pressure Source Monitor Blood Pressure Position Semi-Fowlers Blood Pressure Location Right Arm Pulse Ox 98 Oxygen Delivery Method Room Air Oxygen Flow Rate (L/min) Weight Weight: 112 kg Body Mass Index (BMI) 37.5 Physical Exam Const alert and no apparent distress HEENT normocephalic and head/scalp atraumatic Resp normal respiratory effort, no retractions, no use of accessory muscles and clear to auscultation bilaterally Cardio regular rate, regular rhythm, S1 normal heart sound and S2 normal heart sound GI normal to inspection, nondistended, normoactive bowel sounds, soft to palpation, non-tender and non-distended Extremity normal to inspection Neuro oriented x3 and moves all extremities Sensorium / Orientation: awake and alert Psych affect normal Results Lab / Micro Data 11/14/22 11:50 11/14/22 11:50 Labs: Laboratory Results - last 24 hr 11/14/22 11:50: WBC 10.8, RBC 4.41, Hgb 11.1 L, Hct 37.5, MCV 85.0, MCH 25.2 L, MCHC 29.6 L, RDW Std Deviation 42.8, RDW Coeff of Quentin 13.9, Plt Count 211, MPV 8.9, Immature Gran % (Auto) 1.100 H, Neut % (Auto) 87.2 H, Lymph % (Auto) 7.8 L, [place] % (Auto) 3.3, Eos % (Auto) 0.3, Baso % (Auto) 0.3, Absolute Neuts (auto) 9.4 H, Absolute Lymphs (auto) 0.84, Nucleated RBC % 0, Sodium 143 11/14/22 11:50: Sodium Cancelled, Potassium 3.5 11/14/22 11:50: Potassium Cancelled, Chloride 114 H 11/14/22 11:50: Chloride Cancelled, Carbon Dioxide 21.0 11/14/22 11:50: Carbon Dioxide Cancelled, Anion Gap 8 11/14/22 11:50: Anion Gap Cancelled, BUN 20 H 11/14/22 11:50: BUN Cancelled, Creatinine 1.01 11/14/22 11:50: Creatinine Cancelled, Estim Creat Clear Calc 50.04 11/14/22 11:50: Estim Creat Clear Calc Cancelled, Est GFR (MDRD) Af Amer 69 11/14/22 11:50: Est GFR (MDRD) Af Amer Cancelled, Est GFR (MDRD) Non-Af 57 L 11/14/22 11:50: Est GFR (MDRD) Non-Af Cancelled, BUN/Creatinine Ratio 19.8 11/14/22 11:50: BUN/Creatinine Ratio Cancelled, Glucose 126 H 11/14/22 11:50: Glucose Cancelled, Calcium 7.9 L 11/14/22 11:50: Calcium Cancelled, Total Bilirubin Cancelled, AST Cancelled, ALT Cancelled, Alkaline Phosphatase Cancelled, Total Protein Cancelled, Albumin Cancelled, Globulin Cancelled, Albumin/Globulin Ratio Cancelled Radiology Impression Brain CT 11/14/22 11:02 IMPRESSION: Chronic involutional changes of the brain. Electronically Signed: Marcial Mittal MD at 11:58 EDT , Hip/Pelvis X-Ray 11/14/22 11:25 IMPRESSION: Nondisplaced transverse fracture of the right basi cervical region of the proximal right femur. Status post left total hip replacement. Electronically Signed: Marcial Mittal MD at 12:26 EDT , Assessment & Plan Assessment/Plan (1) Fracture of hip, right, closed: QUALIFIERS: Encounter type: initial encounter Qualified Code(s): S72.001A - Fracture of unspecified part of neck of right femur, initial encounter for closed fracture PLAN: Status post mechanical fall. NQSIP risk calculator shows that patient is high risk for serious complication, any complication, pneumonia, cardiac complication, surgical site infection, UTI, VTE, readmission, and discharged to nursing or rehab facility. Despite that, patient is overall medically optimized to proceed with surgery. No additional work-up is necessary at this time. Plan is for right hip hemiarthroplasty on the . PLAN: Plan Chronic conditions * Diabetes mellitus type 2: Sliding scale insulin * History of VTE: Continue with apixaban postoperatively. Hold until surgery can be performed. Patient last took on the at 1700. * Hypothyroidism: Continue with levothyroxine * Hypertension: Stable. Continue with metoprolol succinate and losartan. VTE prophylaxis with SCDs for now Charges/Coding Visit Charges Inpatient E&M: 15417 Init Hosp L2
[2022-11-14] MEDS: Sucralfate 1 GM Tablet PO ×2 (18:01→23:41)
[2022-11-14 18:10] LABS: Bedside Glucose 117 mg/dL (74-106)
[2022-11-14 18:59] LABS: AST(SGOT) 17 U/L (15-37); Alanine Aminotransfer ALT/SGPT 24 U/L (13-56); Albumin, Serum 3.4 g/dL (3.2-5.0); Alkaline Phosphatase 83 U/L (45-117); Anion Gap 8 (5-15); BUN 18 mg/dL (7-18); BUN/Creat Ratio 15.5 RATIO (10-20); Calcium,Total 8.8 mg/dL (8.5-10.1); Chloride 108 mmol/L (98-107); Creatinine, Serum 1.16 mg/dL (0.55-1.02); EST Glomerular Filtration Rate 49 mL/min (>60); Est Glom Filt Rate - Afr Amer 59 mL/min (>60); Estimated Creatinine Clearance 43.57 ml/min; Globulin 3.4 g/dL (2.2-4.2); Glucose 116 mg/dL (74-106); Potassium 4.2 mmol/L (3.5-5.1); Protein, Total 6.8 g/dL (6.4-8.2); Sodium Level 143 mmol/L (136-145)
[2022-11-14] MEDS: Cefazolin 2 GM in 0.9% Normal Saline (100mL Bag) 100 ML IV (20:43)
[2022-11-14 22:15] VITALS: BP 128/72; PULSE 78; RESP 18; TEMP 36.7; O2SAT 96
[2022-11-14] MEDS: Atorvastatin Calcium 10 MG Tablet PO (23:41)
[2022-11-14] MEDS: Senna/Docusate Sodium 1 Tablet 2 TABLET PO (23:41)
[2022-11-14] MEDS: amLODIPine 5 MG Tablet PO (23:44)
[2022-11-15] VITALS (7 sets, daily range): BP systolic 97–128; BP diastolic 54–77; PULSE 60–79; RESP 16–20; TEMP 36.4–36.9; O2SAT 94–96
[2022-11-15 00:11] LABS: Bedside Glucose 144 mg/dL (74-106)
[2022-11-15] MEDS: Sucralfate 1 GM Tablet PO ×4 (06:00→21:28)
[2022-11-15] MEDS: Levothyroxine 50 MCG Tablet PO (06:00)
[2022-11-15] MEDS: oxyCODONE 5 MG Tablet PO (06:03)
[2022-11-15] MEDS: Acetaminophen 500 MG Tablet 1000 MG PO (06:03)
[2022-11-15 06:34] LABS: Bedside Glucose 141 mg/dL (74-106)
--- NOTE | 2022-11-15 07:20 | PCM.PN.ORT ---
Subjective Subjective Seen and examined. She has no pain when not moving. Denies any other areas of concern after the fall. Objective Data Objective Data Vital Signs: Vital Signs Temp Pulse Resp BP Pulse Ox O2 Del Method O2 Flow Rate 98.4 F 79 16 97/67 96 Nasal Cannula 3 11/15/22 05:00 11/15/22 05:00 11/15/22 05:00 11/15/22 05:00 11/15/22 05:00 11/15/22 05:00 11/15/22 05:00 Oxygen Flow Rate (L/min) 3 Oxygen Delivery Method Nasal Cannula Weight: 246 lb 14.684 oz Body Mass Index (BMI) 37.5 Intake & Output: Intake and Output for Last 24 Hours 11/13/22 11/14/22 11/15/22 23:59 23:59 23:59 Intake Total 605 / 605 Output Total 600 / 600 Balance 605 / 5 -600 / -600 Lab / Micro Data 11/14/22 11:50 11/14/22 17:16 Labs: Laboratory Results - last 24 hr 11/14/22 11:50: WBC 10.8, RBC 4.41, Hgb 11.1 L, Hct 37.5, MCV 85.0, MCH 25.2 L, MCHC 29.6 L, RDW Std Deviation 42.8, RDW Coeff of Quentin 13.9, Plt Count 211, MPV 8.9, Immature Gran % (Auto) 1.100 H, Neut % (Auto) 87.2 H, Lymph % (Auto) 7.8 L, [place] % (Auto) 3.3, Eos % (Auto) 0.3, Baso % (Auto) 0.3, Absolute Neuts (auto) 9.4 H, Absolute Lymphs (auto) 0.84, Nucleated RBC % 0, Sodium 143, Potassium 3.5, Chloride 114 H, Carbon Dioxide 21.0, Anion Gap 8, BUN 20 H, Creatinine 1.01, Estim Creat Clear Calc 50.04, Est GFR (MDRD) Af Amer 69, Est GFR (MDRD) Non-Af 57 L, BUN/Creatinine Ratio 19.8, Glucose 126 H, Calcium 7.9 L, Total Bilirubin Cancelled, AST Cancelled, ALT Cancelled, Alkaline Phosphatase Cancelled, Total Protein Cancelled, Albumin Cancelled, Globulin Cancelled, Albumin/Globulin Ratio Cancelled 11/14/22 17:16: Sodium 143, Potassium 4.2, Chloride 108 H, Carbon Dioxide 27.0, Anion Gap 8, BUN 18, Creatinine 1.16 H, Estim Creat Clear Calc 43.57, Est GFR (MDRD) Af Amer 59 L, Est GFR (MDRD) Non-Af 49 L, BUN/Creatinine Ratio 15.5, Glucose 116 H, Calcium 8.8, Total Bilirubin 0.60, AST 17, ALT 24, Alkaline Phosphatase 83, Total Protein 6.8, Albumin 3.4, Globulin 3.4, Albumin/Globulin Ratio 1.0, Vitamin D 25-Hydroxy 57.0 11/14/22 17:52: POC Glucose 117 H 11/14/22 23:30: POC Glucose 144 H 11/15/22 05:58: POC Glucose 141 H Radiography Diagnostic Testing: Radiology Impression Brain CT 11/14/22 11:02 IMPRESSION: Chronic involutional changes of the brain. Electronically Signed: Marcial Mittal MD at 11:58 EDT , Hip/Pelvis X-Ray 11/14/22 11:25 IMPRESSION: Nondisplaced transverse fracture of the right basi cervical region of the proximal right femur. Status post left total hip replacement. Electronically Signed: Marcial Mittal MD at 12:26 EDT , Physical Exam Const alert and oriented x3 General Appearance: cooperative and well developed Extremity Extremity Narrative: No open wounds compartments soft neurovascular intact palpable pedal pulses Assessment & Plan Assessment/Plan (1) Displaced fracture of right femoral neck: PLAN: Plan Risk benefits and alternatives of surgery reviewed , consent signed Surgery on hold until 11/16/2022 secondary to Eliquis use Plan for hemiarthroplasty right hip. Consult reviewed from my nurse practitioner and agree with plan.
--- NOTE | 2022-11-15 07:47 | PN.HOSP_ITS ---
Reason for Visit Reason for Visit: Diagnoses Fracture of unspecified part of neck of right femur, initial encounter for clos ed fracture (11/14/22) Subjective Subjective No pain. Awoke groggy this AM. Objective Data Objective Data Vital Signs: Vital Signs Temp Pulse Resp BP Pulse Ox O2 Del Method O2 Flow Rate 36.9 C 79 16 97/67 96 Nasal Cannula 3 11/15/22 05:00 11/15/22 05:00 11/15/22 05:00 11/15/22 05:00 11/15/22 05:00 11/15/22 05:00 11/15/22 05:00 Oxygen Flow Rate (L/min) 3 Oxygen Delivery Method Nasal Cannula Weight: 112 kg Body Mass Index (BMI) 37.5 Intake & Output: Intake and Output for Last 24 Hours 11/13/22 11/14/22 11/15/22 23:59 23:59 23:59 Intake Total 605 / 605 Output Total 600 / 600 Balance 605 / 5 -600 / -600 Lab / Micro Data 11/15/22 08:30 11/14/22 17:16 Labs: Laboratory Results - last 24 hr 11/14/22 11:50: WBC 10.8, RBC 4.41, Hgb 11.1 L, Hct 37.5, MCV 85.0, MCH 25.2 L, MCHC 29.6 L, RDW Std Deviation 42.8, RDW Coeff of Quentin 13.9, Plt Count 211, MPV 8.9, Immature Gran % (Auto) 1.100 H, Neut % (Auto) 87.2 H, Lymph % (Auto) 7.8 L, [place] % (Auto) 3.3, Eos % (Auto) 0.3, Baso % (Auto) 0.3, Absolute Neuts (auto) 9.4 H, Absolute Lymphs (auto) 0.84, Nucleated RBC % 0, Sodium 143, Potassium 3.5, Chloride 114 H, Carbon Dioxide 21.0, Anion Gap 8, BUN 20 H, Creatinine 1.01, Estim Creat Clear Calc 50.04, Est GFR (MDRD) Af Amer 69, Est GFR (MDRD) Non-Af 57 L, BUN/Creatinine Ratio 19.8, Glucose 126 H, Calcium 7.9 L, Total Bilirubin Cancelled, AST Cancelled, ALT Cancelled, Alkaline Phosphatase Cancelled, Total Protein Cancelled, Albumin Cancelled, Globulin Cancelled, Albumin/Globulin Ratio Cancelled 11/14/22 17:16: Sodium 143, Potassium 4.2, Chloride 108 H, Carbon Dioxide 27.0, Anion Gap 8, BUN 18, Creatinine 1.16 H, Estim Creat Clear Calc 43.57, Est GFR (MDRD) Af Amer 59 L, Est GFR (MDRD) Non-Af 49 L, BUN/Creatinine Ratio 15.5, Glucose 116 H, Calcium 8.8, Total Bilirubin 0.60, AST 17, ALT 24, Alkaline Phosphatase 83, Total Protein 6.8, Albumin 3.4, Globulin 3.4, Albumin/Globulin Ratio 1.0, Vitamin D 25-Hydroxy 57.0 11/14/22 17:52: POC Glucose 117 H 11/14/22 23:30: POC Glucose 144 H 11/15/22 05:58: POC Glucose 141 H Radiography Diagnostic Testing: Radiology Impression Brain CT 11/14/22 11:02 IMPRESSION: Chronic involutional changes of the brain. Electronically Signed: Marcial Mittal MD at 11:58 EDT , Hip/Pelvis X-Ray 11/14/22 11:25 IMPRESSION: Nondisplaced transverse fracture of the right basi cervical region of the proximal right femur. Status post left total hip replacement. Electronically Signed: Marcial Mittal MD at 12:26 EDT , Physical Exam Const alert and no apparent distress HEENT head/scalp atraumatic Extremity Extremity Narrative: no edema Neuro Sensorium / Orientation: awake and alert Psych affect normal Assessment & Plan Assessment/Plan (1) Fracture of hip, right, closed: QUALIFIERS: Encounter type: initial encounter Qualified Code(s): S72.001A - Fracture of unspecified part of neck of right femur, initial encoun ter for closed fracture PLAN: Status post mechanical fall. NQSIP risk calculator shows that patient is high risk for serious complication, any complication, pneumonia, cardiac complication, surgical site infection, UTI, VTE, readmission, and discharged to nursing or rehab facility. Despite that, patient is overall medically optimized to proceed with surgery. No additional work-up is necessary at this time. Plan is for right hip hemiarthroplasty on the . PLAN: Plan Chronic conditions * Diabetes mellitus type 2: Sliding scale insulin * History of VTE: Continue with apixaban postoperatively. Hold until surgery can be performed. Patient last took on the at 1700. * Hypothyroidism: Continue with levothyroxine * Hypertension: Stable. Continue with metoprolol succinate and losartan. VTE prophylaxis with SCDs for now Charges/Coding Visit Charges Inpatient E&M: 55563 Subs Hosp L2
[2022-11-15 08:54] LABS: Basophil# 0.05 X10^3/uL; Basophil% 0.6 % (0-1); Eosinophil# 0.12 X10^3/uL; Eosinophils% 1.5 % (0-5); Hematocrit 36.4 % (37-47); Hemoglobin 10.7 g/dL (12.0-15.0); Lymphocyte % 17.6 % (19-41); Mean Corp Hgb Conc 29.4 g/dL (32-36); Mean Corpuscular Hgb 25.4 pg (27.0-32.0); Mean Corpuscular Volume 86.3 fL (81-99); Mean Platelet Vol. 9.3 fl (6.2-12.0); Monocyte# 0.36 X10^3/uL; Monocyte% 4.5 % (0-10); NRBC Flagged by Analyzer 0 % (0-5); Neutrophil # 5.98 X10^3/uL (2.7-7.7); Neutrophil % 75.2 % (47-70); Platelet Count 239 K/mm3 (150-450); RBC Distribution Width CV 14.2 % (11.6-14.6); RBC Distribution Width SD 43.8 fl (35.1-43.9); Red Blood Count 4.22 M/mm3 (4.2-5.4)
[2022-11-15 09:00] LABS: International Normalized Ratio 1.2; Prothrombin Time (Protime)PT. 15.6 SECONDS (11.7-14.9)
[2022-11-15] MEDS: Pantoprazole Sodium 40 MG Tablet PO (09:02)
[2022-11-15] MEDS: FLUoxetine 10 MG Capsule PO (09:02)
[2022-11-15] MEDS: Senna/Docusate Sodium 1 Tablet 2 TABLET PO ×2 (09:03→21:29)
[2022-11-15] MEDS: Losartan Potassium 100 MG Tablet PO (09:03)
[2022-11-15] MEDS: Vitamin B Comp W-C Capsule 1 CAP PO (09:03)
[2022-11-15] MEDS: Folic Acid 1 MG Tablet PO (09:03)
[2022-11-15] MEDS: Pramipexole Di-HCl 1 MG Tablet 1.5 MG PO (09:05)
[2022-11-15] MEDS: buPROPion (XL) 300 MG TABLET.XL PO (09:07)
[2022-11-15] MEDS: Fluoxetine HCl 40 MG CAPSULE PO (09:07)
[2022-11-15] MEDS: Tolterodine Tartrate 2 MG CAP.SA PO (09:22)
[2022-11-15] MEDS: Mirabegron 25 MG TAB.ER.24H PO (10:54)
[2022-11-15] MEDS: Cholecalciferol (Vit D3) 125 MCG CAPSULE (5,000 UNITS) PO (10:54)
--- NOTE | 2022-11-15 10:57 | NURSING ---
Pt called out stating she felt lethargic and clammy and having indigestion. Pt denies chest pain. Demarco, Student Nurse obtained pts blood sugar and it was 133. Vitals also taken by Student Nurse, see interventions. Pt seems to think she just needs her Carafate. \ Carafate given. Pt also educated by this nurse that she had oxycodone this morning around 6am. I did. Pt educated that the Oxycodone could be making her feel sleepy and lethargic as she has complained of feeling sleepy all morning but pt converses and is very much alert. will continue to monitor.
[2022-11-15 11:17] LABS: Bedside Glucose 133 mg/dL (74-106)
--- NOTE | 2022-11-15 14:52 | CASEMGMT ---
MARAL WRIGHT Assessment: Face to Face with pt for initial transition planning/care coordination assessment. MARAL WRIGHT introduced self and role at [facility], pt voices understanding and consents to assessment. Pt is A/O x4 and answers all questions appropriately at this time. Pt sitting up in bed in no distress with oxygen on. present at bedside. Care providers, pharmacy, and demographics verified/updated. Admitting Dx: R hip fx PCP:Jason Specialists:Armando uro; Pramod heme; Debbie, CURTAIN FRAMER [facility]: yes LNOK: Low Calderon, Living Arrangements: Pt lives with in a single story condo with 2 steps to enter with a rail. Pt reports she was I in ADL's and denies concerns at home. Transportation: Pt has not driven since she broke her left hip 3 years ago. Pt transports her to medical appts. DME/HHC/SNF: Pt has a shower chair, canes, w/c, FWW, CPAP which she states she will start using. Pt has had HHC in the past but is unsure of which agency provided it. Pt has been to [facility] [place], [facility] [place], [facility] and [facility]. Pt states she would like to go to [facility] TCU post hospitalization. She is aware that therapy will eval and insurance would approve this stay. Pt states no further concerns/needs. CM to follow. Advised pt to ask CM if any further question/concerns/needs arise, voices understanding. Pt Goal: [facility] TCU Plan: TBD pending therapy evals post surgery
--- NOTE | 2022-11-15 15:11 | CASEMGMT ---
Discharge Planning A list of SNF providers including quality and resource use data and consistent with the patient?s preferred geographic region, medical needs, and insurance network was created in CarePort Guide. This list was provided to the SW. Sheri Browne Discharge Planning Asst.
[2022-11-15] MEDS: 0.9% Saline Lock 10 ML Syringe IV ×2 (15:35→16:08)
[2022-11-15] MEDS: Morphine 2 MG/ML Syringe IV ×2 (16:02→22:22)
[2022-11-15 17:52] LABS: Bedside Glucose 102 mg/dL (74-106)
[2022-11-15] MEDS: Atorvastatin Calcium 10 MG Tablet PO (21:29)
[2022-11-15] MEDS: amLODIPine 5 MG Tablet PO (21:30)
[2022-11-15 21:50] LABS: Bedside Glucose 104 mg/dL (74-106)
[2022-11-16] VITALS (18 sets, daily range): BP systolic 95–144; BP diastolic 55–94; PULSE 60–82; RESP 14–20; TEMP 36.4–36.9; O2SAT 92–97
[2022-11-16] MEDS: Morphine 2 MG/ML Syringe IV ×3 (05:51→12:29)
[2022-11-16] MEDS: Levothyroxine 50 MCG Tablet PO (05:55)
[2022-11-16] MEDS: Sucralfate 1 GM Tablet PO ×3 (05:55→21:11)
[2022-11-16 06:04] LABS: Absolute Lymphocyte Count 1.17 X10^3/uL (0.83-4.51); Absolute Neutrophil Count 5.1 X10^3/uL (2.0-7.7); Basophil# 0.04 X10^3/uL; Basophil% 0.6 % (0-1); Eosinophil# 0.42 X10^3/uL; Eosinophils% 5.9 % (0-5); Hematocrit 33.2 % (37-47); Hemoglobin 9.9 g/dL (12.0-15.0); Lymphocyte # 1.17 X10^3/ul (0.83-4.51); Lymphocyte % 16.4 % (19-41); Mean Corp Hgb Conc 29.8 g/dL (32-36); Mean Corpuscular Hgb 25.5 pg (27.0-32.0); Mean Corpuscular Volume 85.6 fL (81-99); Mean Platelet Vol. 8.8 fl (6.2-12.0); Monocyte# 0.37 X10^3/uL; Monocyte% 5.2 % (0-10); NRBC Flagged by Analyzer 0 % (0-5); Neutrophil # 5.12 X10^3/uL (2.7-7.7); Neutrophil % 71.5 % (47-70); Platelet Count 175 K/mm3 (150-450); RBC Distribution Width CV 14.2 % (11.6-14.6); RBC Distribution Width SD 43.9 fl (35.1-43.9); Red Blood Count 3.88 M/mm3 (4.2-5.4); White Blood Count 7.2 K/mm3 (4.4-11.0)
[2022-11-16 06:15] LABS: International Normalized Ratio 1.1; Partial Thromboplast Time 34.5 Seconds (24.1-36.2); Prothrombin Time (Protime)PT. 14.6 SECONDS (11.7-14.9)
[2022-11-16 06:31] LABS: Bedside Glucose 114 mg/dL (74-106)
[2022-11-16 06:53] LABS: Anion Gap 4 (5-15); BUN 36 mg/dL (7-18); BUN/Creat Ratio 23.1 RATIO (10-20); Calcium,Total 8.5 mg/dL (8.5-10.1); Chloride 111 mmol/L (98-107); Creatinine, Serum 1.56 mg/dL (0.55-1.02); EST Glomerular Filtration Rate 35 mL/min (>60); Est Glom Filt Rate - Afr Amer 42 mL/min (>60); Glucose 123 mg/dL (74-106); Potassium 3.8 mmol/L (3.5-5.1); Sodium Level 141 mmol/L (136-145); Thyroid Stim Hormone (TSH) 2.74 uIU/mL (0.358-3.74)
--- NOTE | 2022-11-16 08:00 | PN.HOSP_ITS ---
Reason for Visit Reason for Visit: Diagnoses Fracture of unspecified part of neck of right femur, initial encounter for clos ed fracture (11/14/22) Subjective Subjective Oxygen dropped while she was sleeping last night. Has known ABELARDO. Objective Data Objective Data Vital Signs: Vital Signs Temp Pulse Resp BP Pulse Ox O2 Del Method O2 Flow Rate 36.9 C 64 18 144/63 H 96 Nasal Cannula 2 11/16/22 05:41 11/16/22 05:41 11/16/22 05:41 11/16/22 05:41 11/16/22 05:41 11/16/22 06:00 11/16/22 06:00 Oxygen Flow Rate (L/min) 2 Oxygen Delivery Method Nasal Cannula Weight: 112 kg Body Mass Index (BMI) 37.5 Intake & Output: Intake and Output for Last 24 Hours 11/14/22 11/15/22 11/16/22 23:59 23:59 23:59 Intake Total 605 / 605 640 / 640 Output Total 900 / 900 400 / 400 Balance 605 / 5 -260 / -260 -400 / -400 Lab / Micro Data 11/16/22 05:45 11/16/22 05:45 Labs: Laboratory Results - last 24 hr 11/15/22 08:30: WBC 8.0, RBC 4.22, Hgb 10.7 L, Hct 36.4 L, MCV 86.3, MCH 25.4 L, MCHC 29.4 L, RDW Std Deviation 43.8, RDW Coeff of Quentin 14.2, Plt Count 239, MPV 9.3, Immature Gran % (Auto) 0.600, Neut % (Auto) 75.2 H, Lymph % (Auto) 17.6 L, [place] % (Auto) 4.5, Eos % (Auto) 1.5, Baso % (Auto) 0.6, Absolute Neuts (auto) 6.0, Absolute Lymphs (auto) 1.40, Nucleated RBC % 0, PT 15.6 H, INR 1.2, Blood Type A POSITIVE, Antibody Screen NEGATIVE 11/15/22 10:42: POC Glucose 133 H 11/15/22 17:01: POC Glucose 102 11/15/22 21:27: POC Glucose 104 11/16/22 05:45: WBC 7.2, RBC 3.88 L, Hgb 9.9 L, Hct 33.2 L, MCV 85.6, MCH 25.5 L , MCHC 29.8 L, RDW Std Deviation 43.9, RDW Coeff of Quentin 14.2, Plt Count 175, MPV 8.8, Immature Gran % (Auto) 0.400, Neut % (Auto) 71.5 H, Lymph % (Auto) 16.4 L, [place] % (Auto) 5.2, Eos % (Auto) 5.9 H, Baso % (Auto) 0.6, Absolute Neuts (auto) 5.1, Absolute Lymphs (auto) 1.17, Nucleated RBC % 0, PT 14.6, INR 1.1, APTT 34.5, Sodium 141, Potassium 3.8, Chloride 111 H, Carbon Dioxide 26.0, Anion Gap 4 L, BUN 36 H, Creatinine 1.56 H, Estim Creat Clear Calc 32.40, Est GFR (MDRD) Af Amer 42 L, Est GFR (MDRD) Non-Af 35 L, BUN/Creatinine Ratio 23.1 H, Glucose 123 H, Calcium 8.5, TSH 2.74 11/16/22 05:59: POC Glucose 114 H Physical Exam Const alert and no apparent distress HEENT head/scalp atraumatic and moist oral mucous membranes Extremity normal to inspection Assessment & Plan Assessment/Plan (1) Fracture of hip, right, closed: QUALIFIERS: Encounter type: initial encounter Qualified Code(s): S72.001A - Fracture of unspecified part of neck of right femur, initial encounter for closed fracture PLAN: Status post mechanical fall. NQSIP risk calculator shows that patient is high risk for serious complication, any complication, pneumonia, cardiac complication, surgical site infection, UTI, VTE, readmission, and discharged to nursing or rehab facility. Despite that, patient is overall medically optimized to proceed with surgery. No additional work-up is necessary at this time. Plan is for right hip hemiarthroplasty on the . PLAN: Plan Chronic conditions * Diabetes mellitus type 2: Sliding scale insulin * History of VTE: Continue with apixaban postoperatively. Hold until surgery can be performed. Patient last took on the at 1700. * Hypothyroidism: Continue with levothyroxine * Hypertension: Stable. Continue with metoprolol succinate and losartan. * ABELARDO: pt hypoxic overnight while she was sleeping. Advised for patient to have someone bring in CPAP to use. VTE prophylaxis with SCDs for now Charges/Coding Visit Charges Inpatient E&M: 02884 Subs Hosp L2
[2022-11-16] MEDS: Folic Acid 1 MG Tablet PO (08:15)
[2022-11-16] MEDS: FLUoxetine 10 MG Capsule PO (08:15)
[2022-11-16] MEDS: Metoprolol(XL)Succ 100 MG Tablet PO (08:15)
[2022-11-16] MEDS: Vitamin B Comp W-C Capsule 1 CAP PO (08:16)
[2022-11-16] MEDS: Tolterodine Tartrate 2 MG CAP.SA PO (08:16)
[2022-11-16] MEDS: Pantoprazole Sodium 40 MG Tablet PO (08:16)
[2022-11-16] MEDS: Losartan Potassium 100 MG Tablet PO (08:16)
[2022-11-16] MEDS: Fluoxetine HCl 40 MG CAPSULE PO (08:17)
[2022-11-16] MEDS: Pramipexole Di-HCl 1 MG Tablet 1.5 MG PO (08:17)
[2022-11-16] MEDS: Mirabegron 25 MG TAB.ER.24H PO (08:17)
[2022-11-16] MEDS: Senna/Docusate Sodium 1 Tablet 2 TABLET PO (08:18)
[2022-11-16] MEDS: buPROPion (XL) 300 MG TABLET.XL PO (08:19)
[2022-11-16] MEDS: Cholecalciferol (Vit D3) 125 MCG CAPSULE (5,000 UNITS) PO (08:19)
[2022-11-16] MEDS: oxyCODONE 5 MG Tablet PO (08:25)
[2022-11-16] MEDS: FINERENONE 10 MG TABLET PO (08:26)
[2022-11-16 08:34] LABS: Hemoglobin A1c 5.5 % (3.8-5.6)
[2022-11-16 11:48] LABS: Bedside Glucose 102 mg/dL (74-106)
--- NOTE | 2022-11-16 11:54 | CASEMGMT ---
Social Work Pt to have surgery today. SW met with pt and and discussed discharge plan and possible need for short term rehab prior to return home. A list of SNF providers including quality and resource use data and consistent with the patient?s preferred geographic region, medical needs, and insurance network were provided from the CarePort Guide. Pt and spouse preferred provider is [facility]. Referral to be made after surgery and therapy. plan: TCU, pending acceptance and precert DOMONIQUE Marion
[2022-11-16] MEDS: Lactated Ringers 1,000 ML 15 ML IV (13:44)
[2022-11-16] MEDS: Ipratropium/Albuterol Sulfate 3 ML AMPUL.NEB INHALATION ×2 (14:15→18:39)
--- NOTE | 2022-11-16 14:22 | PCA ---
PATIENT BROUGHT IN PATIENT CPAP FROM HOME
--- NOTE | 2022-11-16 14:30 | FEM_PTH ---
PATIENT: DWAIN BILLINGSLEY LOC: MS3 U#:[id number] AGE/SX: 72/F ROOM: [facility] RE11/14/[address]: Dr. Darinel Cantu MD : 1950 BED: 1 DIS: 11/22/2022 SPEC #: [id number] RECD: 11/17/22 17:55 STATUS: ZOFIA REQ #: [id number] JOHN PAUL: 11/16/22 14:[address]: Bigg Haddad DEPT: SURGICAL PATHOLOGY RECD BY: Kimberlee Soriano ENTERED: 11/17/22 09:13 SP TYPE: FEM HEAD OTHR DR: DO Dr. Erik Francis DO Stephanie Perea, GENERAL MANAGER [employer]C Tissues: Femoral region, NOS Procedures: Decalcification bone/plaque Surgery Specimen Level V Comments: @ Ordering doctor for DEC edited from to DR.JBORRU Dot MUSA at 11/17/22 1528 @ Ordering doctor for SUV edited from to DR.JBORRU Dot MUSA at 11/17/22 1528 @ Submitting doctor edited from to DR.JBORRU Dot MUSA at 11/17/22 1528 HEADER OPERATION: Right hip hemiarthroplasty PRE-OP DIAGNOSIS: Fracture of right hip, closed TISSUE SUBMITTED: Femoral head right side MICROSCOPIC DIAGNOSIS Bone and tissue of right hip, fracture: Organizing fracture site. Degenerative changes of articular surface. AM:loly 11/23/2022 MICROSCOPIC DESCRIPTION Slides are reviewed. GROSS DESCRIPTION Received is one container labeled with the patient's name and designated femoral head right side. The specimen consists of a garzon femoral head measuring 4.5 x 5.0 x 4.5 cm. The articular surface is smooth. Resection margin is irregular and hemorrhagic. Also present on the top of femoral head is a small amount of soft tissue measuring 2.0 x 0.8 x 0.2 cm. Industrial Machine Assembler sections are submitted in three cassettes as follows: 1 - soft tissue, entirely submitted, 2 & 3 - femoral head after decalcification. / JACK:loly 11/17/2022 TC:5 CPT: 61617, 98681
[2022-11-16] MEDS: Cefazolin 2 GM in 0.9% Normal Saline (100mL Bag) 100 ML IV (15:10)
[2022-11-16] MEDS: TRANEXAMIC ACID 2,000 MG in 0.9% Normal Saline (100mL Bag) 100 ML 660 MG IV (15:20)
--- NOTE | 2022-11-16 16:47 | OP.PCM_ITS ---
Operative Report Date of Procedure: 11/16/22 Preoperative diagnosis: Right hip femoral neck fracture displaced Postoperative diagnosis: Same Procedure: Right hip hemiarthroplasty Implants: Cheryl Accolade II stem size 6 127 degree neck angle 0 neck length 47 mm outer diameter bipolar head Anesthesia: General l EBL: 175 cc Complications: None Condition: Stable to PACU Indication for procedure: This is a 72-year-old female patient who had ground- level fall injuring her right hip sustaining a displaced femoral neck fracture. plans for definitive hemiarthroplasty were discussed including risks benefits and alternatives of the procedure were reviewed with the patient including risk of bleeding infection nerve artery tissue damage need for further surgery continue pain postoperative hip precaution restrictions leg length discrepancy and dislocation. Procedure: Patient was met in the preoperative holding area once again the operative extremity was identified by both patient and physician and was marked. Patient was met by anesthesia and brought to the operating room where anesthesia was started . The patient was then positioned in the lateral decubitus position on a well-padded pegboard with an axillary roll. All bony prominences were checked and padded. The patient was prepped and draped in the usual sterile fashion. A timeout was called to ensure the proper patient procedure and extremity were being contemplated. Anatomic landmarks were palpated and marked for a standard posterior lateral approach. A timeout was called to ensure the proper patient procedure and extremity were being contemplated. A 10 blade scalpel was used to make a posterior incision through the skin and subcutaneous tissue. In retractors were used and electrocautery was used to maintain meticulous hemostasis and dissect full-thickness flaps until the gluteal fascia was reached. The gluteal fascia was incised in line with the gluteal fibers. The bursal tissue was then freed from the underside and a Charnley retractor was placed. The fatpad was elevated off of the external rotators with electrocautery and the external rotators were dissected off of the greater trochanter including the piriformis and were tagged with #1 Ethibond for later repair. The joint capsule opened with posterior trapdoor technique. A femoral neck cutting guide was used to dell the neck with a Bovie and an oscillating saw was used to complete the femoral neck cut. the fracture was visualized and with the use of a corkscrew and a skid the femoral head was removed and sized. We then trialed with the matching sizes . Hohmann was placed around the lesser trochanter. A femoral elevator was used. As well as a pointed wide Hohmann around the lesser trochanter and a Hohmann to help retract the gluteus medius. A box chisel was used to remove excess lateral neck followed by a canal finder and a lateralizing reamer. This was followed by sequential broaches. Attention was made of the version within the canal. Once the final broach was seated we then trialed and reduced the hip it was determined that a 127 degree neck angle with a 0 neck length was the appropriate size. We then checked stability with shuck testing as well as flexion and interminal rotation then proceeded with hip extension and checked leg lengths at the knees and heels. At this point trials were removed. The femoral stem was inserted. We re-trialed and then proceeded to impact the femoral head onto the José Manuel taper. We then surgically reduce the hip check stability again and leg lengths and were satisfied. irricept rinse was allowed to sit for 1 minutes while everyone changed their gloves. Thorough irrigation was performed. Followed by closure of the external rotators with #2 FiberWire followed by closure of gluteal fascia with #1 Ethibond. 0 Vicryl fat stitches and 2-0 Vicryl subcutaneous stitches and brynn in the skin. Dressing was applied in the form of silverlon dressing and an abduction pillow was placed. Patient tolerated the procedure well there was no intraoperative complications all counts were correct and the patient was brought back to the PACU in stable condition
[2022-11-16] MEDS: Lactated Ringers 1,000 ML 125 ML IV (17:01)
--- NOTE | 2022-11-16 17:03 | RAD_ITS ---
INDICATION: Post Op -- AP both hips on single olive/lateral of op hip PACU EXAMINATION/TECHNIQUE: X-RAY - XR Hip Unilateral with Pelvis when performed; 2-3 Views COMPARISON: Prior study dated: 11/14/2022 FINDINGS: PELVIC BONES: Pelvic ring is intact. Note that overlapping bowel shadows may however obscure fine detail. Sacroiliac joints are unremarkable. No widening of the pubic symphysis. HIPS: [Large without change. Interval RIGHT hip arthroplasty with normal alignment. No destructive bony process. No hardware failure. No displaced fracture seen in this frontal view. SOFT TISSUES: No soft tissue swelling or gas. Expected postoperative changes involving the soft tissues including brynn in place. RAD/Hip Min 2 Views (Portable) IMPRESSION: 1. Minimal RIGHT hip arthroplasty with normal alignment, no acute fractures noted. 2. Stable appearance of LEFT hip arthroplasty. Electronically Signed: Rasheed Reed MD at 17:22 EDT ,
[2022-11-16] MEDS: Cefazolin 1 GM/50 ML BAG IV (17:59)
[2022-11-16 18:36] LABS: Bedside Glucose 125 mg/dL (74-106)
[2022-11-16] MEDS: Atorvastatin Calcium 10 MG Tablet PO (21:11)
[2022-11-16] MEDS: Acetaminophen 500 MG Tablet 1000 MG PO (21:19)
[2022-11-16 22:27] LABS: Bedside Glucose 169 mg/dL (74-106)
[2022-11-17] VITALS (8 sets, daily range): BP systolic 124–130; BP diastolic 48–70; PULSE 56–70; RESP 18; TEMP 36.6–37.2; O2SAT 94–97; BMI 37.5
[2022-11-17] MEDS: Cefazolin 1 GM/50 ML BAG IV ×2 (00:30→10:25)
[2022-11-17] MEDS: Lactated Ringers 1,000 ML 125 ML IV (00:31)
[2022-11-17] MEDS: Acetaminophen 500 MG Tablet 1000 MG PO ×2 (03:46→12:33)
[2022-11-17] MEDS: Sucralfate 1 GM Tablet PO ×4 (06:55→21:13)
[2022-11-17] MEDS: Levothyroxine 50 MCG Tablet PO (06:56)
[2022-11-17 07:24] LABS: Bedside Glucose 130 mg/dL (74-106)
--- NOTE | 2022-11-17 07:42 | PN.HOSP_ITS ---
Reason for Visit Reason for Visit: Diagnoses Fracture of unspecified part of neck of right femur, initial encounter for clos ed fracture (11/14/22) Subjective Subjective Not tolerating CPAP. Objective Data Objective Data Vital Signs: Vital Signs Temp Pulse Resp BP Pulse Ox O2 Del Method O2 Flow Rate 36.8 C 61 18 125/58 H 96 Nasal Cannula 2 11/17/22 07:02 11/17/22 07:02 11/17/22 07:02 11/17/22 07:02 11/17/22 07:02 11/17/22 07:02 11/17/22 07:02 Oxygen Flow Rate (L/min) 2 Oxygen Delivery Method Nasal Cannula Weight: 112 kg Body Mass Index (BMI) 37.5 Intake & Output: Intake and Output for Last 24 Hours 11/15/22 11/16/22 11/17/22 23:59 23:59 23:59 Intake Total 640 / 640 1345 / 1465 1223.33 / 1223.33 Output Total 900 / 900 600 / 600 400 / 400 Balance -260 / -260 745 / 865 823.33 / 823.33 Lab / Micro Data 11/17/22 07:35 11/17/22 07:35 Labs: Laboratory Results - last 24 hr 11/16/22 05:45: Hemoglobin A1c 5.5 11/16/22 11:26: POC Glucose 102 11/16/22 18:19: POC Glucose 125 H 11/16/22 21:16: POC Glucose 169 H 11/17/22 06:58: POC Glucose 130 H Radiography Diagnostic Testing: Radiology Impression Hip X-Ray 11/16/22 17:03 IMPRESSION: 1. Minimal RIGHT hip arthroplasty with normal alignment, no acute fractures noted. 2. Stable appearance of LEFT hip arthroplasty. Electronically Signed: Rasheed Reed MD at 17:22 EDT , Physical Exam Const alert and no apparent distress HEENT head/scalp atraumatic and moist oral mucous membranes Resp normal respiratory effort, no retractions, no use of accessory muscles and clear to auscultation bilaterally Cardio regular rate, regular rhythm, S1 normal heart sound and S2 normal heart sound GI normal to inspection, nondistended, normoactive bowel sounds, soft to palpation, non-tender and non-distended Assessment & Plan Assessment/Plan (1) Fracture of hip, right, closed: QUALIFIERS: Encounter type: initial encounter Qualified Code(s): S72.001A - Fracture of unspecified part of neck of right femur, initial encounter for closed fracture PLAN: Status post mechanical fall. NQSIP risk calculator shows that patient is high risk for serious complication, any complication, pneumonia, cardiac complication, surgical site infection, UTI, VTE, readmission, and discharged to nursing or rehab facility. Despite that, patient is overall medically optimized to proceed with surgery. No additional work-up is necessary at this time. S.P right hip hemiarthroplasty on the . PLAN: Plan Chronic conditions * Diabetes mellitus type 2: Sliding scale insulin * History of VTE: Continue with apixaban postoperatively. Hold until surgery can be performed. Patient last took on the at 1700. * Hypothyroidism: Continue with levothyroxine * Hypertension: Stable. Continue with metoprolol succinate and losartan. * ABELARDO: pt hypoxic overnight while she was sleeping. Advised for patient to have someone bring in CPAP to use. VTE prophylaxis back on apixaban Dispostion: to TCU pending insurance authorization. Charges/Coding Visit Charges Inpatient E&M: 94620 Subs Hosp L2
[2022-11-17 07:54] LABS: Absolute Lymphocyte Count 0.43 X10^3/uL (0.83-4.51); Absolute Neutrophil Count 5.8 X10^3/uL (2.0-7.7); Basophil# 0.01 X10^3/uL; Basophil% 0.1 % (0-1); Eosinophil# 0.04 X10^3/uL; Eosinophils% 0.6 % (0-5); Hemoglobin 8.6 g/dL (12.0-15.0); Lymphocyte # 0.43 X10^3/ul (0.83-4.51); Lymphocyte % 6.4 % (19-41); Mean Corp Hgb Conc 30.7 g/dL (32-36); Mean Corpuscular Hgb 26.2 pg (27.0-32.0); Mean Corpuscular Volume 85.4 fL (81-99); Mean Platelet Vol. 9.4 fl (6.2-12.0); Monocyte# 0.39 X10^3/uL; Monocyte% 5.8 % (0-10); NRBC Flagged by Analyzer 0 % (0-5); Neutrophil # 5.75 X10^3/uL (2.7-7.7); Neutrophil % 86.4 % (47-70); POSITIVE DIFFERENTIAL YES; Platelet Count 185 K/mm3 (150-450); RBC Distribution Width CV 13.5 % (11.6-14.6); RBC Distribution Width SD 42.2 fl (35.1-43.9); Red Blood Count 3.28 M/mm3 (4.2-5.4); White Blood Count 6.7 K/mm3 (4.4-11.0)
[2022-11-17 07:55] LABS: Differential Indicated SCAN CRITERIA MET
[2022-11-17] MEDS: Calcium Carbonate 500 MG Tablet PO ×3 (08:08→16:15)
[2022-11-17] MEDS: Folic Acid 1 MG Tablet PO (08:08)
[2022-11-17 08:23] LABS: Anion Gap 2 (5-15); BUN 26 mg/dL (7-18); BUN/Creat Ratio 24.5 RATIO (10-20); Calcium,Total 8.3 mg/dL (8.5-10.1); Chloride 111 mmol/L (98-107); Creatinine, Serum 1.06 mg/dL (0.55-1.02); EST Glomerular Filtration Rate 54 mL/min (>60); Est Glom Filt Rate - Afr Amer 65 mL/min (>60); Estimated Creatinine Clearance 47.68 ml/min; Glucose 124 mg/dL (74-106); Potassium 4.2 mmol/L (3.5-5.1); Sodium Level 140 mmol/L (136-145)
[2022-11-17] MEDS: oxyCODONE 5 MG Tablet 10 MG PO ×3 (10:22→21:14)
[2022-11-17] MEDS: FINERENONE 10 MG TABLET PO (10:23)
[2022-11-17] MEDS: Fluoxetine HCl 40 MG CAPSULE PO (10:23)
[2022-11-17] MEDS: Mirabegron 25 MG TAB.ER.24H PO (10:23)
[2022-11-17] MEDS: Losartan Potassium 100 MG Tablet PO (10:24)
[2022-11-17] MEDS: Vitamin B Comp W-C Capsule 1 CAP PO (10:24)
[2022-11-17] MEDS: Tolterodine Tartrate 2 MG CAP.SA PO (10:24)
[2022-11-17] MEDS: buPROPion (XL) 300 MG TABLET.XL PO (10:24)
[2022-11-17] MEDS: APIXABAN 5 MG TABLET PO ×2 (10:24→21:14)
[2022-11-17] MEDS: FLUoxetine 10 MG Capsule PO (10:24)
[2022-11-17] MEDS: Pantoprazole Sodium 40 MG Tablet PO (10:24)
[2022-11-17] MEDS: Pramipexole Di-HCl 1 MG Tablet 1.5 MG PO (10:26)
[2022-11-17] MEDS: Senna/Docusate Sodium 1 Tablet 2 TABLET PO ×2 (10:26→21:13)
[2022-11-17] MEDS: Metoprolol(XL)Succ 100 MG Tablet PO (10:28)
[2022-11-17] MEDS: Cholecalciferol (Vit D3) 125 MCG CAPSULE (5,000 UNITS) PO (10:28)
--- NOTE | 2022-11-17 10:40 | PCM.PN.ORT ---
Subjective Subjective Seen and examined. Complain of pain right hip. Denies fevers chills nausea vomiting shortness of breath or chest pain Objective Data Objective Data Vital Signs: Vital Signs Temp Pulse Resp BP Pulse Ox O2 Del Method O2 Flow Rate 98.9 F 60 18 130/70 H 95 Nasal Cannula 2 11/17/22 10:00 11/17/22 10:28 11/17/22 10:00 11/17/22 10:00 11/17/22 10:00 11/17/22 10:00 11/17/22 10:00 Oxygen Flow Rate (L/min) 2 Oxygen Delivery Method Nasal Cannula Weight: 246 lb 14.684 oz Body Mass Index (BMI) 37.5 Intake & Output: Intake and Output for Last 24 Hours 11/15/22 11/16/22 11/17/22 23:59 23:59 23:59 Intake Total 640 / 640 1345 / 1465 1223.33 / 1223.33 Output Total 900 / 900 600 / 600 400 / 400 Balance -260 / -260 745 / 865 823.33 / 823.33 Lab / Micro Data 11/17/22 07:35 11/17/22 07:35 Labs: Laboratory Results - last 24 hr 11/16/22 11:26: POC Glucose 102 11/16/22 18:19: POC Glucose 125 H 11/16/22 21:16: POC Glucose 169 H 11/17/22 06:58: POC Glucose 130 H 11/17/22 07:35: WBC 6.7, RBC 3.28 L, Hgb 8.6 L, Hct 28.0 L, MCV 85.4, MCH 26.2 L, MCHC 30.7 L, RDW Std Deviation 42.2, RDW Coeff of Quentin 13.5, Plt Count 185, MPV 9.4, Immature Gran % (Auto) 0.700, Neut % (Auto) 86.4 H, Lymph % (Auto) 6.4 L, Richardson % (Auto) 5.8, Eos % (Auto) 0.6, Baso % (Auto) 0.1, Absolute Neuts (auto) 5.8, Absolute Lymphs (auto) 0.43 L, Nucleated RBC % 0, Differential Comment COMMENT, Sodium 140, Potassium 4.2, Chloride 111 H, Carbon Dioxide 27.0, Anion Gap 2 L, BUN 26 H, Creatinine 1.06 H, Estim Creat Clear Calc 47.68, Est GFR (MDRD) Af Amer 65, Est GFR (MDRD) Non-Af 54 L, BUN/Creatinine Ratio 24.5 H, Glucose 124 H, Calcium 8.3 L Radiography Diagnostic Testing: Radiology Impression Hip X-Ray 11/16/22 17:03 IMPRESSION: 1. Minimal RIGHT hip arthroplasty with normal alignment, no acute fractures noted. 2. Stable appearance of LEFT hip arthroplasty. Electronically Signed: Rasheed Reed MD at 17:22 EDT , Physical Exam Const alert, oriented x3 and no apparent distress Extremity Extremity Narrative: Right hip dressing clean dry intact compartments soft neurovascular intact EHL tibialis anterior gastrocsoleus intact sensation light touch 2 out of 4 pedal pulses Assessment & Plan Assessment/Plan (1) S/P hip hemiarthroplasty: PLAN: Plan Postop day #1 right hip hemiarthroplasty bipolar for displaced femoral neck fracture ET OT weightbearing as tolerated precautions Eliquis 5 mg p.o. twice daily preoperative dose resumed postop day #1 Dressing to be left intact for 5 days postop then may remove prior to first shower at which point to the incision should be washed daily with antibacterial soap and warm water and a dry dressing replaced daily until there is no drainage for 2 consecutive days then may leave open to air Follow-up in the office 2 weeks for wound check and staple removal if she is in the transitional care or hospital rehab I be happy to see her there for her 2-week postop visit just please notify my office.
[2022-11-17 12:44] LABS: Bedside Glucose 114 mg/dL (74-106)
--- NOTE | 2022-11-17 14:14 | CASEMGMT ---
Social Work SW spoke with PT who confirms pt will need to go to SNF at [place]. In prior conversation with pt and spouse, TCU is preferred provider. Referral sent to [facility] in TCU. SW will await determination of acceptance. Pt will need precert prior to admission to TCU. Plan: TCU, pending acceptance and precert DOMONIQUE Marion
[2022-11-17 16:49] LABS: Bedside Glucose 98 mg/dL (74-106)
[2022-11-17] MEDS: Atorvastatin Calcium 10 MG Tablet PO (21:14)
[2022-11-18] VITALS (7 sets, daily range): BP systolic 129–135; BP diastolic 47–61; PULSE 60–76; RESP 18; TEMP 36.3–37.1; O2SAT 95–97
[2022-11-18 00:02] LABS: Bedside Glucose 111 mg/dL (74-106)
[2022-11-18] MEDS: oxyCODONE 5 MG Tablet 10 MG PO ×2 (02:42→07:55)
[2022-11-18] MEDS: Levothyroxine 50 MCG Tablet PO (06:34)
[2022-11-18] MEDS: Sucralfate 1 GM Tablet PO ×4 (06:34→22:57)
[2022-11-18 07:30] LABS: Hematocrit 30.3 % (37-47); Hemoglobin 8.6 g/dL (12.0-15.0); Mean Corp Hgb Conc 28.4 g/dL (32-36); Mean Corpuscular Hgb 25.1 pg (27.0-32.0); Mean Corpuscular Volume 88.6 fL (81-99); Mean Platelet Vol. 9.6 fl (6.2-12.0); Platelet Count 216 K/mm3 (150-450); RBC Distribution Width CV 14.1 % (11.6-14.6); RBC Distribution Width SD 45.4 fl (35.1-43.9); Red Blood Count 3.42 M/mm3 (4.2-5.4); White Blood Count 7.9 K/mm3 (4.4-11.0)
--- NOTE | 2022-11-18 08:03 | PN.HOSP_ITS ---
Reason for Visit Reason for Visit: Diagnoses Fracture of unspecified part of neck of right femur, initial encounter for clos ed fracture (11/14/22) Presence of unspecified artificial hip joint (11/14/22) Subjective Subjective Feels well. No events. Objective Data Objective Data Vital Signs: Vital Signs Temp Pulse Resp BP Pulse Ox O2 Del Method O2 Flow Rate 36.8 C 60 18 129/53 H 95 Nasal Cannula 2 11/18/22 07:57 11/18/22 07:57 11/18/22 07:57 11/18/22 07:57 11/18/22 07:57 11/18/22 07:57 11/18/22 07:57 Oxygen Flow Rate (L/min) 2 Oxygen Delivery Method Nasal Cannula Weight: 112 kg Body Mass Index (BMI) 37.5 Intake & Output: Intake and Output for Last 24 Hours 11/16/22 11/17/22 11/18/22 23:59 23:59 23:59 Intake Total 1345 / 1465 2961.25 / 2961.25 250 / 250 Output Total 600 / 600 1200 / 1200 100 / 100 Balance 745 / 865 1761.25 / 1761.25 150 / 150 Lab / Micro Data 11/18/22 07:10 11/17/22 07:35 Labs: Laboratory Results - last 24 hr 11/17/22 07:35: Differential Comment COMMENT, Sodium 140, Potassium 4.2, Chloride 111 H, Carbon Dioxide 27.0, Anion Gap 2 L, BUN 26 H, Creatinine 1.06 H, Estim Creat Clear Calc 47.68, Est GFR (MDRD) Af Amer 65, Est GFR (MDRD) Non-Af 54 L, BUN/Creatinine Ratio 24.5 H, Glucose 124 H, Calcium 8.3 L 11/17/22 12:02: POC Glucose 114 H 11/17/22 16:11: POC Glucose 98 11/17/22 21:04: POC Glucose 111 H 11/18/22 07:10: WBC 7.9, RBC 3.42 L, Hgb 8.6 L, Hct 30.3 L, MCV 88.6, MCH 25.1 L , MCHC 28.4 L D, RDW Std Deviation 45.4 H, RDW Coeff of Quentin 14.1, Plt Count 216, MPV 9.6 Physical Exam Const alert and no apparent distress HEENT head/scalp atraumatic and moist oral mucous membranes Neuro Sensorium / Orientation: awake and alert Speech: speech normal Psych affect normal Assessment & Plan Assessment/Plan (1) Fracture of hip, right, closed: QUALIFIERS: Encounter type: initial encounter Qualified Code(s): S72.001A - Fracture of unspecified part of neck of right femur, initial encounter for closed fracture PLAN: Status post mechanical fall. NQSIP risk calculator shows that patient is high risk for serious complication, any complication, pneumonia, cardiac complication, surgical site infection, UTI, VTE, readmission, and discharged to nursing or rehab facility. Despite that, patient is overall medically optimized to proceed with surgery. No additional work-up is necessary at this time. S.P right hip hemiarthroplasty on the . Follow up with Dr. Haddad in 2 weeks. PLAN: Plan Chronic conditions * Diabetes mellitus type 2: Sliding scale insulin * History of VTE: Continue with apixaban postoperatively. Hold until surgery can be performed. Patient last took on the at 1700. * Hypothyroidism: Continue with levothyroxine * Hypertension: Stable. Continue with metoprolol succinate and losartan. * ABELARDO: pt hypoxic overnight while she was sleeping. Advised for patient to have someone bring in CPAP to use. VTE prophylaxis back on apixaban Dispostion: to TCU pending insurance authorization. Charges/Coding Visit Charges Inpatient E&M: 28868 [facility] Hosp L1
--- NOTE | 2022-11-18 09:39 | TREXTCAR_ITS ---
Diet Diet Order/Speech Therapy: 11/17/22 07:41 Diet: Consistent Carb - Calorie Controlled Dietary Modifications:: Consistent Carbohydrate Is pt able to select menu?: Yes Diet Comments: advance as tolerated How many daily calories?: 2000 calorie Routine Orders/Code Status Code Status: Full Code Wound(s) RIGHT HIP: Wound Type: Surgical Incision (Dressing to be left intact for 5 days p ostop then may remove prior to first shower at which point to the incision should be washed daily with antibacterial soap and warm water and a dry dressing replaced daily until there is no drainage for 2 consecutive days then may leave open to air) Therapies Weight Bearing: Weight bearing as tolerated Extremity Affected:: Right Lower Physical Therapy: Eval and Treat Occupational Therapy: Eval and Treat Problem/Diagnosis (1) Fracture of hip, right, closed: Status: Acute Code(s): S72.001A - Fracture of unspecified part of neck of right femur, initial encounter for closed fracture Plan: Status post mechanical fall. NQSIP risk calculator shows that patient is high risk for serious complication, any complication, pneumonia, cardiac complication, surgical site infection, UTI, VTE, readmission, and discharged to nursing or rehab facility. Despite that, patient is overall medically optimized to proceed with surgery. No additional work-up is necessary at this time. S.P right hip hemiarthroplasty on the . Follow up with Dr. Haddad in 2 weeks. Plan Chronic conditions * Diabetes mellitus type 2: Sliding scale insulin * History of VTE: Continue with apixaban postoperatively. Hold until surgery can be performed. Patient last took on the at 1700. * Hypothyroidism: Continue with levothyroxine * Hypertension: Stable. Continue with metoprolol succinate and losartan. * ABELARDO: pt hypoxic overnight while she was sleeping. Advised for patient to have someone bring in CPAP to use. VTE prophylaxis back on apixaban Dispostion: to TCU pending insurance authorization. Allergies/Procedures Done in Hospital Allergies cephalexin [From Keflex] Allergy (Verified 11/14/22 11:51) Rash clindamycin Allergy (Verified 11/14/22 11:51) Anaphylaxis vancomycin Allergy (Verified 11/14/22 11:51) Rash Procedures: - (right hip hemiarthroplasty) Type of Care/Length of Stay Estimated LOS: Convalescent Care Less Than 30 days Type of Care Needed: Skilled Rehab Potential: Good Prognosis: Good Additional Orders/Day of Discharge Day of Discharge: 11/18/22 Discharge Plan Admission Admit Date/Time: 11/14/22 12:37 Primary Reason for Your Visit: Right hip fracture Attending Provider: Brett Abrams Primary Care Provider: Erik Gomez Consulting Providers: Surekha Neely Discharge Orders/Prescriptions Prescriptions: New oxycodone 5 mg Tablet 5 mg PO Q4H PRN PRN (Reason: Pain Score 4-5) 3 Days Qty: 12 0RF Continued mirabegron 25 mg tablet extended release 24 hr 25 mg PO DAILY bupropion HCl 150 MG tablet extended release 24 hr 300 mg PO DAILY atorvastatin 10 MG tablet 10 mg PO QHS apixaban 5 MG tablet 5 mg PO BID pantoprazole [Protonix] 40 mg Tablet,Delayed Release (Dr/Ec) 40 mg PO DAILY folic acid 1 mg Tablet 1 mg PO DAILY vitamin B complex Capsule 1 cap PO DAILY Patient Comments: SUPER B COMPLEX cholecalciferol (vitamin D3) [Vitamin D3] 125 mcg (5,000 unit) Tablet 125 mcg PO DAILY acetaminophen 500 mg Tablet 1,000 mg PO Q6H PRN PRN (Reason: Pain Score 1-3) Qty: 0 0RF nystatin [Nyamyc] 100,000 unit/gram Powder 1 applic topical BID Qty: 0 0RF Protocol: *Topical Application Instructions APPLICATION INSTRUCTIONS: UNDER ABDOMINAL FOLDS/GROIN losartan 100 mg Tablet 100 mg PO DAILY 30 Days Qty: 30 0RF metoprolol succinate 25 mg tablet extended release 24 hr 100 mg PO DAILY Kerendia 10 mg Tablet 10 mg PO DAILY fluoxetine 40 mg capsule 40 mg PO DAILY Patient Comments: PT TAKES A 10 MG AND 40 MG CAPSULE TO MAKE 50 MG TOTAL DOSE fluoxetine 10 mg capsule 10 mg PO DAILY Patient Comments: PT TAKES A 10 MG AND 40 MG CAPSULE TO MAKE 50 MG TOTAL DOSE oxybutynin chloride 10 mg tablet extended release 24hr 10 mg PO DAILY sucralfate 1 gram tablet 1 g PO ACHS ropinirole 3 mg tablet 3 mg PO DAILY Patient Comments: PT STATES TAKES MORE THAN ONE IT DOES NOT HELP amlodipine 5 mg tablet 5 mg PO QHS levothyroxine [Synthroid] 50 mcg tablet 50 mcg PO DAILY Gemtesa 75 mg tablet 75 mg PO DAILY Patient Comments: take 1 tablet by mouth once daily Referrals / Follow Up: Erik Gomez DO [Primary Care Provider] - Within 2 Weeks Bigg Haddad DO [Med Staff - Active Staff] - Within 2 Weeks Disposition Disposition (needs filled in before D/C Order can be placed): Residential Facility (1) Fracture of hip, right, closed Qualifiers: Encounter type: initial encounter Qualified Code(s): S72.001A - Fracture of unspecified part of neck of right femur, initial encounter for closed fracture
[2022-11-18] MEDS: Tolterodine Tartrate 2 MG CAP.SA PO (10:09)
[2022-11-18] MEDS: Calcium Carbonate 500 MG Tablet PO ×3 (10:09→16:10)
[2022-11-18] MEDS: Pantoprazole Sodium 40 MG Tablet PO (10:09)
[2022-11-18] MEDS: FLUoxetine 10 MG Capsule PO (10:09)
[2022-11-18] MEDS: APIXABAN 5 MG TABLET PO ×2 (10:09→22:57)
[2022-11-18] MEDS: FINERENONE 10 MG TABLET PO (10:10)
[2022-11-18] MEDS: Fluoxetine HCl 40 MG CAPSULE PO (10:10)
[2022-11-18] MEDS: Mirabegron 25 MG TAB.ER.24H PO (10:10)
[2022-11-18] MEDS: Pramipexole Di-HCl 1 MG Tablet 1.5 MG PO (10:10)
[2022-11-18] MEDS: Vitamin B Comp W-C Capsule 1 CAP PO (10:10)
[2022-11-18] MEDS: Senna/Docusate Sodium 1 Tablet 2 TABLET PO ×2 (10:11→22:57)
[2022-11-18] MEDS: Cholecalciferol (Vit D3) 125 MCG CAPSULE (5,000 UNITS) PO (10:11)
[2022-11-18] MEDS: buPROPion (XL) 300 MG TABLET.XL PO (10:12)
[2022-11-18] MEDS: Losartan Potassium 100 MG Tablet PO (10:12)
[2022-11-18] MEDS: Folic Acid 1 MG Tablet PO (10:16)
[2022-11-18] MEDS: Metoprolol(XL)Succ 100 MG Tablet PO (10:17)
[2022-11-18 12:23] LABS: Bedside Glucose 128 mg/dL (74-106)
[2022-11-18 16:31] LABS: Bedside Glucose 85 mg/dL (74-106)
[2022-11-18 20:05] LABS: Bedside Glucose 91 mg/dL (74-106)
--- NOTE | 2022-11-18 20:57 | CASEMGMT ---
Social Work Spoke with Ayla in admissions at [facility]. Patient can be accepted pending precert. Met with patient to update. Patient remembered this advertising writer from previous interactions, but did appear slightly confused about location. Patient in agreement with plan for TCU, and asked this advertising writer to call her to update. Patient voiced knowing that has been feeling mixed up today and doesn't want to miss the details of the plan. Called the to update. reports when patient is isolated in a room, tends to get slightly confused. PLAN: TCU pending insurance authorization. -NATALYA Prasad
[2022-11-18] MEDS: amLODIPine 5 MG Tablet PO (22:57)
[2022-11-18] MEDS: MELATONIN 3 MG TABLET PO (22:57)
[2022-11-18] MEDS: Atorvastatin Calcium 10 MG Tablet PO (22:57)
[2022-11-18] MEDS: oxyCODONE 5 MG Tablet PO (22:58)
[2022-11-19] VITALS (8 sets, daily range): BP systolic 128–149; BP diastolic 51–66; PULSE 60–70; RESP 16–18; TEMP 36.5–36.9; O2SAT 87–98
[2022-11-19 00:35] LABS: Bedside Glucose 146 mg/dL (74-106)
[2022-11-19] MEDS: Sucralfate 1 GM Tablet PO ×4 (06:06→21:51)
[2022-11-19] MEDS: Levothyroxine 50 MCG Tablet PO (06:06)
[2022-11-19 06:29] LABS: Bedside Glucose 97 mg/dL (74-106)
[2022-11-19] MEDS: oxyCODONE 5 MG Tablet PO ×2 (07:49→13:40)
[2022-11-19] MEDS: Calcium Carbonate 500 MG Tablet PO ×3 (07:49→16:15)
[2022-11-19] MEDS: Senna/Docusate Sodium 1 Tablet 2 TABLET PO ×2 (07:49→21:51)
[2022-11-19] MEDS: Losartan Potassium 100 MG Tablet PO (07:50)
[2022-11-19] MEDS: Metoprolol(XL)Succ 100 MG Tablet PO (07:50)
[2022-11-19] MEDS: APIXABAN 5 MG TABLET PO ×2 (07:51→21:51)
[2022-11-19] MEDS: Folic Acid 1 MG Tablet PO (07:51)
[2022-11-19] MEDS: Vitamin B Comp W-C Capsule 1 CAP PO (07:51)
[2022-11-19] MEDS: Tolterodine Tartrate 2 MG CAP.SA PO (07:51)
[2022-11-19] MEDS: FINERENONE 10 MG TABLET PO (07:52)
[2022-11-19] MEDS: Pramipexole Di-HCl 1 MG Tablet 1.5 MG PO (07:52)
[2022-11-19] MEDS: Fluoxetine HCl 40 MG CAPSULE PO (07:53)
[2022-11-19] MEDS: Mirabegron 25 MG TAB.ER.24H PO (07:53)
--- NOTE | 2022-11-19 07:53 | PN.HOSP_ITS ---
Reason for Visit Reason for Visit: Diagnoses Fracture of unspecified part of neck of right femur, initial encounter for clos ed fracture (11/14/22) Presence of unspecified artificial hip joint (11/14/22) Subjective Subjective No events overnight. Pain in right hip upon standing. Objective Data Objective Data Vital Signs: Vital Signs Temp Pulse Resp BP Pulse Ox O2 Del Method O2 Flow Rate 36.9 C 60 18 149/51 H 98 Nasal Cannula 2 11/19/22 04:11/19/22 04:11/19/22 04:11/19/22 04:11/19/22 04:11/19/22 04:11/19/22 04:26 Oxygen Flow Rate (L/min) 2 Oxygen Delivery Method Nasal Cannula Weight: 112 kg Body Mass Index (BMI) 37.5 Intake & Output: Intake and Output for Last 24 Hours 11/17/22 11/18/22 11/19/22 23:59 23:59 23:59 Intake Total 2961.25 / 2961.25 1350 / 1350 350 / 350 Output Total 1200 / 1200 800 / 800 400 / 400 Balance 1761.25 / 1761.25 550 / 550 -50 / -50 Lab / Micro Data 11/19/22 07:50 11/17/22 07:35 Labs: Laboratory Results - last 24 hr 11/18/22 06:36: POC Glucose 91 11/18/22 12:00: POC Glucose 128 H 11/18/22 16:08: POC Glucose 85 11/18/22 22:56: POC Glucose 146 H 11/19/22 06:03: POC Glucose 97 Physical Exam Const alert and no apparent distress HEENT head/scalp atraumatic Extremity Extremity Narrative: Bandage over the right hip. No evidence of any ecchymosis. Slightly tender to palpation Psych affect normal Assessment & Plan Assessment/Plan (1) Fracture of hip, right, closed: QUALIFIERS: Encounter type: initial encounter Qualified Code(s): S72.001A - Fracture of unspecified part of neck of right femur, initial encounter for closed fracture PLAN: Status post mechanical fall. NQSIP risk calculator shows that patient is high risk for serious complication, any complication, pneumonia, cardiac complication, surgical site infection, UTI, VTE, readmission, and discharged to nursing or rehab facility. Despite that, patient is overall medically optimized to proceed with surgery. No additional work-up is necessary at this time. S.P right hip hemiarthroplasty on the . Follow up with Dr. Haddad in 2 weeks. PLAN: Plan Chronic conditions * Diabetes mellitus type 2: Sliding scale insulin * History of VTE: Continue with apixaban postoperatively. Hold until surgery can be performed. Patient last took on the at 1700. * Hypothyroidism: Continue with levothyroxine * Hypertension: Stable. Continue with metoprolol succinate and losartan. * ABELARDO: pt hypoxic overnight while she was sleeping. Advised for patient to have someone bring in CPAP to use. VTE prophylaxis back on apixaban Dispostion: to TCU pending insurance authorization. Charges/Coding Visit Charges Inpatient E&M: 96252 Subs Hosp L1
[2022-11-19] MEDS: FLUoxetine 10 MG Capsule PO (07:54)
[2022-11-19] MEDS: buPROPion (XL) 300 MG TABLET.XL PO (07:54)
[2022-11-19] MEDS: Pantoprazole Sodium 40 MG Tablet PO (07:54)
[2022-11-19] MEDS: Cholecalciferol (Vit D3) 125 MCG CAPSULE (5,000 UNITS) PO (07:55)
[2022-11-19 08:06] LABS: Hematocrit 28.6 % (37-47); Hemoglobin 8.1 g/dL (12.0-15.0); Mean Corp Hgb Conc 28.3 g/dL (32-36); Mean Corpuscular Hgb 25.4 pg (27.0-32.0); Mean Corpuscular Volume 89.7 fL (81-99); Mean Platelet Vol. 9.4 fl (6.2-12.0); Platelet Count 177 K/mm3 (150-450); RBC Distribution Width CV 14.2 % (11.6-14.6); RBC Distribution Width SD 46.4 fl (35.1-43.9); Red Blood Count 3.19 M/mm3 (4.2-5.4); White Blood Count 6.2 K/mm3 (4.4-11.0)
[2022-11-19 11:44] LABS: Bedside Glucose 131 mg/dL (74-106)
[2022-11-19] MEDS: Insulin Lispro 100 UNIT/ML INSULN.PEN SC (16:16)
[2022-11-19 16:37] LABS: Bedside Glucose 152 mg/dL (74-106)
[2022-11-19] MEDS: Atorvastatin Calcium 10 MG Tablet PO (21:51)
[2022-11-19] MEDS: MELATONIN 3 MG TABLET PO (21:51)
[2022-11-19] MEDS: amLODIPine 5 MG Tablet PO (21:51)
[2022-11-19 22:25] LABS: Bedside Glucose 139 mg/dL (74-106)
[2022-11-20] VITALS (8 sets, daily range): BP systolic 115–147; BP diastolic 54–69; PULSE 56–65; RESP 16–18; TEMP 36.5–37.1; O2SAT 94–98
[2022-11-20] MEDS: Acetaminophen 500 MG Tablet 1000 MG PO (01:01)
[2022-11-20] MEDS: oxyCODONE 5 MG Tablet 10 MG PO (01:02)
[2022-11-20] MEDS: Sucralfate 1 GM Tablet PO ×4 (06:04→21:47)
[2022-11-20] MEDS: Levothyroxine 50 MCG Tablet PO (06:04)
[2022-11-20 06:49] LABS: Bedside Glucose 105 mg/dL (74-106)
[2022-11-20] MEDS: Pramipexole Di-HCl 1 MG Tablet 1.5 MG PO (07:27)
[2022-11-20] MEDS: Tolterodine Tartrate 2 MG CAP.SA PO (07:27)
[2022-11-20] MEDS: Vitamin B Comp W-C Capsule 1 CAP PO (07:27)
[2022-11-20] MEDS: Senna/Docusate Sodium 1 Tablet 2 TABLET PO ×2 (07:27→21:48)
[2022-11-20] MEDS: buPROPion (XL) 300 MG TABLET.XL PO (07:28)
[2022-11-20] MEDS: FLUoxetine 10 MG Capsule PO (07:29)
[2022-11-20] MEDS: Folic Acid 1 MG Tablet PO (07:29)
[2022-11-20] MEDS: Mirabegron 25 MG TAB.ER.24H PO (07:29)
[2022-11-20] MEDS: Calcium Carbonate 500 MG Tablet PO ×3 (07:29→16:05)
[2022-11-20] MEDS: APIXABAN 5 MG TABLET PO ×2 (07:30→21:47)
[2022-11-20] MEDS: Cholecalciferol (Vit D3) 125 MCG CAPSULE (5,000 UNITS) PO (07:30)
[2022-11-20] MEDS: FINERENONE 10 MG TABLET PO (07:30)
[2022-11-20] MEDS: Metoprolol(XL)Succ 100 MG Tablet PO (07:31)
[2022-11-20] MEDS: Losartan Potassium 100 MG Tablet PO (07:31)
[2022-11-20] MEDS: Fluoxetine HCl 40 MG CAPSULE PO (07:31)
[2022-11-20] MEDS: Pantoprazole Sodium 40 MG Tablet PO (07:31)
[2022-11-20] MEDS: oxyCODONE 5 MG Tablet PO ×2 (07:38→21:49)
--- NOTE | 2022-11-20 07:38 | PN.HOSP_ITS ---
Reason for Visit Reason for Visit: Diagnoses Fracture of unspecified part of neck of right femur, initial encounter for clos ed fracture (11/14/22) Presence of unspecified artificial hip joint (11/14/22) Subjective Subjective No new issues. Pain in leg better. Objective Data Objective Data Vital Signs: Vital Signs Temp Pulse Resp BP Pulse Ox O2 Del Method O2 Flow Rate 36.6 C 58 L 18 147/55 H 96 Nasal Cannula 2 11/20/22 02:46 11/20/22 02:46 11/20/22 02:46 11/20/22 02:46 11/20/22 02:46 11/20/22 02:46 11/20/22 02:46 Oxygen Flow Rate (L/min) 2 Oxygen Delivery Method Nasal Cannula Weight: 112 kg Body Mass Index (BMI) 37.5 Intake & Output: Intake and Output for Last 24 Hours 11/18/22 11/19/22 11/20/22 23:59 23:59 23:59 Intake Total 1350 / 1350 1100 / 1100 Output Total 800 / 800 750 / 750 200 / 200 Balance 550 / 550 350 / 350 -200 / -200 Lab / Micro Data 11/19/22 07:50 11/17/22 07:35 Labs: Laboratory Results - last 24 hr 11/19/22 07:50: WBC 6.2, RBC 3.19 L, Hgb 8.1 L, Hct 28.6 L, MCV 89.7, MCH 25.4 L , MCHC 28.3 L, RDW Std Deviation 46.4 H, RDW Coeff of Quentin 14.2, Plt Count 177, MPV 9.4 11/19/22 10:59: POC Glucose 131 H 11/19/22 16:10: POC Glucose 152 H 11/19/22 21:46: POC Glucose 139 H 11/20/22 06:02: POC Glucose 105 Physical Exam Const alert and no apparent distress HEENT head/scalp atraumatic Neuro Sensorium / Orientation: awake and alert Assessment & Plan Assessment/Plan (1) Fracture of hip, right, closed: QUALIFIERS: Encounter type: initial encounter Qualified Code(s): S72.001A - Fracture of unspecified part of neck of right femur, initial encounter for closed fracture PLAN: Status post mechanical fall. NQSIP risk calculator shows that patient is high risk for serious complication, any complication, pneumonia, cardiac complication, surgical site infection, UTI, VTE, readmission, and discharged to nursing or rehab facility. Despite that, patient is overall medically optimized to proceed with surgery. No additional work-up is necessary at this time. S.P right hip hemiarthroplasty on the . Follow up with Dr. Haddad in 2 weeks. PLAN: Plan Chronic conditions * Diabetes mellitus type 2: Sliding scale insulin * History of VTE: Continue with apixaban postoperatively. Hold until surgery can be performed. Patient last took on the at 1700. * Hypothyroidism: Continue with levothyroxine * Hypertension: Stable. Continue with metoprolol succinate and losartan. * ABELARDO: pt hypoxic overnight while she was sleeping. Advised for patient to have someone bring in CPAP to use. VTE prophylaxis back on apixaban Dispostion: to TCU pending insurance authorization. Pt has been stable for discharge since the . Charges/Coding Visit Charges Inpatient E&M: 93830 Subs Hosp L1
[2022-11-20 11:16] LABS: Bedside Glucose 129 mg/dL (74-106)
[2022-11-20 16:24] LABS: Bedside Glucose 107 mg/dL (74-106)
[2022-11-20] MEDS: Atorvastatin Calcium 10 MG Tablet PO (21:47)
[2022-11-20] MEDS: amLODIPine 5 MG Tablet PO (21:48)
[2022-11-20] MEDS: MELATONIN 3 MG TABLET PO (21:51)
[2022-11-20 23:30] LABS: Bedside Glucose 147 mg/dL (74-106)
[2022-11-21] VITALS (7 sets, daily range): BP systolic 110–154; BP diastolic 43–58; PULSE 54–63; RESP 16–20; TEMP 36.4–36.8; O2SAT 91–97
[2022-11-21] MEDS: oxyCODONE 5 MG Tablet 10 MG PO ×4 (02:07→21:08)
[2022-11-21] MEDS: Levothyroxine 50 MCG Tablet PO (05:59)
[2022-11-21] MEDS: Sucralfate 1 GM Tablet PO ×4 (05:59→21:09)
[2022-11-21] MEDS: Acetaminophen 500 MG Tablet 1000 MG PO ×2 (06:00→13:11)
[2022-11-21 06:51] LABS: Bedside Glucose 117 mg/dL (74-106)
[2022-11-21] MEDS: Cholecalciferol (Vit D3) 125 MCG CAPSULE (5,000 UNITS) PO (08:10)
[2022-11-21] MEDS: Tolterodine Tartrate 2 MG CAP.SA PO (08:10)
[2022-11-21] MEDS: Senna/Docusate Sodium 1 Tablet 2 TABLET PO ×2 (08:10→21:09)
[2022-11-21] MEDS: Folic Acid 1 MG Tablet PO (08:11)
[2022-11-21] MEDS: Calcium Carbonate 500 MG Tablet PO ×3 (08:11→18:02)
[2022-11-21] MEDS: Fluoxetine HCl 40 MG CAPSULE PO (08:11)
[2022-11-21] MEDS: Vitamin B Comp W-C Capsule 1 CAP PO (08:11)
[2022-11-21] MEDS: FLUoxetine 10 MG Capsule PO (08:11)
[2022-11-21] MEDS: Pantoprazole Sodium 40 MG Tablet PO (08:11)
[2022-11-21] MEDS: APIXABAN 5 MG TABLET PO ×2 (08:12→21:10)
[2022-11-21] MEDS: Mirabegron 25 MG TAB.ER.24H PO (08:12)
[2022-11-21] MEDS: FINERENONE 10 MG TABLET PO (08:12)
[2022-11-21] MEDS: Pramipexole Di-HCl 1 MG Tablet 1.5 MG PO (08:13)
[2022-11-21] MEDS: buPROPion (XL) 300 MG TABLET.XL PO (08:13)
--- NOTE | 2022-11-21 09:15 | PN.HOSP_ITS ---
Reason for Visit Reason for Visit: Diagnoses Fracture of unspecified part of neck of right femur, initial encounter for clos ed fracture (11/14/22) Presence of unspecified artificial hip joint (11/14/22) Subjective Subjective Patient is a 72-year-old lady admitted following a 4 found to have displaced fracture involving the right femoral neck underwent ORIF on 11/14/2022 Objective Data Objective Data Vital Signs: Vital Signs Temp Pulse Resp BP Pulse Ox O2 Del Method O2 Flow Rate 97.7 F L 54 L 18 110/43 L 97 Room Air 2 11/21/22 07:59 11/21/22 08:10 11/21/22 07:59 11/21/22 08:10 11/21/22 08:03 11/21/22 08:03 11/21/22 02:10 Oxygen Flow Rate (L/min) 2 Oxygen Delivery Method Room Air Weight: 112 kg Body Mass Index (BMI) 37.5 Intake & Output: Intake and Output for Last 24 Hours 11/19/22 11/20/22 11/21/22 23:59 23:59 23:59 Intake Total 1100 / 1100 850 / 850 500 / 500 Output Total 750 / 750 200 / 200 250 / 250 Balance 350 / 350 650 / 650 250 / 250 Lab / Micro Data 11/19/22 07:50 11/17/22 07:35 Labs: Laboratory Results - last 24 hr 11/20/22 10:58: POC Glucose 129 H 11/20/22 16:05: POC Glucose 107 H 11/20/22 21:45: POC Glucose 147 H 11/21/22 05:58: POC Glucose 117 H Physical Exam Narrative GENERAL: cooperative HEENT: Atraumatic; normocephalic EYES; Anicteric, Normal Conjunctiva NECK; supple, normal thyroid, RESPIRATORY: Diminished to auscultation CARDIOVASCULAR: Regular S1 S2, GI: soft, normoactive bowel sounds, : No Renal angle tenderness; EXTREMITIES: No edema, no clubbing, MUSCULOSKELETAL: no muscle wasting NEURO: Awake; no lateralizing signs. SKIN: No Rash PSYCH; Flat affect Assessment & Plan Assessment/Plan (1) S/P hip hemiarthroplasty: (2) Displaced fracture of right femoral neck: PLAN: Plan Patient is a 72-year-old lady admitted following a 4 found to have displaced fracture involving the right femoral neck underwent ORIF on 11/14/2022 1. Fall with right femoral neck fracture ? Patient underwent right hemiarthroplasty on 11/14/2022 2. Physical deconditioning -Following patient for which right neck fracture with subsequent surgical intervention. Requested for PT OT eval and social sciences instructor to assist with discharge planning 3. Hypertension - Blood pressure controlled, home medications continued with dose adjustment as needed 4. Class II obesity with BMI of 37.5 ? Weight loss advised 5. Hypothyroidism - Patient is on levothyroxine home dose continued 6. Restless leg syndrome ? Patient is on ropinirole 7. 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 Patient is on apixaban resumed 8. Obstructive sleep apnea ? CPAP at night 9. Diabetes mellitus type 2 ? Please on Accu-Cheks before meals and at bedtime with sliding scale coverage 10. Depression with anxiety ? Patient's prophylaxis to continue 11. DVT prophylaxis ? Patient currently on apixaban Time spent in the patient's overall evaluation,decision-making process, review of diagnostic data, adjustment of management, discussion with other providers, nursing nursing and ancillary staff involved in patient's care documentation,35 Minutes Charges/Coding Visit Charges Inpatient E&M: 91464 Subs Hosp L2
[2022-11-21 11:47] LABS: Bedside Glucose 114 mg/dL (74-106)
[2022-11-21 16:49] LABS: Bedside Glucose 116 mg/dL (74-106)
--- NOTE | 2022-11-21 17:09 | CASEMGMT ---
Social Work SW followed up with TCU regarding precert. TCU has not received precert and has contacted insurance to follow-up. SW to follow up with TCU tomorrow. Faby Decker ANIMAL CONTROL SUPERVISOR, BECK TENDER
[2022-11-21] MEDS: MELATONIN 3 MG TABLET PO (21:08)
[2022-11-21] MEDS: Atorvastatin Calcium 10 MG Tablet PO (21:10)
[2022-11-21] MEDS: amLODIPine 5 MG Tablet PO (21:11)
[2022-11-21 21:49] LABS: Bedside Glucose 119 mg/dL (74-106)
[2022-11-22] VITALS (7 sets, daily range): BP systolic 139–155; BP diastolic 53–70; PULSE 60–64; RESP 16–18; TEMP 36.7–37.2; O2SAT 94–97
[2022-11-22] MEDS: Levothyroxine 50 MCG Tablet PO (06:20)
[2022-11-22] MEDS: Sucralfate 1 GM Tablet PO ×2 (06:21→11:58)
[2022-11-22 06:54] LABS: Bedside Glucose 163 mg/dL (74-106)
--- NOTE | 2022-11-22 07:21 | PN.HOSP_ITS ---
Reason for Visit Reason for Visit: Diagnoses Fracture of unspecified part of neck of right femur, initial encounter for clos ed fracture (11/14/22) Presence of unspecified artificial hip joint (11/14/22) Subjective Subjective Patient seen awaiting transfer to halfway facility. Hemoglobin down to 8.8 Objective Data Objective Data Vital Signs: Vital Signs Temp Pulse Resp BP Pulse Ox O2 Del Method O2 Flow Rate 98.0 F 60 16 139/63 H 94 CPAP 2 11/22/22 05:00 11/22/22 05:00 11/22/22 05:00 11/22/22 05:00 11/22/22 05:00 11/22/22 05:00 11/21/22 02:10 Oxygen Flow Rate (L/min) 2 Oxygen Delivery Method CPAP Weight: 112 kg Body Mass Index (BMI) 37.5 Intake & Output: Intake and Output for Last 24 Hours 11/20/22 11/21/22 11/22/22 23:59 23:59 23:59 Intake Total 850 / 850 500 / 500 Output Total 200 / 200 250 / 250 Balance 650 / 650 250 / 250 Lab / Micro Data 11/22/22 09:35 11/17/22 07:35 Labs: Laboratory Results - last 24 hr 11/21/22 11:17: POC Glucose 114 H 11/21/22 16:17: POC Glucose 116 H 11/21/22 21:08: POC Glucose 119 H 11/22/22 06:16: POC Glucose 163 H Physical Exam Narrative GENERAL: cooperative HEENT: Atraumatic; normocephalic EYES; Anicteric, Normal Conjunctiva NECK; supple, normal thyroid, RESPIRATORY: Diminished to auscultation CARDIOVASCULAR: Regular S1 S2, GI: soft, normoactive bowel sounds, : No Renal angle tenderness; EXTREMITIES: No edema, no clubbing, MUSCULOSKELETAL: no muscle wasting NEURO: Awake; no lateralizing signs. SKIN: No Rash PSYCH; Flat affect Assessment & Plan Assessment/Plan (1) S/P hip hemiarthroplasty: (2) Displaced fracture of right femoral neck: PLAN: Plan Patient is a 72-year-old lady admitted following a 4 found to have displaced fracture involving the right femoral neck underwent ORIF on 11/14/2022 1. Fall with right femoral neck fracture ? Patient underwent right hemiarthroplasty on 11/14/2022 2. Physical deconditioning -Following patient for which right neck fracture with subsequent surgical intervention. Requested for PT OT eval and director of social media marketing to assist with discharge planning 3. Hypertension - Blood pressure controlled, home medications continued with dose adjustment as needed 4. Class II obesity with BMI of 37.5 ? Weight loss advised 5. Hypothyroidism - Patient is on levothyroxine home dose continued 6. Restless leg syndrome ? Patient is on ropinirole 7. 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 Patient is on apixaban resumed 8. Obstructive sleep apnea ? CPAP at night 9. Diabetes mellitus type 2 ? Please on Accu-Cheks before meals and at bedtime with sliding scale coverage 10. Depression with anxiety ? Patient's prophylaxis to continue 11. DVT prophylaxis ? Patient currently on apixaban 12. Anemia ? Secondary to combination of acute blood loss anemia following surgery as well as anemia of chronic disorder monitoring H&H with plans to transfuse if patient becomes symptomatic or hemoglobin falls below 7 Time spent in the patient's overall evaluation,decision-making process, review of diagnostic data, adjustment of management, discussion with other providers, nursing nursing and ancillary staff involved in patient's care documentation,35 Minutes Charges/Coding Visit Charges Inpatient E&M: 40724 Subs Hosp L2
[2022-11-22] MEDS: oxyCODONE 5 MG Tablet 10 MG PO ×2 (07:45→15:08)
[2022-11-22] MEDS: Acetaminophen 500 MG Tablet 1000 MG PO (07:45)
[2022-11-22] MEDS: Calcium Carbonate 500 MG Tablet PO ×2 (08:36→11:58)
[2022-11-22] MEDS: Folic Acid 1 MG Tablet PO (08:36)
[2022-11-22] MEDS: FLUoxetine 10 MG Capsule PO (08:36)
[2022-11-22] MEDS: Fluoxetine HCl 40 MG CAPSULE PO (08:37)
[2022-11-22] MEDS: Senna/Docusate Sodium 1 Tablet 2 TABLET PO (08:37)
[2022-11-22] MEDS: Pantoprazole Sodium 40 MG Tablet PO (08:37)
[2022-11-22] MEDS: Losartan Potassium 100 MG Tablet PO (08:37)
[2022-11-22] MEDS: Tolterodine Tartrate 2 MG CAP.SA PO (08:37)
[2022-11-22] MEDS: Mirabegron 25 MG TAB.ER.24H PO (08:38)
[2022-11-22] MEDS: buPROPion (XL) 300 MG TABLET.XL PO (08:38)
[2022-11-22] MEDS: Vitamin B Comp W-C Capsule 1 CAP PO (08:38)
[2022-11-22] MEDS: Pramipexole Di-HCl 1 MG Tablet 1.5 MG PO (08:39)
[2022-11-22] MEDS: FINERENONE 10 MG TABLET PO (08:39)
[2022-11-22] MEDS: Cholecalciferol (Vit D3) 125 MCG CAPSULE (5,000 UNITS) PO (08:39)
[2022-11-22] MEDS: APIXABAN 5 MG TABLET PO (08:39)
[2022-11-22] MEDS: Metoprolol(XL)Succ 100 MG Tablet PO (08:40)
[2022-11-22 10:02] LABS: Absolute Lymphocyte Count 1.24 X10^3/uL (0.83-4.51); Absolute Neutrophil Count 3.9 X10^3/uL (2.0-7.7); Basophil# 0.03 X10^3/uL; Basophil% 0.5 % (0-1); Eosinophil# 0.24 X10^3/uL; Eosinophils% 4.1 % (0-5); Hemoglobin 8.8 g/dL (12.0-15.0); Lymphocyte # 1.24 X10^3/ul (0.83-4.51); Lymphocyte % 21.2 % (19-41); Mean Corp Hgb Conc 30.3 g/dL (32-36); Mean Corpuscular Hgb 25.8 pg (27.0-32.0); Mean Platelet Vol. 9.1 fl (6.2-12.0); Monocyte# 0.33 X10^3/uL; Monocyte% 5.6 % (0-10); NRBC Flagged by Analyzer 0 % (0-5); Neutrophil # 3.92 X10^3/uL (2.7-7.7); Neutrophil % 67.1 % (47-70); Platelet Count 308 K/mm3 (150-450); RBC Distribution Width CV 14.2 % (11.6-14.6); RBC Distribution Width SD 43.9 fl (35.1-43.9); Red Blood Count 3.41 M/mm3 (4.2-5.4); White Blood Count 5.9 K/mm3 (4.4-11.0)
[2022-11-22 10:18] LABS: Anion Gap 4 (5-15); BUN 20 mg/dL (7-18); Calcium,Total 8.5 mg/dL (8.5-10.1); Chloride 109 mmol/L (98-107); Creatinine, Serum 0.83 mg/dL (0.55-1.02); EST Glomerular Filtration Rate 71 mL/min (>60); Est Glom Filt Rate - Afr Amer 86 mL/min (>60); Glucose 132 mg/dL (74-106); Potassium 4.1 mmol/L (3.5-5.1); Sodium Level 142 mmol/L (136-145)
--- NOTE | 2022-11-22 12:00 | CASEMGMT ---
Social Work SW received call from Ayla of TCU, patient precert has been approved for TCU. Physician and patient notified. Plan: Patient to d/c to TCU today. Faby Decker MSW, RECONCILIATION COORDINATOR
[2022-11-22 12:04] LABS: Bedside Glucose 116 mg/dL (74-106)
--- NOTE | 2022-11-22 12:34 | PCM.TXEXTCAR ---
Diet Diet Order/Speech Therapy: 11/17/22 07:41 Diet: Consistent Carb - Calorie Controlled Dietary Modifications:: Consistent Carbohydrate Cardiac / Heart Healthy Is pt able to select menu?: Yes How many daily calories?: 1800 calorie Routine Orders/Code Status Code Status: Full Code Wound(s) RIGHT HIP: Wound Type: Surgical Incision Therapies Physical Therapy: Eval and Treat Occupational Therapy: Eval and Treat Problem/Diagnosis (1) S/P hip hemiarthroplasty: Status: Acute Code(s): Z96.649 - Presence of unspecified artificial hip joint (2) Displaced fracture of right femoral neck: Status: Acute Code(s): S72.001A - Fracture of unspecified part of neck of right femur, initial encounter for closed fracture Plan Patient is a 72-year-old lady admitted following a 4 found to have displaced fracture involving the right femoral neck underwent ORIF on 11/14/2022 1. Fall with right femoral neck fracture ? Patient underwent right hemiarthroplasty on 11/14/2022 2. Physical deconditioning -Following patient for which right neck fracture with subsequent surgical intervention. Requested for PT OT eval and outreach and education social worker to assist with discharge planning 3. Hypertension - Blood pressure controlled, home medications continued with dose adjustment as needed 4. Class II obesity with BMI of 37.5 ? Weight loss advised 5. Hypothyroidism - Patient is on levothyroxine home dose continued 6. Restless leg syndrome ? Patient is on ropinirole 7. 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 Patient is on apixaban resumed 8. Obstructive sleep apnea ? CPAP at night 9. Diabetes mellitus type 2 ? Please on Accu-Cheks before meals and at bedtime with sliding scale coverage 10. Depression with anxiety ? Patient's prophylaxis to continue 11. DVT prophylaxis ? Patient currently on apixaban 12. Anemia ? Secondary to combination of acute blood loss anemia following surgery as well as anemia of chronic disorder monitoring H&H with plans to transfuse if patient becomes symptomatic or hemoglobin falls below 7 Time spent in the patient's overall evaluation,decision-making process, review of diagnostic data, adjustment of management, discussion with other providers, nursing nursing and ancillary staff involved in patient's care documentation,35 Minutes Allergies/Procedures Done in Hospital Allergies cephalexin [From Keflex] Allergy (Verified 11/14/22 11:51) Rash clindamycin Allergy (Verified 11/14/22 11:51) Anaphylaxis vancomycin Allergy (Verified 11/14/22 11:51) Rash Procedures: - (right hip hemiarthroplasty) Type of Care/Length of Stay Estimated LOS: Convalescent Care Less Than 30 days Type of Care Needed: Skilled Rehab Potential: Good Prognosis: Good Additional Orders/Day of Discharge Day of Discharge: 11/22/22 Dietary and Speech Recommendations Dietitian Recommendations/Changes: Will change diet to 1800 dariana Cardiac to better meet pt est nutritional needs Available if pt desires diet education Discharge Plan Admission Admit Date/Time: 11/14/22 12:37 Primary Reason for Your Visit: Right hip fracture Attending Provider: Darinel Cantu Primary Care Provider: Erik Gomez Consulting Providers: Surekha Neely; Brett Abrams Discharge Orders/Prescriptions Prescriptions: New oxycodone 5 mg Tablet 5 mg PO Q4H PRN PRN (Reason: Pain Score 4-5) 3 Days Qty: 12 0RF Continued mirabegron 25 mg tablet extended release 24 hr 25 mg PO DAILY bupropion HCl 150 MG tablet extended release 24 hr 300 mg PO DAILY atorvastatin 10 MG tablet 10 mg PO QHS apixaban 5 MG tablet 5 mg PO BID pantoprazole [Protonix] 40 mg Tablet,Delayed Release (Dr/Ec) 40 mg PO DAILY folic acid 1 mg Tablet 1 mg PO DAILY vitamin B complex Capsule 1 cap PO DAILY Patient Comments: SUPER B COMPLEX cholecalciferol (vitamin D3) [Vitamin D3] 125 mcg (5,000 unit) Tablet 125 mcg PO DAILY acetaminophen 500 mg Tablet 1,000 mg PO Q6H PRN PRN (Reason: Pain Score 1-3) Qty: 0 0RF nystatin [Nyamyc] 100,000 unit/gram Powder 1 applic topical BID Qty: 0 0RF Protocol: *Topical Application Instructions APPLICATION INSTRUCTIONS: UNDER ABDOMINAL FOLDS/GROIN losartan 100 mg Tablet 100 mg PO DAILY 30 Days Qty: 30 0RF metoprolol succinate 25 mg tablet extended release 24 hr 100 mg PO DAILY Kerendia 10 mg Tablet 10 mg PO DAILY fluoxetine 40 mg capsule 40 mg PO DAILY Patient Comments: PT TAKES A 10 MG AND 40 MG CAPSULE TO MAKE 50 MG TOTAL DOSE fluoxetine 10 mg capsule 10 mg PO DAILY Patient Comments: PT TAKES A 10 MG AND 40 MG CAPSULE TO MAKE 50 MG TOTAL DOSE oxybutynin chloride 10 mg tablet extended release 24hr 10 mg PO DAILY sucralfate 1 gram tablet 1 g PO ACHS ropinirole 3 mg tablet 3 mg PO DAILY Patient Comments: PT STATES TAKES MORE THAN ONE IT DOES NOT HELP amlodipine 5 mg tablet 5 mg PO QHS levothyroxine [Synthroid] 50 mcg tablet 50 mcg PO DAILY Gemtesa 75 mg tablet 75 mg PO DAILY Patient Comments: take 1 tablet by mouth once daily Referrals / Follow Up: Bigg Haddad DO [Med Staff - Active Staff] - Within 2 Weeks Erik Gomez DO [Primary Care Provider] - Within 2 Weeks Disposition Disposition (needs filled in before D/C Order can be placed): Long Term Facility
--- NOTE | 2022-11-22 12:47 | DS.PCM_ITS ---
Providers Date of Admission: 11/14/22 Date of Discharge: 11/22/22 Primary Care Physician: Dr. Erik Gomez, DO Consultations 11/14/22 13:52 Consult: Orthopedics Routine Consulting Provider: Surekha Neely Reason for Consult: right hip fracture EMERGENT Consult: No MD Notified: Yes Date Notified: 11/14/22 Time Notified: 14:39 Method of Notification: Verbal Reason For Visit: RIGHT HIP FRACTURE Diagnosis Discharge Diagnosis (1) S/P hip hemiarthroplasty: Status: Acute Code(s): Z96.649 - Presence of unspecified artificial hip joint (2) Displaced fracture of right femoral neck: Status: Acute Code(s): S72.001A - Fracture of unspecified part of neck of right femur, initial encounter for closed fracture Plan Patient is a 72-year-old lady admitted following a 4 found to have displaced fracture involving the right femoral neck underwent ORIF on 11/14/2022 1. Fall with right femoral neck fracture ? Patient underwent right hemiarthroplasty on 11/14/2022 2. Physical deconditioning -Following patient for which right neck fracture with subsequent surgical intervention. Requested for PT OT eval and social work professor to assist with discharge planning 3. Hypertension - Blood pressure controlled, home medications continued with dose adjustment as needed 4. Class II obesity with BMI of 37.5 ? Weight loss advised 5. Hypothyroidism - Patient is on levothyroxine home dose continued 6. Restless leg syndrome ? Patient is on ropinirole 7. 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 Patient is on apixaban resumed 8. Obstructive sleep apnea ? CPAP at night 9. Diabetes mellitus type 2 ? Please on Accu-Cheks before meals and at bedtime with sliding scale coverage 10. Depression with anxiety ? Patient's prophylaxis to continue 11. DVT prophylaxis ? Patient currently on apixaban 12. Anemia ? Secondary to combination of acute blood loss anemia following surgery as well as anemia of chronic disorder monitoring H&H with plans to transfuse if patient becomes symptomatic or hemoglobin falls below 7 Time spent in the patient's overall evaluation,decision-making process, review of diagnostic data, adjustment of management, discussion with other providers, nursing nursing and ancillary staff involved in patient's care documentation,35 Minutes Medications at Discharge Home Medications bupropion HCl 150 mg 24 hr tablet, extended release 300 mg PO DAILY anxiety 05/10/13 atorvastatin 10 mg tablet 10 mg PO QHS cholesterol lowering 11/27/19 apixaban 5 mg tablet 5 mg PO BID blood thinner 12/26/19 cholecalciferol (vitamin D3) 125 mcg (5,000 unit) tablet (Vitamin D3) 125 mcg PO DAILY supplement 11/02/20 folic acid 1 mg tablet 1 mg PO DAILY supplement 11/02/20 pantoprazole 40 mg tablet,delayed release (Protonix) 40 mg PO DAILY GERD 11/02/20 vitamin B complex 1 cap PO DAILY supplement 11/02/20 acetaminophen 500 mg tablet 1,000 mg (2 x 500 mg) PO Q6H PRN PRN Pain Score 1-3 #0 tabs 11/19/20 losartan 100 mg tablet 100 mg PO DAILY 30 days #30 tabs 11/19/20 nystatin 100,000 unit/gram topical powder (Nyamyc) 1 applic topical BID #0 grams 11/19/20 metoprolol succinate 25 mg tablet,extended release 24 hr 100 mg PO DAILY blood pressure 02/01/21 finerenone 10 mg tablet (Kerendia) 10 mg PO DAILY 03/26/21 mirabegron 25 mg tablet,extended release 24 hr 25 mg PO DAILY OAB 05/31/21 amlodipine 5 mg tablet 5 mg PO QHS BP 11/14/22 fluoxetine 10 mg capsule 10 mg PO DAILY DEPRESSION 11/14/22 fluoxetine 40 mg capsule 40 mg PO DAILY DEPRESSION 11/14/22 levothyroxine 50 mcg tablet (Synthroid) 50 mcg PO DAILY THYROID 11/14/22 oxybutynin chloride 10 mg tablet,extended release 24 hr 10 mg PO DAILY OAB 11/14/22 ropinirole 3 mg tablet 3 mg PO DAILY RLS 11/14/22 sucralfate 1 gram tablet 1 g PO ACHS GERD 11/14/22 vibegron 75 mg tablet (Gemtesa) 75 mg PO DAILY 11/14/22 oxycodone 5 mg tablet 5 mg PO Q4H PRN PRN Pain Score 4-5 3 days #12 tabs 11/18/22 Hospital Course Summary of Care Provided Minutes Spent on Discharge: 35 Physical Exam Narrative GENERAL: cooperative HEENT: Atraumatic; normocephalic EYES; Anicteric, Normal Conjunctiva NECK; supple, normal thyroid, RESPIRATORY: Diminished to auscultation CARDIOVASCULAR: Regular S1 S2, GI: soft, normoactive bowel sounds, : No Renal angle tenderness; EXTREMITIES: No edema, no clubbing, MUSCULOSKELETAL: no muscle wasting NEURO: Awake; no lateralizing signs. SKIN: No Rash PSYCH; Flat affect Weight / BMI Weight Weight: 112 kg Body Mass Index (BMI) 37.5 ABG / Lab / Microbiology Data 11/22/22 09:35 11/22/22 09:35 Laboratory: Laboratory Results - last 24 hr 11/21/22 16:17: POC Glucose 116 H 11/21/22 21:08: POC Glucose 119 H 11/22/22 06:16: POC Glucose 163 H 11/22/22 09:35: WBC 5.9, RBC 3.41 L, Hgb 8.8 L, Hct 29.0 L, MCV 85.0 D, MCH 25.8 L, MCHC 30.3 L D, RDW Std Deviation 43.9, RDW Coeff of Quentin 14.2, Plt Count 308, MPV 9.1, Immature Gran % (Auto) 1.500 H, Neut % (Auto) 67.1, Lymph % (Auto) 21.2, [place] % (Auto) 5.6, Eos % (Auto) 4.1, Baso % (Auto) 0.5, Absolute Neuts (auto) 3.9, Absolute Lymphs (auto) 1.24, Nucleated RBC % 0, Sodium 142, Potassium 4.1, Chloride 109 H, Carbon Dioxide 29.0, Anion Gap 4 L, BUN 20 H, Creatinine 0.83, Estim Creat Clear Calc 60.90, Est GFR (MDRD) Af Amer 86, Est GFR (MDRD) Non-Af 71, BUN/Creatinine Ratio 24.0 H, Glucose 132 H, Calcium 8.5, Magnesium 2.0 11/22/22 11:46: POC Glucose 116 H D/C Instructions Discharge Diet: No restrictions Discharge Activity: Return to Normal Activity Call your doctor if you observe: Fever of 101 or Higher, Shortness of breath, Fainting spells and Chest pain Meaningful Use Info Meaningful Use Diagnoses (Choose all that apply): None applicable Discharge Plan Admission Admit Date/Time: 11/14/22 12:37 Primary Reason for Your Visit: Right hip fracture Attending Provider: Darinel Cantu Primary Care Provider: Erik Gomez Consulting Providers: Surekha Neely; Brett Abrams Discharge Orders/Prescriptions Prescriptions: New oxycodone 5 mg Tablet 5 mg PO Q4H PRN PRN (Reason: Pain Score 4-5) 3 Days Qty: 12 0RF Continued mirabegron 25 mg tablet extended release 24 hr 25 mg PO DAILY bupropion HCl 150 MG tablet extended release 24 hr 300 mg PO DAILY atorvastatin 10 MG tablet 10 mg PO QHS apixaban 5 MG tablet 5 mg PO BID pantoprazole [Protonix] 40 mg Tablet,Delayed Release (Dr/Ec) 40 mg PO DAILY folic acid 1 mg Tablet 1 mg PO DAILY vitamin B complex Capsule 1 cap PO DAILY Patient Comments: SUPER B COMPLEX cholecalciferol (vitamin D3) [Vitamin D3] 125 mcg (5,000 unit) Tablet 125 mcg PO DAILY acetaminophen 500 mg Tablet 1,000 mg PO Q6H PRN PRN (Reason: Pain Score 1-3) Qty: 0 0RF nystatin [Nyamyc] 100,000 unit/gram Powder 1 applic topical BID Qty: 0 0RF Protocol: *Topical Application Instructions APPLICATION INSTRUCTIONS: UNDER ABDOMINAL FOLDS/GROIN losartan 100 mg Tablet 100 mg PO DAILY 30 Days Qty: 30 0RF metoprolol succinate 25 mg tablet extended release 24 hr 100 mg PO DAILY Kerendia 10 mg Tablet 10 mg PO DAILY fluoxetine 40 mg capsule 40 mg PO DAILY Patient Comments: PT TAKES A 10 MG AND 40 MG CAPSULE TO MAKE 50 MG TOTAL DOSE fluoxetine 10 mg capsule 10 mg PO DAILY Patient Comments: PT TAKES A 10 MG AND 40 MG CAPSULE TO MAKE 50 MG TOTAL DOSE oxybutynin chloride 10 mg tablet extended release 24hr 10 mg PO DAILY sucralfate 1 gram tablet 1 g PO ACHS ropinirole 3 mg tablet 3 mg PO DAILY Patient Comments: PT STATES TAKES MORE THAN ONE IT DOES NOT HELP amlodipine 5 mg tablet 5 mg PO QHS levothyroxine [Synthroid] 50 mcg tablet 50 mcg PO DAILY Gemtesa 75 mg tablet 75 mg PO DAILY Patient Comments: take 1 tablet by mouth once daily Referrals / Follow Up: Bigg Haddad DO [Med Staff - Active Staff] - Within 2 Weeks Erik Gomez DO [Primary Care Provider] - Within 2 Weeks Disposition Disposition (needs filled in before D/C Order can be placed): Intermediate Facility Charges/Coding Visit Charges Inpatient E&M: 50574 Disch Hosp >30min
== END 2022-11-22 15:24 | disposition skilled nursing facility (03) | DRG 522 ==
LOC: ED 12:07 → MS3 12:47
PROVIDERS: Anesthesiology; Orthopaedic Surgery; Emergency Provider Emergency Medicine; PCP Student in an Organized Health Care Education/Training Program; Visit Provider Internal Medicine
PROC: 0SRR0JA Replacement of Right Hip Joint, Femoral Surface with Synthetic Substitute, Uncemented, Open Approach (ICD-10-PCS; CPT 27125; principal; 2022-11-16 14:10)
DX: S72.011A Unspecified intracapsular fracture of right femur, initial encounter for closed fracture (principal); E66.01 Morbid (severe) obesity due to excess calories; E03.9 Hypothyroidism, unspecified; E11.9 Type 2 diabetes mellitus without complications; Z79.4 Long term (current) use of insulin; I10 Essential (primary) hypertension; G25.81 Restless legs syndrome; F32.A Depression, unspecified; G47.33 Obstructive sleep apnea (adult) (pediatric); F41.9 Anxiety disorder, unspecified; W18.39XA Other fall on same level, initial encounter; Z96.642 Presence of left artificial hip joint; Z68.37 Body mass index [BMI] 37.0-37.9, adult; Z79.01 Long term (current) use of anticoagulants; Z79.899 Other long term (current) drug therapy; Z86.711 Personal history of pulmonary embolism
CPT/HCPCS: 36415; 70450; 73502; 80048; 80053; 82306; 82962; 83036; 83735; 84443; 85025; 85027; 85610; 85730; 86850; 86900; 86901; 88307; 88311; 93005; 94640; 94762; 97110; 97162; 97166; 97530; 97535; 99285; J7030; J7120; A4216; J2405

== ENCOUNTER 2022-11-22 15:30 | Inpatient (IN) | payer MEDICARE, SELFPAY ==
[2022-11-22 15:42] VITALS: BP 139/55; PULSE 68; RESP 14; TEMP 36.7; O2SAT 95; BMI 39.1
[2022-11-22 15:53] VITALS: BMI 38.9
--- NOTE | 2022-11-22 19:36 | PCM.HP.STD ---
HPI - General General Date of Admission: 11/22/22 Date of Service: 11/22/22 Chief Complaint: Here for rehabilitation. HPI Narrative 11/14/2022 DWAIN BILLINGSLEY, is a 72 Female who presents to [facility] Emergency Department with fall, right hip injury. Walking with walker, lost balance, fell on hard floor, hurt right hip. On Eliquis for pulmonary embolism, prior left hip fracture requiring replacement. Fentanyl, Zofran given. X-ray shows right hip fracture. 11/14/2022 Admit to Hospital. Prepare for surgery, Hold Eliquis for surgery. 11/15/2022 Groggy this AM. Medically optimized for surgery, high risk for surgery. 11/16/2022 Dr. Haddad performed right hip hemiarthroplasty. 11/17/2022 CPAP intolerable. Eliquis for DVT prophylaxis. Bring in home CPAP to use in hospital. 11/18/2022 Feels well, no events. TCU pending Pre-CERT. 11/19/2022 Right hip pain with standing. 11/20/2022 Right leg pain better. 11/21/2022 PT/OT. Eliquis DVT prophylaxis. 11/22/2022 Admit to TCU with debility, here for rehabilitation, strengthening, prior to discharge home with . [facility] Medical History (Updated 11/22/22 @ 19:[address] Ramiro Melchor MD) Anxiety blood clots BMI greater than 40 CPAP (continuous positive airway pressure) dependence Diabetes DVT (deep venous thrombosis) Femoral neck fracture Femur fracture History of left knee replacement Hyperlipidemia Hypertension Hypothyroidism Kidney disease Morbid obesity Pulmonary embolism Home Medications bupropion HCl 150 mg 24 hr tablet, extended release 300 mg PO DAILY anxiety 05/10/13 [History Last Taken 11/13/22] atorvastatin 10 mg tablet 10 mg PO QHS cholesterol lowering 11/27/19 [History Last Taken 11/13/22] apixaban 5 mg tablet 5 mg PO BID blood thinner 12/26/19 [History Last Taken 11/13/22] cholecalciferol (vitamin D3) 125 mcg (5,000 unit) tablet (Vitamin D3) 125 mcg PO DAILY supplement 11/02/20 [History Last Taken 11/13/22] folic acid 1 mg tablet 1 mg PO DAILY supplement 11/02/20 [History Last Taken 11/13/22] pantoprazole 40 mg tablet,delayed release (Protonix) 40 mg PO DAILY GERD 11/02/20 [History Last Taken 11/13/22] vitamin B complex 1 cap PO DAILY supplement 11/02/20 [History Last Taken 11/13/22] acetaminophen 500 mg tablet 1,000 mg (2 x 500 mg) PO Q6H PRN PRN Pain Score 1-3 #0 tabs 11/19/20 [Rx Last Taken Unknown] losartan 100 mg tablet 100 mg PO DAILY BP 30 days #30 tabs 11/19/20 [Rx Last Taken 11/13/22] nystatin 100,000 unit/gram topical powder (Nyamyc) 1 applic topical BID antifungal #0 grams 11/19/20 [Rx Last Taken 11/13/22] metoprolol succinate 25 mg tablet,extended release 24 hr 100 mg PO DAILY blood pressure 02/01/21 [History Last Taken 11/13/22] finerenone 10 mg tablet (Kerendia) 10 mg PO DAILY chronic kidney disease 03/26/21 [History Last Taken 11/13/22] mirabegron 25 mg tablet,extended release 24 hr 25 mg PO DAILY OAB 05/31/21 [History Last Taken 11/13/22] amlodipine 5 mg tablet 5 mg PO QHS BP 11/14/22 [History Last Taken 11/13/22] fluoxetine 10 mg capsule 10 mg PO DAILY DEPRESSION 11/14/22 [History Last Taken 11/13/22] fluoxetine 40 mg capsule 40 mg PO DAILY DEPRESSION 11/14/22 [History Last Taken 11/13/22] levothyroxine 50 mcg tablet (Synthroid) 50 mcg PO DAILY THYROID 11/14/22 [History Last Taken 11/13/22] oxybutynin chloride 10 mg tablet,extended release 24 hr 10 mg PO DAILY OAB 11/14/22 [History Last Taken 11/13/22] ropinirole 3 mg tablet 3 mg PO DAILY RLS 11/14/22 [History Last Taken 11/13/22] sucralfate 1 gram tablet 1 g PO ACHS GERD 11/14/22 [History Last Taken 11/13/22] vibegron 75 mg tablet (Gemtesa) 75 mg PO DAILY bladder 11/14/22 [History Last Taken 11/13/22] oxycodone 5 mg tablet 5 mg PO Q4H PRN PRN Pain Score 4-5 3 days #12 tabs 11/18/22 [Rx Last Taken Unknown] Allergy/AdvReac Type Severity Reaction Status Date / Time cephalexin [From Keflex] Allergy Rash Verified 11/14/22 11:51 clindamycin Allergy Anaphylaxis Verified 11/14/22 11:51 vancomycin Allergy Rash Verified 11/14/22 11:51 Family History Other No pertinent family history Surgical History History of bilateral cataract extraction History of section History of left hip hemiarthroplasty Hx of foot surgery Social History household members: spouse Smoking Status: Never smoker alcohol intake: never substance use type: does not use ROS Constitutional Constitutional: Denies chills, fever(s) or weight gain ENT HEENT: Denies headache(s), nasal congestion or nasal discharge Cardiovascular Cardiovascular: Denies chest pain or palpitations Respiratory/Chest Respiratory/Chest: Denies cough, excessive phlegm production or shortness of breath with exertion Gastrointestinal Gastrointestinal: Denies abdominal pain, nausea or vomiting Genitourinary Genitourinary: Denies dysuria Musculoskeletal Musculoskeletal: Denies joint pain or joint swelling Integumentary Integumentary: Denies rash or wounds Neurologic Neurologic: Denies focal weakness, numbness or tingling Psychiatric Psychiatric: Denies anxiety, auditory hallucinations, depression, homicidal ideation or suicidal ideation Vital Signs Vital Signs Vital Signs: 11/22/22 15:42 11/22/22 15:42 Temperature 98.1 F Temperature Source Temporal Pulse Rate 68 Pulse Rhythm Regular Pulse Strength Normal (2+) Respiratory Rate 14 Respiratory Effort Normal Non-Labored Respiratory Depth Normal Respiratory Pattern Normal Blood Pressure 139/55 H Blood Pressure Mean 83 Blood Pressure Source Monitor Blood Pressure Position Semi-Fowlers Blood Pressure Location Left Arm Pulse Ox 95 Oxygen Delivery Method Room Air Room Air Weight Weight: 116.7 kg Body Mass Index (BMI) 38.9 Physical Exam Const alert General Appearance: cooperative HEENT normocephalic Eyes PERRL and EOMs intact bilaterally Neck supple, no JVD and no carotid bruits Resp normal respiratory effort, normal air movement and clear to auscultation bilaterally Cardio regular rate and regular rhythm GI normal to inspection, nondistended, normoactive bowel sounds, non-tender and non-distended Extremity normal capillary refill General Extremity: Negative for edema Skin no rashes or lesions noted General Skin Exam: no breakdown Psych affect normal Appearance: appropriate Assessment & Plan Assessment/Plan (1) Debility: (2) Displaced fracture of right femoral neck: (3) S/P hip hemiarthroplasty: (4) Hx of pulmonary embolus: (5) Depression: (6) Hyperlipidemia: (7) Gastroesophageal reflux disease: (8) Hypertension: (9) Overactive bladder: (10) Hypothyroidism: (11) Restless leg syndrome: PLAN: Plan 72 year old female with below past medical history hospitalized for right hip fracture, underwent right hip hemiarthroplasty 11/16/[address] Haddad, admitted to TCU with debility, here for rehabilitation, strengthening, prior to discharge home with . Debility - PT/OT. Pain - Tylenol 1000mg q8, Oxycodone 5mg q4h prn. Bowel - senna/colace 1 tablet bid, Magnesium citrate 300ml daily prn. Adult immunization - Administer pneumonia vaccine, covid19 vaccine, flu vaccine as appropriate. DVT prophylaxis - on Eliquis. Hypertension - Metoprolol succinate 100mg daily, Losartan 100mg daily, Amlodipine 5mg daily. Recurrent pulmonary embolism/deep vein thrombosis - Eliquis 5mg bid. Hyperlipidemia - Atorvastatin 10mg qhs. Depression - Fluoxetine 50mg daily, Bupropion XL 300mg daily, stable chronic intermediate use, GDR not recommended. Proteinuria - Kerendia 10mg daily. Folate deficiency - Folic acid 1mg daily. Hypothyroidism - Levothyroxine 50mcg daily. Tinea Corporis - Miconazole topical bid. Overactive bladder - Myrbetriq 25mg daily, Tolterodine 2mg daily, Gemtasa 75mg daily. GERD - Pantoprazole 40mg daily, Sucralfate 1gm qachs. Leg cramps - Vitamin B complex daily. Vitamin D deficiency - D3 125mcg daily.
[2022-11-22 21:38] VITALS: BP 147/58; PULSE 65; RESP 18; O2SAT 96
[2022-11-22] MEDS: Acetaminophen 500 MG Tablet 1000 MG PO (21:44)
[2022-11-22] MEDS: Atorvastatin Calcium 10 MG Tablet PO (21:44)
[2022-11-22] MEDS: Sucralfate 1 GM Tablet PO (21:44)
[2022-11-22] MEDS: amLODIPine 5 MG Tablet PO (21:44)
[2022-11-22] MEDS: Senna/Docusate Sodium 1 Tablet PO (21:44)
[2022-11-22] MEDS: APIXABAN 5 MG TABLET PO (21:45)
[2022-11-22] MEDS: Miconazole Nitrate 43 GM Bottle 1 APPLIC TOPICAL (21:45)
[2022-11-22] MEDS: oxyCODONE 5 MG Tablet PO (23:49)
[2022-11-23] MEDS: Acetaminophen 500 MG Tablet 1000 MG PO ×3 (05:08→20:33)
[2022-11-23] MEDS: Sucralfate 1 GM Tablet PO ×4 (05:09→20:30)
[2022-11-23] MEDS: Levothyroxine 50 MCG Tablet PO (05:09)
[2022-11-23 05:59] LABS: Absolute Lymphocyte Count 1.46 X10^3/uL (0.83-4.51); Absolute Neutrophil Count 3.2 X10^3/uL (2.0-7.7); Basophil# 0.04 X10^3/uL; Basophil% 0.7 % (0-1); Eosinophil# 0.29 X10^3/uL; Eosinophils% 5.3 % (0-5); Hematocrit 27.7 % (37-47); Hemoglobin 8.1 g/dL (12.0-15.0); Lymphocyte # 1.46 X10^3/ul (0.83-4.51); Lymphocyte % 26.5 % (19-41); Mean Corp Hgb Conc 29.2 g/dL (32-36); Mean Corpuscular Volume 85.5 fL (81-99); Mean Platelet Vol. 9.2 fl (6.2-12.0); Monocyte# 0.41 X10^3/uL; Monocyte% 7.5 % (0-10); NRBC Flagged by Analyzer 0 % (0-5); Neutrophil % 58.2 % (47-70); Platelet Count 321 K/mm3 (150-450); RBC Distribution Width CV 14.2 % (11.6-14.6); RBC Distribution Width SD 43.9 fl (35.1-43.9); Red Blood Count 3.24 M/mm3 (4.2-5.4); White Blood Count 5.5 K/mm3 (4.4-11.0)
[2022-11-23 06:48] LABS: Anion Gap 3 (5-15); BUN 18 mg/dL (7-18); BUN/Creat Ratio 20.2 RATIO (10-20); Calcium,Total 8.6 mg/dL (8.5-10.1); Chloride 109 mmol/L (98-107); Creatinine, Serum 0.89 mg/dL (0.55-1.02); EST Glomerular Filtration Rate 66 mL/min (>60); Est Glom Filt Rate - Afr Amer 80 mL/min (>60); Estimated Creatinine Clearance 56.79 ml/min; Glucose 110 mg/dL (74-106); Potassium 3.8 mmol/L (3.5-5.1); Sodium Level 142 mmol/L (136-145)
[2022-11-23] MEDS: Folic Acid 1 MG Tablet PO (08:27)
[2022-11-23] MEDS: Vitamin B Comp W-C Capsule 1 CAP PO (08:28)
[2022-11-23] MEDS: oxyCODONE 5 MG Tablet PO ×2 (09:26→18:48)
[2022-11-23] MEDS: FLUoxetine 10 MG Capsule PO (09:39)
[2022-11-23] MEDS: Tolterodine Tartrate 2 MG CAP.SA PO (09:40)
[2022-11-23] MEDS: Mirabegron 25 MG TAB.ER.24H PO (09:40)
[2022-11-23] MEDS: Cholecalciferol (Vit D3) 125 MCG CAPSULE (5,000 UNITS) PO (09:40)
[2022-11-23] MEDS: Losartan Potassium 100 MG Tablet PO (09:40)
[2022-11-23 09:41] VITALS: PULSE 72
[2022-11-23] MEDS: Metoprolol(XL)Succ 100 MG Tablet PO (09:41)
[2022-11-23] MEDS: Fluoxetine HCl 40 MG CAPSULE PO (09:41)
[2022-11-23] MEDS: Pramipexole Di-HCl 0.5 MG Tablet 1.5 MG PO (09:43)
[2022-11-23] MEDS: Pantoprazole Sodium 40 MG Tablet PO (09:43)
[2022-11-23] MEDS: APIXABAN 5 MG TABLET PO ×2 (09:43→20:32)
[2022-11-23] MEDS: buPROPion (XL) 150 MG TABLET.XL 300 MG PO (09:43)
[2022-11-23] MEDS: Miconazole Nitrate 43 GM Bottle 1 APPLIC TOPICAL ×2 (09:44→20:32)
[2022-11-23] MEDS: Tuberculin,Purif.prot.deriv. 50 TU/ML Vial 0.1 ML ID (11:00)
[2022-11-23] MEDS: FINERENONE 10 MG TABLET PO (11:01)
--- NOTE | 2022-11-23 12:11 | NURSING ---
Sustainability Coordinator Note; Activity Asset: Miya Roach is independent in her choice of daily activities. She prefers to stay in her room at this time and family will bring her items she may need when visiting. She has her smartphone and will watch tv, read or work on word search puzzles. Marley has been on TCU in the past and welcomes visit from the mophead trimmer and wrapper and therapy dog when available. Staff will remind her of daily activities and respect he right to say no.
--- NOTE | 2022-11-23 13:15 | CASEMGMT ---
Social Work Met with patient to complete initial assessment. Introduced self and role. and son present in room, but son left the room. Pt agreeable to have remain. Verified contacts. Educated to [facility] insurance with [employer] 11/24 and continued stay is not guaranteed with each review. See assessment for barriers to DC home. Discussed code status at length. Pt wishes to be DNR-CCA, no intubation. Nursing notified. SW will continue to follow for DC planning. Krista Rockwell, PERFORMANCE INSTRUCTOR CLINICAL PARTNER
--- NOTE | 2022-11-23 15:49 | NURSING ---
Called and left message for pt spouse noting current covid protocols and status on unit.
[2022-11-23 16:00] VITALS: BP 143/49; PULSE 63; RESP 16; O2SAT 98
[2022-11-23 20:25] VITALS: BP 156/59; PULSE 60
[2022-11-23] MEDS: Senna/Docusate Sodium 1 Tablet PO (20:32)
[2022-11-23] MEDS: amLODIPine 5 MG Tablet PO (20:32)
[2022-11-23] MEDS: Atorvastatin Calcium 10 MG Tablet PO (20:32)
[2022-11-24] MEDS: oxyCODONE 5 MG Tablet PO ×4 (02:34→21:28)
[2022-11-24] MEDS: Acetaminophen 500 MG Tablet 1000 MG PO ×3 (05:58→21:29)
[2022-11-24] MEDS: Sucralfate 1 GM Tablet PO ×4 (05:58→21:30)
[2022-11-24] MEDS: Levothyroxine 50 MCG Tablet PO (05:58)
[2022-11-24 06:08] LABS: Hematocrit 28.3 % (37-47); Hemoglobin 8.3 g/dL (12.0-15.0)
[2022-11-24 08:12] VITALS: PULSE 78
[2022-11-24] MEDS: Cholecalciferol (Vit D3) 125 MCG CAPSULE (5,000 UNITS) PO (08:12)
[2022-11-24] MEDS: Losartan Potassium 100 MG Tablet PO (08:12)
[2022-11-24] MEDS: Miconazole Nitrate 43 GM Bottle 1 APPLIC TOPICAL ×2 (08:12→21:31)
[2022-11-24] MEDS: Folic Acid 1 MG Tablet PO (08:12)
[2022-11-24] MEDS: FINERENONE 10 MG TABLET PO (08:12)
[2022-11-24] MEDS: Metoprolol(XL)Succ 100 MG Tablet PO (08:12)
[2022-11-24] MEDS: APIXABAN 5 MG TABLET PO ×2 (08:12→21:31)
[2022-11-24] MEDS: Pramipexole Di-HCl 0.5 MG Tablet 1.5 MG PO (08:12)
[2022-11-24] MEDS: Vitamin B Comp W-C Capsule 1 CAP PO (08:13)
[2022-11-24] MEDS: Senna/Docusate Sodium 1 Tablet PO ×2 (08:13→21:30)
[2022-11-24] MEDS: Fluoxetine HCl 40 MG CAPSULE PO (08:13)
[2022-11-24] MEDS: buPROPion (XL) 150 MG TABLET.XL 300 MG PO (08:13)
[2022-11-24] MEDS: FLUoxetine 10 MG Capsule PO (08:14)
[2022-11-24] MEDS: Mirabegron 25 MG TAB.ER.24H PO (08:14)
[2022-11-24] MEDS: Tolterodine Tartrate 2 MG CAP.SA PO (08:14)
[2022-11-24] MEDS: Pantoprazole Sodium 40 MG Tablet PO (08:14)
[2022-11-24 09:00] VITALS: O2SAT 95
--- NOTE | 2022-11-24 14:52 | NURSING ---
Patient code status verified as Full Code.
[2022-11-24 16:00] VITALS: BP 142/54; PULSE 59; RESP 16; TEMP 36.6; O2SAT 94
[2022-11-24] MEDS: amLODIPine 5 MG Tablet PO (21:30)
[2022-11-24] MEDS: Atorvastatin Calcium 10 MG Tablet PO (21:31)
[2022-11-25] MEDS: oxyCODONE 5 MG Tablet PO ×3 (06:07→17:52)
[2022-11-25] MEDS: Acetaminophen 500 MG Tablet 1000 MG PO ×2 (06:08→20:20)
[2022-11-25] MEDS: Sucralfate 1 GM Tablet PO ×4 (06:08→20:20)
[2022-11-25] MEDS: Levothyroxine 50 MCG Tablet PO (06:08)
[2022-11-25] MEDS: Folic Acid 1 MG Tablet PO (08:53)
[2022-11-25] MEDS: Losartan Potassium 100 MG Tablet PO (08:53)
[2022-11-25] MEDS: Vitamin B Comp W-C Capsule 1 CAP PO (08:53)
[2022-11-25] MEDS: Tolterodine Tartrate 2 MG CAP.SA PO (08:54)
[2022-11-25] MEDS: Pramipexole Di-HCl 0.5 MG Tablet 1.5 MG PO (08:54)
[2022-11-25] MEDS: Mirabegron 25 MG TAB.ER.24H PO (08:54)
[2022-11-25] MEDS: APIXABAN 5 MG TABLET PO ×2 (08:54→20:20)
[2022-11-25] MEDS: FINERENONE 10 MG TABLET PO (08:54)
[2022-11-25] MEDS: Senna/Docusate Sodium 1 Tablet PO ×2 (08:55→20:20)
[2022-11-25] MEDS: Fluoxetine HCl 40 MG CAPSULE PO (08:55)
[2022-11-25] MEDS: Cholecalciferol (Vit D3) 125 MCG CAPSULE (5,000 UNITS) PO (08:55)
[2022-11-25] MEDS: Pantoprazole Sodium 40 MG Tablet PO (08:55)
[2022-11-25] MEDS: buPROPion (XL) 150 MG TABLET.XL 300 MG PO (08:55)
[2022-11-25] MEDS: FLUoxetine 10 MG Capsule PO (08:55)
[2022-11-25 08:56] VITALS: PULSE 60
[2022-11-25] MEDS: Metoprolol(XL)Succ 100 MG Tablet PO (08:56)
[2022-11-25] MEDS: Miconazole Nitrate 43 GM Bottle 1 APPLIC TOPICAL ×2 (08:56→20:22)
--- NOTE | 2022-11-25 09:02 | NURSING ---
emergency charting utilized 11/25 d/t staffing
[2022-11-25 16:00] VITALS: BP 136/78; PULSE 60; RESP 16; TEMP 36.6; O2SAT 98
--- NOTE | 2022-11-25 17:17 | CASEMGMT ---
Addendum entered by Krista Rockwell 11/25/22 17:44: Appeal filed, Original Note: Social Work Insurance issued LCD 11/27, DC 11/28. Pt and in room. SW educated to LCD, appeal rights and discussed DC plans. Pt and agree pt is not ready/able to DC home at this time. Pt has not returned to [facility] and cannot provide physical assistance. Both requesting to appeal. SW also discussed DC plans in case pt loses appeal. states they cannot afford a SNF, and would take pt home with [facility]. Pt used [facility] prior and would like to use again. Confirmed no DME needs. unsure pt can get in and out of car. SW to speak with therapy, but can coordinate transport. and pt appreciative. SW phoned referral to [facility] for PT/OT/SN. Plan: pending appeal, DC home with 11/18, [facility] PT/OT/SN [id number]
--- NOTE | 2022-11-25 20:14 | DS.PCM_ITS ---
Providers Date of Admission: 11/22/22 Primary Care Physician: Dr. Erik Gomez DO Reason For Visit: RIGHT HIP FRACTURE Diagnosis Discharge Diagnosis (1) Debility: Status: Acute Code(s): R53.81 - Other malaise (2) Displaced fracture of right femoral neck: Status: Acute Code(s): S72.001A - Fracture of unspecified part of neck of right femur, initial encounter for closed fracture (3) S/P hip hemiarthroplasty: Status: Acute Code(s): Z96.649 - Presence of unspecified artificial hip joint (4) Hx of pulmonary embolus: Status: Acute Code(s): Z86.711 - Personal history of pulmonary embolism (5) Depression: Status: Acute Code(s): F32.9 - Major depressive disorder, single episode, unspecified (6) Hyperlipidemia: Status: Acute Code(s): E78.5 - Hyperlipidemia, unspecified (7) Gastroesophageal reflux disease: Status: Acute Code(s): K21.9 - Gastro-esophageal reflux disease without esophagitis (8) Hypertension: Status: Chronic Code(s): I10 - Essential (primary) hypertension (9) Overactive bladder: Status: Acute Code(s): N32.81 - Overactive bladder (10) Hypothyroidism: Status: Acute Code(s): E03.9 - Hypothyroidism, unspecified (11) Restless leg syndrome: Status: Acute Code(s): G25.81 - Restless legs syndrome Plan 72 year old female with below past medical history hospitalized for right hip fracture, underwent right hip hemiarthroplasty 11/16/[address] Haddad, i tted to TCU with debility, here for rehabilitation, strengthening, prior to discharge home with . * Debility - PT/OT. * Pain - Tylenol 1000mg q8, Oxycodone 5mg q4h prn. * Bowel - senna/colace 1 tablet bid, Magnesium citrate 300ml daily prn. * Adult immunization - Administer pneumonia vaccine, covid19 vaccine, flu vaccine as appropriate. * DVT prophylaxis - on Eliquis. * Hypertension - Metoprolol succinate 100mg daily, Losartan 100mg daily, Amlodipine 5mg daily. * Recurrent pulmonary embolism/deep vein thrombosis - Eliquis 5mg bid. * Hyperlipidemia - Atorvastatin 10mg qhs. * Depression - Fluoxetine 50mg daily, Bupropion XL 300mg daily, stable chronic alf use, GDR not recommended. * Proteinuria - Kerendia 10mg daily. * Folate deficiency - Folic acid 1mg daily. * Hypothyroidism - Levothyroxine 50mcg daily. * Tinea Corporis - Miconazole topical bid. * Overactive bladder - Myrbetriq 25mg daily, Tolterodine 2mg daily, Gemtasa 75mg daily. * GERD - Pantoprazole 40mg daily, Sucralfate 1gm qachs. * Leg cramps - Vitamin B complex daily. * Vitamin D deficiency - D3 125mcg daily. Medications at Discharge Home Medications bupropion HCl 150 mg 24 hr tablet, extended release 300 mg PO DAILY anxiety 05/10/13 atorvastatin 10 mg tablet 10 mg PO QHS cholesterol lowering 11/27/19 apixaban 5 mg tablet 5 mg PO BID blood thinner 12/26/19 cholecalciferol (vitamin D3) 125 mcg (5,000 unit) tablet (Vitamin D3) 125 mcg PO DAILY supplement 11/02/20 folic acid 1 mg tablet 1 mg PO DAILY supplement 11/02/20 pantoprazole 40 mg tablet,delayed release (Protonix) 40 mg PO DAILY GERD 11/02/20 vitamin B complex 1 cap PO DAILY supplement 11/02/20 losartan 100 mg tablet 100 mg PO DAILY BP 30 days #30 tabs 11/19/20 nystatin 100,000 unit/gram topical powder ([facility]) 1 applic topical BID antifungal #0 grams 11/19/20 metoprolol succinate 25 mg tablet,extended release 24 hr 100 mg PO DAILY blood pressure 02/01/21 finerenone 10 mg tablet (Kerendia) 10 mg PO DAILY chronic kidney disease 03/26/21 mirabegron 25 mg tablet,extended release 24 hr 25 mg PO DAILY OAB 05/31/21 amlodipine 5 mg tablet 5 mg PO QHS BP 11/14/22 fluoxetine 10 mg capsule 10 mg PO DAILY DEPRESSION 11/14/22 fluoxetine 40 mg capsule 40 mg PO DAILY DEPRESSION 11/14/22 levothyroxine 50 mcg tablet (Synthroid) 50 mcg PO DAILY THYROID 11/14/22 oxybutynin chloride 10 mg tablet,extended release 24 hr 10 mg PO DAILY OAB 11/14/22 ropinirole 3 mg tablet 3 mg PO DAILY RLS 11/14/22 sucralfate 1 gram tablet 1 g PO ACHS GERD 11/14/22 vibegron 75 mg tablet (Gemtesa) 75 mg PO DAILY bladder 11/14/22 acetaminophen 500 mg tablet 1,000 mg (2 x 500 mg) PO Q8 #0 tabs 11/25/22 oxycodone 5 mg tablet 5 - 10 mg (1 - 2 x 5 mg) PO Q4H PRN PRN pain 7 days #42 tabs 11/25/22 sennosides 8.6 mg-docusate sodium 50 mg tablet (Stool Softener-Stimulant Laxative) 1 tab PO BID 30 days #60 tabs 11/25/22 Hospital Course Operations - (Right hip hemiarthroplasty.) Procedures None Summary of Care Provided Minutes Spent on Discharge: 35 Hospital Course: 72 year old female with below past medical history hospitalized for right hip fracture, underwent right hip hemiarthroplasty 11/16/[address] Haddad, admitted to TCU with debility, here for rehabilitation, strengthening, prior to discharge home with . Discharge home with 11/28/2022, pending appeal, [facility] PT/OT/SN. Physical Exam Const alert General Appearance: cooperative HEENT normocephalic Eyes PERRL and EOMs intact bilaterally Neck supple, no JVD and no carotid bruits Resp normal respiratory effort, normal air movement and clear to auscultation bilaterally Cardio regular rate and regular rhythm GI normal to inspection, nondistended, normoactive bowel sounds, non-tender and non-distended Extremity normal capillary refill General Extremity: Negative for edema Skin no rashes or lesions noted General Skin Exam: no breakdown Psych affect normal Appearance: appropriate Weight / BMI Weight Weight: 116.7 kg Body Mass Index (BMI) 38.9 ABG / Lab / Microbiology Data 11/24/22 05:13 11/23/22 05:29 Microbiology: Microbiology 11/23/22 05:10 Nasal Secretion SARS-CoV-2 Antigen (Rapid) - Final D/C Instructions Discharge Diet: No restrictions Discharge Activity: Return to Normal Activity, May Shower and Use Walker Weight Bearing Status: Weight bearing as tolerated Call your doctor if you observe: Fever of 101 or Higher, Inability to urinate, Inability to have a bowel movement, Shortness of breath, Dizziness, Fainting spells, Swelling in the ankles, Chest pain and Uncontrolled pain Additional Instructions: Discharge home with 11/28/2022, pending [facility] PT/OT/SN. Please Follow Up With: Bigg Haddad DO When: As scheduled. Meaningful Use Info Meaningful Use Diagnoses (Choose all that apply): None applicable Discharge Plan Admission Admit Date/Time: 11/22/22 15:30 Primary Reason for Your Visit: Debility. Attending Provider: Ramiro Melchor Chi Primary Care Provider: Erik Gomez Instructions Additional Instructions / Restrictions: Discharge home with 11/28/2022, pending [facility], [facility] Care PT/OT/SN. Discharge Orders/Prescriptions Prescriptions: New sennosides-docusate sodium [Stool Softener-Stimulant Laxat] 8.6-50 mg Tablet 1 tab PO BID 30 Days Qty: 60 0RF acetaminophen 500 mg Tablet 1,000 mg PO Q8 Qty: 0 0RF oxycodone 5 mg Tablet 5 - 10 mg PO Q4H PRN PRN (Reason: pain) 7 Days Qty: 42 0RF Continued mirabegron 25 mg tablet extended release 24 hr 25 mg PO DAILY bupropion HCl 150 MG tablet extended release 24 hr 300 mg PO DAILY atorvastatin 10 MG tablet 10 mg PO QHS apixaban 5 MG tablet 5 mg PO BID pantoprazole [Protonix] 40 mg Tablet,Delayed Release (Dr/Ec) 40 mg PO DAILY folic acid 1 mg Tablet 1 mg PO DAILY vitamin B complex Capsule 1 cap PO DAILY Patient Comments: SUPER B COMPLEX cholecalciferol (vitamin D3) [Vitamin D3] 125 mcg (5,000 unit) Tablet 125 mcg PO DAILY nystatin [Nyamyc] 100,000 unit/gram Powder 1 applic topical BID Qty: 0 0RF Protocol: *Topical Application Instructions APPLICATION INSTRUCTIONS: UNDER ABDOMINAL FOLDS/GROIN losartan 100 mg Tablet 100 mg PO DAILY 30 Days Qty: 30 0RF metoprolol succinate 25 mg tablet extended release 24 hr 100 mg PO DAILY Kerendia 10 mg Tablet 10 mg PO DAILY fluoxetine 40 mg capsule 40 mg PO DAILY Patient Comments: PT TAKES A 10 MG AND 40 MG CAPSULE TO MAKE 50 MG TOTAL DOSE fluoxetine 10 mg capsule 10 mg PO DAILY Patient Comments: PT TAKES A 10 MG AND 40 MG CAPSULE TO MAKE 50 MG TOTAL DOSE oxybutynin chloride 10 mg tablet extended release 24hr 10 mg PO DAILY sucralfate 1 gram tablet 1 g PO ACHS ropinirole 3 mg tablet 3 mg PO DAILY Patient Comments: PT STATES TAKES MORE THAN ONE IT DOES NOT HELP amlodipine 5 mg tablet 5 mg PO QHS levothyroxine [Synthroid] 50 mcg tablet 50 mcg PO DAILY Gemtesa 75 mg tablet 75 mg PO DAILY Patient Comments: take 1 tablet by mouth once daily Discontinued acetaminophen 500 mg Tablet 1,000 mg PO Q6H PRN PRN (Reason: Pain Score 1-3) Qty: 0 0RF oxycodone 5 mg Tablet 5 mg PO Q4H PRN PRN (Reason: Pain Score 4-5) 3 Days Qty: 12 0RF Referrals / Follow Up: Erik Gomez DO [Primary Care Provider] - Disposition Disposition (needs filled in before D/C Order can be placed): Home Health Service
[2022-11-25] MEDS: amLODIPine 5 MG Tablet PO (20:20)
[2022-11-25] MEDS: Atorvastatin Calcium 10 MG Tablet PO (20:20)
[2022-11-25 21:15] VITALS: PULSE 60; RESP 16; O2SAT 94
[2022-11-26] MEDS: Acetaminophen 500 MG Tablet 1000 MG PO ×3 (04:53→21:48)
[2022-11-26] MEDS: Levothyroxine 50 MCG Tablet PO (04:53)
[2022-11-26 05:23] VITALS: PULSE 58; RESP 18; O2SAT 96
[2022-11-26] MEDS: Sucralfate 1 GM Tablet PO ×4 (06:46→21:48)
[2022-11-26] MEDS: Folic Acid 1 MG Tablet PO (08:00)
[2022-11-26] MEDS: Vitamin B Comp W-C Capsule 1 CAP PO (08:00)
[2022-11-26 09:41] VITALS: PULSE 64
[2022-11-26] MEDS: Metoprolol(XL)Succ 100 MG Tablet PO (09:41)
[2022-11-26] MEDS: Pramipexole Di-HCl 0.5 MG Tablet 1.5 MG PO (09:41)
[2022-11-26] MEDS: Cholecalciferol (Vit D3) 125 MCG CAPSULE (5,000 UNITS) PO (09:41)
[2022-11-26] MEDS: Pantoprazole Sodium 40 MG Tablet PO (09:42)
[2022-11-26] MEDS: Losartan Potassium 100 MG Tablet PO (09:42)
[2022-11-26] MEDS: FLUoxetine 10 MG Capsule PO (09:42)
[2022-11-26] MEDS: Senna/Docusate Sodium 1 Tablet PO ×2 (09:42→21:48)
[2022-11-26] MEDS: Mirabegron 25 MG TAB.ER.24H PO (09:42)
[2022-11-26] MEDS: Fluoxetine HCl 40 MG CAPSULE PO (09:42)
[2022-11-26] MEDS: buPROPion (XL) 150 MG TABLET.XL 300 MG PO (09:42)
[2022-11-26] MEDS: Tolterodine Tartrate 2 MG CAP.SA PO (09:42)
[2022-11-26] MEDS: APIXABAN 5 MG TABLET PO ×2 (09:43→21:48)
[2022-11-26] MEDS: Miconazole Nitrate 43 GM Bottle 1 APPLIC TOPICAL ×2 (09:43→21:59)
[2022-11-26] MEDS: FINERENONE 10 MG TABLET PO (09:43)
[2022-11-26] MEDS: oxyCODONE 5 MG Tablet PO ×2 (12:35→21:49)
[2022-11-26 14:04] VITALS: BP 134/65; PULSE 54; RESP 16; TEMP 37.1; O2SAT 94
[2022-11-26] MEDS: amLODIPine 5 MG Tablet PO (21:48)
[2022-11-26] MEDS: Atorvastatin Calcium 10 MG Tablet PO (21:48)
--- NOTE | 2022-11-26 22:22 | NURSING ---
Surgical dressing removed from right hip incision. Patient tolerated well. No s/sx infection, brynn intact, no drainage. Will continue to monitor.
[2022-11-27] MEDS: oxyCODONE 5 MG Tablet PO ×4 (02:40→21:29)
[2022-11-27] MEDS: Levothyroxine 50 MCG Tablet PO (06:06)
[2022-11-27] MEDS: Sucralfate 1 GM Tablet PO ×4 (06:06→21:25)
[2022-11-27] MEDS: Acetaminophen 500 MG Tablet 1000 MG PO ×3 (06:06→21:25)
[2022-11-27] MEDS: FINERENONE 10 MG TABLET PO (08:18)
[2022-11-27] MEDS: Pramipexole Di-HCl 0.5 MG Tablet 1.5 MG PO (08:18)
[2022-11-27] MEDS: Senna/Docusate Sodium 1 Tablet PO (08:19)
[2022-11-27] MEDS: APIXABAN 5 MG TABLET PO ×2 (08:19→21:25)
[2022-11-27] MEDS: Vitamin B Comp W-C Capsule 1 CAP PO (08:19)
[2022-11-27 08:20] VITALS: BP 151/52; PULSE 56
[2022-11-27] MEDS: Metoprolol(XL)Succ 100 MG Tablet PO (08:20)
[2022-11-27] MEDS: FLUoxetine 10 MG Capsule PO (08:20)
[2022-11-27] MEDS: Pantoprazole Sodium 40 MG Tablet PO (08:20)
[2022-11-27] MEDS: Mirabegron 25 MG TAB.ER.24H PO (08:20)
[2022-11-27] MEDS: Tolterodine Tartrate 2 MG CAP.SA PO (08:20)
[2022-11-27] MEDS: Folic Acid 1 MG Tablet PO (08:20)
[2022-11-27] MEDS: Fluoxetine HCl 40 MG CAPSULE PO (08:21)
[2022-11-27] MEDS: buPROPion (XL) 150 MG TABLET.XL 300 MG PO (08:21)
[2022-11-27] MEDS: Cholecalciferol (Vit D3) 125 MCG CAPSULE (5,000 UNITS) PO (08:21)
[2022-11-27] MEDS: Losartan Potassium 100 MG Tablet PO (08:22)
[2022-11-27] MEDS: Miconazole Nitrate 43 GM Bottle 1 APPLIC TOPICAL (08:27)
[2022-11-27 08:34] VITALS: PULSE 59; RESP 16; O2SAT 93
[2022-11-27 15:48] VITALS: BP 137/64; PULSE 56; RESP 16; TEMP 36.8; O2SAT 95
[2022-11-27] MEDS: Atorvastatin Calcium 10 MG Tablet PO (21:25)
[2022-11-27] MEDS: amLODIPine 5 MG Tablet PO (21:25)
[2022-11-28] MEDS: Sucralfate 1 GM Tablet PO (05:48)
[2022-11-28] MEDS: Levothyroxine 50 MCG Tablet PO (05:48)
[2022-11-28] MEDS: Acetaminophen 500 MG Tablet 1000 MG PO (05:48)
[2022-11-28 06:41] VITALS: PULSE 55; RESP 16; O2SAT 98
--- NOTE | 2022-11-28 06:48 | NURSING ---
Patient discharging today. Medications, follow-up appointments reviewed and discussed. Able to answer patient's questions to her understanding and agreement. Copies of discharge medications, appts given to patient.
--- NOTE | 2022-11-28 08:34 | CASEMGMT ---
Social Work Pt lost her appeal. SW phoned , whom was already aware. confirmed DC home with [facility] today. Krista Rockwell, ELECTRICIAN SUPERVISOR AIRPLANE SUPERVISOR [employer] BOAT [employer]SEMBLY
[2022-11-28] MEDS: Tolterodine Tartrate 2 MG CAP.SA PO (09:06)
[2022-11-28] MEDS: Pantoprazole Sodium 40 MG Tablet PO (09:07)
[2022-11-28] MEDS: Cholecalciferol (Vit D3) 125 MCG CAPSULE (5,000 UNITS) PO (09:07)
[2022-11-28] MEDS: FLUoxetine 10 MG Capsule PO (09:07)
[2022-11-28] MEDS: Mirabegron 25 MG TAB.ER.24H PO (09:07)
[2022-11-28] MEDS: Fluoxetine HCl 40 MG CAPSULE PO (09:07)
[2022-11-28] MEDS: Folic Acid 1 MG Tablet PO (09:07)
[2022-11-28] MEDS: Pramipexole Di-HCl 0.5 MG Tablet 1.5 MG PO (09:07)
[2022-11-28 09:08] VITALS: BP 115/42; PULSE 60
[2022-11-28] MEDS: Losartan Potassium 100 MG Tablet PO (09:08)
[2022-11-28] MEDS: Vitamin B Comp W-C Capsule 1 CAP PO (09:08)
[2022-11-28] MEDS: Metoprolol(XL)Succ 100 MG Tablet PO (09:08)
[2022-11-28] MEDS: APIXABAN 5 MG TABLET PO (09:10)
[2022-11-28] MEDS: FINERENONE 10 MG TABLET PO (09:11)
[2022-11-28] MEDS: buPROPion (XL) 150 MG TABLET.XL 300 MG PO (09:15)
--- NOTE | 2022-11-28 10:28 | CASEMGMT ---
Social Work BIMS () and PHQ-9 (08/30) completed for MDS assessment. Krista Rockwell MSW LAWN MOWER OPERATOR
--- NOTE | 2022-11-28 16:34 | PCM.PN.DRR ---
Documented by User: Cj Cid 11/28/22 16:48 TCU RX Drug Regimen Review Subjective/Objective Subjective/Objective: Subjective: 72 year old female with below past medical history hospitalized for right hip fracture, underwent right hip hemiarthroplasty 11/16/[address] Haddad, admitted to TCU with debility, here for rehabilitation, strengthening, prior to discharge home with . Objective: Allergies cephalexin [From Keflex] Allergy (Verified 11/14/22 11:51) Rash clindamycin Allergy (Verified 11/14/22 11:51) Anaphylaxis vancomycin Allergy (Verified 11/14/22 11:51) Rash Problem List (Updated 11/22/22 @ 19:[address] Ramiro Melchor MD) Hypothyroidism (Acute) Overactive bladder (Acute) S/P hip hemiarthroplasty (Acute) Displaced fracture of right femoral neck (Acute) Hx of pulmonary embolus (Acute) Restless leg syndrome (Acute) Gastroesophageal reflux disease (Acute) Depression (Acute) Hyperlipidemia (Acute) Hypertension (Chronic) Debility (Acute) Vital Signs Temp Pulse Resp BP Pulse Ox O2 Del Method 98.2 F 60 16 115/42 L 98 Room Air 11/27/22 15:48 11/28/22 09:08 11/28/22 06:41 11/28/22 09:08 11/28/22 06:41 11/28/22 06:41 Oxygen Delivery Method Room Air Weight: 116.7 kg Body Mass Index (BMI) 38.9 Sodium 142 mmol/L (136-145) 11/23/22 05:29 Potassium 3.8 mmol/L (3.5-5.1) 11/23/22 05:29 Chloride 109 mmol/L (98-107) H 11/23/22 05:29 Carbon Dioxide 30.0 mmol/L (21.0-32.0) 11/23/22 05:29 Anion Gap 3 (5-15) L 11/23/22 05:29 BUN 18 mg/dL (7-18) 11/23/22 05:29 Creatinine 0.89 mg/dL (0.55-1.02) 11/23/22 05:29 Est GFR (MDRD) Af Amer 80 mL/min (>60) 11/23/22 05:29 Est GFR (MDRD) Non-Af 66 mL/min (>60) 11/23/22 05:29 BUN/Creatinine Ratio 20.2 RATIO (10-20) H 11/23/22 05:29 Glucose 110 mg/dL (74-106) H 11/23/22 05:29 Assessment/Plan: 1. Pain: acetaminophen 1000 mg PO Q8H, oxycodone 5 mg PO Q4H PRN pain. Please continue to monitor PRN pain med usage, constipation, drowsiness/ataxia (oxycodone Beer's criteria). 2. Bowel: senna/docusate 1 tablet PO BID, magnesium citrate 300 mL PO daily PRN constipation. Please continue to monitor for PRN usage, constipation and diarrhea. The patients last bowel movement was on 11/27/22. 3. Hypertension: Metoprol succinate 100 mg PO daily, losartan 100 mg PO daily, amlodipine 5 mg PO daily. Please continue to monitor for lower extremity edema, BP (recent range 115-151/42-78), HR (recent range 55-64), potassium level (K = 3.8 on 11/23/22), and renal function (CrCl = ~57 on 11/23/22). 4. History of DVT/PE: Eliquis 5 mg PO BID. Please continue to monitor for s/s of bleeding, Hgb (8.3 on 11/24/22), bruising and for s/s of DVT/PE. 5.Hyperlipidemia: atorvastatin 10 mg PO QHS. Please continue to monitor lipid levels (LDL = 84 on 01/13/15), and for myalgias. Please consider ordering a repeat cholesterol level if clinically indicated. 6. CKD: Kerendia 10 mg PO daily. Please continue to monitor potassium level (K = 3.8 on 11/23/22) and renal function (CrCl = ~57 on 11/23/22). 7. Folate deficiency: folic acid 1 mg daily. Please continue to monitor for s/s of folate deficiency. 7. Hypothyroidism: levothyroxine 50 mcg PO daily. Please continue to monitor TSH (TSH = 2.74 on 11/16/22) and for s/s of hypo/hyperthyroidism. 8. Overactive bladder: myrbetriq 25 mg PO daily, tolterodine 2 mg PO daily, Gemtesa 75 mg PO daily. Please continue to monitor for symptoms of overactive bladder, and for dry mouth. 9. Tinea corporis: miconazole topically BID. Please continue to monitor for tinea corporis resolution. 10. GERD: pantoprazole 40 mg PO daily, sucralfate 1 gram QACHS. Please continue to monitor for s/s of GERD, and for diarrhea that would indicated clostridium difficile infection (Beer's criteria). 11. Leg cramps: vitamin B complex PO daily. Please continue to monitor for leg cramps. 12. Vitamin D deficiency: vitamin D3 125 mcg PO daily. Please continue to monitor for s/s of vitamin D deficiency as well as vitamin D levels (vitamin D level 57.0 on 11/14/22). Assessment/Plan for indications treated with psychotropic medications: 1. Depression: fluoxetine 50 mg PO daily, Bupropion XL 300 mg PO daily. Please see provider note regarding stable chronic therapy GDR not recommended. Please continue to monitor for SI, sodium level (Na = 142 on 11/23/22), blood pressure (recent range 115-151/42-78), and for seizures. Medical chart and medication regimen reviewed. The following medication irregularities or issues were identified: N/A Date Date of Note:: 11/28/22 Documented by User: Dr. Ramiro Melchor MD 11/28/22 17:16 TCU RX Drug Regimen Review Provider Comments Provider responsibility Provider Comments to Recommendations by Pharmacy: Agree
--- NOTE | 2022-12-05 09:23 | MDS.RN ---
5 day and DC MDS completed on this date. Unable to finalize, [facility] Information Systems and post exchange manager aware of [facility] issue.
== END 2022-11-28 10:15 | disposition home health service (06) | DRG 561 ==
PROVIDERS: Admitting Provider Family Medicine Geriatric Medicine; PCP Student in an Organized Health Care Education/Training Program; Referring Provider Family Medicine Geriatric Medicine; Visit Provider Family Medicine Geriatric Medicine
DX: S72.001D Fracture of unspecified part of neck of right femur, subsequent encounter for closed fracture with routine healing (principal); B35.4 Tinea corporis; E11.9 Type 2 diabetes mellitus without complications; E03.9 Hypothyroidism, unspecified; E53.8 Deficiency of other specified B group vitamins; E66.01 Morbid (severe) obesity due to excess calories; G25.81 Restless legs syndrome; F32.9 Major depressive disorder, single episode, unspecified; I10 Essential (primary) hypertension; E55.9 Vitamin D deficiency, unspecified; K21.9 Gastro-esophageal reflux disease without esophagitis; E78.5 Hyperlipidemia, unspecified; W19.XXXD Unspecified fall, subsequent encounter; N32.81 Overactive bladder; Z79.01 Long term (current) use of anticoagulants; Z79.899 Other long term (current) drug therapy; Z79.890 Hormone replacement therapy; Z68.38 Body mass index [BMI] 38.0-38.9, adult
CPT/HCPCS: 36415; 80048; 85014; 85018; 85025; 87811; 97110; 97116; 97162; 97166; 97530; 97535; 97802

== ENCOUNTER → 2023-02-16 | Outpatient (CLI) | payer MEDICARE, SELFPAY ==
[2023-02-16 15:54] LABS: Albumin, Serum 3.1 g/dL (3.2-5.0); BUN 18 mg/dL (7-18); BUN/Creat Ratio 15.4 RATIO (10-20); Chloride 111 mmol/L (98-107); Creatinine, Serum 1.17 mg/dL (0.55-1.02); EST Glomerular Filtration Rate 48 mL/min (>60); Est Glom Filt Rate - Afr Amer 58 mL/min (>60); Glucose 78 mg/dL (74-106); Phosphorus 3.3 mg/dL (2.5-4.9); Potassium 4.1 mmol/L (3.5-5.1); Sodium Level 141 mmol/L (136-145)
[2023-02-16 16:00] LABS: Protein, Urine (Random) 83.8 mg/dL (<11.9); Protein:Creat Ratio 582 mg/g CRE (0-200)
[2023-02-18 05:07] LABS: Complement C3 111 mg/dL (82-167)
[2023-02-20 12:08] LABS: ANTINUCLEAR ANTIBODIES DIRECT Positive (Negative); Anti-dsDNA Ab <1 IU/mL (0-9)
== END | disposition home or self-care (01) ==
LOC: LAB 14:20
PROVIDERS: PCP Student in an Organized Health Care Education/Training Program; Referring Provider Internal Medicine Nephrology; Visit Provider Internal Medicine Nephrology
DX: N18.31 Chronic kidney disease, stage 3a (principal); R80.9 Proteinuria, unspecified; N03.2 Chronic nephritic syndrome with diffuse membranous glomerulonephritis
CPT/HCPCS: 36415; 80069; 82570; 84156; 86038; 86160; 86225

== ENCOUNTER → 2023-07-13 | Outpatient (CLI) | payer MEDICARE, SELFPAY | END | disposition home or self-care (01) | LOC: OPBI 11:53 | PROVIDERS: PCP Student in an Organized Health Care Education/Training Program; Referring Provider Student in an Organized Health Care Education/Training Program; Visit Provider Student in an Organized Health Care Education/Training Program | DX: Z12.31 Encounter for screening mammogram for malignant neoplasm of breast (principal) ==

== ENCOUNTER → 2023-07-24 | Outpatient (CLI) | payer MEDICARE, SELFPAY ==
--- NOTE | 2023-07-24 14:22 | BI_ITS ---
MAMMOGRAPHY - BILATERAL DIAGNOSTIC REASON FOR EXAM: Female, 73 years old. ABN MAMM LEFT BREAST PERTINENT HISTORY: Non-contributory. TECHNIQUE: Digital examination. Mediolateral oblique (MLO) and craniocaudad (CC) views of both breasts were obtained. CAD: CAD was performed on this study. COMPARISON: 07/20/2022 FINDINGS: Breast Composition: There are scattered areas of fibroglandular density. There are no dominant masses or suspicious calcifications. No other significant abnormalities are identified. Bilateral benign vascular calcifications can be associated with coronary artery disease. BI/DIAG MAMM W/CAD, BILAT IMPRESSION: Stable bilateral diagnostic mammogram. ASSESSMENT CATEGORY: BIRADS Category 2: Benign. A letter regarding these results will be sent to the patient by the facility within 30 days. FOLLOW UP RECOMMENDATION: Yearly follow up mammogram recommended. (A) Approximately 10% of breast cancers are not detected by mammography. A normal mammogram should not delay biopsy of a clinically suspicious abnormality. Pending Final Proof Editing
== END | disposition home or self-care (01) ==
PROVIDERS: PCP Student in an Organized Health Care Education/Training Program; Referring Provider Student in an Organized Health Care Education/Training Program; Visit Provider Student in an Organized Health Care Education/Training Program
DX: R92.8 Other abnormal and inconclusive findings on diagnostic imaging of breast (principal)
CPT/HCPCS: 77062; 77066; G0279

== ENCOUNTER → 2023-10-25 | Outpatient (CLI) | payer MEDICARE, SELFPAY ==
[2023-10-25 13:04] LABS: Protein, Urine (Random) 46.4 mg/dL (<11.9); Protein:Creat Ratio 203 mg/g CRE (0-200)
[2023-10-25 13:12] LABS: BUN 18 mg/dL (7-18); BUN/Creat Ratio 14.3 RATIO (10-20); Calcium,Total 9.1 mg/dL (8.5-10.1); Chloride 110 mmol/L (98-107); Creatinine, Serum 1.26 mg/dL (0.55-1.02); EST Glomerular Filtration Rate 44 mL/min (>60); Est Glom Filt Rate - Afr Amer 53 mL/min (>60); Glucose 88 mg/dL (74-106); Potassium 3.9 mmol/L (3.5-5.1); Sodium Level 141 mmol/L (136-145)
== END | disposition home or self-care (01) ==
LOC: LAB 12:02
PROVIDERS: PCP Student in an Organized Health Care Education/Training Program; Referring Provider Internal Medicine Nephrology; Visit Provider Internal Medicine Nephrology
DX: E11.22 Type 2 diabetes mellitus with diabetic chronic kidney disease (principal); N18.31 Chronic kidney disease, stage 3a
CPT/HCPCS: 36415; 80069; 82570; 84156

== ENCOUNTER → 2024-06-11 | Outpatient (CLI) | payer MEDICARE, SELFPAY ==
[2024-06-11 13:15] LABS: Protein, Urine (Random) 64.2 mg/dL (0.0-12.0); Protein:Creat Ratio 301 mg/g CRE (0-200)
[2024-06-11 13:57] LABS: Albumin, Serum 4.1 g/dL (3.4-4.8); Anion Gap 10 (5-15); BUN 14 mg/dL (4-19); BUN/Creat Ratio 11.8 RATIO (10-20); Calcium,Total 9.6 mg/dL (7.6-11.0); Chloride 105 mmol/L (98-108); EST Glomerular Filtration Rate 47 (>60); Glucose 90 mg/dL (70-99); Phosphorus 3.1 mg/dL (2.7-4.5); Potassium 3.7 mmol/L (3.3-5.1); Sodium Level 142 mmol/L (133-145)
== END | disposition home or self-care (01) ==
LOC: LAB 11:37
PROVIDERS: PCP Student in an Organized Health Care Education/Training Program; Referring Provider Internal Medicine Nephrology; Visit Provider Internal Medicine Nephrology
DX: N18.31 Chronic kidney disease, stage 3a (principal); R80.9 Proteinuria, unspecified
CPT/HCPCS: 36415; 80069; 82570; 84156

== ENCOUNTER 2024-07-30 05:58 | Day surgery (SDC) | payer MEDICARE, SELFPAY ==
--- NOTE | 2024-07-12 10:09 | PAT.ANESEVAL ---
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 When Was Last Pacemaker Check QUESTION #4 FULL TEXT: You/Your Family Experience fever (hyperthermia) with Anesthesia Last Oral Intake Last Oral intake: Last Oral Intake NPO since Meds taken in AM with sips of water? Meds patient instructed to take am of surgery PONV PONV - regrinder operator: PONV - regrinder operator Female Yes 07/12/24 08:18 HX of Motion Sickness No 07/12/24 08:18 HX of N/V After Surgery No 07/12/24 08:18 Non-Smoker Yes 07/12/24 08:18 Duration of Surgery greater Yes 07/12/24 08:18 than 60 minutes Number of Risk Factors 3 07/12/24 08:18 PONV Score Moderate Risk 07/12/24 08:18 Height & Weight Height & Weight: Anesthesia: Height & Weight Height 5 ft 8 in 07/05/24 11:30 Respiratory Assessment Respiratory Assessment - regrinder operator: Respiratory Tract Infection Hx - regrinder operator Hx Respiratory Tract Infection No 07/12/24 08:18 STOP Sleep Apnea STOP Sleep Apnea - regrinder operator: STOP Sleep Apnea - regrinder operator Hx Hypertension Yes: PER PT'S FAMILY, 07/12/24 08:18 CONTROLLED ON MEDS Hx Sleep Apnea Yes 07/12/24 08:18 CPAP Yes 07/12/24 08:18 BIPAP No 07/12/24 08:18 Do you snore loudly (louder than talking or can be heard Do you often feel tired/ fatigued/ sleepy during daytime? Has anyone observed you stop breathing during sleep? STOP Results Positive 07/12/24 08:18 QUESTION #5 FULL TEXT : Do you snore loudly (louder than talking or can be heard through closed doors)? 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 Specify any problems Hx of Preganancy in last 3 No 07/12/24 08:18 Months Nurse Filling Out Transfusion [id number] 07/12/24 08:18 & Questions: Date: 07/12/24 07/12/24 08:18 Time: 08:20 07/12/24 08:18 Patient unable to answer at this time (ie. confused, unrespo /Reproduction History /Reproductive History - regrinder operator: /Reproductive Hx- regrinder operator Hx Now No 07/12/24 08:18 Gestational Age (in weeks): EDC: Hx Hx Para Hx Section SAB No 07/12/24 08:18 [facility] Medical History (Updated 07/12/24 @ 08:31 by Luz Contreras) Wears partial dentures History of MRSA infection Post-menopausal Cancer Walker as ambulation aid Bladder disease CKD (chronic kidney disease), stage II Low iron High cholesterol History of pulmonary embolus (PE) History of DVT (deep vein thrombosis) Easy bruising Gastric reflux Non-smoker History of edema History of echocardiogram Anxiety Hypothyroidism Hx of pulmonary embolus History of hypertension Diabetes Femoral neck fracture Morbid obesity Femur fracture Pulmonary embolism History of left knee replacement Hyperlipidemia Hypertension Diabetes blood clots Home Medications ?Medication ?Instructions ?Recorded ?Last Taken ?Type atorvastatin 10 mg tablet 10 mg PO QHS cholesterol lowering 11/27/19 11/13/22 History apixaban 5 mg tablet 5 mg PO BID blood thinner 12/26/19 11/13/22 History cholecalciferol (vitamin D3) 125 125 mcg PO DAILY supplement 11/02/20 11/13/22 History mcg (5,000 unit) tablet (Vitamin D3) folic acid 1 mg tablet 1 mg PO DAILY supplement 11/02/20 11/13/22 History pantoprazole 40 mg tablet,delayed 40 mg PO DAILY GERD 11/02/20 11/13/22 History release (Protonix) vitamin B complex 1 cap PO DAILY supplement 11/02/20 11/13/22 History losartan 100 mg tablet 100 mg PO DAILY BP 30 days #30 tabs 11/19/20 11/13/22 Rx metoprolol succinate 25 mg 100 mg PO DAILY blood pressure 02/01/21 11/13/22 History tablet,extended release 24 hr finerenone 10 mg tablet (Kerendia) 10 mg PO DAILY chronic kidney 03/26/21 11/13/22 History disease mirabegron 25 mg tablet,extended 25 mg PO DAILY OAB 05/31/21 11/13/22 History release 24 hr amlodipine 5 mg tablet 5 mg PO QHS BP 11/14/22 11/13/22 History fluoxetine 10 mg capsule 10 mg PO DAILY DEPRESSION 11/14/22 11/13/22 History fluoxetine 40 mg capsule 40 mg PO DAILY DEPRESSION 11/14/22 11/13/22 History levothyroxine 50 mcg tablet 50 mcg PO DAILY THYROID 11/14/22 11/13/22 History (Synthroid) oxybutynin chloride 10 mg 10 mg PO DAILY OAB 11/14/22 11/13/22 History tablet,extended release 24 hr ropinirole 3 mg tablet 6 mg PO QHS RLS 11/14/22 11/13/22 History sucralfate 1 gram tablet 1 g PO ACHS GERD 11/14/22 11/13/22 History pramipexole 1 mg tablet 1 mg PO DAILY 02/15/23 Unknown History sennosides 8.6 mg-docusate sodium 1 tab PO BID PRN constipation 02/15/23 Unknown History 50 mg tablet (Stool Softener-Stimulant Laxative) bupropion HCl 300 mg 24 hr tablet, 300 mg PO QDAY 07/05/24 Unknown History extended release Saccharomyces boulardii 250 mg 250 mg PO BID 07/12/24 Unknown History capsule (Daily Probiotic (S. boulardii)) ascorbic acid 125 mg-collagen, 1 cap PO DAILY 07/12/24 Unknown History hydrolyzed 740 mg capsule (Collagen Plus Vitamin C) ferrous sulfate 325 mg (65 mg 325 mg PO DAILY 07/12/24 Unknown History iron) tablet mirabegron 50 mg tablet,extended 100 mg PO DAILY 07/12/24 Unknown History release 24 hr (Myrbetriq) nystatin 100,000 unit/gram topical 1 applic topical BID PRN antifungal 07/12/24 Unknown History powder (Nyamyc) Allergy/AdvReac Type Severity Reaction Status Date / Time cephalexin (From Keflex) Allergy Rash Verified 01/04/23 11:32 clindamycin Allergy Anaphylaxis Verified 01/04/23 11:32 vancomycin Allergy Rash Verified 01/04/23 11:32 Family History Other No pertinent family history Surgical History (Updated 07/12/24 @ 08:18 by Luz Contreras) History of colonoscopy History of total right hip arthroplasty Hx of foot surgery History of left hip hemiarthroplasty History of bilateral cataract extraction History of section Social History household members: spouse Smoking Status: Never smoker alcohol intake: never substance use type: does not use Audit: Pertinent Findings Pertinent Findings EKG Perinent findings: EKG reviewed from 11/14/22: NSR Echo (EF%) pertinent findings: TTE reviewed from 11/28/2019: LVEF 60%, no evidence fo diastolic dysfunx, moderately dilated RV, mild global right ventricular systolic dysfunx, TV regurg trivial Recommendation Anesthesia Recommendation Anesthesia recommendation: OPTIMIZED for anesthesia
--- NOTE | 2024-07-29 13:03 | PCM.HP.STD ---
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 Biopsy was performed on [address] Tanner Silva (shave biopsy, 8 x 7 x 1 mm). She was referred to us for wide local excision. No new onset recent headaches. This melanoma in situ is coming from her previous scar site where a melanoma in situ was removed back in August [address] Silva. She is not a smoker. Current Encounter (DATE OF SURGERY H&P UPDATE): I saw and examined the patient this morning in pre-operative holding. We discussed risks and benefits of today's surgery and they would like to proceed. NO CHANGE in health history since last seen and evaluated. Ready to proceed with surgery. [facility] Medical History Wears partial dentures History of MRSA infection Post-menopausal Cancer Walker as ambulation aid Bladder disease CKD (chronic kidney disease), stage II Low iron High cholesterol History of pulmonary embolus (PE) History of DVT (deep vein thrombosis) Easy bruising Gastric reflux Non-smoker History of edema History of echocardiogram Anxiety Hypothyroidism Hx of pulmonary embolus History of hypertension Diabetes Femoral neck fracture Morbid obesity Femur fracture Pulmonary embolism History of left knee replacement Hyperlipidemia Hypertension Diabetes blood clots Home Medications ?Medication ?Instructions ?Recorded ?Last Taken ?Type atorvastatin 10 mg tablet 10 mg PO QHS cholesterol lowering 11/27/19 11/13/22 History apixaban 5 mg tablet 5 mg PO BID blood thinner 12/26/19 11/13/22 History cholecalciferol (vitamin D3) 125 125 mcg PO DAILY supplement 11/02/20 11/13/22 History mcg (5,000 unit) tablet (Vitamin D3) folic acid 1 mg tablet 1 mg PO DAILY supplement 11/02/20 11/13/22 History pantoprazole 40 mg tablet,delayed 40 mg PO DAILY GERD 11/02/20 11/13/22 History release (Protonix) vitamin B complex 1 cap PO DAILY supplement 11/02/20 11/13/22 History losartan 100 mg tablet 100 mg PO DAILY BP 30 days #30 tabs 11/19/20 11/13/22 Rx metoprolol succinate 25 mg 100 mg PO DAILY blood pressure 02/01/21 11/13/22 History tablet,extended release 24 hr finerenone 10 mg tablet (Kerendia) 10 mg PO DAILY chronic kidney 03/26/21 11/13/22 History disease mirabegron 25 mg tablet,extended 25 mg PO DAILY OAB 05/31/21 11/13/22 History release 24 hr amlodipine 5 mg tablet 5 mg PO QHS BP 11/14/22 11/13/22 History fluoxetine 10 mg capsule 10 mg PO DAILY DEPRESSION 11/14/22 11/13/22 History fluoxetine 40 mg capsule 40 mg PO DAILY DEPRESSION 11/14/22 11/13/22 History levothyroxine 50 mcg tablet 50 mcg PO DAILY THYROID 11/14/22 11/13/22 History (Synthroid) oxybutynin chloride 10 mg 10 mg PO DAILY OAB 11/14/22 11/13/22 History tablet,extended release 24 hr ropinirole 3 mg tablet 6 mg PO QHS RLS 11/14/22 11/13/22 History sucralfate 1 gram tablet 1 g PO ACHS GERD 11/14/22 11/13/22 History pramipexole 1 mg tablet 1 mg PO DAILY 02/15/23 Unknown History sennosides 8.6 mg-docusate sodium 1 tab PO BID PRN constipation 02/15/23 Unknown History 50 mg tablet (Stool Softener-Stimulant Laxative) bupropion HCl 300 mg 24 hr tablet, 300 mg PO QDAY 07/05/24 Unknown History extended release Saccharomyces boulardii 250 mg 250 mg PO BID 07/12/24 Unknown History capsule (Daily Probiotic (S. boulardii)) ascorbic acid 125 mg-collagen, 1 cap PO DAILY 07/12/24 Unknown History hydrolyzed 740 mg capsule (Collagen Plus Vitamin C) ferrous sulfate 325 mg (65 mg 325 mg PO DAILY 07/12/24 Unknown History iron) tablet mirabegron 50 mg tablet,extended 100 mg PO DAILY 07/12/24 Unknown History release 24 hr (Myrbetriq) nystatin 100,000 unit/gram topical 1 applic topical BID PRN antifungal 07/12/24 Unknown History powder (Nyamyc) Allergy/AdvReac Type Severity Reaction Status Date / Time cephalexin (From Keflex) Allergy Rash Verified 07/30/24 06:39 clindamycin Allergy Anaphylaxis Verified 07/30/24 06:39 vancomycin Allergy Rash Verified 07/30/24 06:39 Family History Other No pertinent family history Surgical History History of colonoscopy History of total right hip arthroplasty Hx of foot surgery History of left hip hemiarthroplasty History of bilateral cataract extraction History of section Social History household members: spouse Smoking Status: Never smoker alcohol intake: never substance use type: does not use Physical Exam Narrative right upper extremity No axillary or epitrochlear lymphadenopathy There is an 8 x 8 mm area of skin ulceration/healing shave biopsy on the right proximal dorsal forearm consistent with the site described in the pathology report. No obvious residual melanocytes. Assessment & Plan Assessment/Plan (1) Melanoma in situ: PLAN: Plan Given subtype, discussed 1 cm margins (recommended at least 5 to 9 mm margins for lentigo maligna subtype, and if there is actual undiagnosed melanoma within the tumor region, the 1 cm margins would likely be definitive management of this lesion as well). Patient was in agreement with this plan. I talked her extensively about primary closure versus possible delayed reconstruction with temporary dressing placed while we await permanent margins. I talked to the patient extensively about the risks of surgery, including bleeding, infection, damage to surrounding structures, poor scaring, surgical site dehiscence and wound formation, need for wound care, need for repeat operations, failure to obtain the desired result, DVT/PE, and the risks of anesthesia including , including stroke (from low blood pressure/ischemia or clot). The benefits and alternatives of this surgery were also discussed. All of their questions were answered, and they agreed to proceed with surgery. Discussed risks of bleeding extensively with the patient. Also discussed risks of blood clot and we are going to continue blood thinner through the course of the operation given risk-benefit. 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 CPT codes for insurance prior authorization are as follows: 24193, 96653 INTERVAL H&P PLAN, DATE OF SURGERY: Discussed above noted risks, benefits, and alterantives, as well as the plan for 1 cm margins/excision. Possible dermal substitute. We will proceed with surgery today.
[2024-07-30] VITALS (7 sets, daily range): BP systolic 141–167; BP diastolic 62–66; PULSE 51–53; RESP 16; TEMP 36.2–36.7; O2SAT 92–100; BMI 33.4
[2024-07-30] MEDS: Lactated Ringers 1,000 ML 15 ML IV (06:47)
[2024-07-30] MEDS: Doxycycline 100 MG CAPSULE PO (06:57)
[2024-07-30 07:14] LABS: Bedside Glucose 97 mg/dL (74-106)
--- NOTE | 2024-07-30 07:30 | LES_PTH ---
PATIENT: DWAIN BILLINGSLEY [place] [facility] [id number] AGE/SX: 74/F ROOM: RE07/30/[address]: Dr. Reji Kasper MD : 1950 BED: DIS: 07/30/2024 SPEC #: [id number] RECD: 07/30/24 11:11 STATUS: ZOFIA REQ #: [id number] JOHN PAUL: 07/30/24 07:[address]: Reji Kasper DEPT: SURGICAL PATHOLOGY RECD BY: Asad Collado ENTERED: 07/30/24 11:43 SP TYPE: Lesion OTHR DR: DO Dr. Tanner Mix MD Tissues: A - Skin of arm Procedures: Immunohistochemical Stains Surgery Specimen Level IV IHC Stain ADDITIONAL HEADER OPERATION: Wide local excision of lentigo maligna subtype melanoma PRE-OP DIAGNOSIS: Lentigo maligna subtype melanoma in situ right dorsal proximal forearm TISSUE SUBMITTED: A- Melanoma in situ right arm *short tag- proximal, long tag- radial* MICROSCOPIC DIAGNOSIS A. Skin, right dorsal proximal forearm, lentigo maligna subtype melanoma in situ, wide excision: * No residual lentigo maligna melanoma (margins free). * Scar and associated reactive changes consistent with a previous surgical procedure. MICROSCOPIC DESCRIPTION Slides are reviewed. IHC for Melan-A (A3, A4) supports the diagnosis. All matched controls reacted appropriately. GROSS DESCRIPTION A. Received in formalin in a container labeled with the patient's name, date of , and melanoma in situ right arm short tag proximal long tag radial is an oriented and ovoid skin excision with a short stitch indicating proximal margin and long stitch indicating radial margin. The short stitch is arbitrarily designated as 6:00, and the long stitch is arbitrarily designated as 9:00. The specimen is 2.3 cm from 6:00 to 12:00 (proximal to distal), 2.1 cm from 3:00 to 9:00 (ulnar to radial), with an excisional depth up to 1.0 cm. The garzon and wrinkled epidermis is notable for a 1.0 x 0.8 cm white-pink scar. It is situated to the margins as follows:12:00/distal margin: 0.8 cm3:00/ulnar margin: 0.7 cm6:00/proximal margin: 0.9 cm9:00/radial margin: 0.8 cm The 9:00/radial margin is inked green, and the 3:00/ulnar margin is inked black. The specimen is serially sectioned from 12:00/distal to 6:00/proximal into 7 slices to reveal that the scar exhibits garzon-pink surfaces that appear to extend 0.1 cm deep but are approximately 0.6 cm from the deep margin. The remaining cut surfaces are garzon-yellow and lobulated. The specimen is submitted entirely and sequentially as follows:A1. Slice 1, perpendicular sections of 12:00/distal marginA2. Slices 2-3 with scarA3. Slices 4-5 with scarA4. Slice 6, unremarkable between scar and tipA5. Slice 7, perpendicular sections of 6:00/proximal tip A section diagram is made. [facility] 07-30-2024 CPT:54893, [id number]
--- NOTE | 2024-07-30 07:30 | PCM.PRE.AN2 ---
ASA Classification* ASA Classification ASA Classification: 2 Assessment & Plan Anesthesia* Anesthesia Assessment Anesthesia Assessment: Discussed sedation and/or anesthesia options, risks, benefits, and alternatives with patient/parents/legal guardian/POA. Questions invited. The patient/parents/legal guardian/POA seems to understand and agrees to proceed with anesthesia plan. Reviewed the physical assessment, medical history, allergy history and patient home medications list prior to surgery/procedure/anesthetic and documented any changes. Performed airway and anesthesia risk assessments. Anesthesia Type Anesthesia Type: MAC History Source History Obtained from:: Patient and Chart Anesthesia Focused Assessment* Temperature: 98.1 F Pulse Rate: 52 Blood Pressure: 167/64 Respiratory Rate: 16 Pulse Ox: 92 Oxygen Delivery Method: Room Air Airway Assessment Mouth opens: >3 cm Mallampati Score: III Teeth Condition: Missing (Does have a missing tooth on the bottom.) and Partial (Patient has top upper partial.) Neck Range of motion (ROM): Limited ROM (Slight decrease in extension) Focused Labs Anesthesia Preop lab: CBC WBC 5.5 K/mm3 (4.4-11.0) 11/23/22 05:29 11/23/22 RBC 3.24 M/mm3 (4.2-5.4) L 11/23/22 05:29 11/23/22 Hgb 8.3 g/dL (12.0-15.0) L 11/24/22 05:13 11/24/22 Hct 28.3 % (37-47) L 11/24/22 05:13 11/24/22 Plt Count 321 K/mm3 (150-450) 11/23/22 05:29 11/23/22 CHEMISTRY Potassium 3.7 mmol/L (3.3-5.1) 06/11/24 11:39 06/11/24 Sodium 142 mmol/L (133-145) 06/11/24 11:39 06/11/24 Magnesium 2.0 mg/dL (1.6-2.6) 11/22/22 09:35 11/22/22 Phosphorus 3.1 mg/dL (2.7-4.5) 06/11/24 11:39 06/11/24 BUN 14 mg/dL (4-19) 06/11/24 11:39 06/11/24 Creatinine 1.20 mg/dL (0.70-1.20) 06/11/24 11:39 06/11/24 Glucose 90 mg/dL (70-99) 06/11/24 11:39 06/11/24 POC Glucose 97 mg/dL (74-106) 07/30/24 06:27 07/30/24 TSH 2.74 uIU/mL (0.358-3.74) 11/16/22 05:45 11/16/22 COAG PT 14.6 SECONDS (11.7-14.9) 11/16/22 05:45 11/16/22 Pre-Assessment Diagnosis/Proposed Procedure Planned Operative Procedure(s): (R) 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 When Was Last Pacemaker Check QUESTION #4 FULL TEXT: You/Your Family Experience fever (hyperthermia) with Anesthesia Last Oral Intake Last Oral intake: Last Oral Intake NPO since 20:00 07/30/24 06:40 Meds taken in AM with sips of No 07/30/24 06:40 water? Meds patient instructed to take am of surgery PONV PONV - front desk associate: PONV - front desk associate Female Yes 07/12/24 08:18 HX of Motion Sickness No 07/12/24 08:18 HX of N/V After Surgery No 07/12/24 08:18 Non-Smoker Yes 07/12/24 08:18 Duration of Surgery greater Yes 07/12/24 08:18 than 60 minutes Number of Risk Factors 3 07/12/24 08:18 PONV Score Moderate Risk 07/12/24 08:18 Height & Weight Height & Weight: Anesthesia: Height & Weight Height 5 ft 8 in 07/30/24 06:40 Weight: 99.79 kg 07/30/24 06:40 Body Mass Index (BMI) 33.4 07/30/24 06:40 Respiratory Assessment Respiratory Assessment - front desk associate: Respiratory Tract Infection Hx - front desk associate Hx Respiratory Tract Infection No 07/12/24 08:18 STOP Sleep Apnea STOP Sleep Apnea - front desk associate: STOP Sleep Apnea - front desk associate Hx Hypertension Yes: PER PT'S FAMILY, 07/12/24 08:18 CONTROLLED ON MEDS Hx Sleep Apnea Yes 07/12/24 08:18 CPAP Yes 07/12/24 08:18 BIPAP No 07/12/24 08:18 Do you snore loudly (louder than talking or can be heard Do you often feel tired/ fatigued/ sleepy during daytime? Has anyone observed you stop breathing during sleep? STOP Results Positive 07/12/24 08:18 QUESTION #5 FULL TEXT : Do you snore loudly (louder than talking or can be heard through closed doors)? 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 Specify any problems Hx of Preganancy in last 3 No 07/12/24 08:18 Months Nurse Filling Out Transfusion MGRIFFITH 07/12/24 08:18 & Questions: Date: 07/12/24 07/12/24 08:18 Time: 08:20 07/12/24 08:18 Patient unable to answer at this time (ie. confused, unrespo /Reproduction History /Reproductive History - front desk associate: /Reproductive Hx- front desk associate Hx Now No 07/12/24 08:18 Gestational Age (in weeks): EDC: Hx Hx Para Hx Section SAB No 07/12/24 08:18 Active Medications Active Medications: Current Medications Generic Name Dose Route Start Last Admin Trade Name Rosy PRN Reason Stop Dose Admin Doxycycline Monohydrate 100 mg 07/30/24 07:30 07/30/24 06:57 Doxycycline 100 Mg Capsule PO 07/30/24 07:31 100 mg X1 ONE Administration Lactated Ringer's 1,000 mls @ 15 mls/hr 07/30/24 06:15 07/30/24 06:47 IV 15 mls/hr .Q48H JIMMY Administration PFSH Medical History Wears partial dentures History of MRSA infection Post-menopausal Cancer Walker as ambulation aid Bladder disease CKD (chronic kidney disease), stage II Low iron High cholesterol History of pulmonary embolus (PE) History of DVT (deep vein thrombosis) Easy bruising Gastric reflux Non-smoker History of edema History of echocardiogram Anxiety Hypothyroidism Hx of pulmonary embolus History of hypertension Diabetes Femoral neck fracture Morbid obesity Femur fracture Pulmonary embolism History of left knee replacement Hyperlipidemia Hypertension Diabetes blood clots Home Medications ?Medication ?Instructions ?Recorded ?Last Taken ?Type atorvastatin 10 mg tablet 10 mg PO QHS cholesterol lowering 11/27/19 11/13/22 History apixaban 5 mg tablet 5 mg PO BID blood thinner 12/26/19 11/13/22 History cholecalciferol (vitamin D3) 125 125 mcg PO DAILY supplement 11/02/20 11/13/22 History mcg (5,000 unit) tablet (Vitamin D3) folic acid 1 mg tablet 1 mg PO DAILY supplement 11/02/20 11/13/22 History pantoprazole 40 mg tablet,delayed 40 mg PO DAILY GERD 11/02/20 11/13/22 History release (Protonix) vitamin B complex 1 cap PO DAILY supplement 11/02/20 11/13/22 History losartan 100 mg tablet 100 mg PO DAILY BP 30 days #30 tabs 11/19/20 11/13/22 Rx metoprolol succinate 25 mg 100 mg PO DAILY blood pressure 02/01/21 11/13/22 History tablet,extended release 24 hr finerenone 10 mg tablet (Kerendia) 10 mg PO DAILY chronic kidney 03/26/21 11/13/22 History disease mirabegron 25 mg tablet,extended 25 mg PO DAILY OAB 05/31/21 11/13/22 History release 24 hr amlodipine 5 mg tablet 5 mg PO QHS BP 11/14/22 11/13/22 History fluoxetine 10 mg capsule 10 mg PO DAILY DEPRESSION 11/14/22 11/13/22 History fluoxetine 40 mg capsule 40 mg PO DAILY DEPRESSION 11/14/22 11/13/22 History levothyroxine 50 mcg tablet 50 mcg PO DAILY THYROID 11/14/22 11/13/22 History (Synthroid) oxybutynin chloride 10 mg 10 mg PO DAILY OAB 11/14/22 11/13/22 History tablet,extended release 24 hr ropinirole 3 mg tablet 6 mg PO QHS RLS 11/14/22 11/13/22 History sucralfate 1 gram tablet 1 g PO ACHS GERD 11/14/22 11/13/22 History pramipexole 1 mg tablet 1 mg PO DAILY 02/15/23 Unknown History sennosides 8.6 mg-docusate sodium 1 tab PO BID PRN constipation 02/15/23 Unknown History 50 mg tablet (Stool Softener-Stimulant Laxative) bupropion HCl 300 mg 24 hr tablet, 300 mg PO QDAY 07/05/24 Unknown History extended release Saccharomyces boulardii 250 mg 250 mg PO BID 07/12/24 Unknown History capsule (Daily Probiotic (S. boulardii)) ascorbic acid 125 mg-collagen, 1 cap PO DAILY 07/12/24 Unknown History hydrolyzed 740 mg capsule (Collagen Plus Vitamin C) ferrous sulfate 325 mg (65 mg 325 mg PO DAILY 07/12/24 Unknown History iron) tablet mirabegron 50 mg tablet,extended 100 mg PO DAILY 07/12/24 Unknown History release 24 hr (Myrbetriq) nystatin 100,000 unit/gram topical 1 applic topical BID PRN antifungal 07/12/24 Unknown History powder (Nyamyc) Allergy/AdvReac Type Severity Reaction Status Date / Time cephalexin (From Keflex) Allergy Rash Verified 07/30/24 06:39 clindamycin Allergy Anaphylaxis Verified 07/30/24 06:39 vancomycin Allergy Rash Verified 07/30/24 06:39 Family History Other No pertinent family history Surgical History History of colonoscopy History of total right hip arthroplasty Hx of foot surgery History of left hip hemiarthroplasty History of bilateral cataract extraction History of section Social History household members: spouse Smoking Status: Never smoker alcohol intake: never substance use type: does not use Review of Systems (Anesthesia) ROS Narrative System reviewed and no additional complaints, except as documented.
--- NOTE | 2024-07-30 07:49 | PCM.OPRPT ---
Operative Report (Standard) Operative Information Date of Procedure: 07/30/24 Pre-Operative Diagnosis: 1) Fright forearm melanoma in situ Post-Operative Diagnosis: Same Surgery/Procedure Performed: 1) Excision of right forearm melanoma in situ, 2.6 x 2.8 cm (CPT:40917) 2) Complex closure right forearm melanoma in situ wound (status post excision), 5 cm (CPT:66274) tufting machine fixer: No Type of Anesthesia: Local MAC (10 cc of 50-50 mixture of 1% lidocaine with 1-200,000 epinephrine and quarter percent Marcaine with 1-200,000 epinephrine) RN Documented Start/Stop Times: Operation Date: 07/30/24 07:30 Case Time Into Pre-Op 07/30/24 06:08 Anesthesia Start 07/30/24 07:41 Into Room 07/30/24 07:41 Procedure Start 07/30/24 08:00 Procedure Start Time: 08:00 Procedure Stop Time: 08:15 Select all DRAINS/GRAFTS/IMPLANTS that apply: None Estimated Blood Loss: Minimal Specimen collected: Yes Description of specimen(s) removed: Labeled short proximal and long radial with silk marking stitch Description of surgery: Indications: Patient is a delightful 74-year-old with a history of recurrence of a melanocytic lesion on the right forearm which was determined to be melanoma in situ lentigo maligna subtype at the biopsy site of the previous scar. She was referred to me for wide local excision with 9 mm margins by local sales representative malt liquors. I talked to her about full 1 cm margins in case the pathology comes back with an invasive component (extra millimeter). She agreed. She understands risks, benefits, and alternatives to wide local excision and agreed to proceed. Procedure details: Patient was correctly identified in preoperative holding and I marked the biopsy site for wide local excision with the patient present and her present. They were in agreement with the site marking and it was consistent with the biopsy report from the pathologist and from our clinic visit. She was taken back to the operating room where she was administered sedation and injected with local anesthesia as noted above. He was given time to take effect. She was prepped and draped in sterile fashion and all proper timeouts were performed per protocol. 15 blade scalpel was used to excise the lesion full-thickness down to fascia with 1 cm margins and it was noted to be 2.6 x 2.8 centimeters. It was marked short proximal and long radial with a silk marking stitch. The wound was irrigated with copious amounts normal saline and Bovie electrocautery was used to perform hemostasis. There was significant tension and therefore 2 cm of undermining at the level of the fascia was completed radially and ulnarly with tenotomy scissors and Bovie electrocautery for hemostasis with care taken to protect cutaneous nerve. There is a total of 4 cm of undermining, implicating complex closure, and this was satisfactory to close the wound primarily with excision of approximately 1 cm of dogear tissue proximally and distally. The wound was closed with 3-0 PDS deep scarpas sutures and 3-0 Monocryl deep tumoral sutures followed by 3-0 Monocryl running subcuticular sutures. The total complex closure was 5 cm. Prineo tape was placed over the top of the wound. The patient tolerated the procedure well and was awakened and taken to the PACU in stable condition. Postoperative plan: Follow-up in 1 week in clinic for wound check and for review of pathology. Surgical Findings: No obvious residual melanocytes. Able to close primarily with undermining. Complications Complications: No Admit VTE Documentation VTE Mechan Device Prophylaxis: SCD's
[2024-07-30] MEDS: Lidocaine 1% /Epi 1:100 (20ml) 20 ML Vial (07:54)
[2024-07-30] MEDS: Bupiv/Epi 0.25% 30 ML Vial (07:54)
--- NOTE | 2024-07-30 08:27 | PCM.POST.ANE ---
Anesthesia: Postop Eval I Current Vital Signs Temperature: 97.2 F Pulse Rate: 52 Blood Pressure: 141/62 Respiratory Rate: 16 Pulse Ox: 100 Assessment Airway patent: Yes Spontaneous unlabored respirations: Yes nausea: No Vomiting: No Anesthesia Complication: No Fluid Hydration Crystalloid volume administer (ml): 200 Total IV fluid infused: 200 Progress Note Anesthesia document: Postop Eval 1 completed: Yes
--- NOTE | 2024-07-30 14:04 | POSTOPAN2_ITS ---
Anesthesia Postop Eval I Sum Postop Eval Completion status Anesthesia document: Postop Eval 1 completed: Yes Anesthesia Postop Eval I Summary Anesthesia Postop Eval I Summary: Anesthesia Postop Eval I: Assessment Summary Airway patent Yes 07/30/24 08:27 SAMPLE EXAMINER.TNES Spontaneous unlabored Yes 07/30/24 08:27 SAMPLE EXAMINER.TNES respirations Mental status nausea No 07/30/24 08:27 SAMPLE EXAMINER.TNES Vomiting No 07/30/24 08:27 SAMPLE EXAMINER.TNES Anesthesia Postop Eval I: Fluid Summary Crystalloid volume administer 200 07/30/24 08:27 SAMPLE EXAMINER.TNES (ml) Colloids volume administered ( ml) Blood Product volume administered (ml) Total IV fluid infused 200 07/30/24 08:27 SAMPLE EXAMINER.TNES Anesthesia Postop Eval I: Summary Notes Anesthesia Complication No 07/30/24 08:27 SAMPLE EXAMINER.TNES Anesthesia Complication Comment: Post-operative progress note Anesthesia: Postop Eval II Evaluation Mental status: Awake and Calm Pain Level: 0 nausea: No Vomiting: No Complications Anesthesia Complication: No
--- NOTE | 2024-07-30 14:04 | PCM.POSTANE2 ---
Anesthesia Postop Eval I Sum Postop Eval Completion status Anesthesia document: Postop Eval 1 completed: Yes Anesthesia Postop Eval I Summary Anesthesia Postop Eval I Summary: Anesthesia Postop Eval I: Assessment Summary Airway patent Yes 07/30/24 08:27 DIRECTOR [email or web address] Spontaneous unlabored Yes 07/30/24 08:27 DIRECTOR [email or web address] respirations Mental status nausea No 07/30/24 08:27 DIRECTOR [email or web address] Vomiting No 07/30/24 08:27 DIRECTOR [email or web address] Anesthesia Postop Eval I: Fluid Summary Crystalloid volume administer 200 07/30/24 08:27 DIRECTOR [email or web address] (ml) Colloids volume administered ( ml) Blood Product volume administered (ml) Total IV fluid infused 200 07/30/24 08:27 DIRECTOR [email or web address] Anesthesia Postop Eval I: Summary Notes Anesthesia Complication No 07/30/24 08:27 DIRECTOR [email or web address] Anesthesia Complication Comment: Post-operative progress note Anesthesia: Postop Eval II Evaluation Mental status: Awake and Calm Pain Level: 0 nausea: No Vomiting: No Complications Anesthesia Complication: No
== END 2024-07-30 09:15 | disposition home or self-care (01) ==
LOC: SDC 05:58 → AC 06:02
PROVIDERS: PCP Student in an Organized Health Care Education/Training Program; Referring Provider Surgery Plastic and Reconstructive Surgery; Visit Provider Surgery Plastic and Reconstructive Surgery
PROC: (CPT 11603; principal; 2024-07-30 07:20)
DX: D03.61 Melanoma in situ of right upper limb, including shoulder (principal); E11.22 Type 2 diabetes mellitus with diabetic chronic kidney disease; I12.9 Hypertensive chronic kidney disease with stage 1 through stage 4 chronic kidney disease, or unspecified chronic kidney disease; K21.9 Gastro-esophageal reflux disease without esophagitis; N18.2 Chronic kidney disease, stage 2 (mild); E78.00 Pure hypercholesterolemia, unspecified; Z86.006 Personal history of melanoma in-situ
CPT/HCPCS: 11603; 13121; 00400; 82962; 88305; 88341; 88342

== ENCOUNTER 2024-10-31 11:00 | Outpatient (RCR) | payer MEDICARE, SELFPAY ==
--- NOTE | 2024-07-01 14:42 | HP.PTEVAL ---
Patient's Visit Information Visit Information Visit Information: DWAIN BILLINGSLEY is a 74 year old F referred to Physical Therapy by Dr. Rafiq Juarez MD with a diagnosis of OA R KNEE, S/P TKR 12/19/23. Date of Evaluation: 07/01/24 Physical Therapist: Moni Henley PT, Cert MDT Visit Plan Frequency: 2x /Week Duration: 6-8 WKS Plan: AQUATIC THERAPY (IF OK'D BY DR. MONDRAGON) FOR CORE STRENGTHENING, GAIT TRAINING, BALANCE TRAINING AND R LE ROM, STRETCHING AND STRENGTHEING. Subjective Subjective: Work/Leisure: RETIRED. LIKES TO DO JIG SAW PUZZLES AND READ. Present symptoms: INTERMITTENT R KNEE PAIN. PATIENT DENIES LOW BACK PAIN, L KNEE PAIN AND VIPIN LE NUMBNESS AND TINGLING. Pain Scale: WORST 5/10, LEAST 0/10 Currently: 2/10 Is it getting better, worse or staying the same: GETTING BETTER Commenced as a result of: ARTHRITIS Worse: SITTING TOO LONG, WALKING TOO FAR, SOMETIMES IN THE MIDDLE OF THE NIGHT, INITIATING GAIT AFTER SITTING. Better: ELEVATING IT, CHANGE OF POSITION OR ACTIVITY. Disturbed sleep: SOMETIMES Previous history/Previous treatment: PHYSICAL THERAPY AND INJECTIONS TRIED BEFORE SURGERY Treatment this episode: S/P R TKR BY DR. 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 NO FALLS FOR ALMOST 2 YEARS. Bowel or Bladder Dysfunction: NO Unexplained weight loss: NO Imaging: POST SURGICAL LOOKED GOOD PER PATIENT REPORT. Objective Objective: THIS PATIENT AMBULATES INDEP'LY INTO PT LEANING HEAVILY ON FWW WITH SLOW CADANCE AND WITH R LE IN EXTERNAL ROTATION COMPARED TO L. SHE IS A&OX3. SHE IS PLEASANT AND COOPERATIVE TO WORK WITH. Sensory deficit: VIPIN LE LIGHT TOUCH SENSATION IS GROSSLY INTACT AND SYMMETRICAL ROM deficit: R KNEE AROM IN SUPINE 0 - 0 - 107 DEG FLEXION. Motor deficit: VIPIN LE WEAKNES GROSSLY 3+ TO 4-/5 VIPIN LE'S. Circumference Measurements: L KNEE JT - 49.5 CM, R KNEE JT. 50.25 CM. Core strength: POOR Palpation: MILD R KNEE SWELLING. PATIENT DENIES TENDERNESS VIPIN KNEES. TUG TEST: 39.96 WITH FWW 30 STS: PATIENT IS UNABLE TO TRANSFER SIT TO STAND FROM CHAIR WITH HANDS ON KNEES EVEN WITH ONE FOAM ON CHAIR. SHE IS ABLE TO DO ONE REP WITH ONE FOAM AND ONE HAND ON ARM OF CHAIR BUT IT IS VERY DIFFICULT FOR HER. OTHER: AT VERY END OF SESSION PATIENT MENTIONED SHE IS GOING TO CONSULT WITH DR. MONDRAGON HER GRAPPLE SKIDDER OPERATOR ABOUT A SKIN LESION BEFORE GETTING IN THE POOL TO MAKE SURE SHE DOESN'T A RETURN OF SKIN CANCER THAT NEEDS TREATED. PATIENT REPORTS SHE DID NOT WANT TO WAIT TO SCHEDULE THIS SO NOT TO DELAY IT IF EVERYTHING IS FINE AND WILL CALL TO CANCEL IF NEEDED. Balance/Special Test Scores Lower Extremity Functional Score: 28 Goals Goal 1:: DECREASE C/O R KNEE PAIN TO 0-3/10 WITH ALL ADL'S. Goal Time Frame: 6-8 Weeks Goal 2:: PATIENT WILL COMPLETE 4-6 STANDS IN 30 SECS WITH ONE BLUE FOAM ON CHAIR AND ONE UE ASSIST ON ARM OF CHAIR TO DEMONSTRATE IMPROVED FUNCTIONAL LE STRENGTH Goal Time Frame: 6-8 Weeks Goal 3:: PATIENT WILL COMPLETE TUG IN < 30 SECS WITH FWW TO DEMONSTRATE IMPROVED GAIT STABILITY Goal 4:: PATIENT WILL BE INDEP WITH A HEP FOR CONTINUED IMPROVEMENT ONCE FORMAL PHYSICAL THERAPY CONCLUDES. Rehabilitation Potential Physical Therapy Diagnosis: R LE STIFFNESS AND WEAKNESS WITH GAIT DIFFICULTY. Rehabilitation Potential: Good Anticipated Interventions Patient/Client Instruction: Educate patient on: Condition, Plan of Care and Risk Factors For the Purpose of:: To improve self management Therapeutic Exercise to Include: Strength training, Balance training, Flexibilty training, Gait and locomotor training and In an aquatic setting For the Purpose of:: To decrease pain, To increase ROM, To improve muscle performance and motor function, To improve ability to perform ADL's, To increase tolerance to activity/condition/position, To improve ability of physical actions for home/community/work/leisure, To improve gait and locomotor functions, To improve balance, To improve safety with gait and To improve self management Text: Thank you for the opportunity to evaluate your patient. For Medicare and Medicare HMO plans, please review the plan of care and approve it. It will need to be FAXED BACK to us at [phone] for Medicare purposes. For Medicare only, by signing this I certify the plan of care. Please let me know if there are questions or concerns regarding this plan of care. Physician Signature: Date:
--- NOTE | 2024-08-19 19:33 | HP.PTREVAL_ITS ---
Re-Evaluation Intro: Dr. 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 Please see the progress note below for an update on the physical therapy plan of care! Subjective Subjective: PATIENT REPORTS THEY CHANGED HER SURGERY AT THE LAST MINUTE TO JUL 30 2024 DUE TO THE DOCTORS SCHEDULE TO REMOVE HER R ARM MELONOMA. SHE WAS IN THE HOSPITAL FOR ONE DAY. SHE DENIES ANY COMPLICATIONS. SHE REPORTS THEY STITCHED AND GLUED THE INCISION AND HE TOLD HER SHE COULD GET IN THE POOL WITH A WATERPROOF BANDAGE. SHE STATES SHE FEELS READY TO SCHEDULE WATER THERAPY NOW. SHE REPORTS DR. MONDRAGON PLANNED FOR HER TO WORK WITH DR. KAM TOO AND SHE HAS A SECOND FOLLOW UP WITH HIM THIS MONDAY. SHE REPORTS INTERMITTENT R KNEE PAIN RANGING 0-6/10. SHE REPORTS SHE HASN'T TAKEN ANY PRESCRIPTION OR OTC PAIN MEDI CINE FOR IT IN WEEKS. PATIENT REPORTS SHE HASN'T HAD ANY FALLS SINCE LAST PT VISITS AND SHE IS THRILLED SHE ISN'T FALLING. SHE DENIES ANY NEW SYMPTOMS WITH HER BACK OR LEGS SINCE PT EVAL 07/01/24. SHE REPORTS SEEING HER PCP DR. STEVENS 08/16/24 AND IT WENT WELL. Objective Objective/Function: PATIENT WAS SEEN TODAY FOR RE-ASSESSMENT. SHE APPEARS TO BE APPROPRIATE TO START AQUATIC THERAPY AND PLANS TO GET WATER PROOF BANDAGE TO DO SO BEFORE NEXT APPOINTMENT. TESTING IS SIMILAR OR BETTER TODAY COMPARED TO INITIAL EVAL. UPON EXAM TODAY: THIS PATIENT AMBULATES INDEP'LY INTO PT LEANING FAIRLY HEAVILY ON FWW WITH SLOW CADANCE AND WITH R LE IN EXTERNAL ROTATION COMPARED TO L. SHE IS A&OX3. SHE IS PLEASANT AND COOPERATIVE TO WORK WITH. Sensory deficit: VIPIN LE LIGHT TOUCH SENSATION IS GROSSLY INTACT AND SYMMETRICAL ROM deficit: R KNEE AROM IN SUPINE 0 - 0 - 107 DEG FLEXION. Motor deficit: VIPIN LE WEAKNES GROSSLY 3+ TO 4-/5 VIPIN LE'S. Circumference Measurements: L KNEE JT - 49.0 CM, R KNEE JT. 49.25 CM. Core strength: POOR Palpation: MILD R KNEE SWELLING. PATIENT DENIES TENDERNESS VIPIN KNEES. TUG TEST: 38.91 WITH FWW 30 STS = 5, ONE BLUE FOAM ON CHAIR AND ONE UE ASSSIT. OTHER: CASE CONFERENCE WITH APARNA NOLASCO THIS DATE ABOUT PATIENT ARM WOUND AND GOING DOWN STEPS SIDEWAYS AT [facility] INDEP'LY. MAY NEED LIFT CHAIR FOR POOL ENTER/EXIT AND THERAPIST TO GET IN DUE TO BALANCE ISSUES. Plan Plan Plan: *RECENT R UE LESION REMOVED AND NEEDING TO BE COVERED WITH WATERPROOF BANDAGE* *PATIENT ALSO WITH BALANCE ISSUE AND MAY NEED THERAPIST TO GET IN WITH HER* AQUATIC THERAPY 2X'S A WK X 8-12 VISITS FOR CORE STRENGTHENING, GAIT TRAINING, BALANCE TRAINING AND R LE ROM, STRETCHING AND STRENGTHEING. Balance/Gait/Functional tests Balance/Special Test Scores Lower Extremity Functional Score: 28 Goals Goals Goal 1:: DECREASE C/O R KNEE PAIN TO 0-3/10 WITH ALL ADL'S. Goal Time Frame: 6-8 Weeks Goal 2:: PATIENT WILL COMPLETE 4-6 STANDS IN 30 SECS WITH ONE BLUE FOAM ON CHAIR AND ONE UE ASSIST ON ARM OF CHAIR TO DEMONSTRATE IMPROVED FUNCTIONAL LE STRENGTH Goal Time Frame: 6-8 Weeks Goal 3:: PATIENT WILL COMPLETE TUG IN < 30 SECS WITH FWW TO DEMONSTRATE IMPROVED GAIT STABILITY Goal 4:: PATIENT WILL BE INDEP WITH A HEP FOR CONTINUED IMPROVEMENT ONCE FORMAL PHYSICAL THERAPY CONCLUDES. Anticipated Interventions Anticipated Interventions Patient/Client Instruction: Educate patient on: Condition, Plan of Care and Risk Factors For the Purpose of:: To improve self management Therapeutic Exercise to Include: Strength training, Balance training, Flexibilty training, Gait and locomotor training and In an aquatic setting For the Purpose of:: To decrease pain, To increase ROM, To improve muscle performance and motor function, To improve ability to perform ADL's, To increase tolerance to activity/condition/position, To improve ability of physical actions for home/community/work/leisure, To improve gait and locomotor functions, To improve balance, To improve safety with gait and To improve self management Re-Evaluation Ending Re-evaluation ending: Please do not hesitate to contact me at [phone] by phone or if you have questions or concerns regarding this new plan of care! Sincerely, Moni Henley, PT, Cert MDT
--- NOTE | 2024-09-20 11:59 | HP.PTREVAL ---
Re-Evaluation Intro: Dr. Rafiq Juarez MD, It has been my pleasure to treat DWAIN BILLINGSLEY over the last 11 visits for OA R KNEE, S/P TKR 12/19/23. Please see the progress note below for an update on the physical therapy plan of care! Subjective Subjective: WHEN I'M IN THE POOL I HAVE NO PAIN. PATIENT REPORTS THAT SINCE STARTING POOL THERAPY ABOUT A MONTH AGO SHE CAN GO UP AND DOWN THE STEPS BETTER, WALK ACROSS THE POOL BETTRE, WALK WITH HER WALKER BETTER AND SHE HAS LEARNED NEW EX'S SHE CAN DO IN THE WATER TOO. PATIENT REPORTS WISHING TO CONTINUE AQUATIC THERAPY AT THIS TIME. PATIENT REPORTS [employer] DO NOT WORK FOR HER SO SHE WOULD BE LOOKING INTO [facility] AT OTHER FACILITIES AND HAS ALREADY BEEN CONSIDERING THIS. FOLLOW UP PENDING WITH DR. JUAREZ IN APPROX 2 WEEKS AND SHE PLANS TO DISCUSS THERAPY WITH HIM AT THAT TIME. PATIENT REPORTS SHE HAS NOT HAD ANY R KNEE PAIN FOR THE LAST 2 WEEKS OR SO. Objective Objective/Function: PATIENT WAS SEEN TODAY FOR RE-ASSESSMENT OF PROGRESS TOWARD THE SET PT GOALS AND THE NEED FOR FURTHER PHYSICAL THERAPY VS READINESS FOR DISCHARGE. SHE IS SHOWING SLOW PROGRESS WITH PT AND APPEARS TO BE A GOOD CANDIDATE TO CONTINUE PT BASED ON PROGRESS MADE AND ROOM FOR FURTHER IMPROVEMENT. UPON EXAM TODAY: THIS PATIENT AMBULATES INDEP'LY INTO PT LEANING FAIRLY HEAVILY ON FWW WITH SLOW CADANCE AND WITH R LE IN EXTERNAL ROTATION COMPARED TO L. SHE IS A&OX3. SHE IS PLEASANT AND COOPERATIVE TO WORK WITH. TUG TEST: 32.53 WITH FWW 30 STS = 6, ONE BLUE FOAM ON CHAIR AND ONE UE ASSSIT. Plan Plan Plan: IF NEW ORDERS FROM DR. JUAREZ: *MAY NEED THERAPIST TO GET IN WITH HER* CONTINUE PT FOR POOL X 10 THEN PT RE-CHECK FOR CORE STRENGTHENING, GAIT TRAINING, BALANCE TRAINING AND R LE ROM, STRETCHING AND STRENGTHEING. FOCUS ON [facility] POOL PROGRAM FOR DISCHARGE. Balance/Gait/Functional tests Balance/Special Test Scores Lower Extremity Functional Score: 27 Goals Goals Goal 1:: DECREASE C/O R KNEE PAIN TO 0-3/10 WITH ALL ADL'S. Goal Time Frame: 6-8 Weeks Goal Progress: Goal Met Goal 2:: PATIENT WILL COMPLETE 4-6 STANDS IN 30 SECS WITH ONE BLUE FOAM ON CHAIR AND ONE UE ASSIST ON ARM OF CHAIR TO DEMONSTRATE IMPROVED FUNCTIONAL LE STRENGTH - GOAL MET NEW GOAL - PATIENT WILL COMPLETE 4 STANDS IN 30 SECS WITHOUT BLUE FOAM ON CHAIR AND ONE UE ASSIST ON ARM OF CHAIR TO DEMONSTRATE IMPROVED FUNCTIONAL LE STRENGTH Goal Time Frame: 6-8 Weeks Goal 3:: PATIENT WILL COMPLETE TUG IN < 30 SECS WITH FWW TO DEMONSTRATE IMPROVED GAIT STABILITY Goal Time Frame: 4-6 Weeks Goal Progress: Progressing Goal 4:: PATIENT WILL BE INDEP WITH A HEP FOR CONTINUED IMPROVEMENT ONCE FORMAL PHYSICAL THERAPY CONCLUDES. Goal Time Frame: 4-6 Weeks Goal Progress: Progressing Anticipated Interventions Anticipated Interventions Patient/Client Instruction: Educate patient on: Condition, Plan of Care and Risk Factors For the Purpose of:: To improve self management Therapeutic Exercise to Include: Strength training, Balance training, Flexibilty training, Gait and locomotor training and In an aquatic setting For the Purpose of:: To decrease pain, To increase ROM, To improve muscle performance and motor function, To improve ability to perform ADL's, To increase tolerance to activity/condition/position, To improve ability of physical actions for home/community/work/leisure, To improve gait and locomotor functions, To improve balance, To improve safety with gait and To improve self management Re-Evaluation Ending Re-evaluation ending: Please do not hesitate to contact me at [phone] by phone or if you have questions or concerns regarding this new plan of care! Sincerely, Moni Henley, PT, Cert MDT
--- NOTE | 2024-10-31 12:00 | HP.PTDCSUM ---
Discharge Summary D/C summary: It has been my pleasure to treat DWAIN BILLINGSLEY referred by Dr. Rafiq Juarez MD, with the diagnosis of OA R KNEE, S/P TKR 12/19/23 for a total of 20 visit(s). Discharge Date: 10/31/24 Please see the following information for a summary of their discharge status. Subjective Subjective: PATIENT REPORTS SHE REALLY LIKES THE WATER EX BUT SHE NEEDS A BREAK. SHE REPORTS THAT SINCE STARTING THERAPY SHE CAN DO STEPS, GET IN/OUT OF THE CAR, AND IN/OUT OF SHOWER MORE EASILY. SHE STATES SHE REALLY APPRECIATES BEING ABLE TO BEND OVER AND PICK THINGS UP BECAUSE SHE CAN USUALLY DO IT NOW WITHOUT NEEDING TO ASK SOMEONE ELSE TO DO IT FOR HER. SHE ALSO STATES I HAVE MORE CONFIDENCE IN MY WALKING AND I HAVE LESS PAIN. SHE REPORTS THE ONLY PAIN SHE HAS RIGHT NOW IS SOME R THIGH PAIN FROM PULLING A MUSCLE FOR NO APPARENT REASON. SHE DOESN'T REMEMBER WHEN OR HOW SHE PULLED IT BUT STATES IT IS GETTING BETTER. PATIENT REPORTS SHE IS NOT ABLE TO COME FOR INDEP WATER EX AND HAS BEEN ABLE TO DO HEP GIVEN X 2 DAYS WITH GOOD TOLERANCE. Pain R thigh: Pain Intensity (Out of 10): 3 Overall Improvement % Improvement: 50 Objective Objective/Function: PATIENT WAS SEEN TODAY FOR RE-ASSESSMENT OF PROGRESS TOWARD THE SET PT GOALS AND THE NEED FOR FURTHER PHYSICAL THERAPY VS READINESS FOR DISCHARGE. PATIENTS PROGRESS HAS PLATEAUED. SHE IS APPROPRIATE FOR AND AGREEABLE TO DISCHARGE TO HEP. THIS PATIENT AMBULATES INDEP'LY INTO PT LEANING FAIRLY HEAVILY ON FWW WITH SLOW CADANCE AND WITH R LE IN EXTERNAL ROTATION COMPARED TO L. SHE IS A&OX3. SHE IS PLEASANT AND COOPERATIVE TO WORK WITH. TUG TEST: 32.62 WITH FWW 30 STS = 6, ONE BLUE FOAM ON CHAIR AND ONE UE ASSSIT. UNABLE TO TRANSFER SIT TO STAND WITHOUT UE ASSIST WITH BLUE FOAM ON CHAIR AND UNABLE TO TRANSFER SIT TO STAND FROM CHAIR WITH ONE UE ASSIST WITHOUT BLUE FOAM ON CHAIR. Goals Goal 1:: DECREASE C/O R KNEE PAIN TO 0-3/10 WITH ALL ADL'S. Goal Progress: Goal Met Goal 2:: PATIENT WILL COMPLETE 4-6 STANDS IN 30 SECS WITH ONE BLUE FOAM ON CHAIR AND ONE UE ASSIST ON ARM OF CHAIR TO DEMONSTRATE IMPROVED FUNCTIONAL LE STRENGTH - GOAL MET NEW GOAL - PATIENT WILL COMPLETE 4 STANDS IN 30 SECS WITHOUT BLUE FOAM ON CHAIR AND ONE UE ASSIST ON ARM OF CHAIR TO DEMONSTRATE IMPROVED FUNCTIONAL LE STRENGTH Goal Progress: Not Progressing Goal 3:: PATIENT WILL COMPLETE TUG IN < 30 SECS WITH FWW TO DEMONSTRATE IMPROVED GAIT STABILITY Goal Progress: Progressing Goal 4:: PATIENT WILL BE INDEP WITH A HEP FOR CONTINUED IMPROVEMENT ONCE FORMAL PHYSICAL THERAPY CONCLUDES. Goal Progress: Progressing Plan Plan: D/C D/C Information d/c sentence: If there are questions or concerns regarding this patient's physical therapy, please feel free to call me at [phone]. Thank you for the referral of this patient. Sincerely, Moni Henley, PT, Cert MDT Balance/Gait/Functional tests Balance/Special Test Scores Lower Extremity Functional Score: 30 Improvement % Improvement: 50
== END 2024-10-31 14:27 | disposition home or self-care (01) ==
LOC: PT 11:00
PROVIDERS: PCP Student in an Organized Health Care Education/Training Program; Referring Provider Specialist; Visit Provider Specialist
DX: Z96.651 Presence of right artificial knee joint (principal); M17.11 Unilateral primary osteoarthritis, right knee; Z09 Encounter for follow-up examination after completed treatment for conditions other than malignant neoplasm
CPT/HCPCS: 97113; 97162; 97530

== ENCOUNTER → 2025-02-25 | Outpatient (CLI) | payer MEDICARE, SELFPAY ==
--- NOTE | 2025-02-25 14:37 | NEURO_ITS ---
NCS and/or EMG Patient Report Ordering Doctor: Erik Gomez DATE OF SERVICE: 02/25/25 Clinical Summary: 74 year old female patient with tingling in both hands and some pain in the proximal left upper extremity. Nerve Conduction Studies Summary: Nerve conduction studies were performed in the bilateral upper extremities. The left median-D2 SNAP distal latency was prolonged with reduced amplitude. The right median-D2 SNAP was absent. The left ulnar-D5 SNAP amplitude was reduced. The right ulnar-D5 SNAP distal latency was prolonged. The median-APB CMAP distal latency was prolonged bilaterally. The right median motor conduction velocity was reduced in the forearm segment. The right median F-wave onset latency was prolonged. Needle Examination Summary: Needle examination of select muscles of the bilateral lower extremities demons trated a higher proportion of motor unit action potentials with reduced recruitment, increased amplitude, increased duration, and polyphasia in the bilateral abductor pollicis brevis muscles. Impression: This is an abnormal study. 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
== END | disposition home or self-care (01) ==
LOC: PSN 12:20
PROVIDERS: PCP Student in an Organized Health Care Education/Training Program; Referring Provider Student in an Organized Health Care Education/Training Program; Visit Provider Student in an Organized Health Care Education/Training Program
DX: M79.641 Pain in right hand (principal); M79.642 Pain in left hand; R20.2 Paresthesia of skin
CPT/HCPCS: 95886; 95913